=== PATIENT | male | born 1940 | race Caucasian/White ===

== ENCOUNTER 2017-09-13 13:30 | Outpatient (RCR) | payer MEDICARE, OTHER, SELFPAY ==
--- NOTE | 2017-07-10 14:42 | HP.PTEVAL_ITS ---
Patient's Visit Information AZRA OBRIEN is a 77 year old M referred to Physical Therapy by Emma Mcqueen with a diagnosis of L1-2 Laminectomy. Date of Evaluation: 07/10/17 Physical Therapist: Braydon Kendall PT, - Visit Plan Frequency: 2-3x /Week Duration: 4-6 Weeks Plan: Core stability, LE stretching, bike, and HEP - Subjective Subjective: DOS: 05/25/17. Pt had a laminectomy performed at L1-2. Pt reports he had severe LBP for greater than 7 years. Pt reports he is feeling much better now. Pt he is now able to walk much further and stand much easier since DOS. L LE is much stronger at this time. Pt reports no T or N at this time. Pt reports he had radiculopathy prior to the surgery. Pt denies sleep diff secondary to pain. Pt is currently 0/10 at all times. Able to negotiate stairs with no difficulty - Pain LBP Pain Intensity (Out of 10): 0 - Objective Neuro: B LE sensation is WNL to light touch. B pat reflex= 1/3. MMT: B LE's 5/ 5 throughout. Gait: Pt is able to ambulate 340' untill needing to sit down to rest - Goals Goal 1:: Increase core stability x 1 grade to aid with increasing ozzy for ambulation Goal Time Frame: 4-6 Weeks Goal 2:: Pt will be able to ambulate greater than 680 to aid with community ambulation Goal Time Frame: 4-6 Weeks Goal 3:: I with HEP Goal Time Frame: 4-6 Weeks - Rehabilitation Potential Physical Therapy Diagnosis: Pt has LBP and core weakness secondary to L1-2 laminectomy Rehabilitation Potential: Good - Anticipated Interventions Patient/Client Instruction: Educate patient on: Condition, Plan of Care For the Purpose of:: To improve self management Therapeutic Exercise to Include: Strength training, Endurance training, Body mechanics, Postural training, Flexibilty training, Dynamic Lumbar Stabilization For the Purpose of:: To decrease pain, To increase ROM, To improve muscle performance and motor function Cryotherapy (ice pack, ice massage): Yes For the Purpose of:: To decrease pain Thank you for the opportunity to evaluate your patient. For Medicare and Medicare HMO plans, please review the plan of care and approve it. It will need to be FAXED BACK to us at [phone] for Medicare purposes. Please let me know if there are questions or concerns regarding this plan of care. Physician Signature: Date:
--- NOTE | 2017-08-07 14:06 | HP.PTREVAL_ITS ---
Emma Mcqueen, It has been my pleasure to treat AZRA OBRIEN over the last 9 visits for L1-2 Laminectomy. Please see the progress note below for an update on the physical therapy plan of care! Subjective: Pt reports that he is feeling good. Pt is now able to lift his L leg higher Objective/Function: Pt has 0/10 LBP. Gait ozzy has improved to 510'. Pt is progressing with HEP Plan Plan: Continue: Core stability, LE stretching, bike, and HEP Goals Goal 1:: Increase core stability x 1 grade to aid with increasing ozzy for ambulation Goal Time Frame: 4-6 Weeks Goal Progress: Progressing Goal 2:: Pt will be able to ambulate greater than 680 to aid with community ambulation Goal Time Frame: 4-6 Weeks Goal Progress: Progressing Goal 3:: I with HEP Goal Time Frame: 4-6 Weeks Goal Progress: Progressing Anticipated Interventions Patient/Client Instruction: Educate patient on: Condition, Plan of Care For the Purpose of:: To improve self management Therapeutic Exercise to Include: Strength training, Endurance training, Body mechanics, Postural training, Flexibilty training, Dynamic Lumbar Stabilization For the Purpose of:: To decrease pain, To increase ROM, To improve muscle performance and motor function Cryotherapy (ice pack, ice massage): Yes For the Purpose of:: To decrease pain Please do not hesitate to contact me at [phone] by phone or Fax: if you have questions or concerns regarding this new plan of care! Sincerely, Braydon Kendall, PT,
--- NOTE | 2017-09-13 14:02 | HP.PTDCSUM_ITS ---
HP - PT D/C Summary It has been my pleasure to treat AZRA OBRIEN under orders from Emma Mcqueen, for the diagnosis of L1-2 Laminectomy for a total of 16 visit(s). Discharge Date: Please see the following information for a summary of their discharge status. - Subjective Subjective: No pain this date. Able to get in/out of car I now - Pain LBP Pain Intensity (Out of 10): 0 Left Hip Pain Intensity (Out of 10): 0 - Overall Improvement % Improvement: 65 - Objective Objective/Function: Pt is still very limited with ambulation as he can walk 340 ' I until fatigued. Pt is I with HEP. Core and LE strength improving as well as he is I with car transfers at this time. Pt is progressing well and will cont with HEP - Goals Goal 1:: Increase core stability x 1 grade to aid with increasing ozzy for ambulation Goal Progress: Progressing Goal 2:: Pt will be able to ambulate greater than 680 to aid with community ambulation Goal Progress: Progressing Goal 3:: I with HEP Goal Progress: Goal Met - Plan Plan: Discontinue - D/C Information If there are questions or concerns regarding this patient's physical therapy, please feel free to call me at [phone]. Thank you for the referral of this patient. Sincerely, Braydon Kendall, PT,
== END 2017-09-13 19:00 | disposition home or self-care (01) ==
LOC: PT 13:30
PROVIDERS: Family Provider Family Medicine; PCP Family Medicine; Visit Provider Orthopaedic Surgery
DX: Z98.890 Other specified postprocedural states (principal)
CPT/HCPCS: 97110; 97161; 97530; G8981; G8982; G8983

== ENCOUNTER → 2017-09-27 15:46 | Outpatient (CLI) | payer MEDICARE, OTHER, SELFPAY ==
[2017-08-01 14:40] VITALS: BP 142/74
[2017-09-27 17:43] LABS: Albumin, Serum 3.6 g/dL (3.2-5.0); BUN 38 mg/dL (7-18); BUN/Creat Ratio 13.5 RATIO (10-20); Calcium,Total 8.3 mg/dL (8.5-10.1); Chloride 104 mmol/L (98-107); Creatinine, Serum 2.81 mg/dL (0.70-1.30); EST Glomerular Filtration Rate 23 mL/min (>60); Est Glom Filt Rate - Afr Amer 28 mL/min (>60); Glucose 124 mg/dL (74-106); Phosphorus 3.2 mg/dL (2.5-4.9); Sodium Level 142 mmol/L (136-145)
== END ==
PROVIDERS: Family Provider Family Medicine; PCP Family Medicine; Visit Provider Internal Medicine Nephrology
DX: N18.4 Chronic kidney disease, stage 4 (severe) (principal)
CPT/HCPCS: 36415; 80069

== ENCOUNTER → 2017-12-17 08:03 | Outpatient (CLI) | payer MEDICARE, OTHER, SELFPAY ==
[2017-12-17 10:02] LABS: Absolute Lymphocyte Count 2.85 X10^3/ul (0.83-4.51); Absolute Neutrophil Count 6.6 X10^3/uL (2.0-7.7); Basophil# 0.07 X10^3/uL; Basophil% 0.6 % (0-1); Eosinophil# 0.56 X10^3/uL; Eosinophils% 4.9 % (0-5); Hematocrit 36.5 % (40-54); Hemoglobin 11.9 g/dl (13.0-16.5); Lymphocyte # 2.85 X10^3/ul (4.0); Lymphocyte % 25.2 % (19-41); Mean Corp Hgb Conc 32.6 g/gl (32-36); Mean Corpuscular Hgb 32.8 pg (27.0-32.0); Mean Corpuscular Volume 100.6 fL (80-94); Mean Platelet Vol. 10.9 fl (6.2-12.0); Monocyte# 1.27 X10^3/uL; Monocyte% 11.2 % (0-10); Neutrophil # 6.55 X10^3/uL (2.7-7.7); Neutrophil % 57.8 % (47-70); Platelet Count 275 K/mm3 (150-450); RBC Distribution Width CV 12.3 % (11.6-14.6); RBC Distribution Width SD 43.8 fl (35.1-43.9); Red Blood Count 3.63 M/mm3 (4.6-6.2); White Blood Count 11.3 K/mm3 (4.4-11.0)
[2017-12-17 10:03] LABS: POSITIVE COUNT NO; POSITIVE DIFFERENTIAL NO; POSITIVE MORPHOLOGY NO
[2017-12-17 10:15] LABS: ALB/GLOB Ratio 0.9 RATIO (0.9-2.4); AST(SGOT) 15 U/L (15-37); Alanine Aminotransfer ALT/SGPT 19 U/L (16-61); Albumin, Serum 3.2 g/dL (3.2-5.0); Alkaline Phosphatase 94 U/L (45-117); Anion Gap 6 (5-15); BUN 42 mg/dL (7-18); BUN/Creat Ratio 14.9 RATIO (10-20); Calcium,Total 8.4 mg/dL (8.5-10.1); Chloride 108 mmol/L (98-107); Cholesterol 126 mg/dL (200); Creatinine, Serum 2.82 mg/dL (0.70-1.30); EST Glomerular Filtration Rate 23 mL/min (>60); Est Glom Filt Rate - Afr Amer 28 mL/min (>60); Globulin 3.5 g/dL (2.2-4.2); Glucose 131 mg/dL (74-106); High Density Lipoprotein 36 mg/dL; Potassium 4.3 mmol/L (3.5-5.1); Protein, Total 6.7 g/dL (6.4-8.2); Sodium Level 142 mmol/L (136-145); Triglycerides 142 mg/dL; Very Low Density Lipoprotein 28 mg/dL (5-40)
== END ==
PROVIDERS: Family Provider Family Medicine; PCP Family Medicine; Visit Provider Family Medicine
DX: E78.00 Pure hypercholesterolemia, unspecified (principal); E55.9 Vitamin D deficiency, unspecified
CPT/HCPCS: 36415; 80053; 80061; 82306; 85025

== ENCOUNTER → 2018-01-03 07:59 | Outpatient (CLI) | payer MEDICARE, OTHER, SELFPAY | PROVIDERS: Family Provider Family Medicine; PCP Family Medicine; Visit Provider Internal Medicine Nephrology | DX: E11.22 Type 2 diabetes mellitus with diabetic chronic kidney disease (principal); N18.4 Chronic kidney disease, stage 4 (severe) ==

== ENCOUNTER → 2018-01-29 14:49 | Outpatient (CLI) | payer MEDICARE, OTHER, SELFPAY ==
[2018-01-29 17:23] LABS: Albumin, Serum 3.1 g/dL (3.2-5.0); BUN 39 mg/dL (7-18); BUN/Creat Ratio 14.3 RATIO (10-20); Calcium,Total 8.6 mg/dL (8.5-10.1); Chloride 107 mmol/L (98-107); Creatinine, Serum 2.72 mg/dL (0.70-1.30); EST Glomerular Filtration Rate 24 mL/min (>60); Est Glom Filt Rate - Afr Amer 29 mL/min (>60); Glucose 146 mg/dL (74-106); Phosphorus 3.4 mg/dL (2.5-4.9); Potassium 4.1 mmol/L (3.5-5.1); Sodium Level 141 mmol/L (136-145)
[2018-01-29 17:29] LABS: Protein, Urine (Random) 52.6 mg/dL (<11.9); Protein:Creat Ratio 931 mg/g CRE (0-200)
[2018-01-30 08:36] LABS: PTHIN 128.8 pg/mL (18.4-80.1)
== END ==
PROVIDERS: Family Provider Family Medicine; PCP Family Medicine; Visit Provider Internal Medicine Nephrology
DX: E11.22 Type 2 diabetes mellitus with diabetic chronic kidney disease (principal); N18.4 Chronic kidney disease, stage 4 (severe)
CPT/HCPCS: 36415; 80069; 82570; 83970; 84156

== ENCOUNTER → 2018-04-09 14:09 | Outpatient (CLI) | payer MEDICARE, OTHER, SELFPAY | PROVIDERS: Family Provider Family Medicine; PCP Family Medicine; Visit Provider Internal Medicine Pulmonary Disease | DX: I27.20 Pulmonary hypertension, unspecified (principal) | CPT/HCPCS: 71250 ==

== ENCOUNTER → 2018-04-18 13:01 | Outpatient (CLI) | payer MEDICARE, OTHER, SELFPAY ==
[2018-04-18 14:04] LABS: Anion Gap 10 (5-15); Chloride 103 mmol/L (98-107); Potassium 4.5 mmol/L (3.5-5.1); Sodium Level 140 mmol/L (136-145)
[2018-04-18 17:15] LABS: Creatinine, Serum 2.92 mg/dL (0.70-1.30); EST Glomerular Filtration Rate 22 mL/min (>60); Est Glom Filt Rate - Afr Amer 27 mL/min (>60)
== END ==
PROVIDERS: Family Provider Family Medicine; PCP Family Medicine; Visit Provider Internal Medicine Pulmonary Disease
DX: I27.20 Pulmonary hypertension, unspecified (principal); Z79.899 Other long term (current) drug therapy
CPT/HCPCS: 36415; 80051; 82565

== ENCOUNTER → 2018-04-30 08:31 | Outpatient (CLI) | payer MEDICARE, OTHER, SELFPAY ==
[2018-04-30 10:38] LABS: Absolute Neutrophil Count 6.5 X10^3/uL (2.0-7.7); Basophil# 0.05 X10^3/uL; Basophil% 0.5 % (0-1); Eosinophil# 0.64 X10^3/uL; Eosinophils% 6.4 % (0-5); Hematocrit 35.6 % (40-54); Hemoglobin 11.6 g/dl (13.0-16.5); Lymphocyte % 18.9 % (19-41); Mean Corp Hgb Conc 32.6 g/gl (32-36); Mean Corpuscular Hgb 32.4 pg (27.0-32.0); Mean Corpuscular Volume 99.4 fL (80-94); Mean Platelet Vol. 10.7 fl (6.2-12.0); Neutrophil # 6.45 X10^3/uL (2.7-7.7); Neutrophil % 64.1 % (47-70); Platelet Count 269 K/mm3 (150-450); RBC Distribution Width CV 12.6 % (11.6-14.6); RBC Distribution Width SD 45.6 fl (35.1-43.9); Red Blood Count 3.58 M/mm3 (4.6-6.2); White Blood Count 10.1 K/mm3 (4.4-11.0)
[2018-04-30 10:41] LABS: POSITIVE COUNT NO; POSITIVE DIFFERENTIAL NO; POSITIVE MORPHOLOGY NO
[2018-04-30 11:10] LABS: Protein, Urine (Random) 34.5 mg/dL (<11.9); Protein:Creat Ratio 925 mg/g CRE (0-200)
[2018-04-30 11:15] LABS: ALB/GLOB Ratio 0.8 RATIO (0.9-2.4); AST(SGOT) 15 U/L (15-37); Alanine Aminotransfer ALT/SGPT 18 U/L (16-61); Alkaline Phosphatase 89 U/L (45-117); Anion Gap 10 (5-15); BUN 37 mg/dL (7-18); BUN/Creat Ratio 14.2 RATIO (10-20); Calcium,Total 8.4 mg/dL (8.5-10.1); Chloride 107 mmol/L (98-107); EST Glomerular Filtration Rate 25 mL/min (>60); Est Glom Filt Rate - Afr Amer 31 mL/min (>60); Globulin 3.6 g/dL (2.2-4.2); Glucose 123 mg/dL (74-106); Phosphorus 3.8 mg/dL (2.5-4.9); Potassium 4.6 mmol/L (3.5-5.1); Protein, Total 6.6 g/dL (6.4-8.2); Sodium Level 142 mmol/L (136-145)
[2018-04-30 11:18] LABS: AST(SGOT) 15 U/L (15-37); Alanine Aminotransfer ALT/SGPT 18 U/L (16-61); Alkaline Phosphatase 85 U/L (45-117); Bilirubin, Direct 0.15 mg/dL (0.00-0.30); Cholesterol 119 mg/dL (200); Globulin 3.6 g/dL (2.2-4.2); High Density Lipoprotein 31 mg/dL; Protein, Total 6.6 g/dL (6.4-8.2); Triglycerides 146 mg/dL; Very Low Density Lipoprotein 29 mg/dL (5-40)
[2018-04-30 11:26] LABS: Hemoglobin A1c 7.4 % (4.2-6.3)
[2018-04-30 11:30] LABS: BNP,B-Type NATRIURETIC PEPTIDE 70.7 pg/mL (0-100)
[2018-04-30 13:48] LABS: PTHIN 186.1 pg/mL (18.4-80.1)
[2018-05-01 12:13] LABS: Vitamin D,25 Hydroxy 45.7 ng/mL (29.95-100.01)
== END ==
PROVIDERS: Physician Assistant Medical; Family Provider Family Medicine; PCP Family Medicine; Visit Provider Family Medicine
DX: E11.22 Type 2 diabetes mellitus with diabetic chronic kidney disease (principal); N18.9 Chronic kidney disease, unspecified; E11.69 Type 2 diabetes mellitus with other specified complication; R06.09 Other forms of dyspnea; E78.00 Pure hypercholesterolemia, unspecified; E55.9 Vitamin D deficiency, unspecified
CPT/HCPCS: 36415; 80053; 80061; 80076; 82306; 82570; 83036; 83880; 83970; 84100; 84156; 85025

== ENCOUNTER → 2018-06-04 09:02 | Outpatient (CLI) | payer MEDICARE, OTHER, SELFPAY ==
--- NOTE | 2018-06-04 09:07 | RAD_ITS ---
STUDY: X-RAY - PARANASAL SINUSES REASON FOR EXAM: Male, 78 years old. Pain over left maxillary sinus. Nasal congestion. TECHNIQUE: 3 view(s) of the paranasal sinuses were obtained. COMPARISON: None. FINDINGS: There is mild mucosal thickening of the ethmoid and probably the maxillary sinuses. Frontal and sphenoid sinuses are well aerated. No air-fluid levels. Normal visualized facial bones. The soft tissue structures are unremarkable. RAD/Sinuses min 3 Views IMPRESSION: Mild ethmoid and maxillary sinus mucosal thickening. Electronically Signed: Wil West MD at 2:13 EDT , Service support ,
== END ==
PROVIDERS: Family Provider Family Medicine; PCP Family Medicine; Referring Provider Family Medicine; Visit Provider Family Medicine
DX: G50.1 Atypical facial pain (principal)
CPT/HCPCS: 70220

== ENCOUNTER 2018-06-18 06:00 | Outpatient (RCR) | payer SELFPAY | END 2018-06-19 23:59 | LOC: PR 06:00 | PROVIDERS: Family Provider Family Medicine; PCP Family Medicine; Visit Provider Family Medicine | DX: Z00.00 Encounter for general adult medical examination without abnormal findings (principal) ==

== ENCOUNTER 2018-07-18 06:00 | Outpatient (RCR) | payer SELFPAY | END 2018-07-19 23:59 | LOC: PR 06:00 | PROVIDERS: Family Provider Family Medicine; PCP Family Medicine; Visit Provider Family Medicine | DX: Z00.00 Encounter for general adult medical examination without abnormal findings (principal) ==

== ENCOUNTER → 2018-07-30 09:00 | Outpatient (CLI) | payer MEDICARE, OTHER, SELFPAY ==
[2018-05-08 14:40] VITALS: BMI 44.6
[2018-07-30 14:17] LABS: Albumin, Serum 3.4 g/dL (3.2-5.0); BUN 43 mg/dL (7-18); BUN/Creat Ratio 14.3 RATIO (10-20); Calcium,Total 8.6 mg/dL (8.5-10.1); Chloride 103 mmol/L (98-107); EST Glomerular Filtration Rate 22 mL/min (>60); Est Glom Filt Rate - Afr Amer 26 mL/min (>60); Glucose 181 mg/dL (74-106); Phosphorus 3.8 mg/dL (2.5-4.9); Potassium 4.4 mmol/L (3.5-5.1); Sodium Level 142 mmol/L (136-145)
[2018-07-30 14:43] LABS: PTHIN 251.4 pg/mL (18.4-80.1)
--- OUTSIDE RECORDS SUMMARY | 2018-11-09 06:52 | XMS RPT_ITS ---
:1940 Author Organization OHIP Support Name Relationship Address Phone PATRICIA, ISAEL Unavailable [facility] + [place] [address] R Unavailable Unavailable Unavailable ROMICK, TAWNY Unavailable [address] + [place] [address] PATRICIA, ISAEL Unavailable [facility] + [place] [address] R Unavailable Unavailable Unavailable ROMICK, TAWNY Unavailable [address] + [place] [address] PATRICIA, ISAEL Unavailable [facility] + [place] [address] R Unavailable Unavailable Unavailable ROMICK, TAWNY Unavailable [address] + [place] [address] PATRICIA, ISAEL Unavailable [facility] + [place] [address] R Unavailable Unavailable Unavailable ROMICK, TAWNY Unavailable [address] + [place] [address] PATRICIA, ISAEL Unavailable [facility] + [place] [address] R Unavailable Unavailable Unavailable ROMICK, TAWNY Unavailable [address] + [place] [address] PATRICIA, ISAEL Unavailable Unavailable + [place] [address] R Unavailable Unavailable Unavailable ROMICK, TAWNY Unavailable [address] + [place] [address] PATRICIA, ISAEL Unavailable [facility] + [place] [address] R Unavailable Unavailable Unavailable ROMICK, TAWNY Unavailable [address] + [place] [address] PATRICIA, ISAEL Unavailable [facility] + [place] [address] R Unavailable Unavailable Unavailable ROMICK, TAWNY Unavailable [address] + [place] [address] PATRICIA, ISAEL Unavailable Unavailable + [place] [address] R Unavailable Unavailable Unavailable ROMICK, TANWY Unavailable [address] + [place] [address] PATRICIA, ISAEL Unavailable . + [place] [address] R Unavailable Unavailable Unavailable ROMICK, TAWNY Unavailable [address] + [place] [address] PATRICIA, ISAEL Unavailable . + [place] [address] R Unavailable Unavailable Unavailable ROMICK, TAWNY Unavailable [address] + [place] [address] PATRICIA, ISAEL Unavailable Unavailable + [place] [address] R Unavailable Unavailable Unavailable ROMICK, TAWNY Unavailable [address] + [place] [address] PATRICIA, ISAEL Unavailable 1 + [place] [address] R Unavailable Unavailable Unavailable ROMICK, TAWNY Unavailable [address] + [place] [address] PATRICIA, ISAEL Unavailable 1 + [place] [address] R Unavailable Unavailable Unavailable ROMICK, TAWNY Unavailable [address] + [place] [address] PATRICIA, ISAEL Unavailable Unavailable + [place] [address] R Unavailable Unavailable Unavailable ROMICK, TAWNY Unavailable [address] + [place] [address] PATRICIA, ISAEL Unavailable Unavailable + [place] [address] R Unavailable Unavailable Unavailable ROMICK, TAWNY Unavailable [address] + [place] [address] PATRICIA, ISAEL Unavailable Unavailable + [place] [address] R Unavailable Unavailable Unavailable ROMICK, TAWNY Unavailable [address] + [place] [address] PATRICIA, ISAEL Unavailable Unavailable + [place] [address] R Unavailable Unavailable Unavailable ROMICK, TAWNY Unavailable [address] + [place] [address] PATRICIA, ISAEL Unavailable NA + [place], [place] R Unavailable Unavailable Unavailable ROMICK, TAWNY Unavailable [address] + [place] [address] PATRICIA, ISAEL Unavailable NA + [place], [place] R Unavailable Unavailable Unavailable ROMICK, TAWNY Unavailable [address] + [place] [address] PATRICIA, ISAEL Unavailable NA + [place], [place] R Unavailable Unavailable Unavailable ROMICK, TAWNY Unavailable [address] + [place] [address] PATRICIA, ISAEL Unavailable NA + [place], [place] R Unavailable Unavailable Unavailable ROMICK, TAWNY Unavailable [address] + [place] [address] PATRICIA, ISEAL Unavailable NA + [place], [place] R Unavailable Unavailable Unavailable ROMICK, TAWNY Unavailable [phone] [place] [address] Care Team Providers Name Role Phone Elizabeth Rios Attending Unavailable Dc, Dangelo Primary Care Unavailable Tamar Isael Benito Attending Unavailable Tamar Isael M Referring Unavailable Dc, Dangelo Primary Care Unavailable Yanique Sloan Attending Unavailable Dao, Dangelo Referring Unavailable Yanique Sloan Attending Unavailable Yanique Sloan Referring Unavailable Dc, Dangelo Primary Care Unavailable Dc, Dangelo Attending Unavailable Dc, Dangelo Referring Unavailable Dc, Dangelo Primary Care Unavailable Elier Dcic Attending Unavailable Dc, Dangelo Referring Unavailable Dc, Dangelo Primary Care Unavailable Elizabeth Rios Attending Unavailable Dc, Dangelo Primary Care Unavailable Elizabeth Rios Referring Unavailable Elizabeth Rios Attending Unavailable Dc, Dangelo Primary Care Unavailable GabrielElizabeth Referring Unavailable Dc, Dangelo Attending Unavailable Dc, Dangelo Primary Care Unavailable Emma Mcqueen Attending Unavailable Dc, Dangelo Referring Unavailable Dc, Dangelo Primary Care Unavailable Elizabeth Rios Attending Unavailable Dc, Dangelo Primary Care Unavailable Sibilia, Chema Attending Unavailable Sibilia, Chema Referring Unavailable Dc, Dangelo Primary Care Unavailable Sibilia, Chema Attending Unavailable Sibilia, Chema Referring Unavailable Dc, Dangelo Primary Care Unavailable Elizabeth Rios Attending Unavailable Dc, Dangelo Primary Care Unavailable Dc, Dangelo Attending Unavailable Dc, Dangelo Primary Care Unavailable Sofiya Aldana Attending Unavailable Jj De León Attending Unavailable Dc, Dangelo Referring Unavailable Dc, Dangelo Primary Care Unavailable Elizabeth Rios Attending Unavailable Dc, Dangelo Primary Care Unavailable Dc, Dangelo Attending Unavailable Dc, Dangelo Primary Care Unavailable Dc, Dangelo Attending Unavailable Dc, Dangelo Referring Unavailable Dc, Dangelo Primary Care Unavailable Emma Mcqueen Attending Unavailable Dc, Dangelo Referring Unavailable Dc, Dangelo Attending Unavailable Dc, Dangelo Primary Care Unavailable Dc, Dangelo Attending Unavailable Dc, Dangelo Primary Care Unavailable Dc, Dangelo Referring Unavailable PROBLEMS PROBLEMS DATE TYPE CONDITION / CODE ATTENDING STATUS SOURCE Unknown M25.561 - Pain in right [facility], Active [place] knee / M25.561(ICD-10) [facility] Repository Unknown 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[facility], Active [place] 8 primary osteoarthritis, [facility] right knee / Hospital M17.11(ICD-10) Repository Unknown I25.10 - Atherosclerotic [facility], Active [place] 8 heart disease of [place] [facility] coronary artery without Hospital angina pectoris / Repository I25.10(ICD-10) Unknown C61 - Malignant neoplasm [facility], Active [place] 8 of prostate / Isael M [facility] C61(ICD-10) Hospital Repository Unknown Z00.00 - Encounter for Dangelo Dc Active [place] 9 general adult medical Community examination without Hospital abnormal findings / Repository Z00.00(ICD-10) Unknown N18.4 - Chronic kidney Elier Dcic Active [place] 9 disease, stage 4 Community (severe) / N18.4(ICD-10) Hospital Repository Unknown 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, 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 / Hospital N25.81(ICD-10) Repository Unknown G50.1 - Atypical facial Dangelo Dc Active [place] 8 pain / G50.1(ICD-10) [facility] Hospital Repository Unknown I27.20 - Pulmonary [facility], Active [place] 8 hypertension, Jj Community unspecified / Hospital I27.20(ICD-10) Repository Unknown 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 [place] [place] Status: Signed Intake Intake Visit Reasons: RIGHT [...] Sinus bradycardia (Acute) Atherosclerotic heart disease of [place] coronary artery without angina pectoris (Chronic) Renal [...] Route Admin Location Lot Number Expiration Date[employer] 80 mg Intra-Articularright knee [id number] 10/19/19 6724-2102-97 [employer]Site Vision Assessment AND Plan 1. 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, [address] CRYSTALS, BODY FLUID Collected: 08/06/2018 Status: C Source: [place] 6:27 PM [facility] REPOSITORY TYPE CODE TESTS RESULT OUT OF [...] follow Performed By: #### L200.0400, L200.4175 #### [facility] [address] [place], [place], [address] Observed: 08/06/2018 Status: F Source: [place] CULTURE, BODY FLUID 6:27 PM [facility] REPOSITORY List Antibiotics Last 48 Hours? UNK List Antibiotics to be Started? UNK Gram Stain Centrifuged Specimen? Culture performed on centrifuged specimen Gram Stain 1+ Red Blood Cells No White Blood Cells No organisms seen Body Fluid Cult No growth in 5 days. Cult, Anaerobic No growth in 5 days. Performed By: #### M100.1300 #### [facility] [address] [place], [place], [address] GLUCOSE, SYNOVIAL Collected: 08/06/2018 Status: F Source: [place] FLUID 6:27 PM [facility] REPOSITORY Order Comment: Specimen Source: SYNOVIAL TYPE [...] OR MORE Observed: 08/06/2018 Status: F Source: [facility] 3:41 PM [facility] REPOSITORY [facility] Imaging Services [address] [place] [address] Knee 4 or More Views MR#: [id number] Acct: [id number] Name: AZRA OBRIEN Rep #: [id number] : 1940 M 78 From: Rose Grey MD PCP: Dangelo Dc MD Status: REG CLI Study: Knee 4 or More Views Date of Exam: 08/06/18 Exam# [id number] Ordering Dr: Yanique Sloan DO STUDY: X-RAY [...] CC: Yanique Sloan DO; Dangelo Dc MD House Nurse: Signed PSA,TOTAL- DIAGNOSTIC Collected: 08/05/2018 Status: F Source: [place] 11:27 AM [facility] REPOSITORY TYPE CODE TESTS RESULT OUT OF RANGE REFERENCE UNITS LAB L501.9940 0.0-4.0 ng/mL PSA, Normal DIAGNOSTIC 0.22 Result Comment: This test was performed using the TPSA assay method for the [employer] chemistry system. Values obtained with different assay methods cannot be used interchangably. When changing PSA assays in the course of monitoring a patient, additional sequential testing should be carried out to confirm baseline values. Performed By: #### L501.9940 #### [facility] [address] [place], [place], [address] RENAL PROFILE Collected: 07/30/2018 Status: F Source: [place] 1:31 PM [facility] REPOSITORY TYPE CODE TESTS RESULT OUT OF [...] CO2 28.0 Performed By: #### L500.3600 #### [facility] [address] [place], [address] PTHIN Collected: 07/30/2018 Status: F Source: [place] 1:31 PM [facility] REPOSITORY TYPE CODE TESTS RESULT OUT OF RANGE REFERENCE UNITS LAB L509.1000 18.4-80.1 pg/mL High PTHIN 251.4 Performed By: #### L509.1000 #### [facility] [address] [place], [address] RENAL PROFILE Collected: 07/30/2018 Status: F Source: [place] 1:31 PM [facility] REPOSITORY TYPE CODE TESTS RESULT OUT OF [...] CO2 28.0 Performed By: #### L500.3600 #### [facility] [address] [place], [address] PTHIN Collected: 07/30/2018 Status: F Source: [place] 1:31 PM [facility] REPOSITORY TYPE CODE TESTS RESULT OUT OF RANGE REFERENCE UNITS LAB L509.1000 18.4-80.1 pg/mL High PTHIN 251.4 Performed By: #### L509.1000 #### [facility] [address] [place], [place], [address] ORTHOPEDIC VISIT Observed: 06/11/2018 Status: F Source: [place] REPORT 11:45 AM [facility] REPOSITORY [facility] Orthopa[facility]ics AND Sports Medicine [address] [place] [address] OFFICE VISIT Date of Service: 06/11/18 MR#: [id number] Acct: [id number] Name: AZRA OBRIEN Ekta Rep #: [id number] : 1940 Provider: Emma Mcqueen MD Age/Sex: 78/M Location: [facility] [place] Status: Signed Intake [...] mg PO DAILY 05/08/18 [History Confirmed 05/08/18] [facility] Medical History Sinus bradycardia (Acute) Atherosclerotic heart disease of [place] coronary artery without angina pectoris (Chronic) Renal [...] MD Cosigner Signature: Date (if applicable) CC: SINUSES MIN 3 VIEWS Observed: 06/04/2018 Status: F Source: [place] 9:08 AM [facility] REPOSITORY [facility] Imaging Services [address] [place] [address] Sinuses min 3 Views MR#: [id number] Acct: [id number] Name: AZRA OBRIEN Rep #: [id number] : 1940 M 78 From: Wli [place] PCP: Dangelo Dc MD Status: REG CLI Study: Sinuses min 3 Views Date of Exam: 06/04/18 Exam# [id number] Ordering Dr: Dangelo Dc MD STUDY: X-RAY [...] Service support , CC: Dangelo Dc MD House Nurse: Signed CARDIOLOGY VISIT Observed: 05/08/2018 Status: F Source: [place] REPORT 3:28 PM [facility] REPOSITORY [facility] [address] [place] [address] OFFICE VISIT Date of Service: 05/08/18 MR#: [id number] Acct: [id number] Name: AZRA OBRIEN Rep #: [id number] : 1940 Provider: Jj De León MD Age/Sex: 78/M [place] [facility] [place]: Signed HPI HPI Details: AZRA OBRIEN, [...] mg PO DAILY 05/08/18 [History Confirmed 05/08/18] [facility] Medical History Sinus bradycardia (Acute) Atherosclerotic heart disease of [place] coronary artery without angina pectoris (Chronic) Renal [...] had a transthoracic echocardiogram on 03/02/2016 at [facility] Interpretation Summary The study was technically difficult. [...] an exercise tolerance test at 03/02/2016 at [facility] EXERCISE TOLERANCE TEST: The patient underwent pharmacologic [...] a diagnostic cardiac catheterization on 08/15/2016 at [facility] Final impression: 1. Elevated left ventricular end-diastolic [...] artery duplex study performed on 01/27/2011 at [facility] Right internal carotid artery stenosis less than 50%, which is not hemodynamically significant. Left internal carotid artery stenosis less than 50%, which is not hemodynamically significant. Patent and antegrade vertebrals bilaterally. Plaque formation is similar to the 2009 study with more acoustic shadowing on left, No obvious progression noted. Assessment AND Plan 1. Atherosclerosis of [place] coronary artery of [place] heart without angina pectoris I25.10 Plan At [...] Code Off vis,est,level 4 Diagnoses Atherosclerosis of [place] coronary artery of [place] heart without angina pectoris I25.10 [place] vs. transplanted heart: [place] heart Pulmonary hypertension I27.20 Pure hypercholesterolemia E78.00 Hyperlipidemia type: pure hypercholesterolemia HTN (hypertension), benign I10 Renal insufficiency N28.9 Coding Level of Care Code Off vis,est,level 4 Diagnoses Atherosclerosis of [place] coronary artery of [place] heart without angina pectoris I25.10 [place] vs. transplanted heart: [place] heart Pulmonary hypertension I27.20 Pure hypercholesterolemia E78.00 Hyperlipidemia type: pure hypercholesterolemia HTN (hypertension), benign I10 Renal insufficiency N28.9 05/08/18 1528 <Electronically signed by Jj De León MD> Date Jj De León MD Cosigner Signature: Date (if applicable) CC: Elizabeth Rios DO; Dangelo Dc MD; Chema Syed MD PTHIN Collected: 04/30/2018 Status: F Source: [place] 8:48 AM [facility] REPOSITORY TYPE CODE TESTS RESULT OUT OF RANGE REFERENCE UNITS LAB L509.1000 18.4-80.1 pg/mL High PTHIN 186.1 Performed By: #### L509.1000 #### [facility] [address] [place], [place], [address] LIVER PROFILE Collected: 04/30/2018 Status: F Source: [place] 8:40 AM [facility] REPOSITORY TYPE CODE TESTS RESULT OUT OF [...] 0.15 Performed By: #### L500.3400, L500.4100 #### [facility] [address], [place], [address] LIPID PROFILE Collected: 04/30/2018 Status: F Source: [place] 8:40 AM [facility] REPOSITORY TYPE CODE TESTS RESULT OUT OF [...] 29 Performed By: #### L500.3400, L500.4100 #### [facility] [address] [place], [place], [address] CBC W/DIFF, AUTOMATED Collected: 04/30/2018 Status: F Source: [place] 8:35 AM [facility] REPOSITORY Order Comment: Order Date: 04/24/18 Order Info: 0184-1 - CBCD Comments: cc copy to Kunal Smith [facility] TYPE CODE TESTS RESULT OUT OF RANGE [...] Performed By: #### L100.0100, L500.4050, L501.9985 #### [facility] [address] [place], [address] COMPREHENSIVE METABOLIC Collected: 04/30/2018 Status: F Source: [facility] 8:35 AM [facility] REPOSITORY Order Comment: Order Date: 04/24/18 Order Info: 0786-1 - [facility] SEND RESULTS TO , , AND Comments: [...] Performed By: #### L100.0100, L500.4050, L501.9985 #### [facility] [address] [place], [address] HEMOGLOBIN A1C Collected: 04/30/2018 Status: F Source: [place] 8:35 AM [facility] REPOSITORY Order Comment: Order Date: 04/24/18 Order Info: 4548-4 - A1C Comments: cc copy to Kunal Smith, Genetcc copy to Kunal Smith [facility] TYPE CODE TESTS RESULT OUT OF RANGE REFERENCE UNITS LAB L501.9985 4.2-6.3 % High HGB A1C 7.4 Performed By: #### L100.0100, L500.4050, L501.9985 #### [facility] [address] [place], [address] PROTEIN+CREATININE Collected: Status: F Source: [place] RATIO,URINE 04/30/2018 8:35 AM [facility] REPOSITORY Order Comment: SEND RESULTS TO TYPE CODE TESTS RESULT OUT OF RANGE REFERENCE UNITS LAB L501.1200 NO RANGE EST. mg/dL Normal UR CREAT 37.30 LAB L501.1930 <11.9 mg/dL High 34.5 PROTEIN,UR.R AN. LAB L501.1940 0-200 mg/g CRE High PROT:CRE 925 RATIO Performed By: #### L501.0900 #### [facility] [address] [place], [address] PHOSPHORUS Collected: 04/30/2018 Status: F Source: [place] 8:35 AM [facility] REPOSITORY Order Comment: Order Date: 04/24/18 Order Info: 0786-1 - CMP SEND RESULTS TO , , AND Comments: cc copy to Kunal Smith [facility] TYPE CODE TESTS RESULT OUT OF RANGE REFERENCE UNITS LAB L501.2300 2.5-4.9 mg/dL Normal PHOS 3.8 Performed By: #### L501.2300 #### [facility] [address] [place], [address] BNP,B-TYPE NATRIURETIC Collected: 04/30/2018 Status: F Source: [place] 8:35 AM [facility] REPOSITORY Order Comment: SEND RESULTS TO , , AND TYPE CODE TESTS RESULT OUT OF RANGE REFERENCE UNITS LAB L503.6620 0-100 pg/mL Normal B-TYPE 70.7 [facility] PEP Performed By: #### L503.6620 #### [facility] [address] [place], [place], [address] VITAMIN D,25 HYDROXY Collected: 04/30/2018 Status: F Source: [place] 8:35 AM [facility] REPOSITORY Order Comment: SEND RESULTS TO , [...] (>250 nmol/L) Performed By: #### L506.1000 #### [facility] [address] [place], [place], [address] ELECTROLYTE PANEL Collected: 04/18/2018 Status: F Source: [place] 1:08 PM [facility] REPOSITORY TYPE CODE TESTS RESULT OUT OF RANGE REFERENCE UNITS LAB L501.5300 136-145 mmol/L Normal NA 140 LAB L501.5600 3.5-5.1 mmol/L Normal K 4.5 LAB L501.5900 98-107 mmol/L Normal CL 103 LAB L501.6100 21.0-32.0 mmol/L Normal CO2 27.0 LAB L501.6200 5-15 Normal GAP 10 Performed By: #### L501.5294, L501.1105 #### [facility] [address] [place], [address] SERUM CREATININE AND Collected: 04/18/2018 Status: F Source: [place] GFR 1:08 PM [facility] REPOSITORY TYPE CODE TESTS RESULT OUT OF [...] Calc Performed By: #### L501.5294, L501.1105 #### [facility] [address] [place], [address] CHEST WITHOUT Observed: 04/09/2018 Status: F Source: [place] CONTRAST 2:10 PM [facility] REPOSITORY [facility] Imaging Services [address] [place] [address] Chest without Contrast MR#: [id number] Acct: [id number] Name: AZRA OBRIEN Rep #: [id number] : 1940 M 77 From: Mart Lawson MD PCP: Dangelo Dc MD Status: REG CLI Study: Chest without Contrast Date of Exam: 04/09/18 Exam# [id number] Ordering Dr: Chema Syed MD STUDY: CT [...] CC: Dangelo Dc MD; Chema Syed MD House Nurse: Signed RENAL PROFILE Collected: 01/29/2018 Status: F Source: [place] 2:51 PM [facility] REPOSITORY TYPE CODE TESTS RESULT OUT OF [...] CO2 27.0 Performed By: #### L500.3600 #### [facility] [address] [place], [address] PROTEIN+CREATININE Collected: Status: F Source: [place] RATIO,URINE 01/29/2018 2:51 PM [facility] REPOSITORY TYPE CODE TESTS RESULT OUT OF RANGE REFERENCE UNITS LAB L501.1200 NO RANGE EST. mg/dL Normal UR CREAT 56.50 LAB L501.1930 <11.9 mg/dL High 52.6 PROTEIN,UR.R AN. LAB L501.1940 0-200 mg/g CRE High PROT:CRE 931 RATIO Performed By: #### L501.0900 #### [facility] [address], [place], [address] PTHIN Collected: 01/29/2018 Status: F Source: [place] 2:51 PM [facility] REPOSITORY TYPE CODE TESTS RESULT OUT OF RANGE REFERENCE UNITS LAB L509.1000 18.4-80.1 pg/mL High PTHIN 128.8 Performed By: #### L509.1000 #### [facility] [address] [place], [address] ORTHOPEDIC VISIT Observed: 01/08/2018 Status: F Source: [place] REPORT 3:45 PM [facility] REPOSITORY [facility] [address] [place] [address] OFFICE VISIT Date of Service: 01/08/18 MR#: [id number] Acct: [id number] Name: AZRA OBRIEN Rep #: [id number] : 1940 Provider: Emma Mcqueen MD Age/Sex: 77/M Location: [facility] [place] Status: Signed Intake [...] up for s/p L1- L2 laminectomy at [facility] dos 05/25/17. Patient states that his back is doing fantastic and he denies any pain. Patient feels like his surgery was helpful. He has difficult time ambulating long distances due to knee pain and shortness of breath. 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 He denies any back pain with ambulating. [...] MD Cosigner Signature: Date (if applicable) CC: CBC W/DIFF, AUTOMATED Collected: 12/17/2017 Status: F Source: [place] 8:05 AM [facility] REPOSITORY Order Comment: Order Date: 10/22/17 Order Info: [id number] - CBCD TYPE CODE TESTS RESULT OUT OF RANGE [...] By: #### L100.0100, L500.4050, L500.4100, L506.1000 #### [facility] [address] [place], [address] COMPREHENSIVE METABOLIC Collected: 12/17/2017 Status: F [facility] REPOSITORY Order Comment: Order Date: 10/22/17 Order Info: [id number] - CMP Order Info: [id number] - LIPID TYPE CODE TESTS RESULT OUT [...] By: #### L100.0100, L500.4050, L500.4100, L506.1000 #### [facility] [address] [place], [place], [address] LIPID PROFILE Collected: 12/17/2017 Status: F Source: [place] 8:05 AM [facility] REPOSITORY Order Comment: Order Date: 10/22/17 Order Info: [id number] - CMP Order Info: [id number] - LIPID TYPE CODE TESTS RESULT OUT [...] By: #### L100.0100, L500.4050, L500.4100, L506.1000 #### [facility] [address] [place], [place], [address] VITAMIN D,25 HYDROXY Collected: 12/17/2017 Status: F Source: [place] 8:05 AM [facility] REPOSITORY Order Comment: Order Date: 10/22/17 Order Info: [id number] - VITD25 TYPE CODE TESTS RESULT OUT OF RANGE REFERENCE UNITS LAB L506.1000 29.95-100.01 ng/mL Normal Vitamin D 45.0 25-OH Result Comment: Vitamin D 25(OH) Status Range Deficiency <20 ng/mL (50nmol/L) Insuffciency 20 - 30 ng/mL (50 - 75 nmol/L) Sufficiency 30 - 100 ng/mL (75 - 250 nmol/L) Toxicity >100 ng/mL (>250 nmol/L) Performed By: #### L100.0100, L500.4050, L500.4100, L506.1000 #### [facility] [address] [place], [place], [address] RENAL PROFILE Collected: 09/27/2017 Status: F Source: [place] 3:48 PM [facility] REPOSITORY TYPE CODE TESTS RESULT OUT OF [...] CO2 28.0 Performed By: #### L500.3600 #### [facility] [address] [place], [place], [address] ALLERGIES ALLERGIES DATE TYPE / CODE NAME / CODE REACTION SEVERITY SOURCE 08/06/2018 Drug tiotropium IRRITATION TO Unknown [place] Allergy/416 bromide/[id number] TEETHE [place] 706632[facility] Rep[facility] 08/06/2018 Drug hydrochlorothiazi Rash Unknown [place] Allergy/416 de/[id number](RXN [facility] 675474([facility] ED CT) Repository 08/06/2018 Drug gabapentin/T57495 dizziness Unknown [place] Allergy/416 4415(RXNORM) [place] [id number]([facility] ED CT) Repository 08/06/2018 Drug clonidine/K682181 Rash Unknown [place] Allergy/416 495(RXNORM) [place] [id number]([facility] ED CT) Repository ENCOUNTERS ENCOUNTERS ADMIT/DISCHARGE ACCOUNT ADMITTING ENCOUNTER LOCATION SOURCE NUMBER CLASS 08/30/2018 [id number] [address] [facility] Rep[facility] 08/26/2018 [id number] [facility] [place] [facility] ing:LAB.FUTUR Repository E 08/22/2018 [id number] Ambulatory [place] [facility] ing:OR Repository 08/06/2018 [id number] Ambulatory [place] [facility] ing:HPRAD Repository 08/06/2018/ [id number] Ambulatory BMSBuilding:B [place] 8 2 [facility] Repository 08/05/2018 [id number] Ambulatory [place] 4 [facility] ing:LAB Repository 08/01/2018/ [id number] Ambulatory [place] 8 5 [facility] ing:OR Repository 07/30/2018 [id number] Ambulatory [place] 7 [facility] ing:LAB.FUTUR Repository E 07/18/2018/ [id number] Ambulatory [place] 8 3 [facility] ing:OR Repository 06/18/2018/ [id number] Ambulatory [place] 8 0 [facility] ing:OR Repository 06/11/2018/ [id number] Ambulatory BMSBuilding:B [place] 8 3 [facility] Hospital Repository 06/04/2018 [id number] Ambulatory [place] 1 [facility] ing:MTRAD Repository 05/13/2018 [id number] Ambulatory [place] 7 [facility] ing:LAB.FUTUR Repository E 05/08/2018/ [id number] Ambulatory BMSBuilding:B [place] 8 6 [facility] Hospital Repository 05/02/2018 [id number] Ambulatory BMSBuilding:B [place] 3 [facility] Hospital Repository 04/30/2018 [id number] Ambulatory [place] 9 [facility] ing:MFPLAB Repository 04/18/2018 [id number] Ambulatory [place] 8 [facility] ing:MTLAB Repository 04/09/2018 [id number] Ambulatory [place] [address] [facility] ing:CT Repository 01/29/2018 [id number] Ambulatory [place] [address] [facility] ing:POLAB3 Repository 01/08/2018/ [id number] Ambulatory BMSBuilding:B [place] 8 0 [facility] Repository 01/03/2018 [id number] Ambulatory [place] [address] [facility] ing:LAB.FUTUR Repository E 12/17/2017 [id number] Ambulatory [place] [address] [facility] ing:MFPLAB Repository 09/27/2017 [id number] Ambulatory [place] [address] [facility] ing:LAB.FUTUR Repository E PAYERS PAYERS ENCOUNTER GUARANTOR PAYER SUBSCRIBER SOURCE 08/30/2018 MERLE W Primary MERLE W [place] [id number] Insurance:MEDICARE ROMICKDOB: [facility] PART A BPolicy Number: [id number] [id number] Repository 75752Ycu: (330) Date:2018-05-090799 () 08/30/2018 Secondary MERLE W [place] Insurance:HUMANA ROMICKDOB: [facility] [id number] Hospital Number: Repository [id number] Date:9837-69[place] [address]WP: 08/30/2018 Tertiary NOT GIVENUNK [place] Insurance:SELF PAY [facility] Number: Effective Repository Date:2018-08-20 08/26/2018 MERLE W Primary MERLE W [place] [id number] Insurance:MEDICARE ROMICKDOB: [facility] PART BPolicy Number: [id number], [place] [id number] Repository 63927Hyk: (330) Date:2018-08-26 [phone] () 08/26/2018 Secondary MERLE W [place] Insurance:HUMANA ROMICKDOB: [facility] [id number] Hospital Number: Repository [id number] Date:0847-56-71J[address] [address]VC: 08/26/2018 Tertiary NOT GIVENUNK [place] Insurance:SELF PAY [facility] Number: Effective Repository Date:2018-08-26 08/22/2018 MERLE W Primary MERLE W [place] [id number] Insurance:MEDICARE ROMICKDOB: Community MARY PART A BPolicy Number: [id number], [place] [id number] Repository [address]16[address]Cig: (600) Date:2018-07-31 [phone] () 08/22/2018 Secondary MERLE W [place] Insurance:HUMANA ROMICKDOB: [facility] [id number] Hospital Number: Repository [id number] Date:4023-10-29Pd [address] [address]HP: 08/22/2018 Tertiary NOT GIVENUNK [place] Insurance:SELF PAY [facility] Hospital Number: Effective Repository Date:2018-07-31 08/06/2018 MERLE W Primary MERLE W [place] [id number] Insurance:MEDICARE ROMICKDOB: [facility] MARY PART A BPolicy Number: [id number], [place] [id number] Repository 26672Hzm: (816) Date:2018-08-06 [phone] () 08/06/2018 Secondary MERLE W [place] Insurance:HUMANA ROMICKDOB: [facility] [id number] Hospital Number: Repository [id number] Date:6563-07-20Zw [address] [address]US: 08/06/2018 Tertiary NOT GIVENUNK [place] Insurance:SELF PAY [facility] Hospital Number: Effective Repository Date:2018-08-06 08/06/2018 MERLE W Primary MERLE W [place] [id number] Insurance:MEDICARE ROMICKDOB: Community MARY PART A BPolicy Number: [id number], [place] [id number] Repository 56678Ebm: (336) Date:2018-08-02 [phone] () 08/06/2018 Secondary MERLE W [place] Insurance:HUMANA ROMICKDOB: [facility] [id number] Hospital Number: Repository [id number] Date:7643-78-35Qk [address] [place] [address]ZG: 08/06/2018 Tertiary NOT GIVENUNK [place] Insurance:SELF PAY [facility] Number: Effective Repository Date:2018-08-05 08/05/2018 MERLE W Primary MERLE W [place] [id number] Insurance:MEDICARE ROMICKDOB: [facility] PART A BPolicy Number: [id number], [place] [id number] Repository 39[address]Mll: (680) Date:2018-08-050284 () 08/05/2018 Secondary MERLE W [place] Insurance:HUMANA ROMICKDOB: [facility] [id number] Hospital Number: Repository [id number] Date:8884-22-33Ja [address] [place] [address]KW: 08/05/2018 Tertiary NOT GIVENUNK [place] Insurance:SELF PAY [facility] Hospital Number: Effective Repository Date:2018-08-05 08/01/2018 MERLE W Primary MERLE W [place] [id number] Insurance:MEDICARE ROMICKDOB: [facility] PART A BPolicy Number: [id number], [place] [id number] Repository 01589Wja: (047) Date:2018-05-09 [phone] () 08/01/2018 Secondary MERLE W [place] Insurance:HUMANA ROMICKDOB: [facility] 1779-29-66AMA Hospital Number: Repository [id number] Date:5901-74-46Ri [address] [place] [address]ZK: 08/01/2018 Tertiary NOT GIVENUNK [place] Insurance:SELF PAY [facility] Hospital Number: Effective Repository Date:2018-07-20 07/30/2018 MERLE W Primary MERLE W [place] [id number] Insurance:MEDICARE ROMICKDOB: [facility] PART A BPolicy Number: [id number], [place] [id number] Repository [address]Ajz: 330) Date:2018-07-30 [phone] () 07/30/2018 Secondary MERLE W [place] Insurance:HUMANA ROMICKDOB: [facility] [id number] Hospital Number: Repository [id number] Date:1930-52-35Oj [address] [place] [address]HY: 07/30/2018 Tertiary NOT GIVENUNK [place] Insurance:SELF PAY [facility] Number: Effective Repository Date:2018-07-30 07/18/2018 MERLE W Primary Insurance:SELF NOT GIVENUNK [place] [id number] [facility]: [place] Date:2018-06-20 Repository 64907Uzw: () 06/18/2018 MERLE W Primary Insurance:SELF NOT GIVENUNK [place] [id number] [facility] Number: Effective [place] Date:2018-05-09 Repository 48487Dbc: () 06/11/2018 MERLE W Primary MERLE W [place] [id number] Insurance:MEDICARE ROMICKDOB: [facility] PART A BPolicy Number: [id number], [place] [id number] Repository [address]84Pmm: 330) Date:2018-01-08 [phone] () 06/11/2018 Secondary MERLE W [place] Insurance:HUMANA ROMICKDOB: [facility] 1523-34-13CWT Hospital Number: Repository [id number] Date:7321-53-74Qd [address] [place] [address]ZC: 06/11/2018 Tertiary NOT GIVENUNK [place] Insurance:SELF PAY [facility] Number: Effective Repository Date:2018-06-11 06/04/2018 MERLE W Primary MERLE W [place] [id number] Insurance:MEDICARE ROMICKDOB: [facility] PART A olicy Number: [id number], [place] [id number] Repository 805[address]Jvq: (330) Date:2018-06-043502 () 06/04/2018 Secondary MERLE W [place] Insurance:HUMANA ROMICKDOB: [facility] [id number] Hospital Number: Repository [id number] Date:3870-06-56Wg [address] [place] [address]TS: 06/04/2018 Tertiary NOT GIVENUNK [place] Insurance:SELF PAY [facility] Hospital Number: Effective Repository Date:2018-06-04 05/13/2018 MERLE W Primary MERLE W [place] [id number] Insurance:MEDICARE ROMICKDOB: [facility]: [id number], [place] [id number] Repository 35158Jba: (158) Date:2018-05-13 [phone] () 05/13/2018 Secondary MERLE W [place] Insurance:HUMANA ROMICKDOB: [facility] [id number] Hospital Number: Repository [id number] Date:1108-85-78Mf [address] [address]TO: 05/13/2018 Tertiary NOT GIVENUNK [place] Insurance:SELF PAY [facility] Number: Effective Repository Date:2018-05-13 05/08/2018 MERLE W Primary MERLE W [place] [id number] Insurance:MEDICARE ROMICKDOB: [facility] PART A olic Number: [id number], [place] [id number] Repository 534[address]Jsa: (124) Date:2017-08-011727 () 05/08/2018 Secondary MERLE W [place] Insurance:HUMANA ROMICKDOB: [facility] [id number] Hospital Number: Repository [id number] Date:6096-34-96Wa [address] [place] [address]SD: 05/08/2018 Tertiary NOT GIVENUNK [place] Insurance:SELF PAY [facility] Number: Effective Repository Date:2018-05-08 05/02/2018 MERLE W Primary MERLE W [place] [id number] Insurance:MEDICARE ROMICKDOB: [facility] MARY PART A BPolicy Number: [id number], [place] [id number] Repository 47604Esn: (742) Date:2018-05-02 [phone] () 05/02/2018 Secondary MERLE W [place] Insurance:HUMANA ROMICKDOB: [facility] [id number] Hospital Number: Repository [id number] Date:7346-95-29Yn [address] [place] [address]EY: 05/02/2018 Tertiary NOT GIVENUNK [place] Insurance:SELF PAY [facility] Number: Effective Repository Date:2018-05-02 04/30/2018 MERLE W Primary MERLE W [place] [id number] Insurance:MEDICARE ROMICKDOB: [facility] MARY PART A BPolicy Number: [id number], [place] [id number] Repository 86536Ori: (716) Date:2018-04-30 [phone] () 04/30/2018 Secondary MERLE W [place] Insurance:HUMANA ROMICKDOB: [facility] [id number] Hospital Number: Repository [id number] Date:9322-38-31Qp [address] [place] [address]YI: 04/30/2018 Tertiary NOT GIVENUNK [place] Insurance:SELF PAY [facility] Hospital Number: Effective Repository Date:2018-04-30 04/18/2018 MERLE W Primary MERLE W [place] [id number] Insurance:MEDICARE ROMICKDOB: [facility] MARY PART A BPolicy Number: [id number], [place] [id number] Repository 32971Spg: 330) Date:2018-04-18 [phone] () 04/18/2018 Secondary MERLE W [place] Insurance:HUMANA ROMICKDOB: [facility] [id number] Hospital Number: Repository [id number] Date:6893-44-67Ej [address] [place] [address]US: 04/18/2018 Tertiary NOT GIVENUNK [place] Insurance:SELF PAY [facility] Number: Effective Repository Date:2018-04-18 04/09/2018 MERLE W Primary MERLE W [place] [id number] Insurance:MEDICARE ROMICKDOB: [facility] PART A BPolicy Number: [id number], [place] [id number] Repository 88937Vda: 330) Date:2018-04-010744 () 04/09/2018 Secondary MERLE W [place] Insurance:HUMANA ROMICKDOB: [facility] [id number] Hospital Number: Repository [id number] Date:0188-40-73Iy [address] [place] [address]IN: 04/09/2018 Tertiary NOT GIVENUNK [place] Insurance:SELF PAY [facility] Number: Effective Repository Date:2018-04-01 01/29/2018 MERLE W Primary MERLE W [place] [id number] Insurance:MEDICARE ROMICKDOB: [facility] PART A BPolicy Number: [id number], [place] [id number] Repository 98[address]Vrx: 330) Date:2018-01-28 [phone] () 01/29/2018 Secondary MERLE W [place] Insurance:HUMANA ROMICKDOB: [facility] [id number] Hospital Number: Repository [id number] Date:4869-01-67Lp [address] [place] [address]GY: 01/29/2018 Tertiary NOT GIVENUNK [place] Insurance:SELF PAY [facility] Number: Effective Repository Date:2018-01-28 01/08/2018 MERLE W Primary MERLE W [place] [id number] Insurance:MEDICARE ROMICKDOB: Community MARY PART A BPolicy Number: [id number], [place] [id number] Repository 03059Xri: (330) Date:2017-08-2807 () 01/08/2018 Secondary MERLE W [place] Insurance:HUMANA ROMICKDOB: [facility] [id number] Hospital Number: Repository [id number] Date:3692-60-05[address] [address]AZ: 01/08/2018 Tertiary NOT GIVENUNK [place] Insurance:SELF PAY [facility] Number: Effective Repository Date:2018-01-08 01/03/2018 MERLE W Primary MERLE W [place] [id number] Insurance:MEDICARE ROMICKDOB: [facility] MARY PART A BPolicy Number: [id number], [place] [id number] Repository 37996Lkn: (330) Date:2003-04-2007 () 01/03/2018 Secondary MERLE W [place] Insurance:HUMANA ROMICKDOB: [facility] [id number] Hospital Number: Repository [id number] Date:7684-10-30Xa[address] [address]FF: 01/03/2018 Tertiary NOT GIVENUNK [place] Insurance:SELF PAY [facility] Hospital Number: Effective Repository Date:2017-06-12 12/17/2017 MERLE W Primary MERLE W [place] [id number] Insurance:MEDICARE ROMICKDOB: Community MARY PART A BPolicy Number: [id number], [place] [id number] Repository 59775Why: (330) Date:2017-12-1707 () 12/17/2017 Secondary MERLE W [place] Insurance:HUMANA ROMICKDOB: Community COMMERCIALPolicy [id number] Hospital Number: Repository [id number] Date:5157-92-42Oo [address] [place] [address]LH: 12/17/2017 Tertiary NOT GIVENUNK [place] Insurance:SELF PAY [facility] Hospital Number: Effective Repository Date:2017-12-17 09/27/2017 MERLE W Primary MERLE W [place] [id number] Insurance:MEDICARE ROMICKDOB: [facility] MARY PART A BPolicy Number: [id number], [place] [id number] Repository 388[address]Vkw: 330) Date:2017-09-25 [phone] () 09/27/2017 Secondary MERLE W [place] Insurance:HUMANA ROMICKDOB: [facility] [id number] Hospital Number: Repository [id number] Date:3103-20-85Aq[address] [address]DQ: 09/27/2017 Tertiary NOT GIVENUNK [place] Insurance:SELF PAY [facility] Hospital Number: Effective Repository Date:2017-09-25
== END ==
PROVIDERS: Family Provider Family Medicine; PCP Family Medicine; Visit Provider Internal Medicine Nephrology
DX: N18.4 Chronic kidney disease, stage 4 (severe) (principal); N25.81 Secondary hyperparathyroidism of renal origin
CPT/HCPCS: 36415; 80069; 83970

== ENCOUNTER 2018-08-01 06:00 | Outpatient (RCR) | payer MEDICARE, OTHER, SELFPAY ==
[2018-05-08 14:40] VITALS: BMI 44.6
== END 2018-08-19 23:59 ==
LOC: PR 06:00
PROVIDERS: Family Provider Family Medicine; PCP Family Medicine; Referring Provider Family Medicine; Visit Provider Family Medicine
DX: Z00.00 Encounter for general adult medical examination without abnormal findings (principal); N18.4 Chronic kidney disease, stage 4 (severe); N25.81 Secondary hyperparathyroidism of renal origin
CPT/HCPCS: 36415; 80069; 83970

== ENCOUNTER → 2018-08-05 11:16 | Outpatient (CLI) | payer MEDICARE, OTHER, SELFPAY ==
[2018-08-05 12:11] LABS: PSA,Total- Diagnostic 0.22 ng/mL (0.0-4.0)
--- OUTSIDE RECORDS SUMMARY | 2018-11-07 00:57 | XMS RPT_ITS ---
:1940 Author Organization OHIP Support Name Relationship Address Phone PATRICIA, ISAEL Unavailable [facility] + [place] [address] R Unavailable Unavailable Unavailable ROMICK, TAWNY Unavailable [address] + [place] [address] PATRICIA, ISAEL Unavailable [facility] + [place] [address] R Unavailable Unavailable Unavailable ROMICK, TAWNY Unavailable [address] + [place] [address] PATRICIA, ISAEL Unavailable [facility] + [place] [address] R Unavailable Unavailable Unavailable ROMICK, TAWNY Unavailable [address] + [place] [address] PATRICIA, ISAEL Unavailable [facility] + [place] [address] R Unavailable Unavailable Unavailable ROMICK, TAWNY Unavailable [address] + [place] [address] APTRICIA, ISAEL Unavailable [facility] + [place] [address] R Unavailable Unavailable Unavailable ROMICK, TAWNY Unavailable [address] + [place] [address] PATRICIA, ISAEL Unavailable Unavailable + [place] [address] R Unavailable Unavailable Unavailable ROMICK, TAWNY Unavailable [address] + [place] [address] PATRICIA, ISAEL Unavailable [facility] + [place] [address] R Unavailable Unavailable Unavailable ROMICK, TAWNY Unavailable [address] + [place] [address] PATRICIA, ISAEL Unavailable [facility] + [place] [address] R Unavailable Unavailable Unavailable ROMICK, TAWNY Unavailable [address] + [place] [address] PATRICIA, ISAEL Unavailable Unavailable + [place] [address] R Unavailable Unavailable Unavailable ROMICK, TAWNY Unavailable [address] + [place] [address] PATRICIA, ISAEL Unavailable . + [place] [address] R Unavailable Unavailable Unavailable ROMICK, TAWNY Unavailable [address] + [place] [address] PATRICIA, ISAEL Unavailable . + [place] [address] R Unavailable Unavailable Unavailable ROMICK, TAWNY Unavailable [address] + [place] [address] PATRICIA, ISAEL Unavailable Unavailable + [place] [address] R Unavailable Unavailable Unavailable ROMICK, TAWNY Unavailable [address] + [place] [address] PATRICIA, ISAEL Unavailable 1 + [place] [address] R Unavailable Unavailable Unavailable ROMICK, TAWNY Unavailable [address] + [place] [address] PATRICIA, ISAEL Unavailable 1 + [place] [address] R Unavailable Unavailable Unavailable ROMICK, TAWNY Unavailable [address] + [place] [address] PATRICIA, ISAEL Unavailable Unavailable + [place] [address] R Unavailable Unavailable Unavailable ROMICK, TAWNY Unavailable [address] + [place] [address] PATRICIA, ISAEL Unavailable Unavailable + [place] [address] R Unavailable Unavailable Unavailable ROMICK, TAWNY Unavailable [address] + [place] [address] PATRICIA, ISAEL Unavailable Unavailable + [place] [address] R Unavailable Unavailable Unavailable ROMICK, TAWNY Unavailable [address] + [place] [address] PATRICIA, ISAEL Unavailable Unavailable + [place] [address] R Unavailable Unavailable Unavailable ROMICK, TAWNY Unavailable [address] + [place] [address] PATRICIA, ISAEL Unavailable NA + [place], [place] R Unavailable Unavailable Unavailable ROMICK, TAWNY Unavailable [address] + [place] [address] PATRICIA, ISAEL Unavailable NA + [place], [place] R Unavailable Unavailable Unavailable ROMICK, TAWNY Unavailable [address] + [place] [address] PATRICIA, ISAEL Unavailable NA + [place], [place] R Unavailable Unavailable Unavailable ROMICK, TAWNY Unavailable [address] + [place] [address] PATRICIA, ISAEL Unavailable NA + [place], [place] R Unavailable Unavailable Unavailable ROMICK, TAWNY Unavailable [address] + [place] [address] PATRICIA, ISAEL Unavailable NA + [place], [place] R Unavailable Unavailable Unavailable ROMICK, TAWYN Unavailable [phone] [place] [address] PATRICIA, ISAEL Unavailable NA + [place], [place] R Unavailable Unavailable Unavailable ROMICK, TAWNY Unavailable [address] + [place] [address] Care Team Providers Name Role Phone Elizabeth Rios Attending Unavailable Dc, Dangelo Primary Care Unavailable Isael Boyle Attending Unavailable Iasel Boyle Referring Unavailable Dc, Dangelo Primary Care Unavailable Yanique Sloan Attending Unavailable Dao Dangelo Referring Unavailable Yanique Sloan Attending Unavailable Yanique Sloan Referring Unavailable Dc, Dangelo Primary Care Unavailable Dc, Dangelo Attending Unavailable Dc, Dangelo Referring Unavailable Dc, Dangelo Primary Care Unavailable Dc, Dangelo Attending Unavailable Dc, Dangelo Referring Unavailable Dc, Dangelo Primary Care Unavailable Gabriel, Elizabeth Attending Unavailable Dc, Dangelo Primary Care Unavailable Gabriel, Elizabeth Referring Unavailable McqueenEmma Attending Unavailable Dc, Dangelo Primary Care Unavailable Gabriel, Elizabeth Attending Unavailable Dc, Dangelo Primary Care Unavailable Gabriel, Elizabeth Referring Unavailable Dc, Dangelo Attending Unavailable Dc, Dangelo Primary Care Unavailable Mcqueen, Emma Attending Unavailable Dc, Dangelo Referring Unavailable Dc, Dangelo Primary Care Unavailable Gabriel, Elizabeth Attending Unavailable Dc, Dangelo Primary Care Unavailable Sibilia, Chema Attending Unavailable Sibilia, Chema Referring Unavailable Dc, Dangelo Primary Care Unavailable Gabriel, Elizabeth Attending Unavailable Dc, Dangelo Primary Care Unavailable Sibilia, Chema Attending Unavailable Sibilia, Chema Referring Unavailable Dc, Dangelo Primary Care Unavailable Dc, Dangelo Attending Unavailable Dc, Dangelo Primary Care Unavailable Sofiya Aldana Attending Unavailable Jj De León Attending Unavailable Dc, Dangelo Referring Unavailable Dc, Dangelo Primary Care Unavailable GabrielElizabeth Attending Unavailable Dc, Dangelo Primary Care Unavailable Dc, Dangelo Attending Unavailable Dc, Dangelo Primary Care Unavailable Dc, Dangelo Attending Unavailable Dc, Dangelo Referring Unavailable Dc, Dangelo Primary Care Unavailable Mcqueen, Emma Attending Unavailable Dc, Dangelo Referring Unavailable Dc, Dangelo Attending Unavailable Dc, Dangelo Primary Care Unavailable Dc, Dangelo Attending Unavailable Dc, Dangelo Primary Care Unavailable Dc, Dangelo Referring Unavailable PROBLEMS PROBLEMS DATE TYPE CONDITION / CODE ATTENDING STATUS SOURCE Unknown M25.561 - Pain in right [facility], Active [place] 8 knee / M25.561(ICD-10) [facility] Hospital Repository Unknown 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[facility], Active [place] 8 primary osteoarthritis, [facility] right knee / Hospital M17.11(ICD-10) Repository Unknown I25.10 - Atherosclerotic [facility], Active [place] 8 heart disease of kaibab [facility] coronary artery without Hospital angina pectoris / Repository I25.10(ICD-10) Unknown C61 - Malignant neoplasm [facility], Active [place] 8 of prostate / [facility] C61(ICD-10) Hospital Repository Unknown Z00.00 - Encounter for Dangelo Dc Active [place] 9 general adult medical Community examination without Hospital abnormal findings / Repository Z00.00(ICD-10) Unknown N18.4 - Chronic kidney Dangelo Dc Active [place] 9 disease, stage 4 Community (severe) / N18.4(ICD-10) Hospital Repository Unknown 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 / Hospital N25.81(ICD-10) Repository Unknown G50.1 - Atypical facial Dangelo Dc Active [place] 8 pain / G50.1(ICD-10) [facility] Repository Unknown I27.20 - Pulmonary [place], Active [place] 8 hypertension, Jj [facility] unspecified / Hospital I27.20(ICD-10) Repository Unknown E11.22 - Type 2 diabetes Elizabeth Rios Active [place] 8 mellitus with diabetic Community chronic kidney disease / Hospital E11.22(ICD-10) Repository Unknown Z98.890 - Other Emma Mcqueen Active [place] 8 specified postprocedural [facility] states / Z98.890(ICD-10) Hospital Repository PROCEDURES PROCEDURES No Procedure Records FoundRESULTS RESULTS ORTHOPEDIC VISIT Observed: 08/15/2018 Status: F Source: [place] REPORT 12:55 PM [facility] REPOSITORY [facility] [address] [place], [place] [id number] OFFICE VISIT Date of Service: 08/06/18 MR#: [id number] Acct: [id number] Name: AZRA OBRIEN Ekta Rep #: [id number] : 1940 Provider: Yanique Sloan DO Age/Sex: 78/M [place] [facility] [place]: S[place] Intake Intake Visit Reasons: RIGHT KNEE Is patient in pain?: Yes Allergies clonidine Allergy (Verified 08/06/18 15:31) Rash hydrochlorothiazide Allergy (Verified 08/06/18 15:31) Rash gabapentin Adverse Reaction (Verified 08/06/18 15:31) DIZZINESS tiotropium bromide [From Spiriva with HandiHaler] Adverse Reaction (Verified 08/06/18 15:31) IRRITATION TO TEETHE Medications Aspirin E.C. [Ecotrin] 81 mg PO QHS 01/13/15 [History Confirmed 05/08/18] Atenolol [Tenormin (beta autumn)] 25 mg PO BID 01/13/15 [History Confirmed 05/08/18] Insulin Glargine [Lantus SoloStar Pen] 10 units SC QHS 01/13/15 [History Confirmed 05/08/18] Magnesium Oxide [Mag-Ox 400] 400 mg PO DAILY 01/13/15 [History Confirmed 05/08/18] Multivitamins,Therapeutic [Multivitamin] 1 tab PO QHS 01/13/15 [History Confirmed 05/08/18] Albuterol IH (ProAir) [Proair Hfa (SP)Vent Pts] 1 - 2 puff INHALATION Q4H PRN PRN 08/11/16 [History Confirmed 05/08/18] Baicalin/Catechin [Limbrel 500 mg Capsule] 500 mg PO PRN PRN 03/28/17 [History Confirmed 05/08/18] Dutasteride [Avodart] 0.5 mg PO DAILY 03/28/17 [History Confirmed 05/08/18] Liraglutide [Victoza] 0.6 mg SQ DAILY 03/28/17 [History Confirmed 05/08/18] Vit A/Vit C/Vit E/Zinc/Copper [Preservision Areds Softgel] 1 ea PO DAILY 03/28/17 [History Confirmed 05/08/18] atorvastatin 80 mg tablet 80 mg PO DAILY #90 tab 03/27/18 [Rx Confirmed 05/08/18] amlodipine 5 mg tablet 5 mg PO DAILY #30 tab 05/08/18 [Rx Confirmed 05/08/18] cholecalciferol (vitamin D3) 1,000 unit tablet 2,000 unit PO DAILY tab 05/08/18 [History Confirmed 05/08/18] fluticasone 200 mcg-vilanterol 25 mcg/dose powder for inhalation 1 inh INHALATION DAILY 05/08/18 [History Confirmed 05/08/18] fluticasone 50 mcg/actuation nasal spray,suspension 2 spray INTRANASAL DAILY 05/08/18 [History Confirmed 05/08/18] furosemide 40 mg tablet 40 mg PO DAILY tab 05/08/18 [History Confirmed 05/08/18] glipizide ER 5 mg tablet, extended release 24 hr 5 mg PO DAILY tab 05/08/18 [History Confirmed 05/08/18] loratadine 10 mg tablet 10 mg PO DAILY 05/08/18 [History Confirmed 05/08/18] turmeric root extract 500 mg capsule 500 mg PO DAILY 05/08/18 [History Confirmed 05/08/18] [facility] Medical History Sinus bradycardia (Acute) 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) Renal insufficiency (Chronic) Hyperlipidemia (Chronic) HTN (hypertension), benign (Chronic) Diverticulitis (Acute) GERD (gastroesophageal reflux disease) (Acute) Arthritis (Chronic) Asthma (Chronic) BPH (benign prostatic hyperplasia) (Chronic) Diabetes mellitus, insulin dependent (IDDM), controlled (Chronic) Surgical History S/P left knee arthroscopy (Chronic) History of cholecystectomy (Resolved) History of left hip replacement (Resolved) History of lumbar laminectomy (Resolved) Hx of appendectomy (Resolved) H/O bilateral cataract extraction (Inactive) History of carpal tunnel release (Inactive) History of left hip replacement (Inactive) History of lumbar laminectomy (Inactive) S/P appendectomy (Inactive) S/P carpal tunnel release (Inactive) S/P cholecystectomy (Inactive) S/P left knee arthroscopy (Inactive) S/P lumbar laminectomy (Inactive) s/p melanoma (Inactive) Family History Brother Diabetes Sister CAD (coronary artery disease) CVA (cerebral vascular accident) CHF (congestive heart failure) Son Hypertension Social History Smoking Status: Former smoker how long ago did patient quit smokin alcohol intake: current alcohol intake frequency: holidays/special occasions only Alcohol type: beer substance use type: does not use caffeine: Yes Type: coffee what type of physical activity do you participate in: other details: physical therapy frequency: 1-2 times per week duration: 15-30 minutes/day seatbelt use: always do you feel safe at home: Yes HPI RIGHT KNEE: Details: AZRA OBRIEN is a 78 year old M here today for right knee pain. Patient states that he had right knee pain for a few months. He has pain over his medial knee. Patient complains of a sharp pain at times. He notes that he has palpable soreness over his medial knee. N otrauma to knee/leg. He has increased pain with ambulating stairs and has popping and clicking. He denies any knee swelling. Patient notes that ice,heat and ibuprofen which is not helpful. He denies any xrays or injections recently. Denies numbness, tingling or other associated symptoms. Patient has had a knee scope many years ago. ROS Const Reports system reviewed and no additional complaints, except as docu Eyes Reports system reviewed and no additional complaints, except as docu ENT Reports system reviewed and no additional complaints, except as docu Card Reports system reviewed and no additional complaints, except as docu Resp Reports system reviewed and no additional complaints, except as docu GI Reports system reviewed and no additional complaints, except as docu Reports system reviewed and no additional complaints, except as docu Musc Reports joint pain Skin/Breast Reports system reviewed and no additional complaints, except as docu Neuro Yes system reviewed and no additional complaints, except as docu Psych Reports system reviewed and no additional complaints, except as docu Endo Reports system reviewed and no additional complaints, except as docu Ortho Exam Right Knee Skin/Wound: Yes CDI Contralateral Normal: Yes Swelling: No Homans Sign: No Knee ROM: Yes ROM-Extension -20 to 0, Yes ROM-Flexion 0-140 Examination: Yes Pain with flexion, Yes Med jt line tenderness, Yes Crepitus KNEE: Upon examination of right knee, patient has mild laxity and slight joint space opening medial with valgus stress from decreased joint space Office Procedures Kenalog 40 mg/mL suspension for injection (triamcinolone acetonide) 80 mg Intra-Articular ONCE Injections Yes Knee Right Office Meds Kenalog Performing Provider: Yanique Sloan DO Administered by: Yanique Sloan DO on 08/06/18 16:02 Dose Route Admin Location Lot Number Expiration DateNDC Manufacturing Engineer 80 mg Intra-Articularright knee [id number] 10/19/19 6724-2578-17 PEPperPRINT Assessment AND Plan 1. Osteoarthritis of right knee, unspecified osteoarthritis type M17.11 Plan X-rays were reviewed. There is no obvious fracture, dislocation, or lucency noted but he has OA noted. Educated on the anatomy of the knee and explained that his treatment options for his bone on bone OA he can wear a brace, injection, PT with HEP and be active. Gave PT script for aquatic therapy. Follow up as needed or sooner if pain, swelling, numbness or associated symptoms, or concerns develop. All questions answered. Patient in agreement of plan. 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 LAB L200.5100 0 10 6/uL High SYNOVIAL RBC 0.028 LAB L200.5200 0.000-0 10 3uL High .002 SYNOVIAL WBC 0.3660 LAB L200.5260 % SYBF PMN Normal WBC% 48.6 LAB L200.5270 10 3/ul SYBF PMN Normal WBC# 0.178 LAB L200.5280 % SYBF MN Normal WBC% 51.4 LAB L200.5800 PATH Normal COM/SYFL May follow LAB L200.5300 0-25 % High NEUTROPHIL 37 LAB L200.5400 % LYMPH Normal 20 LAB L200.5500 % MONO Normal 23 LAB L200.5600 % PLASMA CELL Normal /SY 2 LAB L200.5700 % OTHER CELL Normal /SYN 18 Result Comment: 16 MACROPHAGES 2 LINING CELLS LAB L200.4600 Normal SYNOVIAL RIGHT KNEE SOURCE LAB L200.4700 0.1-3.5 ml High SYNOVIAL TV 15.0 LAB L200.4800 HIGH Normal VISCOSITY/SYFL Sl. Viscous LAB L200.4900 Pale Yellow Normal SYNOVIAL COLOR Red LAB L200.5000 CLEAR Normal SYNOVIAL ODALIS. Hazy Performed By: #### L200.0400, L200.4175 #### [facility] [address] [place], [address] CRYSTALS, BODY FLUID Collected: 08/06/2018 Status: C Source: [place] 6:27 PM [facility] REPOSITORY TYPE CODE TESTS RESULT OUT OF RANGE REFERENCE UNITS LAB L200.4200 Normal Other, see CRYSTALS/BF comment Result Comment: NONE SEEN LAB L200.4225 Normal SOURCE/BF SYNOVIAL LAB L200.6020 Normal PATH REV Reviewed Result Comment: Negative for malignant cells. Bloody specimen. Numerous nondescript crystals are noted. Sandip Obregon M.D. 08/07/18 AMENDED REPORT 08/07/18 1216 PATH REV previously reported as: Will follow Performed By: #### L200.0400, L200.4175 #### [facility] [address] [place], [place], [address] Observed: 08/06/2018 Status: F Source: [place] CULTURE, BODY FLUID 6:27 PM [facility] REPOSITORY List Antibiotics Last 48 Hours? UNK List Antibiotics to be Started? UNK Gram Stain Centrifuged Specimen? Culture performed on centrifuged specimen Gram Stain 1+ Red Blood Cells No White Blood Cells No organisms seen Body Fluid Cult No growth in 5 days. Cult, Anaerobic No growth in 5 days. Performed By: #### M100.1300 #### [facility] [address] [place], [address] GLUCOSE, SYNOVIAL Collected: 08/06/2018 Status: F Source: [place] FLUID 6:27 PM [facility] REPOSITORY Order Comment: Specimen Source: SYNOVIAL TYPE CODE TESTS RESULT OUT OF RANGE REFERENCE UNITS LAB L3800.0101 . mg/dL Normal GLU, SYN 136 FLD Result Comment: : Peritoneal : Pleural : Synovial : : : : : : : Transudate : Exudate : : : : : : : : Not Estab. : Equal to simultaneously drawn plasma : : : : The method performance specifications have not been established for this test in body fluid. The test result should be integrated into clinical context for interpretation. The reference intervals and other method performance specifications have not been established for this test. The test result should be integrated into the clinical context for interpretation. Performed By: #### L3800.0101 #### [facility] (refer to report for specific site) refer to report for address and phone number KNEE 4 OR MORE Observed: 08/06/2018 Status: F Source: [facility] 3:41 PM [facility] REPOSITORY [facility] Imaging Services [address] [place] [address] Knee 4 or More Views MR#: [id number] Acct: [id number] Name: AZRA OBRIEN Rep #: [id number] : 1940 M 78 From: Rose Grey MD PCP: Dangelo Dc MD Status: REG CLI Study: Knee 4 or More Views Date of Exam: 08/06/18 Exam# [id number] Ordering Dr: Yanique Sloan DO STUDY: X-RAY - RIGHT KNEE REASON FOR EXAM: Male, 78 years old. Pain. TECHNIQUE: 4 view(s) of the knee. COMPARISON: None. FINDINGS: There is no fracture or dislocation. There is a small joint effusion. There is severe osteoarthrosis of the medial compartment with joint space narrowing and sclerosis. Mild degenerative changes of the lateral compartment are noted with mild spurring. There are moderate degenerative changes of the patellofemoral compartment, with prominent spurring. There is mild anterior soft tissue swelling. RAD/Knee 4 or More Views IMPRESSION: 1. No fracture or dislocation. 2. Small joint effusion. 3. Moderate osteoarthrosis of the knee. Electronically Signed: Rose Grey MD at 23:27 EST Tel , Service support , CC: Yanique Sloan DO; Dangelo Dc MD Finance Broker: Signed PSA,TOTAL- DIAGNOSTIC Collected: 08/05/2018 Status: F Source: [place] 11:27 AM [facility] REPOSITORY TYPE CODE TESTS RESULT OUT OF RANGE REFERENCE UNITS LAB L501.9940 0.0-4.0 ng/mL PSA, Normal DIAGNOSTIC 0.22 Result Comment: This test was performed using the TPSA assay method for the [employer] chemistry system. Values obtained with different assay methods cannot be used interchangably. When changing PSA assays in the course of monitoring a patient, additional sequential testing should be carried out to confirm baseline values. Performed By: #### L501.9940 #### [facility] [address] [place], [address] RENAL PROFILE Collected: 07/30/2018 Status: F Source: [place] 1:31 PM [facility] REPOSITORY TYPE CODE TESTS RESULT OUT OF RANGE REFERENCE UNITS LAB L501.0100 74-106 mg/dL High GLU 181 Result Comment: Fasting Glucose result greater than or equal to 126 mg/dL suggests DIABETES MELLITUS per A.D.A. criteria. Please note revised GLUCOSE reference range effective 2017. LAB L501.1000 7-18 mg/dL High BUN 43 LAB L501.1100 0.70-1.30 mg/dL High CREAT,SERUM 3.00 Result Comment: The validity of the calculated GFR AND GFRAA in patients over 70 years has not been determined. Clinical correlation is essential. LAB L501.1110 >60 mL/min Low EST GFR 22 Result Comment: Non- GFR Calc LAB L501.1115 >60 mL/min Low EST GFR - AA 26 Result Comment: GFR Calc LAB L501.1300 10-20 RATIO Normal BUN/CRE 14.3 LAB L501.1800 3.2-5.0 g/dL Normal ALB 3.4 LAB L501.2200 8.5-10.1 mg/dL CA Normal 8.6 LAB L501.2300 2.5-4.9 mg/dL Normal PHOS 3.8 LAB L501.5300 136-145 mmol/L NA Normal 142 LAB L501.5600 3.5-5.1 mmol/L K Normal 4.4 LAB L501.5900 98-107 mmol/L CL Normal 103 LAB L501.6100 21.0-32.0 mmol/L Normal CO2 28.0 Performed By: #### L500.3600 #### [facility] [address] [facility] [place], [place], [address] PTHIN Collected: 07/30/2018 Status: F Source: [place] 1:31 PM [facility] REPOSITORY TYPE CODE TESTS RESULT OUT OF RANGE REFERENCE UNITS LAB L509.1000 18.4-80.1 pg/mL High PTHIN 251.4 Performed By: #### L509.1000 #### [facility] [address] [place], [address] RENAL PROFILE Collected: 07/30/2018 Status: F Source: [place] 1:31 PM [facility] REPOSITORY TYPE CODE TESTS RESULT OUT OF RANGE REFERENCE UNITS LAB L501.0100 74-106 mg/dL High GLU 181 Result Comment: Fasting Glucose result greater than or equal to 126 mg/dL suggests DIABETES MELLITUS per A.D.A. criteria. Please note revised GLUCOSE reference range effective 2017. LAB L501.1000 7-18 mg/dL High BUN 43 LAB L501.1100 0.70-1.30 mg/dL High CREAT,SERUM 3.00 Result Comment: The validity of the calculated GFR AND GFRAA in patients over 70 years has not been determined. Clinical correlation is essential. LAB L501.1110 >60 mL/min Low EST GFR 22 Result Comment: Non- GFR Calc LAB L501.1115 >60 mL/min Low EST GFR - AA 26 Result Comment: GFR Calc LAB L501.1300 10-20 RATIO Normal BUN/CRE 14.3 LAB L501.1800 3.2-5.0 g/dL Normal ALB 3.4 LAB L501.2200 8.5-10.1 mg/dL CA Normal 8.6 LAB L501.2300 2.5-4.9 mg/dL Normal PHOS 3.8 LAB L501.5300 136-145 mmol/L NA Normal 142 LAB L501.5600 3.5-5.1 mmol/L K Normal 4.4 LAB L501.5900 98-107 mmol/L CL Normal 103 LAB L501.6100 21.0-32.0 mmol/L Normal CO2 28.0 Performed By: #### L500.3600 #### [facility] [address] [facility] [place], [address] PTHIN Collected: 07/30/2018 Status: F Source: [place] 1:31 PM [facility] REPOSITORY TYPE CODE TESTS RESULT OUT OF RANGE REFERENCE UNITS LAB L509.1000 18.4-80.1 pg/mL High PTHIN 251.4 Performed By: #### L509.1000 #### [facility] [address] [facility] [place], [address] ORTHOPEDIC VISIT Observed: 06/11/2018 Status: F Source: [place] REPORT 11:45 AM [facility] REPOSITORY [facility] Orthopaedics AND Sports Medicine [address] [place] [address] [address] [place] [address] OFFICE VISIT Date of Service: 06/11/18 MR#: [id number] Acct: [id number] Name: AZRA OBRIEN Rep #: [id number] : 1940 Provider: Emma Mcqueen MD Age/Sex: 78/M Location: [facility] Status: Signed Intake Intake Visit Reasons: LOW BACK Allergies clonidine Allergy (Verified 05/08/18 14:40) Rash hydrochlorothiazide Allergy (Verified 05/08/18 14:40) Rash gabapentin Adverse Reaction (Verified 05/08/18 14:40) DIZZINESS tiotropium bromide [From Spiriva with HandiHaler] Adverse Reaction (Verified 05/08/18 14:40) IRRITATION TO TEETHE Medications Aspirin E.C. [Ecotrin] 81 mg PO QHS 01/13/15 [History Confirmed 05/08/18] Atenolol [Tenormin (beta autumn)] 25 mg PO BID 01/13/15 [History Confirmed 05/08/18] Insulin Glargine [Lantus SoloStar Pen] 10 units SC QHS 01/13/15 [History Confirmed 05/08/18] Magnesium Oxide [Mag-Ox 400] 400 mg PO DAILY 01/13/15 [History Confirmed 05/08/18] Multivitamins,Therapeutic [Multivitamin] 1 tab PO QHS 01/13/15 [History Confirmed 05/08/18] Albuterol IH (ProAir) [Proair Hfa (SP)Vent Pts] 1 - 2 puff INHALATION Q4H PRN PRN 08/11/16 [History Confirmed 05/08/18] Baicalin/Catechin [Limbrel 500 mg Capsule] 500 mg PO PRN PRN 03/28/17 [History Confirmed 05/08/18] Dutasteride [Avodart] 0.5 mg PO DAILY 03/28/17 [History Confirmed 05/08/18] Liraglutide [Victoza] 0.6 mg SQ DAILY 03/28/17 [History Confirmed 05/08/18] Vit A/Vit C/Vit E/Zinc/Copper [Preservision Areds Softgel] 1 ea PO DAILY 03/28/17 [History Confirmed 05/08/18] atorvastatin 80 mg tablet 80 mg PO DAILY #90 tab 03/27/18 [Rx Confirmed 05/08/18] amlodipine 5 mg tablet 5 mg PO DAILY #30 tab 05/08/18 [Rx Confirmed 05/08/18] cholecalciferol (vitamin D3) 1,000 unit tablet 2,000 unit PO DAILY tab 05/08/18 [History Confirmed 05/08/18] fluticasone 200 mcg-vilanterol 25 mcg/dose powder for inhalation 1 inh INHALATION DAILY 05/08/18 [History Confirmed 05/08/18] fluticasone 50 mcg/actuation nasal spray,suspension 2 spray INTRANASAL DAILY 05/08/18 [History Confirmed 05/08/18] furosemide 40 mg tablet 40 mg PO DAILY tab 05/08/18 [History Confirmed 05/08/18] glipizide ER 5 mg tablet, extended release 24 hr 5 mg PO DAILY tab 05/08/18 [History Confirmed 05/08/18] loratadine 10 mg tablet 10 mg PO DAILY 05/08/18 [History Confirmed 05/08/18] turmeric root extract 500 mg capsule 500 mg PO DAILY 05/08/18 [History Confirmed 05/08/18] PFSH Medical History Sinus bradycardia (Acute) 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) Renal insufficiency (Chronic) Hyperlipidemia (Chronic) HTN (hypertension), benign (Chronic) Diverticulitis (Acute) GERD (gastroesophageal reflux disease) (Acute) Arthritis (Chronic) Asthma (Chronic) BPH (benign prostatic hyperplasia) (Chronic) Diabetes mellitus, insulin dependent (IDDM), controlled (Chronic) Surgical History S/P left knee arthroscopy (Chronic) History of cholecystectomy (Resolved) History of left hip replacement (Resolved) History of lumbar laminectomy (Resolved) Hx of appendectomy (Resolved) H/O bilateral cataract extraction (Inactive) History of carpal tunnel release (Inactive) History of left hip replacement (Inactive) History of lumbar laminectomy (Inactive) S/P appendectomy (Inactive) S/P carpal tunnel release (Inactive) S/P cholecystectomy (Inactive) S/P left knee arthroscopy (Inactive) S/P lumbar laminectomy (Inactive) s/p melanoma (Inactive) Family History Brother Diabetes Sister CAD (coronary artery disease) CVA (cerebral vascular accident) CHF (congestive heart failure) Son Hypertension Social History Smoking Status: Former smoker how long ago did patient quit smokin alcohol intake: current alcohol intake frequency: holidays/special occasions only Alcohol type: beer substance use type: does not use caffeine: Yes Type: coffee what type of physical activity do you participate in: other details: physical therapy frequency: 1-2 times per week duration: 15-30 minutes/day seatbelt use: always do you feel safe at home: Yes HPI LOW BACK: Details: AZRA OBRIEN returns today for f/u status post L1- 2 laminectomy on 05/25/17. He has no complaints of back pain, just general aching in his joints. He is able to complete all ADLs without any problem, he does use assistive devices like shoehorns. He does not use any gait aids. he takes no pain medications. Denies numbness, tingling or other associated symptoms. He is overall pleased. He notes he can stand up straight. Ortho Exam Spine Neuro: Yes Bliss's (negative bilaterally), Straight Leg Raise (negative bilaterally) and Light Touch Sensation (intact throughout today) General: alert, oriented x3 Skin: Yes healed Capillary Refill <2sec: Yes Gait: normal gait, other (able to heel and toe walk) Motor: strength 5/5 throughout Sensory Exam: no sensory deficits noted DTR's: Rt Patellar: 2+, Lt Patellar: 2+, Rt Ankle: 2+, Lt Ankle: 2+ Coordination: Romberg test normal SPINE TESTING CERVICAL THORACIC LUMBAR SLR: Negative Musculoskeletal General: Yes normal gait and normal posture Thoracic/Lumbar Spine: surgical scar(s) present, thoraco-lumbar ROM normal, other (no significant tenderness throughout) Strength 0=absent - 5=normal R Hip Flexor (L1-3): 5, L Hip Flexor (L1-3): 5, R Quadriceps (L2-4): 5, L Quadriceps (L2-4): 5, R Anterior Tibialis (L4-5): 5, L Anterior Tibialis (L4-5): 5, R Hamstrings (L5-S1): 5, L Hamstrings (L5-S1): 5, GS (S1): 5, L GS (S1): 5, R Peroneals (S1): 5, L Peroneals (S1): 5 Assessment AND Plan Problems 1. S/P laminectomy Z98.890 Plan 1. status post L1-2 laminectomy 05/25/2017 Mr. Obrien is doing very well. He will continue his activities as tolerated. Follow up as needed. Plan of care discussed. All questions answered. He and his are in understanding. Coding Level of Care Code Off vis,est,level 4 Diagnoses S/P laminectomy Z98.890 06/11/18 1145 <Electronically signed by Emma Mcqueen MD> Date [facility]queen [facility] Signature: Date (if applicable) CC: SINUSES MIN 3 VIEWS Observed: 06/04/2018 Status: F Source: [place] 9:08 AM [facility] REPOSITORY [facility] Imaging Services [address] [place] [address] Sinuses min 3 Views MR#: [id number] Acct: [id number] Name: AZRA OBRIEN Rep #: [id number] : 1940 M 78 From: Wil West PCP: Dangelo Dc MD Status: REG CLI Study: Sinuses min 3 Views Date of Exam: 06/04/18 Exam# [id number] Ordering Dr: Dangelo Dc MD STUDY: X-RAY - PARANASAL SINUSES REASON FOR EXAM: Male, 78 years old. Pain over left maxillary sinus. Nasal congestion. TECHNIQUE: 3 view(s) of the paranasal sinuses were obtained. COMPARISON: None. FINDINGS: There is mild mucosal thickening of the ethmoid and probably the maxillary sinuses. Frontal and sphenoid sinuses are well aerated. No air-fluid levels. Normal visualized facial bones. The soft tissue structures are unremarkable. RAD/Sinuses min 3 Views IMPRESSION: Mild ethmoid and maxillary sinus mucosal thickening. Electronically Signed: Wil West MD at 2:13 EDT , Service support , CC: Dangelo Dc MD Finance Broker: Signed CARDIOLOGY VISIT Observed: 05/08/2018 Status: F Source: [place] REPORT 3:28 PM [facility] REPOSITORY [facility] [address] [place] [address] OFFICE VISIT Date of Service: 05/08/18 MR#: [id number] Acct: [id number] Name: AZRA OBRIEN Rep #: [id number] : 1940 Provider: Jj De León MD Age/Sex: 78/M [place] [facility] [place]: Signed HPI HPI Details: AZRA OBRIEN, is a 78 M who presents to the office today for outpatient cardiovascular follow-up. He states overall his main concern is his shortness of breath and dyspnea especially with exertional activity. He has undergone evaluation recently with a chest CT scan documenting his underlying COPD. There is also concern based on his chest CT scan of elevated pulmonary pressures. He has denied any chest discomfort. He continues with an element of lower extremity peripheral pitting edema. There has been no near syncope or syncope. As you know he has undergone in the past extensive noninvasive and invasive cardiovascular evaluation. He has had elevation of his intrapulmonary/right heart pressures. His overall LV systolic function has remained preserved. He had no angiographically significant appearing CAD. He has had no hemodynamically significant valvular heart disease. Thus there is concern that his underlying shortness of breath and dyspnea is related to his underlying COPD process superimposed upon his obesity. Intake Vital Signs05/08/18 Height 5 ft 11 in 05/08/18 Weight: 320 lb 05/08/18 Body Mass Index (BMI) 44.6 05/08/18 Blood Pressure 138/68 Intake Visit Reasons: 6 M FU Allergies clonidine Allergy (Verified 05/08/18 14:40) Rash hydrochlorothiazide Allergy (Verified 05/08/18 14:40) Rash gabapentin Adverse Reaction (Verified 05/08/18 14:40) DIZZINESS tiotropium bromide [From Spiriva with HandiHaler] Adverse Reaction (Verified 05/08/18 14:40) IRRITATION TO TEETHE Medications Aspirin E.C. [Ecotrin] 81 mg PO QHS 01/13/15 [History Confirmed 05/08/18] Atenolol [Tenormin (beta autumn)] 25 mg PO BID 01/13/15 [History Confirmed 05/08/18] Insulin Glargine [Lantus SoloStar Pen] 10 units SC QHS 01/13/15 [History Confirmed 05/08/18] Magnesium Oxide [Mag-Ox 400] 400 mg PO DAILY 01/13/15 [History Confirmed 05/08/18] Multivitamins,Therapeutic [Multivitamin] 1 tab PO QHS 01/13/15 [History Confirmed 05/08/18] Albuterol IH (ProAir) [Proair Hfa (SP)Vent Pts] 1 - 2 puff INHALATION Q4H PRN PRN 08/11/16 [History Confirmed 05/08/18] Baicalin/Catechin [Limbrel 500 mg Capsule] 500 mg PO PRN PRN 03/28/17 [History Confirmed 05/08/18] Dutasteride [Avodart] 0.5 mg PO DAILY 03/28/17 [History Confirmed 05/08/18] Liraglutide [Victoza] 0.6 mg SQ DAILY 03/28/17 [History Confirmed 05/08/18] Vit A/Vit C/Vit E/Zinc/Copper [Preservision Areds Softgel] 1 ea PO DAILY 03/28/17 [History Confirmed 05/08/18] atorvastatin 80 mg tablet 80 mg PO DAILY #90 tab 03/27/18 [Rx Confirmed 05/08/18] amlodipine 5 mg tablet 5 mg PO DAILY #30 tab 05/08/18 [Rx Confirmed 05/08/18] cholecalciferol (vitamin D3) 1,000 unit tablet 2,000 unit PO DAILY tab 05/08/18 [History Confirmed 05/08/18] fluticasone 200 mcg-vilanterol 25 mcg/dose powder for inhalation 1 inh INHALATION DAILY 05/08/18 [History Confirmed 05/08/18] fluticasone 50 mcg/actuation nasal spray,suspension 2 spray INTRANASAL DAILY 05/08/18 [History Confirmed 05/08/18] furosemide 40 mg tablet 40 mg PO DAILY tab 05/08/18 [History Confirmed 05/08/18] glipizide ER 5 mg tablet, extended release 24 hr 5 mg PO DAILY tab 05/08/18 [History Confirmed 05/08/18] loratadine 10 mg tablet 10 mg PO DAILY 05/08/18 [History Confirmed 05/08/18] turmeric root extract 500 mg capsule 500 mg PO DAILY 05/08/18 [History Confirmed 05/08/18] [facility] Medical History Sinus bradycardia (Acute) 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) Renal insufficiency (Chronic) Hyperlipidemia (Chronic) HTN (hypertension), benign (Chronic) Diverticulitis (Acute) GERD (gastroesophageal reflux disease) (Acute) Arthritis (Chronic) Asthma (Chronic) BPH (benign prostatic hyperplasia) (Chronic) Diabetes mellitus, insulin dependent (IDDM), controlled (Chronic) Surgical History S/P left knee arthroscopy (Chronic) History of cholecystectomy (Resolved) History of left hip replacement (Resolved) History of lumbar laminectomy (Resolved) Hx of appendectomy (Resolved) H/O bilateral cataract extraction (Inactive) History of carpal tunnel release (Inactive) History of left hip replacement (Inactive) History of lumbar laminectomy (Inactive) S/P appendectomy (Inactive) S/P carpal tunnel release (Inactive) S/P cholecystectomy (Inactive) S/P left knee arthroscopy (Inactive) S/P lumbar laminectomy (Inactive) s/p melanoma (Inactive) Family History Brother Diabetes Sister CAD (coronary artery disease) CVA (cerebral vascular accident) CHF (congestive heart failure) Son Hypertension Social History Smoking Status: Former smoker how long ago did patient quit smokin alcohol intake: current alcohol intake frequency: holidays/special occasions only Alcohol type: beer substance use type: does not use caffeine: Yes Type: coffee what type of physical activity do you participate in: other details: physical therapy frequency: 1-2 times per week duration: 15-30 minutes/day seatbelt use: always do you feel safe at home: Yes ROS Const Const: Negative for fatigue, weakness, weight gain, weight loss, frequent falls or excessive sweating Eyes Eyes: Negative for change in vision, blurry vision or transient loss of vision ENT ENT: Negative for dizziness or balance problems Cardio Chest Pain: No Palpitations: Yes (occasional @ night) feels like its: skipping Edema: Bilateral (continues) Muscle aches with walking: None Resp Respiratory: Positive for SOB with activity (slightly increased); negative for SOB at rest GI GI: Negative vomiting or vomiting blood/hematemesis : Negative for hematuria Musc Musc: Negative for balance problems, muscle aches/ myalgia, muscle weakness or joint pain Skin Skin: Negative non-healing lesions or rash Neuro Neuro: Negative for weakness, blurry vision, dizziness, lightheadedness, frequent falls or orthostatic symptoms Jaron Hematologic/Lymphatic: Negative for easy bleeding Endo Endo: Negative for fatigue or excessive sweating Psych Psych: Negative for anxiety or depression Allergy Allergy/Immunology: Negative for hives, Negative for rash Cardiology Exam Const Appearance: cooperative, no acute distress, well developed, comfortable and well groomed Nutritional Appearance: obese Orientation: alert, awake and oriented x3 Head Head: normocephalic and normal to inspection Ears: hearing grossly normal bilaterally Nose: external nose normal Face and Sinus: face symmetric Mouth: oral mucosae normal Teeth and gingiva: fair dentition Eyes General: appearance normal, both eyes and all related structures Eyelids: eyelids normal Conjunctivae: conjunctivae normal Pupils: PERRL Neck Neck: normal visual inspection, no JVD and full ROM Carotids: normal carotid upstroke; negative bruit Chest Chest inspection: normal inspection of the chest and symmetric chest movement Auscultation: Bilateral: Clear to Auscultation Cardio Palpation: normal PMI Rate: regular rate Rhythm: regular rhythm Heart sounds: S1 normal and S2 normal; negative rub, gallop or murmur GI GI: normal to inspection, soft, bowel sounds present and obese; negative tender Neuro General: alert, awake, oriented x3 and moves all extremities Skin Skin: no rashes or lesions noted Extremities Pulses: Normal: Right Posterior Tibial Pulse, Left Posterior Tibial Pulse, Right Radial Pulse, Left Radial Pulse Lower Extremity Edema: +1: Bilateral (compression stockings) Psych Psychological: normal affect Supplemental Info He had a transthoracic echocardiogram on 03/02/2016 at [facility] Interpretation Summary The study was technically difficult. Contrast injection was performed. Left ventricular systolic function is normal. The estimated ejection fraction is 65 %. The left atrium is moderately enlarged. There is mild mitral annular calcification. Extension of the mitral annular calcification onto the posterior mitral valve leaflet. Trivial mitral valve insufficiency. Trivial tricuspid valve insufficiency. Mild focal aortic valve calcification. Right ventricular systolic pressure estimated to be 24 mmHg. Transmitral diastolic flow velocities suggest diastolic dysfunction (pseudonormal pattern). He had an exercise tolerance test at 03/02/2016 at [facility] EXERCISE TOLERANCE TEST: The patient underwent pharmacologic (regadenoson) evaluation with a peak heart rate of 90 beats per minute (62% predicted maximum heart rate) and a peak blood pressure of 162/70 mmHg. The baseline ECG demonstrated sinus bradycardia. The peak pharmacologic ECG demonstrated no obvious ECG changes. There were no cardiac dysrhythmias pretest, during pharmacologic infusion, or recovery. There was no report of chest discomfort during pharmacologic infusion or recovery. The examination was discontinued secondary to completion of protocol. IMPRESSION: 1. Pharmacologic (regadenoson) evaluation. 2. Peak pharmacologic ECG with no obvious ECG changes. 3. Nuclear images pending. MYOCARDIAL PERFUSION IMAGING STUDY: TECHNIQUE: The patient was injected with 15.0 mCi of Tc99m Cardiolite and subsequently rest SPECT Cardiolite nuclear imaging was obtained in the horizontal long, vertical long and short axes views. The patient underwent pharmacologic (regadenoson) evaluation with a peak heart rate of 90 beats per minute (62% predicted maximum heart rate) and a peak blood pressure of 162/70 mmHg. The patient was injected with 44.7 mCi of Tc99m Cardiolite and subsequently stress SPECT Cardiolite nuclear imaging was obtained in the horizontal long, vertical long and short axes views. A gated Cardiolite study at peak stress was obtained. INTERPRETATION: Rest and stress SPECT Cardiolite nuclear imaging, status post realignment and normalization, both demonstrate areas of significant extracardiac/hepatic and gastrointestinal tracer uptake near the inferior segments. Both demonstrate subtle decreased tracer uptake in the basal inferior segments without significant change. Otherwise, there appears to be relative uniform tracer uptake and myocardial perfusion appearing within normal limits. There was end systolic thickening and brightening. The gated Cardiolite study demonstrates myocardial thickening and inward wall motion. The reported LVEF is 75%. The aforementioned changes appear compatible with the effects of soft tissue attenuation/artifact with no myocardial perfusion changes considered diagnostic for associated stress-induced myocardial ischemia or previous myocardial injury/infarction. IMPRESSION: 1. Rest and stress SPECT Cardiolite nuclear imaging demonstrate myocardial perfusion changes appearing compatible with the effects of soft tissue attenuation/artifact with no myocardial perfusion changes considered diagnostic for associated stress-induced myocardial ischemia or previous myocardial injury/infarction. 2. The gated Cardiolite study reports an LVEF of 75%. He had a diagnostic cardiac catheterization on 08/15/2016 at [facility] Final impression: 1. Elevated left ventricular end-diastolic pressure compatible with decreased diastolic compliance 2. Elevated intrapulmonary right heart pressures compatible with mild pulmonary hypertension 3. Oxygen saturations: No obvious evidence of intracardiac shunting phenomena 4. Left ventricle: A. Not performed secondary to chronic renal insufficiency 5. Left main coronary artery: A. Proximal 10-25% smooth eccentric appearing stenosis followed by distal mild to moderate eccentric appearing calcification and 25% smooth eccentric appearing stenosis 6. Left anterior descending coronary artery: A. Proximal mild eccentric calcification and minimal luminal irregularities 7. Left circumflex coronary artery: A. LCx and first OM system demonstrating minimal luminal irregularities 8. Right coronary artery: A. Moderate to large dominant vessel B. Proximal minimal luminal irregularities He had a carotid artery duplex study performed on 01/27/2011 at [facility] Right internal carotid artery stenosis less than 50%, which is not hemodynamically significant. Left internal carotid artery stenosis less than 50%, which is not hemodynamically significant. Patent and antegrade vertebrals bilaterally. Plaque formation is similar to the 2009 study with more acoustic shadowing on left, No obvious progression noted. Assessment AND Plan 1. Atherosclerosis of kaibab coronary artery of kaibab heart without angina pectoris I25.10 Plan At the present time he appears to be without acute symptoms. He will need to continue risk factor modification and medical management Orders Orders: 2. Pulmonary hypertension I27.20 Plan He does have a history of elevated pulmonary pressures. It may not be unreasonable to attempt additional medical therapy. He states he was attempted on Cialis therapy by Dr. Syed. He states he did not tolerate this well. He does not recall ever being on medical management with a calcium channel antagonist such as amlodipine/Norvasc. Thus he will be started on 5 mg per day. Over time he can have a follow-up echocardiogram to reassess his estimated RV systolic pressure. In the interim he will need to monitor for any obvious improvement and/or adverse effects of his calcium channel antagonist therapy Orders Orders: 3. Pure hypercholesterolemia E78.00 Plan His lipid labs were recently reviewed. His total cholesterol and LDL cholesterol appear to be under good control. His HDL cholesterol remains somewhat low He will continue lipid-lowering therapy and follow-up as deemed appropriate. 4. HTN (hypertension), benign I10 Plan His blood pressure appears to be reasonably well-controlled. He will continue medical management and follow-up. 5. Renal insufficiency N28.9 Plan His creatinine level remains elevated. He is following with Dr. Rios of nephrology for this Plan Detail Other Medications New: Additional Comments Thank you for allowing me to participate in the care of your patient. Please don't hesitate to call if any issues arise. This note was generated using a voice recognition system and there may be incorrect words, spelling or punctuation that were not noted when reviewing the office note prior to saving. Follow Up 6 Months Coding Level of Care Code Off vis,est,level 4 Diagnoses Atherosclerosis of kaibab coronary artery of kaibab heart without angina pectoris I25.10 [place] vs. transplanted heart: kaibab heart Pulmonary hypertension I27.20 Pure hypercholesterolemia E78.00 Hyperlipidemia type: pure hypercholesterolemia HTN (hypertension), benign I10 Renal insufficiency N28.9 Coding Level of Care Code Off vis,est,level 4 Diagnoses Atherosclerosis of kaibab coronary artery of kaibab heart without angina pectoris I25.10 [place] vs. transplanted heart: kaibab heart Pulmonary hypertension I27.20 Pure hypercholesterolemia E78.00 Hyperlipidemia type: pure hypercholesterolemia HTN (hypertension), benign I10 Renal insufficiency N28.9 05/08/18 1528 <Electronically signed by Jj De León MD> Date Jj De León MD Cosigner Signature: Date (if applicable) CC: Elizabeth Rios DO; Dangelo Dc MD; Chema Syed MD PTHIN Collected: 04/30/2018 Status: F Source: [place] 8:48 AM [facility] REPOSITORY TYPE CODE TESTS RESULT OUT OF RANGE REFERENCE UNITS LAB L509.1000 18.4-80.1 pg/mL High PTHIN 186.1 Performed By: #### L509.1000 #### [facility] [address] [place], [place], [id number] LIVER PROFILE Collected: 04/30/2018 Status: F Source: [place] 8:40 AM [facility] REPOSITORY TYPE CODE TESTS RESULT OUT OF RANGE REFERENCE UNITS LAB L501.1500 6.4-8.2 g/dL Normal T PROT 6.6 LAB L501.1800 3.2-5.0 g/dL Low ALB 3.0 LAB L501.1950 2.2-4.2 g/dL Normal GLOB 3.6 LAB L501.4100 15-37 U/L Normal AST 15 LAB L501.4305 45-117 U/L Normal ALK P 85 LAB L501.4405 16-61 U/L Normal ALT 18 LAB L501.4600 0.20-1.00 mg/dL Normal T BILI 0.50 LAB L501.4700 0.00-0.30 mg/dL Normal D BILI 0.15 Performed By: #### L500.3400, L500.4100 #### [facility] [address] [place], [place], [id number] LIPID PROFILE Collected: 04/30/2018 Status: F Source: [place] 8:40 AM [facility] REPOSITORY TYPE CODE TESTS RESULT OUT OF RANGE REFERENCE UNITS LAB L501.4900 200 mg/dL Normal CHOL 119 Result Comment: <200 mg/dL Desirable 200-240 mg/dL Borderline >240 mg/dL High Risk LAB L501.5000 mg/dL Normal TRIG 146 Result Comment: The drugs N-Acetylcysteine and Metamizole may falsely depress this assay. Serum Triglycerides Reference Interval Normal <150 mg/dL Borderline high 150 - 199 mg/dL High 200 - 499 mg/dL Very High > or = 500 mg/dL LAB L501.6400 mg/dL Low HDL 31 Result Comment: The drugs N-Acetylcysteine and Metamizole may falsely depress this assay. Reference Range HDL <40 mg/dL Low HDL Cholesterol HDL >or= 60 mg/dL High HDL Cholesterol LAB L501.6500 0-130 mg/dL Normal LDL 59 LAB L501.6600 5-40 mg/dL Normal VLDL 29 Performed By: #### L500.3400, L500.4100 #### [facility] [address] [place], [place], [id number] CBC W/DIFF, AUTOMATED Collected: 04/30/2018 Status: F Source: [place] 8:35 AM [facility] REPOSITORY Order Comment: Order Date: 04/24/18 Order Info: [id number] - CBCD Comments: cc copy to Kunal Smith, Genet TYPE CODE TESTS RESULT OUT OF RANGE REFERENCE UNITS LAB L100.1000 4.4-11.0 K/mm3 Normal WBC 10.1 LAB L100.1200 4.6-6.2 M/mm3 Low RBC 3.58 LAB L100.1300 13.0-16.5 g/dl Low HGB 11.6 LAB L100.1400 40-54 % Low HCT 35.6 LAB L100.1500 80-94 fL High MCV 99.4 LAB L100.1600 27.0-32.0 pg High MCH 32.4 LAB L100.1700 32-36 g/gl Normal MCHC 32.6 LAB L100.1810 11.6-14.6 % Normal RDW CV 12.6 LAB L100.1820 35.1-43.9 fl High RDW SD 45.6 LAB L100.1900 150-450 K/mm3 Normal PLT 269 LAB L100.2000 6.2-12.0 fl Normal MPV 10.7 LAB L100.2100 47-70 % Normal NEUT% 64.1 LAB L100.2200 19-41 % Low LY% 18.9 LAB L100.2300 0-10 % Normal MONO% 10.0 LAB L100.2400 0-5 % High EO% 6.4 LAB L100.2500 0-1 % Normal BASO% 0.5 LAB L100.2550 0.0-0.9 % Normal IM GRAN % 0.100 Result Comment: IG% - Immature Granulocytes (promyelocytes, myelocytes and metamyelocytes) > 1% indicates that a LEFT SHIFT is Present. LAB L100.2620 2.0-7.7 X10 3/uL Normal Absolute Neut 6.5 LAB L100.2720 0.83-4.51 X10 3/ul Normal Absolute Lymph 1.90 Performed By: #### L100.0100, L500.4050, L501.9985 #### [facility] [address] [place], [address] COMPREHENSIVE METABOLIC Collected: 04/30/2018 Status: F Source: [place] 8:35 AM [facility] REPOSITORY Order Comment: Order Date: 04/24/18 Order Info: [id number] - CMP SEND RESULTS TO , , AND Comments: cc copy to Kunal Smith, Genet TYPE CODE TESTS RESULT OUT OF RANGE REFERENCE UNITS LAB L501.0100 74-106 mg/dL High GLU 123 Result Comment: Fasting Glucose result from 100 to 125 mg/dL suggests IMPAIRED HOMEOSTASIS per A.D.A. criteria. Please note revised GLUCOSE reference range effective 2017. LAB L501.1000 7-18 mg/dL High BUN 37 LAB L501.1100 0.70-1.30 mg/dL High CREAT,SERUM 2.60 Result Comment: The validity of the calculated GFR AND GFRAA in patients over 70 years has not been determined. Clinical correlation is essential. LAB L501.1110 >60 mL/min Low EST GFR 25 Result Comment: Non- GFR Calc LAB L501.1115 >60 mL/min Low EST GFR - AA 31 Result Comment: GFR Calc LAB L501.1300 10-20 RATIO Normal BUN/CRE 14.2 LAB L501.1500 6.4-8.2 g/dL T Normal PROT 6.6 LAB L501.1800 3.2-5.0 g/dL Low ALB 3.0 LAB L501.1950 2.2-4.2 g/dL Normal GLOB 3.6 LAB L501.2000 0.9-2.4 RATIO Low A/G 0.8 LAB L501.2200 8.5-10.1 mg/dL Low CA 8.4 LAB L501.4100 15-37 U/L Normal AST 15 LAB L501.4305 45-117 U/L Normal ALK P 89 LAB L501.4405 16-61 U/L Normal ALT 18 LAB L501.4600 0.20-1.00 mg/dL T Normal BILI 0.40 LAB L501.5300 136-145 mmol/L NA Normal 142 LAB L501.5600 3.5-5.1 mmol/L K Normal 4.6 LAB L501.5900 98-107 mmol/L CL Normal 107 LAB L501.6100 21.0-32.0 mmol/L Normal CO2 25.0 LAB L501.6200 5-15 Normal GAP 10 Performed By: #### L100.0100, L500.4050, L501.9985 #### [facility] [address] [place], [address] HEMOGLOBIN A1C Collected: 04/30/2018 Status: F Source: [place] 8:35 AM [facility] REPOSITORY Order Comment: Order Date: 04/24/18 Order Info: [id number] - A1C Comments: cc copy to Kunal Smith, Genetcc copy to Kunal Smith, Genet TYPE CODE TESTS RESULT OUT OF RANGE REFERENCE UNITS LAB L501.9985 4.2-6.3 % High HGB A1C 7.4 Performed By: #### L100.0100, L500.4050, L501.9985 #### [facility] [address] [place], [address] PROTEIN+CREATININE Collected: Status: F Source: [place] DUNN,URINE 04/30/2018 8:35 AM [facility] REPOSITORY Order Comment: SEND RESULTS TO TYPE CODE TESTS RESULT OUT OF RANGE REFERENCE UNITS LAB L501.1200 NO RANGE EST. mg/dL Normal UR CREAT 37.30 LAB L501.1930 <11.9 mg/dL High 34.5 PROTEIN,UR.R AN. LAB L501.1940 0-200 mg/g CRE High PROT:CRE 925 RATIO Performed By: #### L501.0900 #### [facility] [address] [place], [address] PHOSPHORUS Collected: 04/30/2018 Status: F Source: [place] 8:35 AM [facility] REPOSITORY Order Comment: Order Date: 04/24/18 Order Info: [id number] - CMP SEND RESULTS TO , , AND Comments: cc copy to Kunal Smith, Genet TYPE CODE TESTS RESULT OUT OF RANGE REFERENCE UNITS LAB L501.2300 2.5-4.9 mg/dL Normal PHOS 3.8 Performed By: #### L501.2300 #### [facility] [address] [place], [address] BNP,B-TYPE NATRIURETIC Collected: 04/30/2018 Status: F Source: [place] 8:35 AM [facility] REPOSITORY Order Comment: SEND RESULTS TO , , AND TYPE CODE TESTS RESULT OUT OF RANGE REFERENCE UNITS LAB L503.6620 0-100 pg/mL Normal B-TYPE 70.7 HERNANDEZ PEP Performed By: #### L503.6620 #### [facility] [address] [place], [address] VITAMIN D,25 HYDROXY Collected: 04/30/2018 Status: F Source: [place] 8:35 AM [facility] REPOSITORY Order Comment: SEND RESULTS TO , , AND TYPE CODE TESTS RESULT OUT OF RANGE REFERENCE UNITS LAB L506.1000 29.95-100.01 ng/mL Normal Vitamin D 45.7 25-OH Result Comment: Vitamin D 25(OH) Status Range Deficiency <20 ng/mL (50nmol/L) Insuffciency 20 - 30 ng/mL (50 - 75 nmol/L) Sufficiency 30 - 100 ng/mL (75 - 250 nmol/L) Toxicity >100 ng/mL (>250 nmol/L) Performed By: #### L506.1000 #### [facility] [address] [place], [address] ELECTROLYTE PANEL Collected: 04/18/2018 Status: F Source: [place] 1:08 PM [facility] REPOSITORY TYPE CODE TESTS RESULT OUT OF RANGE REFERENCE UNITS LAB L501.5300 136-145 mmol/L Normal NA 140 LAB L501.5600 3.5-5.1 mmol/L Normal K 4.5 LAB L501.5900 98-107 mmol/L Normal CL 103 LAB L501.6100 21.0-32.0 mmol/L Normal CO2 27.0 LAB L501.6200 5-15 Normal GAP 10 Performed By: #### L501.5294, L501.1105 #### [facility] [address] [place], [address] SERUM CREATININE AND Collected: 04/18/2018 Status: F Source: [place] GFR 1:08 PM [facility] REPOSITORY TYPE CODE TESTS RESULT OUT OF RANGE REFERENCE UNITS LAB L501.1100 0.70-1.30 mg/dL High 2.92 CREAT,SERUM Result Comment: The validity of the calculated GFR AND GFRAA in patients over 70 years has not been determined. Clinical correlation is essential. LAB L501.1110 >60 mL/min Low EST GFR 22 Result Comment: Non- GFR Calc LAB L501.1115 >60 mL/min Low EST GFR - AA 27 Result Comment: GFR Calc Performed By: #### L501.5294, L501.1105 #### [facility] [address] [place], [address] CHEST WITHOUT Observed: 04/09/2018 Status: F Source: [place] CONTRAST 2:10 PM [facility] REPOSITORY [facility] Services [address] [place] [address] Chest without Contrast MR#: [id number] Acct: [id number] Name: AZRA OBRIEN Rep #: [id number] : 1940 M 77 From: Mart Lawson MD PCP: Dangelo Dc MD Status: REG CLI Study: Chest without Contrast Date of Exam: 04/09/18 Exam# [id number] Ordering Dr: Chema Syed MD STUDY: CT CHEST WITHOUT CONTRAST REASON FOR EXAM: Male, 77 years old. Pulmonary hypertension. RADIATION DOSAGE (If Supplied By Facility): CTDIvol = ( 17.58 ) mGy, DLP = ( 584.09 ) mGycm TECHNIQUE: Transaxial imaging was performed without the administration of intravenous contrast material. Coronal and sagittal 2-D MPR Individualized dose optimization techniques were used for this CT. COMPARISON: X-ray chest 08/07/2016 and 07/25/2013. FINDINGS: Supraclavicular: Normal thyroid. No mass or lymphadenopathy. Thoracic body wall soft tissues: No acute process. Upper abdomen: Limited evaluation, no acute process. Osseous structures: Osteopenia with mild kyphoscoliosis and multilevel thoracic degenerative disc disease with partially bridging anterior osteophytes at multiple levels, fusion across multilevel disc intervals between T7 and T12, with more prominent disc degeneration at the levels immediately above and below the column of fusion T6-T7, T12- L1 were disc degeneration and facet hypertrophy contributing to foraminal stenosis at T6-T7. Mediastinum: Normal esophagus. There are several mediastinal and hilar calcified lymph nodes consistent with old granulomatous disease without acute lymphadenopathy. Heart: Normal heart size without effusion. Coronary calcifications are present in the proximal LAD, proximal circumflex, proximal RCA. There are moderately dense calcifications of the mitral valve annulus. There are mild calcifications of the aortic valve leaflets. Aorta: Nondilated, mild arch atherosclerosis. Pulmonary arteries: Ectatic central pulmonary arteries with the main pulmonary artery measuring up to 3.3 cm which may be a reflection of pulmonary arterial hypertension. Lungs: Prominent elevation of the left hemidiaphragm is associated with mild left lung base atelectasis. There is a mildly heterogeneous lucent attenuation pattern in the lungs suggesting very mild air trapping and underlying COPD. Correlate any smoking history. There are no farhat features of centrilobular or paraseptal emphysema. There is mild bronchial wall thickening in the lower lobes bilaterally, suggesting mild chronic bronchiolitis. There is no acute infiltrate, effusion or pneumothorax. There are no suspicious pulmonary nodules. A few tiny scattered pulmonary nodules are present some of calcified most consistent with old granulomatous disease, the largest measuring less than [address]/Chest without Contrast IMPRESSION: 1. Small pulmonary nodules some of which are calcified, consistent with old granulomatous disease. No specific follow-up is recommended. 2. Prominent features suggest underlying mild COPD. Smoking history? If there is a smoking history consider follow-up annual low dose CT screening for lung cancer. 3. There is ectasia of the central pulmonary arteries suggesting the presence of pulmonary hypertension. 4. Cardiac disease as described above including three-vessel coronary atherosclerosis, mitral annulus and aortic valve calcifications. Electronically Signed: Mart Lawson, at 17:58 EDT Tel , Service support , CC: Dangelo Dc MD; Chema Syed MD Finance Broker: Signed RENAL PROFILE Collected: 01/29/2018 Status: F Source: [place] 2:51 PM [facility] REPOSITORY TYPE CODE TESTS RESULT OUT OF RANGE REFERENCE UNITS LAB L501.0100 74-106 mg/dL High GLU 146 Result Comment: Fasting Glucose result greater than or equal to 126 mg/dL suggests DIABETES MELLITUS per A.D.A. criteria. Please note revised GLUCOSE reference range effective 2017. LAB L501.1000 7-18 mg/dL High BUN 39 LAB L501.1100 0.70-1.30 mg/dL High CREAT,SERUM 2.72 Result Comment: The validity of the calculated GFR AND GFRAA in patients over 70 years has not been determined. Clinical correlation is essential. LAB L501.1110 >60 mL/min Low EST GFR 24 Result Comment: Non- GFR Calc LAB L501.1115 >60 mL/min Low EST GFR - AA 29 Result Comment: GFR Calc LAB L501.1300 10-20 RATIO Normal BUN/CRE 14.3 LAB L501.1800 3.2-5.0 g/dL Low ALB 3.1 LAB L501.2200 8.5-10.1 mg/dL CA Normal 8.6 LAB L501.2300 2.5-4.9 mg/dL Normal PHOS 3.4 LAB L501.5300 136-145 mmol/L NA Normal 141 LAB L501.5600 3.5-5.1 mmol/L K Normal 4.1 LAB L501.5900 98-107 mmol/L CL Normal 107 LAB L501.6100 21.0-32.0 mmol/L Normal CO2 27.0 Performed By: #### L500.3600 #### [facility] [address] [place], [place], [address] PROTEIN+CREATININE Collected: Status: F Source: [place] RATIO,URINE 01/29/2018 2:51 PM [facility] REPOSITORY TYPE CODE TESTS RESULT OUT OF RANGE REFERENCE UNITS LAB L501.1200 NO RANGE EST. mg/dL Normal UR CREAT 56.50 LAB L501.1930 <11.9 mg/dL High 52.6 PROTEIN,UR.R AN. LAB L501.1940 0-200 mg/g CRE High PROT:CRE 931 RATIO Performed By: #### L501.0900 #### [facility] [address] [place], [address] PTHIN Collected: 01/29/2018 Status: F Source: [place] 2:51 PM [facility] REPOSITORY TYPE CODE TESTS RESULT OUT OF RANGE REFERENCE UNITS LAB L509.1000 18.4-80.1 pg/mL High PTHIN 128.8 Performed By: #### L509.1000 #### [facility] [address] [place], [address] ORTHOPEDIC VISIT Observed: 01/08/2018 Status: F Source: [place] REPORT 3:45 PM [facility] REPOSITORY [facility] [facility] [address] [place] [address] OFFICE VISIT Date of Service: 01/08/18 MR#: [id number] Acct: [id number] Name: AZRA OBRIEN Rep #: [id number] : 1940 Provider: Emma Mcqueen MD Age/Sex: 77/M [place] [facility] [place] Signed Intake Intake Visit Reasons: LOW BACK Is patient in pain?: No Allergies clonidine Allergy (Verified 01/08/18 08:59) Rash hydrochlorothiazide Allergy (Verified 01/08/18 08:59) Rash gabapentin Adverse Reaction (Verified 01/08/18 08:59) DIZZINESS tiotropium bromide [From Spiriva with HandiHaler] Adverse Reaction (Verified 01/08/18 08:59) IRRITATION TO TEETHE Medications Aspirin E.C. [Ecotrin] 81 mg PO QHS 01/13/15 [History Confirmed 08/28/17] Atenolol [Tenormin (beta autumn)] 25 mg PO BID 01/13/15 [History Confirmed 08/28/17] Atorvastatin Calcium [Lipitor] 80 mg PO DAILY 01/13/15 [History Confirmed 08/28/17] Cholecalciferol (VIT D3) [Vitamin D3] 5,000 unit PO DAILY 01/13/15 [History Confirmed 08/28/17] Febuxostat [Uloric] 40 mg PO DAILY 01/13/15 [History Confirmed 08/28/17] Insulin Glargine [Lantus SoloStar Pen] 10 units SC QHS 01/13/15 [History Confirmed 08/28/17] Magnesium Oxide [Mag-Ox 400] 400 mg PO DAILY 01/13/15 [History Confirmed 08/28/17] Multivitamins,Therapeutic [Multivitamin] 1 tab PO QHS 01/13/15 [History Confirmed 08/28/17] Albuterol IH (ProAir) [Proair Hfa (SP)Vent Pts] 1 - 2 puff INHALATION Q4H PRN PRN 08/11/16 [History Confirmed 08/28/17] Baicalin/Catechin [Limbrel 500 mg Capsule] 500 mg PO PRN PRN 03/28/17 [History Confirmed 08/28/17] Dutasteride [Avodart] 0.5 mg PO DAILY 03/28/17 [History Confirmed 08/28/17] Liraglutide [Victoza] 0.6 mg SQ DAILY 03/28/17 [History Confirmed 08/28/17] Vit A/Vit C/Vit E/Zinc/Copper [Preservision Areds Softgel] 1 ea PO DAILY 03/28/17 [History Confirmed 08/28/17] baicalin-catechin 500 mg capsule 500 mg PO QDAY cap 07/27/17 [History Confirmed 08/28/17] glipizide ER 5 mg tablet, extended release 24 hr 5 mg PO BID tab 07/27/17 [History Confirmed 08/28/17] baicalin-catechin 250 mg capsule 250 mg PO Q12H 08/01/17 [History Confirmed 08/28/17] furosemide 40 mg tablet 40 mg PO ONCE 08/01/17 [History Confirmed 08/28/17] PFSH Medical History Renal insufficiency (Chronic) Hyperlipidemia (Chronic) HTN (hypertension), benign (Chronic) CAD (coronary artery disease) (Chronic) Diverticulitis (Acute) GERD (gastroesophageal reflux disease) (Acute) Arthritis (Chronic) Asthma (Chronic) BPH (benign prostatic hyperplasia) (Chronic) Diabetes mellitus, insulin dependent (IDDM), controlled (Chronic) Surgical History H/O bilateral cataract extraction (Inactive) History of carpal tunnel release (Inactive) History of left hip replacement (Inactive) History of lumbar laminectomy (Inactive) S/P appendectomy (Inactive) S/P carpal tunnel release (Inactive) S/P cholecystectomy (Inactive) S/P left knee arthroscopy (Inactive) S/P lumbar laminectomy (Inactive) s/p melanoma (Inactive) Family History Brother Diabetes Sister CAD (coronary artery disease) CVA (cerebral vascular accident) CHF (congestive heart failure) Son Hypertension Social History Smoking Status: Former smoker how long ago did patient quit smokin alcohol intake: current alcohol intake frequency: holidays/special occasions only Alcohol type: beer substance use type: does not use caffeine: Yes Type: coffee what type of physical activity do you participate in: other details: physical therapy frequency: 1-2 times per week duration: 15-30 minutes/day seatbelt use: always do you feel safe at home: Yes HPI LOW BACK: Details: AZRA OBRIEN returns today in follow up for s/p L1- L2 laminectomy at [facility] dos 05/25/17. Patient states that his back is doing fantastic and he denies any pain. Patient feels like his surgery was helpful. He has difficult time ambulating long distances due to knee pain and shortness of breath. 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 He denies any back pain with ambulating. He notes that he is able to shave in the morning without leaning. Patient completed physical therapy which was helpful. ROS Const Reports system reviewed and no additional complaints, except as docu Eyes Reports system reviewed and no additional complaints, except as docu ENT Reports system reviewed and no additional complaints, except as docu Card Reports system reviewed and no additional complaints, except as docu Resp Reports system reviewed and no additional complaints, except as docu GI Reports system reviewed and no additional complaints, except as docu Reports system reviewed and no additional complaints, except as docu Skin/Breast Reports system reviewed and no additional complaints, except as docu Neuro Yes system reviewed and no additional complaints, except as docu Psych Reports system reviewed and no additional complaints, except as docu Endo Reports system reviewed and no additional complaints, except as docu Ortho Exam Spine Neuro: Yes Straight Leg Raise (negative bilaterally) General: alert, oriented x3 Skin: Yes healed Capillary Refill <2sec: Yes Gait: normal gait, other (heel and toe intact) Motor: strength 5/5 throughout Sensory Exam: no sensory deficits noted DTR's: Rt Patellar: 2+, Lt Patellar: 2+, Rt Ankle: 2+, Lt Ankle: 2+ Coordination: Romberg test normal SPINE TESTING CERVICAL THORACIC LUMBAR SLR: Negative Musculoskeletal General: Yes normal gait Thoracic/Lumbar Spine: thoraco-lumbar ROM normal, straight leg raise negative bilaterally, surgical scar(s) present Strength 0=absent - 5=normal R Hip Flexor (L1-3): 5, L Hip Flexor (L1-3): 5, R Quadriceps (L2-4): 5, L Quadriceps (L2-4): 5, R Anterior Tibialis (L4-5): 5, L Anterior Tibialis (L4-5): 5, R Hamstrings (L5-S1): 5, L Hamstrings (L5-S1): 5, GS (S1): 5, L GS (S1): 5, R Peroneals (S1): 5, L Peroneals (S1): 5 Assessment AND Plan Problems 1. S/P laminectomy Z98.890 Plan I/R/P: 1. status post L1-2 laminectomy 05/25/2017 Mr. Obrien is doing well postoperatively. He will continue to increase his activities as tolerated. Follow up in 05/2018 or sooner if issues arise. Plan of care discussed. All questions answered. He is in understanding. Coding Level of Care Code Off vis,est,level 4 Diagnoses S/P laminectomy Z98.890 01/08/18 1545 <Electronically signed by Emma Mcqueen MD> Date Emma Mcqueen MD Cosigner Signature: Date (if applicable) CC: LIVIA W/DIFF, AUTOMATED Collected: 12/17/2017 Status: F Source: [place] 8:05 AM [facility] REPOSITORY Order Comment: Order Date: 10/22/17 Order Info: [id number] - LIVIAD TYPE CODE TESTS RESULT OUT OF RANGE REFERENCE UNITS LAB L100.1000 4.4-11.0 K/mm3 High WBC 11.3 LAB L100.1200 4.6-6.2 M/mm3 Low RBC 3.63 LAB L100.1300 13.0-16.5 g/dl Low HGB 11.9 LAB L100.1400 40-54 % Low HCT 36.5 LAB L100.1500 80-94 fL High MCV 100.6 LAB L100.1600 27.0-32.0 pg High MCH 32.8 LAB L100.1700 32-36 g/gl Normal MCHC 32.6 LAB L100.1810 11.6-14.6 % Normal RDW CV 12.3 LAB L100.1820 35.1-43.9 fl Normal RDW SD 43.8 LAB L100.1900 150-450 K/mm3 Normal PLT 275 LAB L100.2000 6.2-12.0 fl Normal MPV 10.9 LAB L100.2100 47-70 % Normal NEUT% 57.8 LAB L100.2200 19-41 % Normal LY% 25.2 LAB L100.2300 0-10 % High MONO% 11.2 LAB L100.2400 0-5 % Normal EO% 4.9 LAB L100.2500 0-1 % Normal BASO% 0.6 LAB L100.2550 0.0-0.9 % Normal IM GRAN % 0.300 Result Comment: IG% - Immature Granulocytes (promyelocytes, myelocytes and metamyelocytes) > 1% indicates that a LEFT SHIFT is Present. LAB L100.2620 2.0-7.7 X10 3/uL Normal Absolute Neut 6.6 LAB L100.2720 0.83-4.51 X10 3/ul Normal Absolute Lymph 2.85 Performed By: #### L100.0100, L500.4050, L500.4100, L506.1000 #### [facility] [address] [place], [place], [address] COMPREHENSIVE METABOLIC Collected: 12/17/2017 Status: F Source: [place] MENG 8:05 AM [facility] REPOSITORY Order Comment: Order Date: 10/22/17 Order Info: [id number] - CMP Order Info: [id number] - LIPID TYPE CODE TESTS RESULT OUT OF RANGE REFERENCE UNITS LAB L501.0100 74-106 mg/dL High GLU 131 Result Comment: Fasting Glucose result greater than or equal to 126 mg/dL suggests DIABETES MELLITUS per A.D.A. criteria. Please note revised GLUCOSE reference range effective 2017. LAB L501.1000 7-18 mg/dL High BUN 42 LAB L501.1100 0.70-1.30 mg/dL High CREAT,SERUM 2.82 Result Comment: The validity of the calculated GFR AND GFRAA in patients over 70 years has not been determined. Clinical correlation is essential. LAB L501.1110 >60 mL/min Low EST GFR 23 Result Comment: Non- GFR Calc LAB L501.1115 >60 mL/min Low EST GFR - AA 28 Result Comment: GFR Calc LAB L501.1300 10-20 RATIO Normal BUN/CRE 14.9 LAB L501.1500 6.4-8.2 g/dL T Normal PROT 6.7 LAB L501.1800 3.2-5.0 g/dL Normal ALB 3.2 LAB L501.1950 2.2-4.2 g/dL Normal GLOB 3.5 LAB L501.2000 0.9-2.4 RATIO Normal A/G 0.9 LAB L501.2200 8.5-10.1 mg/dL Low CA 8.4 LAB L501.4100 15-37 U/L Normal AST 15 LAB L501.4305 45-117 U/L Normal ALK P 94 LAB L501.4405 16-61 U/L Normal ALT 19 LAB L501.4600 0.20-1.00 mg/dL T Normal BILI 0.40 LAB L501.5300 136-145 mmol/L NA Normal 142 LAB L501.5600 3.5-5.1 mmol/L K Normal 4.3 LAB L501.5900 98-107 mmol/L High CL 108 LAB L501.6100 21.0-32.0 mmol/L Normal CO2 28.0 LAB L501.6200 5-15 Normal GAP 6 Performed By: #### L100.0100, L500.4050, L500.4100, L506.1000 #### [facility] [place], [address] LIPID PROFILE Collected: 12/17/2017 Status: F Source: [place] 8:05 AM [facility] REPOSITORY Order Comment: Order Date: 10/22/17 Order Info: [id number] - CMP Order Info: [id number] - LIPID TYPE CODE TESTS RESULT OUT OF RANGE REFERENCE UNITS LAB L501.4900 200 mg/dL Normal CHOL 126 Result Comment: <200 mg/dL Desirable 200-240 mg/dL Borderline >240 mg/dL High Risk LAB L501.5000 mg/dL Normal TRIG 142 Result Comment: The drugs N-Acetylcysteine and Metamizole may falsely depress this assay. Serum Triglycerides Reference Interval Normal <150 mg/dL Borderline high 150 - 199 mg/dL High 200 - 499 mg/dL Very High > or = 500 mg/dL LAB L501.6400 mg/dL Low HDL 36 Result Comment: The drugs N-Acetylcysteine and Metamizole may falsely depress this assay. Reference Range HDL <40 mg/dL Low HDL Cholesterol HDL >or= 60 mg/dL High HDL Cholesterol LAB L501.6500 0-130 mg/dL Normal LDL 62 LAB L501.6600 5-40 mg/dL Normal VLDL 28 Performed By: #### L100.0100, L500.4050, L500.4100, L506.1000 #### [facility] [address] [place], [address] VITAMIN D,25 HYDROXY Collected: 12/17/2017 Status: F Source: [place] 8:05 [facility] REPOSITORY Order Comment: Order Date: 10/22/17 Order Info: [id number] - VITD25 TYPE CODE TESTS RESULT OUT OF RANGE REFERENCE UNITS LAB L506.1000 29.95-100.01 ng/mL Normal Vitamin D 45.0 25-OH Result Comment: Vitamin D 25(OH) Status Range Deficiency <20 ng/mL (50nmol/L) Insuffciency 20 - 30 ng/mL (50 - 75 nmol/L) Sufficiency 30 - 100 ng/mL (75 - 250 nmol/L) Toxicity >100 ng/mL (>250 nmol/L) Performed By: #### L100.0100, L500.4050, L500.4100, L506.1000 #### [facility] [address] [place], [address] RENAL PROFILE Collected: 09/27/2017 Status: F Source: [place] 3:48 PM [facility] REPOSITORY TYPE CODE TESTS RESULT OUT OF RANGE REFERENCE UNITS LAB L501.0100 74-106 mg/dL High GLU 124 Result Comment: Fasting Glucose result from 100 to 125 mg/dL suggests IMPAIRED HOMEOSTASIS per A.D.A. criteria. Please note revised GLUCOSE reference range effective 2017. LAB L501.1000 7-18 mg/dL High BUN 38 LAB L501.1100 0.70-1.30 mg/dL High CREAT,SERUM 2.81 Result Comment: The validity of the calculated GFR AND GFRAA in patients over 70 years has not been determined. Clinical correlation is essential. LAB L501.1110 >60 mL/min Low EST GFR 23 Result Comment: Non- GFR Calc LAB L501.1115 >60 mL/min Low EST GFR - AA 28 Result Comment: GFR Calc LAB L501.1300 10-20 RATIO Normal BUN/CRE 13.5 LAB L501.1800 3.2-5.0 g/dL Normal ALB 3.6 LAB L501.2200 8.5-10.1 mg/dL Low CA 8.3 LAB L501.2300 2.5-4.9 mg/dL Normal PHOS 3.2 LAB L501.5300 136-145 mmol/L NA Normal 142 LAB L501.5600 3.5-5.1 mmol/L K Normal 4.0 LAB L501.5900 98-107 mmol/L CL Normal 104 LAB L501.6100 21.0-32.0 mmol/L Normal CO2 28.0 Performed By: #### L500.3600 #### [facility] [address] [place], [address] PT D/C SUMMARY (1) Observed: 09/13/2017 Status: F Source: [place] 2:02 PM [facility] REPOSITORY [facility] [address] [place] [address]. [address] [place] [address] Fax REHABILITATION SERVICES DISCHARGE SUMMARY MR#: [id number] Acct: [id number] Name: AZRA OBRIEN Rep #: [id number] : 1940 77 From: Braydon Kendall PT, ATC Referring Dr.: Emma Mcqueen MD Status: REG RCR Insurance: MEDICARE PART A B [employer] COMM[employer]CIAL HP - PT D/C Summary It has been my pleasure to treat AZRA OBRIEN under orders from Emma Mcqueen, for the diagnosis of L1-2 Laminectomy for a total of 16 visit(s). Discharge Date: Please see the following information for a summary of their discharge status. - Subjective Subjective: No pain this date. Able to get in/out of car I now - Pain LBP Pain Intensity (Out of 10): 0 Left Hip Pain Intensity (Out of 10): 0 - Overall Improvement % Improvement: 65 - Objective Objective/Function: Pt is still very limited with ambulation as he can walk 340' I until fatigued. Pt is I with HEP. Core and LE strength improving as well as he is I with car transfers at this time. Pt is progressing well and will cont with HEP - Goals Goal 1:: Increase core stability x 1 grade to aid with increasing ozzy for ambulation Goal Progress: Progressing Goal 2:: Pt will be able to ambulate greater than 680 to aid with community ambulation Goal Progress: Progressing Goal 3:: I with HEP Goal Progress: Goal Met - Plan Plan: Discontinue - D/C Information If there are questions or concerns regarding this patient's physical therapy, please feel free to call me at [phone]. Thank you for the referral of this patient. Sincerely, Braydon Kendall PT, <Electronically signed by Braydon Kendall PT, ATC> 09/13/17 1402 CC: Emma Mcqueen MD; Dangelo Dc MD [facility] Signed ALLERGIES ALLERGIES DATE TYPE / CODE NAME / CODE REACTION SEVERITY SOURCE 08/06/2018 Drug tiotropium IRRITATION TO Unknown [place] Allergy/416 bromide/[id number] TEETHE Community 240474([facility] 3(RXNORM) [facility] ED CT) Repository 08/06/2018 Drug hydrochlorothiazi Rash Unknown [place] Allergy/416 de/[id number](RXN Community 439165([facility] ED CT) Repository 08/06/2018 Drug gabapentin/R37767 dizziness Unknown [place] Allergy/416 4415(RXNORM) [facility] 150636([facility] ED CT) Repository 08/06/2018 Drug clonidine/Z735180 Rash Unknown [place] Allergy/416 495(RXNORM) [facility] 103237([facility] CT) Repository ENCOUNTERS ENCOUNTERS ADMIT/DISCHARGE ACCOUNT ADMITTING ENCOUNTER LOCATION SOURCE NUMBER CLASS 08/30/2018 [id number] Ambulatory [place] 3 [facility] ing:ID Repository 08/26/2018 [id number] Ambulatory [place] 3 [facility] ing:LAB.FUTUR Repository E 08/22/2018 [id number] Ambulatory [place] 4 [facility] ing:ID Repository 08/06/2018 [id number] Ambulatory [place] 9 [facility] ing:HPRAD Repository 08/06/2018/ [id number] Ambulatory [facility] [place] [facility] 2 [facility] Repository 08/05/2018 [id number] Ambulatory [place] 4 [facility] ing:LAB Repository 08/01/2018/ [id number] Ambulatory [place] 8 5 [facility] ing:ID Repository 07/30/2018 [id number] Ambulatory [place] 7 [facility] ing:LAB.FUTUR Repository E 07/18/2018/ [id number] Ambulatory [place] 8 3 [facility] ing:ID Repository 06/18/2018/ [id number] Ambulatory [place] 8 0 [facility] ing:ID Repository 06/11/2018/ [id number] Ambulatory BMSBuilding:B [place] 8 3 [facility] Repository 06/04/2018 [id number] Ambulatory [place] 1 [facility] ing:MTRAD Repository 05/13/2018 [id number] Ambulatory [place] 7 [facility] ing:LAB.FUTUR Repository E 05/08/2018/ [id number] Ambulatory BMSBuilding:B [place] 8 6 [facility] Repository 05/02/2018 [id number] Ambulatory BMSBuilding:B [place] 3 [facility] Repository 04/30/2018 [id number] Ambulatory [place] 9 [facility] ing:MFPLAB Repository 04/18/2018 [id number] Ambulatory [place] 8 [facility] ing:MTLAB Repository 04/09/2018 [id number] Ambulatory [place] 8 [facility] ing:CT Repository 01/29/2018 [id number] Ambulatory [place] 5 [facility] ing:POLAB3 Repository 01/08/2018/ [id number] Ambulatory BMSBuilding:B [place] 8 0 [facility] Repository 01/03/2018 [id number] Ambulatory [place] 5 [facility] ing:LAB.FUTUR Repository E 12/17/2017 [id number] Ambulatory [place] 2 [facility] ing:MFPLAB Repository 09/27/2017 [id number] Ambulatory [place] 5 [facility] ing:LAB.FUTUR Repository E 09/13/2017/ [id number] Ambulatory [place] 8 7 [facility] ing:PT Repository PAYERS PAYERS ENCOUNTER GUARANTOR PAYER SUBSCRIBER SOURCE 08/30/2018 AZRA Dash Primary MERLE W [place] [id number] Insurance:MEDICARE ROMICKDOB: [facility] PART A BPolicy Number: [id number] [place], [place] [id number] Repository 88352Fsm: (330) Date:2018-05-09 [phone] (HP) 08/30/2018 Secondary MERLE W [place] Insurance:HUMANA ROMICKDOB: [facility] [id number] Hospital Number: Repository [id number] Date:7367-84-36Xl[address] [address]AD: 08/30/2018 Tertiary NOT GIVENUNK [place] Insurance:SELF PAY [facility] Hospital Number: Effective Repository Date:2018-08-20 08/26/2018 MERLE W Primary MERLE W [place] [id number] Insurance:MEDICARE ROMICKDOB: [facility] PART A BPolicy Number: [id number], [place] [id number] Repository 26588Ctk: 330) Date:2018-08-26 [phone] () 08/26/2018 Secondary MERLE W [place] Insurance:HUMANA ROMICKDOB: [facility] [id number] Hospital Number: Repository [id number] Date:9532-62-58Hu [address] [address]XR: 08/26/2018 Tertiary NOT GIVENUNK [place] Insurance:SELF PAY [facility] Number: Effective Repository Date:2018-08-26 08/22/2018 MERLE W Primary MERLE W [place] [id number] Insurance:MEDICARE ROMICKDOB: [facility] PART A BPolicy Number: [id number], [place] [id number] Repository 40[address]Mnj: 330) Date:2018-07-31 [phone] () 08/22/2018 Secondary MERLE W [place] Insurance:HUMANA ROMICKDOB: [facility] [id number] Hospital Number: Repository [id number] Date:4637-58-16Sl [address] [address]FK: 08/22/2018 Tertiary NOT GIVENUNK [place] Insurance:SELF PAY [facility] Hospital Number: Effective Repository Date:2018-07-31 08/06/2018 MERLE W Primary MERLE W [place] [id number] Insurance:MEDICARE ROMICKDOB: [facility] PART A BPolicy Number: [id number], [place] [id number] Repository 47384Zbr: 330) Date:2018-08-06 [phone] () 08/06/2018 Secondary MERLE W [place] Insurance:HUMANA ROMICKDOB: [facility] [id number] Hospital Number: Repository [id number] Date:7586-29-22Hv [address] [place] [address]YC: 08/06/2018 Tertiary NOT GIVENUNK [place] Insurance:SELF PAY [facility] Number: Effective Repository Date:2018-08-06 08/06/2018 MERLE W Primary MERLE W [place] [id number] Insurance:MEDICARE [facility]Policy Number: [id number], [place] [id number] Repository 88892Ejw: (538) Date:2018-08-02 [phone] () 08/06/2018 Secondary MERLE W [place] Insurance:HUMANA ROMICKDOB: [facility] [id number] Hospital Number: Repository [id number] Date:0025-82-41Jv [address] [address]XH: 08/06/2018 Tertiary NOT GIVENUNK [place] Insurance:SELF PAY [facility] Number: Effective Repository Date:2018-08-05 08/05/2018 MERLE W Primary MERLE W [place] [id number] Insurance:MEDICARE ROMICKDOB: [facility] MARY PART A BPolicy Number: [id number], [place] [id number] Repository [address]Nqk: (580) Date:2018-08-05 [phone] () 08/05/2018 Secondary MERLE W [place] Insurance:HUMANA ROMICKDOB: [facility] [id number] Hospital Number: Repository [id number] Date:0788-55-61Ed [address] [place] [address]EU: 08/05/2018 Tertiary NOT GIVENUNK [place] Insurance:SELF PAY [facility] Hospital Number: Effective Repository Date:2018-08-05 08/01/2018 MERLE W Primary MERLE W [place] [id number] Insurance:MEDICARE ROMICKDOB: [facility] PART A BPolicy Number: [id number], [place] [id number] Repository 394[address]Oop: (330) Date:2018-05-09 [phone] () 08/01/2018 Secondary MERLE W [place] Insurance:HUMANA ROMICKDOB: [facility] [id number] Hospital Number: Repository [id number] Date:1504-12-18Vt [address] [place] [address]AM: 08/01/2018 Tertiary NOT GIVENUNK [place] Insurance:SELF PAY [facility] Number: Effective Repository Date:2018-07-20 07/30/2018 MERLE W Primary MERLE W [place] [id number] Insurance:MEDICARE ROMICKDOB: [facility] MARY PART A BPolicy Number: [id number], [place] [id number] Repository 87431Xsj: 330) Date:2018-07-308686 () 07/30/2018 Secondary MERLE W [place] Insurance:HUMANA ROMICKDOB: [facility] [id number] Hospital Number: Repository [id number] Date:8397-00-69Sd[address] [address]XG: 07/30/2018 Tertiary NOT GIVENUNK [place] Insurance:SELF PAY [facility] Hospital Number: Effective Repository Date:2018-07-30 07/18/2018 MERLE W Primary Insurance:SELF NOT GIVENUNK [place] [id number] PAY [facility] Number: Effective [place] Date:2018-06-20 Repository 92186Dsf: () 06/18/2018 MERLE W Primary Insurance:SELF NOT GIVENUNK [place] [id number] PAY [facility] Number: Effective [place] Date:2018-05-09 Repository 19347Lus: () 06/11/2018 MERLE W Primary MERLE W [place] [id number] Insurance:MEDICARE ROMICKDOB: [facility] PART A BPolicy Number: [id number], [place] [id number] Repository 56821Byo: 330) Date:2018-01-08 [phone] () 06/11/2018 Secondary MERLE W [place] Insurance:HUMANA ROMICKDOB: [facility] [id number] Hospital Number: Repository [id number] Date:2062-12-67Ti [address] [place] [address]NE: 06/11/2018 Tertiary NOT GIVENUNK [place] Insurance:SELF PAY [facility] Hospital Number: Effective Repository Date:2018-06-11 06/04/2018 MERLE W Primary MERLE W [place] [id number] Insurance:MEDICARE ROMICKDOB: [facility] MARY PART A BPolicy Number: [id number], [place] [id number] Repository 22956Gus: 330) Date:2018-06-040772 () 06/04/2018 Secondary MERLE W [place] Insurance:HUMANA ROMICKDOB: [facility] [id number] Hospital Number: Repository [id number] Date:4438-81-53Bp [address] [place] [address]GL: 06/04/2018 Tertiary NOT GIVENUNK [place] Insurance:SELF PAY [facility] Number: Effective Repository Date:2018-06-04 05/13/2018 MERLE W Primary MERLE W [place] [id number] Insurance:MEDICARE ROMICKDOB: [facility] MARY PART A BPolicy Number: [id number], [place] [id number] Repository 715[address]Azj: (495) Date:2018-05-13 [phone] () 05/13/2018 Secondary MERLE W [place] Insurance:HUMANA ROMICKDOB: [facility] [id number] Hospital Number: Repository [id number] Date:5413-44-94Ay [address] [place] [address]FI: 05/13/2018 Tertiary NOT GIVENUNK [place] Insurance:SELF PAY [facility] Number: Effective Repository Date:2018-05-13 05/08/2018 MERLE W Primary MERLE W [place] [id number] Insurance:MEDICARE ROMICKDOB: [facility] MARY PART A BPolicy Number: [id number], [place] [id number] Repository 07993Ldl: (330) Date:2017-08-0107 () 05/08/2018 Secondary MERLE W [place] Insurance:HUMANA ROMICKDOB: [facility] [id number] Hospital Number: Repository [id number] Date:2508-13-40Qy [address] [place] [address]HO: 05/08/2018 Tertiary NOT GIVENUNK [place] Insurance:SELF PAY [facility] Hospital Number: Effective Repository Date:2018-05-08 05/02/2018 MERLE W Primary MERLE W [place] [id number] Insurance:MEDICARE ROMICKDOB: [facility] MARY PART A BPolicy Number: [id number], [place] [id number] Repository 84027Gll: (330) Date:2018-05-020799 () 05/02/2018 Secondary MERLE W [place] Insurance:HUMANA ROMICKDOB: [facility] [id number] Hospital Number: Repository [id number] Date:8478-08-44Dq [address] [address]QN: 05/02/2018 Tertiary NOT GIVENUNK [place] Insurance:SELF PAY [facility] Hospital Number: Effective Repository Date:2018-05-02 04/30/2018 MERLE W Primary MERLE W [place] [id number] Insurance:MEDICARE ROMICKDOB: [facility] MARY PART A BPolicy Number: [id number], [place] [id number] Repository 479[address]Rpy: (330) Date:2018-04-3007 () 04/30/2018 Secondary MERLE W [place] Insurance:HUMANA ROMICKDOB: [facility] COMMERCIALPolicy [id number] Hospital Number: Repository [id number] Date:9200-60-17Xd[address] [address]QF: 04/30/2018 Tertiary NOT GIVENUNK [place] Insurance:SELF PAY [facility] Number: Effective Repository Date:2018-04-30 04/18/2018 MERLE W Primary MERLE W [place] [id number] Insurance:MEDICARE ROMICKDOB: [facility] PART A BPolicy Number: [id number], [place] [id number] Repository 798[address]Vsb: 330) Date:2018-04-18 [phone] () 04/18/2018 Secondary MERLE W [place] Insurance:HUMANA ROMICKDOB: [facility] [id number] Hospital Number: Repository [id number] Date:9833-04-17Fq[address] [address]OC: 04/18/2018 Tertiary NOT GIVENUNK [place] Insurance:SELF PAY [facility] Hospital Number: Effective Repository Date:2018-04-18 04/09/2018 MERLE W Primary MERLE W [place] [id number] Insurance:MEDICARE ROMICKDOB: [facility] PART A BPolicy Number: [id number], [place] [id number] Repository 368[address]Sfe: 330) Date:2018-04-01 [phone] () 04/09/2018 Secondary MERLE W [place] Insurance:HUMANA ROMICKDOB: [facility] [id number] Hospital Number: Repository [id number] Date:7963-95-08Fr[address] [address]VV: 04/09/2018 Tertiary NOT GIVENUNK [place] Insurance:SELF PAY [facility] Hospital Number: Effective Repository Date:2018-04-01 01/29/2018 MERLE W Primary MERLE W [place] [id number] Insurance:MEDICARE ROMICKDOB: [facility]ARY PART A BPolicy Number: [id number], [place] [id number] Repository 80388Bmm: 330) Date:2018-01-280799 () 01/29/2018 Secondary MERLE W [place] Insurance:HUMANA ROMICKDOB: [facility] COMMERCIALPolicy [id number] Hospital Number: Repository [id number] Date:6481-57-40Jt[address] [address]CO: 01/29/2018 Tertiary NOT GIVENUNK [place] Insurance:SELF PAY [facility] Hospital Number: Effective Repository Date:2018-01-28 01/08/2018 MERLE W Primary MERLE W [place] [id number] Insurance:MEDICARE ROMICKDOB: [facility] MARY PART A BPolicy Number: [id number], [place] [id number] Repository 05[address]Bri: 330) Date:2017-08-2807 () 01/08/2018 Secondary MERLE W [place] Insurance:HUMANA ROMICKDOB: [facility] [id number] Hospital Number: Repository [id number] Date:8235-19-18Wc[address] [address]SU: 01/08/2018 Tertiary NOT GIVENUNK [place] Insurance:SELF PAY [facility] Hospital Number: Effective Repository Date:2018-01-08 01/03/2018 MERLE W Primary MERLE W [place] [id number] Insurance:MEDICARE ROMICKDOB: [facility] MARY PART A BPolicy Number: [id number], [place] [id number] Repository 03384Ypt: 330) Date:2003-04-200720 () 01/03/2018 Secondary MERLE W [place] Insurance:HUMANA ROMICKDOB: [facility] [id number] Hospital Number: Repository [id number] Date:1836-20-31Dm[address] [address]XU: 01/03/2018 Tertiary NOT GIVENUNK [place] Insurance:SELF PAY [facility] Hospital Number: Effective Repository Date:2017-06-12 12/17/2017 MERLE W Primary MERLE W [place] [id number] Insurance:MEDICARE ROMICKDOB: [facility]ARY PART A BPolicy Number: [id number], [place] [id number] Repository 03722Kfj: 330) Date:2017-12-173317 () 12/17/2017 Secondary MERLE W [place] Insurance:HUMANA ROMICKDOB: [facility] [id number] Hospital Number: Repository [id number] Date:1694-68-55Gu[address] [address]EB: 12/17/2017 Tertiary NOT GIVENUNK [place] Insurance:SELF PAY [facility] Hospital Number: Effective Repository Date:2017-12-17 09/27/2017 MERLE W Primary MERLE W [place] [id number] Insurance:MEDICARE ROMICKDOB: [facility] PART A BPolicy Number: [id number], [place] [id number] Repository 63532Wos: (726) Date:2017-09-25 [phone] () 09/27/2017 Secondary MERLE W [place] Insurance:HUMANA ROMICKDOB: [facility] [id number] Hospital Number: Repository [id number] Date:5188-75-76Oe[address] [address]EP: 09/27/2017 Tertiary NOT GIVENUNK [place] Insurance:SELF PAY [facility] Hospital Number: Effective Repository Date:2017-09-25 09/13/2017 MERLE W Primary MERLE W [place] [id number] Insurance:MEDICARE ROMICKDOB: [facility] PART A BPolicy Number: [id number], [place] [id number] Repository 37342Jjx: (087) Date:2003-04-20 (HP) 09/13/2017 Secondary MERLE W [place] Insurance:HUMANA ROMICKDOB: [facility] COMMERCIALPolicy [id number] Hospital Number: Repository [id number] Date:2683-19-64[address]Rrdxrohdb, [place] [address]GB: 09/13/2017 Tertiary NOT GIVENUNK [place] Insurance:SELF PAY [facility]: Effective Repository Date:2017-07-04
== END ==
PROVIDERS: Family Provider Family Medicine; PCP Family Medicine; Referring Provider Nurse Practitioner Adult Health; Visit Provider Nurse Practitioner Adult Health
DX: C61 Malignant neoplasm of prostate (principal)
CPT/HCPCS: 36415; 84153

== ENCOUNTER → 2018-08-06 15:38 | Outpatient (CLI) | payer MEDICARE, OTHER, SELFPAY ==
[2018-05-08 14:40] VITALS: BMI 44.6
--- NOTE | 2018-08-06 15:41 | RAD_ITS ---
STUDY: X-RAY - RIGHT KNEE REASON FOR EXAM: Male, 78 years old. Pain. TECHNIQUE: 4 view(s) of the knee. COMPARISON: None. FINDINGS: There is no fracture or dislocation. There is a small joint effusion. There is severe osteoarthrosis of the medial compartment with joint space narrowing and sclerosis. Mild degenerative changes of the lateral compartment are noted with mild spurring. There are moderate degenerative changes of the patellofemoral compartment, with prominent spurring. There is mild anterior soft tissue swelling. RAD/Knee 4 or More Views IMPRESSION: 1. No fracture or dislocation. 2. Small joint effusion. 3. Moderate osteoarthrosis of the knee. Electronically Signed: Rose Grey MD at 23:27 EST Tel , Service support ,
[2018-08-06 18:28] LABS: Pathologist Comment May follow
[2018-08-06 20:13] LABS: RBC /Synovial Fluid 0.028 10^6/uL (0); Synovial Fld Mononuclear WBC % 51.4 %; Synovial Fld Polynuclear WBC # 0.178 10^3/ul; Synovial Fld Polynuclear WBC % 48.6 %
[2018-08-06 21:16] LABS: AUTO B FLUID DILUENT BKGD CT WBC <0.1 RBC <0.01 (W<.1,R<.01); CRYSTALS, BODY FLUID Other, see comment; Lymph 20 %; Monocyte /Synovial Fluid 23 %; Neutrophil 37 % (0-25); Plasma Cell /Synovial Fluid 2 %
[2018-08-06 21:17] LABS: Appearance /Synovial Fluid Hazy (CLEAR); Color / Synovial Fluid Red (Pale Yellow); Source / Synovial Fluid RIGHT KNEE; Source- Body Fluid SYNOVIAL; Viscosity / Synovial Fluid Sl. Viscous (HIGH)
[2018-08-06 21:18] LABS: Body Fluid QC Type(s) BF3Q,BF4Q; Other Cell /Synovial Fluid 18 %
[2018-08-07 12:17] LABS: Pathologist Review Reviewed
[2018-08-08 15:18] LABS: GLUCOSE, SYNOVIAL FLUID 136 mg/dL (.)
--- OUTSIDE RECORDS SUMMARY | 2018-11-08 04:40 | XMS RPT_ITS ---
:1940 Author Organization OHIP Support Name Relationship Address Phone PATRICIA, ISAEL Unavailable [facility] + [place] [address] R Unavailable Unavailable Unavailable ROMICK, TAWNY Unavailable [address] + [place] [address] PATRICIA, ISAEL Unavailable [facility] + [place] [address] R Unavailable Unavailable Unavailable ROMICK, TAWNY Unavailable [address] + [place] [address] PATRICIA, ISAEL Unavailable [facility] + [place] [address] R Unavailable Unavailable Unavailable ROMICK, TAWNY Unavailable [address] + [place] [address] PATRICIA, ISAEL Unavailable [facility] + [place] [address] R Unavailable Unavailable Unavailable ROMICK, TAWNY Unavailable [address] + [place] [address] PATRICIA, ISAEL Unavailable [facility] + [place] [address] R Unavailable Unavailable Unavailable ROMICK, TAWNY Unavailable [address] + [place] [address] PATRICIA, ISAEL Unavailable Unavailable + [place] [address] R Unavailable Unavailable Unavailable ROMICK, TAWNY Unavailable [address] + [place] [address] PATRICIA, ISAEL Unavailable [facility] + [place] [address] R Unavailable Unavailable Unavailable ROMICK, TAWNY Unavailable [address] + [place] [address] PATRICIA, ISAEL Unavailable [facility] + [place] [address] R Unavailable Unavailable Unavailable ROMICK, TAWNY Unavailable [address] + [place] [address] PATRICIA, ISAEL Unavailable Unavailable + [place] [address] R Unavailable Unavailable Unavailable ROMICK, TAWNY Unavailable [address] + [place] [address] PATRICIA, ISAEL Unavailable . + [place] [address] R Unavailable Unavailable Unavailable ROMICK, TAWNY Unavailable [address] + [place] [address] PATRICIA, ISAEL Unavailable . + [place] [address] R Unavailable Unavailable Unavailable ROMICK, TAWNY Unavailable [address] + [place] [address] PATRICIA, ISAEL Unavailable Unavailable + [place] [address] R Unavailable Unavailable Unavailable ROMICK, TAWNY Unavailable [address] + [place] [address] PATRICIA, ISAEL Unavailable 1 + [place] [address] R Unavailable Unavailable Unavailable ROMICK, TAWNY Unavailable [address] + [place] [address] PATRICIA, ISAEL Unavailable 1 + [place] [address] R Unavailable Unavailable Unavailable ROMICK, TAWNY Unavailable [address] + [place] [address] PATRICIA, ISAEL Unavailable Unavailable + [place] [address] R Unavailable Unavailable Unavailable ROMICK, TAWNY Unavailable [address] + [place] [address] PATRICIA, ISAEL Unavailable Unavailable + [place] [address] R Unavailable Unavailable Unavailable ROMICK, TAWNY Unavailable [address] + [place] [address] PATRICIA, ISAEL Unavailable Unavailable + [place] [address] R Unavailable Unavailable Unavailable ROMICK, TAWNY Unavailable [address] + [place] [address] PATRICIA, ISAEL Unavailable Unavailable + [place] [address] R Unavailable Unavailable Unavailable ROMICK, TAWNY Unavailable [address] + [place] [address] PATRICIA, ISAEL Unavailable NA + [place], [place] R Unavailable Unavailable Unavailable ROMICK, TAWNY Unavailable [address] + [place] [address] PATRICIA, ISAEL Unavailable NA + [place], [place] R Unavailable Unavailable Unavailable ROMICK, TAWNY Unavailable [address] + [place] [address] PATRICIA, ISAEL Unavailable NA + [place] R Unavailable Unavailable Unavailable ROMICK, TAWNY Unavailable [address] + [place] [address] PATRICIA, ISAEL Unavailable NA + [place] R Unavailable Unavailable Unavailable ROMICK, TAWNY Unavailable [address] + [place] [address] PATRICIA, ISAEL Unavailable NA + [place] R Unavailable Unavailable Unavailable ROMICK, TAWNY Unavailable [phone] [place] [address] PATRICIA, ISAEL Unavailable NA + [place] R Unavailable Unavailable Unavailable ROMICK, TAWNY Unavailable [address] + [place] [address] Care Team Providers Name Role Phone Elizabeth Rios Attending Unavailable Dc, Dangelo Primary Care Unavailable Isael Boyle Attending Unavailable Isael Boyle Referring Unavailable Dc, Dangelo Primary Care [...] SOURCE Unknown M25.561 - Pain in right [facility], Active [place] 8 knee / M25.561(ICD-10) [facility] Repository Unknown 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[facility], Active [place] 8 primary osteoarthritis, [facility]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 / Hospital M17.11(ICD-10) Repository Unknown I25.10 - Atherosclerotic [facility], Active [place] 8 heart disease of [place] [facility] coronary artery without Hospital angina pectoris / Repository I25.10(ICD-10) Unknown C61 - Malignant neoplasm [facility], Active [place] 8 of prostate / [facility] C61(ICD-10) Hospital Repository Unknown Z00.00 - Encounter [...] G50.1 - Atypical facial Dangelo Dc Active [place] 8 pain / G50.1(ICD-10) [facility] Hospital Repository Unknown I27.20 - Pulmonary [place], Active [place] 8 hypertension, [facility] unspecified / Hospital I27.20(ICD-10) Repository Unknown E11.22 - Type 2 diabetes Elizabeth Rios Active [place] 8 mellitus with diabetic Community chronic kidney disease / Hospital E11.22(ICD-10) Repository Unknown Z98.890 - Other Emma Mcqueen Active [place] 8 specified postprocedural [facility] states / Z98.890(ICD-10) Hospital Repository PROCEDURES PROCEDURES No Procedure Records FoundRESULTS RESULTS ORTHOPEDIC VISIT Observed: 08/15/2018 Status: F Source: [place] RE[place] 12:[address] [facility] REPOSITORY [facility] Medicine [address] [place], [place] [id number] OFFICE VISIT Date of Service: 08/06/18 MR#: [id number] Acct: [id number] Name: AZRA OBRIEN Ekta Rep #: [id number] : 1940 Provider: Yanique Sloan DO Age/Sex: 78/M Location: [facility] [place] Status: Signed Intake Intake Visit Reasons: RIGHT [...] mg PO DAILY 05/08/18 [History Confirmed 05/08/18] [facility] Medical History Sinus bradycardia (Acute) Atherosclerotic heart disease of [place] coronary artery without angina pectoris (Chronic) Renal [...] Route Admin Location Lot Number Expiration 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 Osteoarthritis of right [...] Orders Orders: Medications Discontinued: Kenalog (triamcinolone acetonide) [id number] mg (2 mL) Intra-Articular ONCE 2 mL 0RF NS nued Reason: Office Medication has been Docu mented as given Plan Detail Other Orders Orders: Coding Level of Care Code Off vis,est,level 4 Diagnoses Osteoarthritis of right knee, unspecified osteoarthritis type M17.11 Osteoarthritis type: unspecified Additional Codes heat treater.knee (72558) 08/15/18 1255 <Electronically signed by Yanique Sloan DO> Date Yanique Sloan DO Cosigner Signature: Date (if applicable) CC: SYNOVIAL FLUID RBC, Collected: 08/06/2018 Status: F Source: [place] WBC AND DIFF 6:[address] [facility] REPOSITORY TYPE CODE TESTS RESULT OUT OF [...] Hazy Performed By: #### L200.0400, L200.4175 #### [facility] [address] [place], [address] CRYSTALS, BODY FLUID Collected: 08/06/2018 Status: C Source: [place] 6:[address] [facility] REPOSITORY TYPE CODE TESTS RESULT OUT OF [...] follow Performed By: #### L200.0400, L200.4175 #### [facility] [address] [place], [place], [address] Observed: 08/06/2018 Status: F Source: [place] CULTURE, BODY FLUID 6:[address] [facility] REPOSITORY List Antibiotics Last 48 Hours? UNK List Antibiotics to be Started? UNK Gram Stain Centrifuged Specimen? Culture performed on centrifuged specimen Gram Stain 1+ Red Blood Cells No White Blood Cells No organisms seen Body Fluid Cult No growth in 5 days. Cult, Anaerobic No growth in 5 days. Performed By: #### M100.1300 #### [facility] [address] [place], [address] GLUCOSE, SYNOVIAL Collected: 08/06/2018 Status: F Source: [place] FLUID 6:[address] [facility] REPOSITORY Order Comment: Specimen Source: SYNOVIAL TYPE [...] Observed: 08/06/2018 Status: F Source: [facility] 3:[address] [facility] REPOSITORY [facility] Imaging Services [address] [place] [address] Knee 4 or More Views MR#: [id number] Acct: [id number] Name: AZRA OBRIEN Rep #: [id number] : 1940 M 78 From: Rose Grey MD PCP: Dangelo Dc MD Status: REG CLI Study: Knee 4 or More Views Date of Exam: 08/06/18 Exam# [id number] Ordering Dr: Yanique Sloan DO STUDY: X-RAY [...] CC: Yanique Sloan DO; Dangelo Dc MD Elementary Assistant Principal: Signed PSA,TOTAL- DIAGNOSTIC Collected: 08/05/2018 Status: F Source: [place] 11:[address] [facility] REPOSITORY TYPE CODE TESTS RESULT OUT OF RANGE REFERENCE UNITS LAB L501.9940 0.0-4.0 ng/mL PSA, Normal DIAGNOSTIC 0.22 Result Comment: This test was performed using the TPSA assay method for the [employer] chemistry system. Values obtained with different assay methods cannot be used interchangably. When changing PSA assays in the course of monitoring a patient, additional sequential testing should be carried out to confirm baseline values. Performed By: #### L501.9940 #### [facility] [address] [place], [address] RENAL PROFILE Collected: 07/30/2018 Status: F Source: [place] 1:[address] [facility] REPOSITORY TYPE CODE TESTS RESULT OUT OF [...] CO2 28.0 Performed By: #### L500.3600 #### [facility] [address] [facility]. [place], [place], [address] PTHIN Collected: 07/30/2018 Status: F Source: [place] 1:[address] [facility] REPOSITORY TYPE CODE TESTS RESULT OUT OF RANGE REFERENCE UNITS LAB L509.1000 18.4-80.1 pg/mL High PTHIN 251.4 Performed By: #### L509.1000 #### [facility] [address] [place], [address] RENAL PROFILE Collected: 07/30/2018 Status: F Source: [place] 1:[address] [facility] REPOSITORY TYPE CODE TESTS RESULT OUT OF [...] CO2 28.0 Performed By: #### L500.3600 #### [facility] [address] [place], [address] PTHIN Collected: 07/30/2018 Status: F Source: [place] 1:[address] [facility] REPOSITORY TYPE CODE TESTS RESULT OUT OF RANGE REFERENCE UNITS LAB L509.1000 18.4-80.1 pg/mL High PTHIN 251.4 Performed By: #### L509.1000 #### [facility] [address] [facility] [place], [address] ORTHOPEDIC VISIT Observed: 06/11/2018 Status: F Source: [place] REPORT 11:[address] [facility] REPOSITORY [facility] Orthopaedics AND Sports Medicine [address] [place] [address] [address] [place] [address] OFFICE VISIT Date of Service: 06/11/18 MR#: [id number] Acct: [id number] Name: AZRA OBRIEN Rep #: [id number] : 1940 Provider: Emma Mcqueen MD Age/Sex: [...] Sinus bradycardia (Acute) Atherosclerotic heart disease of [place] coronary artery without angina pectoris (Chronic) Renal [...] Emma Mcqueen MD> Date [facility] Signature: Date (if applicable) CC: SINUSES MIN 3 VIEWS Observed: 06/04/2018 Status: F Source: [place] 9:[address] [facility] REPOSITORY [facility] Imaging Services [address] [place] [address] Sinuses min 3 Views MR#: [id number] Acct: [id number] Name: AZRA OBRIEN Rep #: [id number] : 1940 M 78 From: Wil West PCP: Dangelo Dc MD Status: REG CLI Study: Sinuses min 3 Views Date of Exam: 06/04/18 Exam# [id number] Ordering Dr: Dangelo Dc MD STUDY: X-RAY [...] Service support , CC: Dangelo Dc MD Elementary Assistant Principal: Signed CARDIOLOGY VISIT Observed: 05/08/2018 Status: F Source: [place] RE[place] 3:[address] [facility] REPOSITORY [facility] [address] [place] [address] OFFICE VISIT Date of Service: 05/08/18 MR#: [id number] Acct: [id number] Name: AZRA OBRIEN Rep #: [id number] : 1940 Provider: Jj De León MD Age/Sex: 78/M Location[place] [facility] Status: Signed HPI HPI Details: AZRA OBRIEN, [...] mg PO DAILY 05/08/18 [History Confirmed 05/08/18] [facility] Medical History Sinus bradycardia (Acute) Atherosclerotic heart disease of [place] coronary artery without angina pectoris (Chronic) Renal [...] had a transthoracic echocardiogram on 03/02/2016 at [facility] Interpretation Summary The study was technically difficult. [...] an exercise tolerance test at 03/02/2016 at [facility] EXERCISE TOLERANCE TEST: The patient underwent pharmacologic [...] a diagnostic cardiac catheterization on 08/15/2016 at [facility] Final impression: 1. Elevated left ventricular end-diastolic [...] artery duplex study performed on 01/27/2011 at [facility] Right internal carotid artery stenosis less than 50%, which is not hemodynamically significant. Left internal carotid artery stenosis less than 50%, which is not hemodynamically significant. Patent and antegrade vertebrals bilaterally. Plaque formation is similar to the 2009 study with more acoustic shadowing on left, No obvious progression noted. Assessment AND Plan 1. Atherosclerosis of [place] coronary artery of [place] heart without angina pectoris I25.10 Plan At [...] Code Off vis,est,level 4 Diagnoses Atherosclerosis of [place] coronary artery of [place] heart without angina pectoris I25.10 [place] vs. transplanted heart: [place] heart Pulmonary hypertension I27.20 Pure hypercholesterolemia E78.00 Hyperlipidemia type: pure hypercholesterolemia HTN (hypertension), benign I10 Renal insufficiency N28.9 Coding Level of Care Code Off vis,est,level 4 Diagnoses Atherosclerosis of [place] coronary artery of [place] heart without angina pectoris I25.10 [place] vs. transplanted heart: [place] heart Pulmonary hypertension I27.20 Pure hypercholesterolemia E78.00 Hyperlipidemia type: pure hypercholesterolemia HTN (hypertension), benign I10 Renal insufficiency N28.9 05/08/18 1528 <Electronically signed by Jj De León MD> Date Jj De León MD Cosigner Signature: Date (if applicable) CC: Elizabeth Rios DO; Dangelo Dc MD; Chema Syed MD PTHIN Collected: 04/30/2018 Status: F Source: [place] 8:[address] [facility] REPOSITORY TYPE CODE TESTS RESULT OUT OF RANGE REFERENCE UNITS LAB L509.1000 18.4-80.1 pg/mL High PTHIN 186.1 Performed By: #### L509.1000 #### [facility] [address] [place], [place], [address] LIVER PROFILE Collected: 04/30/2018 Status: F Source: [place] 8:[address] [facility] REPOSITORY TYPE CODE TESTS RESULT OUT OF [...] 0.15 Performed By: #### L500.3400, L500.4100 #### [facility] [address] [place], [place], [address] LIPID PROFILE Collected: 04/30/2018 Status: F Source: [place] 8:[address] [facility] REPOSITORY TYPE CODE TESTS RESULT OUT OF [...] 29 Performed By: #### L500.3400, L500.4100 #### [facility] [address] [place], [place], [address] CBC W/DIFF, AUTOMATED Collected: 04/30/2018 Status: F Source: [place] 8:[address] [facility] REPOSITORY Order Comment: Order Date: 04/24/18 Order [...] By: #### L100.0100, L500.4050, L501.9985 #### [place] [facility] [address] [place], [address] COMPREHENSIVE METABOLIC Collected: 04/30/2018 Status: F Source: [place] MENG 8:[address] [facility] REPOSITORY Order Comment: Order Date: 04/24/18 Order [...] Performed By: #### L100.0100, L500.4050, L501.9985 #### [facility] [address] [place], [address] HEMOGLOBIN A1C Collected: 04/30/2018 Status: F Source: [place] 8:[address] [facility] REPOSITORY Order Comment: Order Date: 04/24/18 Order Info: 4548-4 - A1C Comments: cc copy to Kunal Smith, Genetcc copy to Kunal Smith, Genet TYPE CODE TESTS RESULT OUT OF RANGE REFERENCE UNITS LAB L501.9985 4.2-6.3 % High HGB A1C 7.4 Performed By: #### L100.0100, L500.4050, L501.9985 #### [facility] [address] [place], [address] PROTEIN+CREATININE Collected: Status: F Source: [place] DUNN,URINE 04/30/2018 8:[address] [facility] REPOSITORY Order Comment: SEND RESULTS TO TYPE CODE TESTS RESULT OUT OF RANGE REFERENCE UNITS LAB L501.1200 NO RANGE EST. mg/dL Normal UR CREAT 37.30 LAB L501.1930 <11.9 mg/dL High 34.5 PROTEIN,UR.R AN. LAB L501.1940 0-200 mg/g CRE High PROT:CRE 925 RATIO Performed By: #### L501.0900 #### [facility] [address] [place], [address] PHOSPHORUS Collected: 04/30/2018 Status: F Source: [place] 8:[address] [facility] REPOSITORY Order Comment: Order Date: 04/24/18 Order Info: 0786-1 - CMP SEND RESULTS TO , , AND Comments: cc copy to Kunal Smith, Genet TYPE CODE TESTS RESULT OUT OF RANGE REFERENCE UNITS LAB L501.2300 2.5-4.9 mg/dL Normal PHOS 3.8 Performed By: #### L501.2300 #### [facility] [address] [place], [address] BNP,B-TYPE NATRIURETIC Collected: 04/30/2018 Status: F Source: [place] PEPTIDE 8:[address] [facility] REPOSITORY Order Comment: SEND RESULTS TO , , AND TYPE CODE TESTS RESULT OUT OF RANGE REFERENCE UNITS LAB L503.6620 0-100 pg/mL Normal B-TYPE 70.7 HERNA[address] PEP Performed By: #### L503.6620 #### [facility] [address] [place], [address] VITAMIN D,25 HYDROXY Collected: 04/30/2018 Status: F Source: [place] 8:[address] [facility] REPOSITORY Order Comment: SEND RESULTS TO , [...] (>250 nmol/L) Performed By: #### L506.1000 #### [facility] [address] [place], [address] ELECTROLYTE PANEL Collected: 04/18/2018 Status: F Source: [place] 1:[address] [facility] REPOSITORY TYPE CODE TESTS RESULT OUT OF RANGE REFERENCE UNITS LAB L501.5300 136-145 mmol/L Normal NA 140 LAB L501.5600 3.5-5.1 mmol/L Normal K 4.5 LAB L501.5900 98-107 mmol/L Normal CL 103 LAB L501.6100 21.0-32.0 mmol/L Normal CO2 27.0 LAB L501.6200 5-15 Normal GAP 10 Performed By: #### L501.5294, L501.1105 #### [facility] [address] [place], [address] SERUM CREATININE AND Collected: 04/18/2018 Status: F Source: [place] GFR 1:[address] [facility] REPOSITORY TYPE CODE TESTS RESULT OUT OF [...] Calc Performed By: #### L501.5294, L501.1105 #### [facility] [address] [place], [address] CHEST WITHOUT Observed: 04/09/2018 Status: F Source: [place] CONTRAST 2:[address] [facility] REPOSITORY [facility] Imaging Services [address] [facility] [place] [address] Chest without Contrast MR#: [id number] Acct: [id number] Name: AZRA OBRIEN Rep #: [id number] : 1940 M 77 From: Mart Lawson MD PCP: Dangelo Dc MD Status: REG CLI Study: Chest without Contrast Date of Exam: 04/09/18 Exam# [id number] Ordering Dr: Chema Syed MD STUDY: CT [...] CC: Dangelo Dc MD; Chema Syed MD Elementary Assistant Principal: Signed RENAL PROFILE Collected: 01/29/2018 Status: F Source: [place] 2:[address] [facility] REPOSITORY TYPE CODE TESTS RESULT OUT OF [...] CO2 27.0 Performed By: #### L500.3600 #### [facility] [address] [place], [place], [address] PROTEIN+CREATININE Collected: Status: F Source: [place] RATIO,URINE 01/29/2018 2:[address] [facility] REPOSITORY TYPE CODE TESTS RESULT OUT OF RANGE REFERENCE UNITS LAB L501.1200 NO RANGE EST. mg/dL Normal UR CREAT 56.50 LAB L501.1930 <11.9 mg/dL High 52.6 PROTEIN,UR.R AN. LAB L501.1940 0-200 mg/g CRE High PROT:CRE 931 RATIO Performed By: #### L501.0900 #### [facility] [address] [place], [address] PTHIN Collected: 01/29/2018 Status: F Source: [place] 2:[address] [facility] REPOSITORY TYPE CODE TESTS RESULT OUT OF RANGE REFERENCE UNITS LAB L509.1000 18.4-80.1 pg/mL High PTHIN 128.8 Performed By: #### L509.1000 #### [facility] [address] [place], [address] ORTHOPEDIC VISIT Observed: 01/08/2018 Status: F Source: [place] REPORT 3:[address] [facility] REPOSITORY [facility] Orthopaedics AND Sports Medicine [facility] [address] [place] [address] OFFICE VISIT Date of Service: 01/08/18 MR#: [id number] Acct: [id number] Name: AZRA OBRIEN Rep #: [id number] : 1940 Provider: Emma Mcqueen MD Age/Sex: 77/M Location: [facility] [place] Status: Signed Intake Intake Visit Reasons: LOW [...] up for s/p L1- L2 laminectomy at [facility] dos 05/25/17. Patient states that his back is doing fantastic and he denies any pain. Patient feels like his surgery was helpful. He has difficult time ambulating long distances due to knee pain and shortness of breath. 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 He denies any back pain with ambulating. [...] 12/17/2017 Status: F Source: [place] 8:[address] [facility] REPOSITORY Order Comment: Order Date: 10/22/17 Order [...] By: #### L100.0100, L500.4050, L500.4100, L506.1000 #### [facility] [address] [place], [place], [address] COMPREHENSIVE METABOLIC Collected: 12/17/2017 Status: F Source: [place] MENG 8:[address] [facility] REPOSITORY Order Comment: Order Date: 10/22/17 Order Info: 0786-1 - CMP Order Info: [id number] - LIPID TYPE CODE TESTS RESULT OUT [...] By: #### L100.0100, L500.4050, L500.4100, L506.1000 #### [facility] [place], [address] LIPID PROFILE Collected: 12/17/2017 Status: F Source: [place] 8:[address] [facility] REPOSITORY Order Comment: Order Date: 10/22/17 Order Info: 0786-1 - CMP Order Info: [id number] - LIPID TYPE CODE TESTS RESULT OUT [...] By: #### L100.0100, L500.4050, L500.4100, L506.1000 #### [facility] [address] [place], [address] VITAMIN D,25 HYDROXY Collected: 12/17/2017 Status: F Source: [place] 8:05 [facility] REPOSITORY Order Comment: Order Date: 10/22/17 Order Info: 87566-7 - VITD25 TYPE CODE TESTS RESULT OUT OF RANGE REFERENCE UNITS LAB L506.1000 29.95-100.01 ng/mL Normal Vitamin D 45.0 25-OH Result Comment: Vitamin D 25(OH) Status Range Deficiency <20 ng/mL (50nmol/L) Insuffciency 20 - 30 ng/mL (50 - 75 nmol/L) Sufficiency 30 - 100 ng/mL (75 - 250 nmol/L) Toxicity >100 ng/mL (>250 nmol/L) Performed By: #### L100.0100, L500.4050, L500.4100, L506.1000 #### [facility] [address] [place], [address] RENAL PROFILE Collected: 09/27/2017 Status: F Source: [place] 3:[address] [facility] REPOSITORY TYPE CODE TESTS RESULT OUT OF [...] CO2 28.0 Performed By: #### L500.3600 #### [facility] [address] [place], [address] PT D/C SUMMARY (1) Observed: 09/13/2017 Status: F Source: [place] 2:[address] [facility] REPOSITORY [facility] Physical [facility] [address] [place] [address]. [address] [place] [address] Fax REHABILITATION SERVICES DISCHARGE SUMMARY MR#: [id number] Acct: [id number] Name: AZRA OBRIEN Rep #: [id number] : 1940 77 From: Braydon Kendall PT, [...] please feel free to call me at [phone]. Thank you for the referral of this patient. Sincerely, Braydon Kendall PT, <Electronically signed by Braydon Kendall PT, ATC> 09/13/17 1402 CC: Emma Mcqueen MD; Dangelo Dc MD [facility] Signed ALLERGIES ALLERGIES DATE TYPE / CODE NAME / CODE REACTION SEVERITY SOURCE 08/06/2018 Drug tiotropium IRRITATION TO Unknown Adrian Allergy/416 bromide/[id number] TEETHE Community 247618([facility] 3(RXNORM) [facility] ED CT) Repository 08/06/2018 Drug hydrochlorothiazi Rash Unknown Adrian Allergy/416 de/[id number](RXN Community 553823([facility] ED CT) Repository 08/06/2018 Drug gabapentin/[id number] dizziness Unknown Adrian Allergy/416 4415(RXNORM) [facility] 005142([facility] ED CT) Repository 08/06/2018 Drug clonidine/[id number] Rash Unknown Devon Allergy/416 495(RXNORM) [facility] 225235([facility] CT) Repository ENCOUNTERS ENCOUNTERS ADMIT/DISCHARGE ACCOUNT ADMITTING ENCOUNTER LOCATION SOURCE NUMBER CLASS 08/30/2018 [id number] Ambulatory Adrian Adrian 3 [facility] ing:NE Repository 08/26/2018 [id number] Ambulatory Devon Devon 3 [facility] ing:LAB.FUTUR Repository E 08/22/2018 [id number] Ambulatory Adrian Adrian 4 [facility] ing:NE Repository 08/06/2018 [id number] Ambulatory Devon Devon 9 [facility] ing:HPRAD Repository 08/06/2018/ [id number] Ambulatory BMSBuilding:B Adrian 8 2 [facility] Repository 08/05/2018 [id number] Ambulatory Adrian Devon 4 [facility] ing:LAB Repository 08/01/2018/ [id number] Ambulatory Adrian Devon 8 5 [facility] ing:NE Repository 07/30/2018 [id number] Ambulatory Adrian Adrian 7 [facility] ing:LAB.FUTUR Repository E 07/18/2018/ [id number] Ambulatory Adrian Devon 8 3 [facility] ing:NE Repository 06/18/2018/ [id number] Ambulatory Devon Adrian 8 0 [facility] Hospital ing:NE Repository 06/11/2018/ [id number] Ambulatory BMSBuilding:B Adrian 8 3 [facility] Repository 06/04/2018 [id number] Ambulatory Adrian Adrian 1 [facility] Hospital ing:MTRAD Repository 05/13/2018 [id number] Ambulatory Adrian Adrian 7 [facility] Hospital ing:LAB.FUTUR Repository E 05/08/2018/ [id number] Ambulatory BMSBuilding:B Adrian 8 6 [facility] Repository 05/02/2018 [id number] Ambulatory BMSBuilding:B Adrian 3 [facility] Repository 04/30/2018 [id number] Ambulatory Adrian Adrian 9 [facility] ing:MFPLAB Repository 04/18/2018 [id number] Ambulatory Devon Adrian 8 [facility] ing:MTLAB Repository 04/09/2018 [id number] Ambulatory Adrian Devon 8 [facility] ing:CT Repository 01/29/2018 [id number] Ambulatory Devon Adrian 5 [facility] ing:POLAB3 Repository 01/08/2018/ [id number] Ambulatory BMSBuilding:B Adrian 8 0 [facility] Repository 01/03/2018 [id number] Ambulatory Devon Devon 5 [facility] ing:LAB.FUTUR Repository E 12/17/2017 [id number] Ambulatory Devon Devon 2 [facility] ing:MFPLAB Repository 09/27/2017 [id number] Ambulatory Devon Devon 5 [facility] ing:LAB.FUTUR Repository E 09/13/2017/ [id number] Ambulatory Devon Adrian 8 7 [facility] ing:PT Repository PAYERS PAYERS ENCOUNTER GUARANTOR PAYER SUBSCRIBER SOURCE 08/30/2018 AZRA Dash Primary MERLE W Adrian [id number] Insurance:MEDICARE ROMICKDOB: [facility] PART A BPolicy Number: [id number] [place] [id number] Repository 87323Yls: (330) Date:2018-05-09 [phone] (HP) 08/30/2018 Secondary MERLE W Devon Insurance:HUMANA ROMICKDOB: [facility] [id number] Hospital Number: Repository [id number] Date:9693-79-27Ig[address] [address]BP: 08/30/2018 Tertiary NOT GIVENUNK [place] Insurance:SELF PAY [facility] Number: Effective Repository Date:2018-08-20 08/26/2018 MERLE W Primary MERLE W [place] [id number] Insurance:MEDICARE ROMICKDOB: [facility] PART A BPolicy Number: [id number] [id number] Repository 89636Tkz: 330) Date:2018-08-26 [phone] () 08/26/2018 Secondary MERLE W Adrian Insurance:HUMANA ROMICKDOB: [facility] [id number] Hospital Number: Repository [id number] Date:6498-28-54Ep [address] [address]QU: 08/26/2018 Tertiary NOT GIVENUNK Adrian Insurance:SELF PAY [facility] Number: Effective Repository Date:2018-08-26 08/22/2018 MERLE W Primary MERLE W [place] [id number] Insurance:MEDICARE ROMICKDOB: [facility] PART A BPolicy Number: [id number] [id number] Repository 06847Vyy: 330) Date:2018-07-31 [phone] () 08/22/2018 Secondary MERLE W [place] Insurance:HUMANA ROMICKDOB: [facility] [id number] Hospital Number: Repository [id number] Date:3451-82-67Cg [address] [address]GN: 08/22/2018 Tertiary NOT GIVENUNK [place] Insurance:SELF PAY [facility] Number: Effective Repository Date:2018-07-31 08/06/2018 MERLE W Primary MERLE W Adrian [id number] Insurance:MEDICARE ROMICKDOB: [facility] PART A BPolicy Number: [id number] [id number] Repository [address]Eam: 330) Date:2018-08-06 [phone] () 08/06/2018 Secondary MERLE W Devon Insurance:HUMANA ROMICKDOB: [facility] [id number] Hospital Number: Repository [id number] Date:5346-87-23Ua [address] [place] [address]ZN: 08/06/2018 Tertiary NOT GIVENUNK [place] Insurance:SELF PAY [facility] Number: Effective Repository Date:2018-08-06 08/06/2018 MERLE W Primary MERLE W Adrian [id number] Insurance:MEDICARE [facility] BPolicy Number: [id number] [id number] Repository 8[address]Ebq: (840) Date:2018-08-02 [phone] () 08/06/2018 Secondary MERLE W Devon Insurance:HUMANA ROMICKDOB: [facility] [id number] Hospital Number: Repository [id number] Date:0822-45-52Om [address] [address]MF: 08/06/2018 Tertiary NOT GIVENUNK [place] Insurance:SELF PAY [facility] Number: Effective Repository Date:2018-08-05 08/05/2018 MERLE W Primary MERLE W Adrian [id number] Insurance:MEDICARE ROMICKDOB: [facility] MARY PART A BPolicy Number: [id number], [place] [id number] Repository [address]Imt: (714) Date:2018-08-05 [phone] () 08/05/2018 Secondary MERLE W Adrian Insurance:HUMANA ROMICKDOB: [facility] [id number] Hospital Number: Repository [id number] Date:0709-20-39Mb [address] [place] [address]UC: 08/05/2018 Tertiary NOT GIVENUNK Devon Insurance:SELF PAY [facility] Number: Effective Repository Date:2018-08-05 08/01/2018 MERLE W Primary MERLE W Adrian [id number] Insurance:MEDICARE [facility]ICKDOB[facility] PART A BPolicy Number: [id number][place] [id number] Repository 97[address]Nis: (330) Date:2018-05-09 [phone] () 08/01/2018 Secondary MERLE W Adrian Insurance:HUMANA ROMICKDOB: [facility] [id number] Hospital Number: Repository [id number] Date:4288-21-43Wz [address] [place] [address]ZQ: 08/01/2018 Tertiary NOT GIVENUNK Adrian Insurance:SELF PAY [facility] Number: Effective Repository Date:2018-07-20 07/30/2018 MERLE W Primary MERLE W Adrian [id number] Insurance:MEDICARE ROMICKDOB: [facility] MARY PART A BPolicy Number: [id number], [place] [id number] Repository [address]23[address]Ufi: 330) Date:2018-07-306735 () 07/30/2018 Secondary MERLE W Adrian Insurance:HUMANA ROMICKDOB: [facility] [id number] Hospital Number: Repository [id number] Date:5500-83-92Fm[address] [address]AA: 07/30/2018 Tertiary NOT GIVENUNK [place] Insurance:SELF PAY [facility] Number: Effective Repository Date:2018-07-30 07/18/2018 MERLE W Primary Insurance:SELF NOT GIVENUNK [place] [id number] [facility]: [place] Date:2018-06-20 Repository 734[address]Wrc: () 06/18/2018 MERLE W Primary Insurance:SELF NOT GIVENUNK Adrian [id number] [facility]Y [facility] Number: Effective [place] Date:2018-05-09 Repository 50534Eoq: () 06/11/2018 MERLE W Primary MERLE W Devon [id number] Insurance:MEDICARE ROMICKDOB: [facility] MARY PART A BPolicy Number: [id number], [place] [id number] Repository [address]Ayr: 330) Date:2018-01-08 [phone] () 06/11/2018 Secondary MERLE W Adrian Insurance:HUMANA ROMICKDOB: [facility] [id number] Hospital Number: Repository [id number] Date:4718-09-18Qw [address] [place] [address]ZL: 06/11/2018 Tertiary NOT GIVENUNK Adrian Insurance:SELF PAY [facility] Number: Effective Repository Date:2018-06-11 06/04/2018 MERLE W Primary MERLE W Adrian [id number] Insurance:MEDICARE ROMICKDOB: [facility] MARY PART A BPolicy Number: [id number], [place] [id number] Repository 432[address]Qnd: 330) Date:2018-06-040710 () 06/04/2018 Secondary MERLE W Adrian Insurance:HUMANA ROMICKDOB: [facility] [id number] Hospital Number: Repository [id number] Date:8262-18-73Xa [address] [place] [address]QZ: 06/04/2018 Tertiary NOT GIVENUNK Adrian Insurance:SELF PAY [facility] Number: Effective Repository Date:2018-06-04 05/13/2018 MERLE W Primary MERLE W Devon [id number] Insurance:MEDICARE ROMICKDOB: [facility] MARY PART A BPolicy Number: [id number], [place] [id number] Repository 06947Epg: (913) Date:2018-05-13 [phone] () 05/13/2018 Secondary MERLE W Adrian Insurance:HUMANA ROMICKDOB: [facility] [id number] Hospital Number: Repository [id number] Date:5786-61-70Dk [address] [place] [address]BR: 05/13/2018 Tertiary NOT GIVENUNK Devon Insurance:SELF PAY [facility] Number: Effective Repository Date:2018-05-13 05/08/2018 MERLE W Primary MERLE W Adrian [id number] Insurance:MEDICARE ROMICKDOB: Community MARY PART A BPolicy Number: [id number], [place] [id number] Repository [address]Wef: (330) Date:2017-08-0107 () 05/08/2018 Secondary MERLE W Adrian Insurance:HUMANA ROMICKDOB: [facility] [id number] Hospital Number: Repository [id number] Date:6195-48-79Ya [address] [place] [address]IF: 05/08/2018 Tertiary NOT GIVENUNK Devon Insurance:SELF PAY [facility] Number: Effective Repository Date:2018-05-08 05/02/2018 MERLE W Primary MERLE W Adrian [id number] Insurance:MEDICARE ROMICKDOB: [facility] MARY PART A BPolicy Number: [id number], [place] [id number] Repository 687[address]Mrd: (330) Date:2018-05-020799 () 05/02/2018 Secondary MERLE W Adrian Insurance:HUMANA ROMICKDOB: [facility] [id number] Hospital Number: Repository [id number] Date:8527-68-85Ci [address] [address]RP: 05/02/2018 Tertiary NOT GIVENUNK Adrian Insurance:SELF PAY [facility] Number: Effective Repository Date:2018-05-02 04/30/2018 MERLE W Primary MERLE W Adrian [id number] Insurance:MEDICARE ROMICKDOB: [facility] MARY PART A BPolicy Number: [id number], [place] [id number] Repository 84[address]Gyt: (330) Date:2018-04-3007 () 04/30/2018 Secondary MERLE W Devon Insurance:HUMANA ROMICKDOB: [facility] COMMERCIALPolicy [id number] Hospital Number: Repository [id number] Date:4413-75-13Su[address] [address]KI: 04/30/2018 Tertiary NOT GIVENUNK Adrian Insurance:SELF PAY [facility] Number: Effective Repository Date:2018-04-30 04/18/2018 MERLE W Primary MERLE W Devon [id number] Insurance:MEDICARE ROMICKDOB: [facility] MARY PART A BPolicy Number: [id number], [place] [id number] Repository [address]Xjf: 330) Date:2018-04-18 [phone] () 04/18/2018 Secondary MERLE W Adrian Insurance:HUMANA ROMICKDOB: [facility] [id number] Hospital Number: Repository [id number] Date:5273-94-09Nm[address] [address]LU: 04/18/2018 Tertiary NOT GIVENUNK Adrian Insurance:SELF PAY [facility] Number: Effective Repository Date:2018-04-18 04/09/2018 MERLE W Primary MERLE W Devon [id number] Insurance:MEDICARE ROMICKDOB: [facility] MARY PART A BPolicy Number: [id number], [place] [id number] Repository 44[address]Axp: 330) Date:2018-04-01 [phone] () 04/09/2018 Secondary MERLE W Adrian Insurance:HUMANA ROMICKDOB: [facility] [id number] Hospital Number: Repository [id number] Date:5953-71-34Sw[address] [address]FD: 04/09/2018 Tertiary NOT GIVENUNK Adrian Insurance:SELF PAY [facility] Number: Effective Repository Date:2018-04-01 01/29/2018 MERLE W Primary MERLE W Devon [id number] Insurance:MEDICARE ROMICKDOB: Community MARY PART A BPolicy Number: [id number], [place] [id number] Repository 997[address]Bux: 330) Date:2018-01-280799 () 01/29/2018 Secondary MERLE W Devon Insurance:HUMANA ROMICKDOB: [facility] COMMERCIALPolicy [id number] Hospital Number: Repository [id number] Date:4127-86-45Tq[address] [address]UU: 01/29/2018 Tertiary NOT GIVENUNK Devon Insurance:SELF PAY [facility] Number: Effective Repository Date:2018-01-28 01/08/2018 MERLE W Primary MERLE W Devon [id number] Insurance:MEDICARE ROMICKDOB: [facility] MARY PART A BPolicy Number: [id number], [place] [id number] Repository 24[address]Etb: 330) Date:2017-08-2807 () 01/08/2018 Secondary MERLE W Adrian Insurance:HUMANA ROMICKDOB: [facility] [id number] Hospital Number: Repository [id number] Date:8016-97-29Mb[address] [address]ML: 01/08/2018 Tertiary NOT GIVENUNK Deovn Insurance:SELF PAY [facility] Number: Effective Repository Date:2018-01-08 01/03/2018 MERLE W Primary MERLE W Adrian [id number] Insurance:MEDICARE ROMICKDOB: [facility] MARY PART A BPolicy Number: [id number], [place] [id number] Repository [address]Msm: 330) Date:2003-04-200726 () 01/03/2018 Secondary MERLE W Adrian Insurance:HUMANA ROMICKDOB: [facility] [id number] Hospital Number: Repository [id number] Date:7178-70-91Gs[address] [address]ST: 01/03/2018 Tertiary NOT GIVENUNK [place] Insurance:SELF PAY [facility] Number: Effective Repository Date:2017-06-12 12/17/2017 MERLE W Primary MERLE W Devon [id number] Insurance:MEDICARE ROMICKDOB: Community MARY PART A BPolicy Number: [id number], [place] [id number] Repository 67[address]Zvz: 330) Date:2017-12-170778 () 12/17/2017 Secondary MERLE W Adrian Insurance:HUMANA ROMICKDOB: [facility] [id number] Hospital Number: Repository [id number] Date:1968-68-44Hk[address] [address]RZ: 12/17/2017 Tertiary NOT GIVENUNK [place] Insurance:SELF PAY [facility] Number: Effective Repository Date:2017-12-17 09/27/2017 MERLE W Primary MERLE W Adrian [id number] Insurance:MEDICARE ROMICKDOB: Community MARY PART A BPolicy Number: [id number], [place] [id number] Repository 73453Ukt: (606) Date:2017-09-25 [phone] () 09/27/2017 Secondary MERLE W Adrian Insurance:HUMANA ROMICKDOB: [facility] [id number] Hospital Number: Repository [id number] Date:5560-89-29Tl[address] [address]ZU: 09/27/2017 Tertiary NOT GIVENUNK Adrian Insurance:SELF PAY [facility] Number: Effective Repository Date:2017-09-25 09/13/2017 MERLE W Primary MERLE W Adrian [id number] Insurance:MEDICARE ROMICKDOB: Community MARY PART A BPolicy Number: [id number], [place] [id number] Repository 038[address]Ohd: (705) Date:2003-04-20 (HP) 09/13/2017 Secondary MERLE W Devon Insurance:HUMANA ROMICKDOB: Community COMMERCIALPolicy [id number] Hospital Number: Repository [id number] Date:7044-86-93[address]Brvjcfxsd, [place] [address]DP: 09/13/2017 Tertiary NOT GIVENUNK [place] Insurance:SELF PAY [facility]: Effective Repository Date:2017-07-04
== END ==
PROVIDERS: Family Provider Family Medicine; PCP Family Medicine; Referring Provider Orthopaedic Surgery; Visit Provider Orthopaedic Surgery
DX: M17.11 Unilateral primary osteoarthritis, right knee (principal); M25.561 Pain in right knee
CPT/HCPCS: 73564; 82945; 84157; 87070; 87075; 87205; 89050; 89051; 89060

== ENCOUNTER 2018-08-22 07:14 | Outpatient (RCR) | payer MEDICARE, OTHER, SELFPAY ==
[2018-05-08 14:40] VITALS: BMI 44.6
== END 2018-09-19 23:59 ==
LOC: PR 07:14
PROVIDERS: Family Provider Family Medicine; PCP Family Medicine; Referring Provider Family Medicine; Visit Provider Family Medicine
DX: Z00.00 Encounter for general adult medical examination without abnormal findings (principal)

== ENCOUNTER → 2018-09-17 10:14 | Outpatient (CLI) | payer MEDICARE, OTHER, SELFPAY ==
[2018-05-08 14:40] VITALS: BMI 44.6
--- NOTE | 2018-09-17 10:21 | RAD_ITS ---
STUDY: X-RAY CHEST REASON FOR EXAM: Male, 78 years old. Bilateral Rales. TECHNIQUE: PA and lateral views of the chest. COMPARISON: Comparison is made with prior examination dated August 07, 2016. FINDINGS: Stable mild increased markings at the left lung base suggestive of scarring. There is no demonstrated pleural abnormality. Normal size heart. Normal mediastinum and king. Normal visualized pulmonary arteries. There is atherosclerotic tortuosity of the aortic arch and descending thoracic aorta. There are diffuse degenerative changes of the visualized thoracic spine. Normal visualized ribs, clavicles, and shoulders. There is no demonstrated abnormality of the visualized soft tissue structures of the upper abdomen. RAD/Chest PA and Lateral IMPRESSION: Stable mild increased markings at the left lung base suggestive of scarring. Electronically Signed: Saad Dsouza MD at 10:57 EST , Service support ,
[2018-09-17 11:59] LABS: Absolute Neutrophil Count 4.4 X10^3/uL (2.0-7.7); Basophil# 0.01 X10^3/uL; Basophil% 0.1 % (0-1); Eosinophil# 0.19 X10^3/uL; Eosinophils% 2.5 % (0-5); Hematocrit 37.4 % (40-54); Hemoglobin 12.4 g/dl (13.0-16.5); Lymphocyte % 27.8 % (19-41); Mean Corp Hgb Conc 33.2 g/gl (32-36); Mean Corpuscular Hgb 32.3 pg (27.0-32.0); Mean Corpuscular Volume 97.4 fL (80-94); Mean Platelet Vol. 10.8 fl (6.2-12.0); Monocyte# 0.85 X10^3/uL; Monocyte% 11.2 % (0-10); Neutrophil # 4.39 X10^3/uL (2.7-7.7); Neutrophil % 58.1 % (47-70); Platelet Count 259 K/mm3 (150-450); RBC Distribution Width CV 12.8 % (11.6-14.6); RBC Distribution Width SD 45.3 fl (35.1-43.9); Red Blood Count 3.84 M/mm3 (4.6-6.2); White Blood Count 7.6 K/mm3 (4.4-11.0)
[2018-09-17 12:02] LABS: POSITIVE COUNT NO; POSITIVE DIFFERENTIAL NO; POSITIVE MORPHOLOGY NO
[2018-09-17 12:07] LABS: Anion Gap 11 (5-15); BUN 33 mg/dL (7-18); BUN/Creat Ratio 11.4 RATIO (10-20); Calcium,Total 8.6 mg/dL (8.5-10.1); Chloride 104 mmol/L (98-107); Creatinine, Serum 2.89 mg/dL (0.70-1.30); EST Glomerular Filtration Rate 22 mL/min (>60); Est Glom Filt Rate - Afr Amer 27 mL/min (>60); Glucose 258 mg/dL (74-106); Potassium 3.6 mmol/L (3.5-5.1); Sodium Level 140 mmol/L (136-145)
== END ==
PROVIDERS: Family Provider Family Medicine; PCP Family Medicine; Referring Provider Nurse Practitioner Adult Health; Visit Provider Nurse Practitioner Adult Health
DX: R05 Cough (principal); R09.89 Other specified symptoms and signs involving the circulatory and respiratory systems
CPT/HCPCS: 36415; 71046; 80048; 85025

== ENCOUNTER → 2018-10-29 12:44 | Outpatient (CLI) | payer MEDICARE, OTHER, SELFPAY ==
[2018-05-08 14:40] VITALS: BMI 44.6
--- NOTE | 2018-10-29 12:46 | ECHOCS_ITS ---
Reason For Study: CAD/ASHD Procedure This was a 2D Doppler, Color Flow transthoracic echocardiogram. The study was technically difficult. Contrast injection was performed. Exam performed in department. Left Ventricle Normal LV size. Left ventricular systolic function is normal. The estimated ejection fraction is 65 %. Diastolic function is indeterminate. No regional wall motion abnormalities noted. Right Ventricle Normal RV size. Normal systolic function. Atria The left atrium is moderately enlarged. The right atrium is mildly enlarged. No doppler evidence for ASD. Mitral Valve There is moderate mitral annular calcification. Extension of the mitral annular calcification onto the posterior mitral valve leaflet. Trivial mitral valve insufficiency. Tricuspid Valve Normal tricuspid valve. Trivial tricuspid valve insufficiency. Right ventricular systolic pressure estimated to be 33 mmHg. Aortic Valve The aortic valve is not well visualized. Pulmonic Valve The pulmonic valve is not well visualized. Great Vessels The aortic root is not well visualized. Pericardium/Pleural No pericardial effusion. Medication 22 gauge I.V. with prn adaptor inserted into right arm. Diluted definity 3ml given slow IV push to enhance endocardial definition. MMode/2D Measurements & Calculations LVIDd: 4.0 cm IVSd: 0.74 cm LAV(MOD-bp): 83.1 ml LVIDs: 2.2 cm LVPWd: 1.3 cm FS: 46.3 % LAV(MOD-bp) Indexed: 32.1 ml/m2 LAV(MOD-sp2): 73.0 ml LAV(MOD-sp4): 85.7 ml LA A4 area: 27.7 cm2 RA A4 area: 21.1 cm2 Time Measurements MV dec time: 0.27 sec Doppler Measurements & Calculations MV E max jesu: 124.1 cm/sec Lat Peak E' Jesu: 5.8 cm/sec MV V2 max: 161.8 cm/sec MV A max jesu: 141.5 cm/sec E/E' lat: 21.4 MV max P.5 mmHg MV E/A: 0.88 MV V2 mean: 88.1 cm/sec MV mean P.7 mmHg MV V2 VTI: 51.7 cm MV P1/2t max jesu: 141.6 cm/sec Ao V2 max: 160.8 cm/sec LV V1 max: 110.8 cm/sec MV P1/2t: 88.1 msec Ao max P.3 mmHg LV V1 max P.9 mmHg MV dec slope: 470.9 cm/sec2 MVA(P1/2t): 2.5 cm2 PA V2 max: 109.8 cm/sec TR max jesu: 273.0 cm/sec TR max P.8 mmHg Interpretation Summary The study was technically difficult. Contrast injection was performed. Left ventricular systolic function is normal. The estimated ejection fraction is 65 %. The left atrium is moderately enlarged. The right atrium is mildly enlarged. There is moderate mitral annular calcification. Extension of the mitral annular calcification onto the posterior mitral valve leaflet. Trivial mitral valve insufficiency. Trivial tricuspid valve insufficiency. Right ventricular systolic pressure estimated to be 33 mmHg. Diastolic function is indeterminate. Ordering Physician: Jj De León Referring Physician: Jj De León Performed By: David Gresham, [facility]
== END ==
PROVIDERS: Family Provider Family Medicine; PCP Family Medicine; Referring Provider Internal Medicine Cardiovascular Disease; Visit Provider Internal Medicine Cardiovascular Disease
DX: I25.10 Atherosclerotic heart disease of native coronary artery without angina pectoris (principal); I27.20 Pulmonary hypertension, unspecified
CPT/HCPCS: 93306; Q9957; A4216; C8929

== ENCOUNTER → 2018-11-12 11:48 | Outpatient (CLI) | payer MEDICARE, OTHER, SELFPAY ==
[2018-05-08 14:40] VITALS: BMI 44.6
[2018-11-12 12:50] LABS: Albumin, Serum 3.3 g/dL (3.2-5.0); BUN 29 mg/dL (7-18); BUN/Creat Ratio 10.1 RATIO (10-20); Calcium,Total 8.8 mg/dL (8.5-10.1); Chloride 104 mmol/L (98-107); Creatinine, Serum 2.86 mg/dL (0.70-1.30); EST Glomerular Filtration Rate 23 mL/min (>60); Est Glom Filt Rate - Afr Amer 28 mL/min (>60); Glucose 189 mg/dL (74-106); Phosphorus 3.6 mg/dL (2.5-4.9); Potassium 4.3 mmol/L (3.5-5.1); Sodium Level 140 mmol/L (136-145)
[2018-11-12 12:51] LABS: Protein, Urine (Random) 33.7 mg/dL (<11.9); Protein:Creat Ratio 1146 mg/g CRE (0-200)
[2018-11-12 13:25] LABS: PTHIN 165.8 pg/mL (18.4-80.1)
== END ==
PROVIDERS: Family Provider Family Medicine; PCP Family Medicine; Visit Provider Internal Medicine Nephrology
DX: E11.22 Type 2 diabetes mellitus with diabetic chronic kidney disease (principal); N18.4 Chronic kidney disease, stage 4 (severe); N25.81 Secondary hyperparathyroidism of renal origin
CPT/HCPCS: 36415; 80069; 82570; 83970; 84156

== ENCOUNTER → 2018-11-27 08:04 | Outpatient (CLI) | payer MEDICARE, OTHER, SELFPAY ==
[2018-11-25 13:20] VITALS: BMI 44.6
[2018-11-27 10:50] LABS: Hemoglobin A1c 7.9 % (4.2-6.3)
[2018-11-27 11:36] LABS: AST(SGOT) 22 U/L (15-37); Alanine Aminotransfer ALT/SGPT 19 U/L (16-61); Albumin, Serum 3.4 g/dL (3.2-5.0); Alkaline Phosphatase 110 U/L (45-117); Bilirubin, Direct 0.16 mg/dL (0.00-0.30); Cholesterol 129 mg/dL (200); Globulin 2.9 g/dL (2.2-4.2); High Density Lipoprotein 36 mg/dL; Protein, Total 6.3 g/dL (6.4-8.2); Triglycerides 140 mg/dL; Very Low Density Lipoprotein 28 mg/dL (5-40)
== END ==
PROVIDERS: Family Provider Family Medicine; PCP Family Medicine; Referring Provider Family Medicine; Visit Provider Family Medicine
DX: I25.10 Atherosclerotic heart disease of native coronary artery without angina pectoris (principal); E78.00 Pure hypercholesterolemia, unspecified
CPT/HCPCS: 36415; 80061; 80076; 83036

== ENCOUNTER → 2019-03-13 10:26 | Outpatient (CLI) | payer MEDICARE, OTHER, SELFPAY ==
[2019-01-02 15:27] VITALS: BMI 44.6
[2019-03-13 12:41] LABS: Hemoglobin A1c 7.6 % (4.2-6.3)
[2019-03-13 12:44] LABS: ALB/GLOB Ratio 1.1 RATIO (0.9-2.4); AST(SGOT) 19 U/L (15-37); Alanine Aminotransfer ALT/SGPT 21 U/L (16-61); Albumin, Serum 3.3 g/dL (3.2-5.0); Alkaline Phosphatase 115 U/L (45-117); Anion Gap 10 (5-15); BUN 41 mg/dL (7-18); BUN/Creat Ratio 14.2 RATIO (10-20); Calcium,Total 8.5 mg/dL (8.5-10.1); Chloride 105 mmol/L (98-107); Creatinine, Serum 2.88 mg/dL (0.70-1.30); EST Glomerular Filtration Rate 23 mL/min (>60); Est Glom Filt Rate - Afr Amer 27 mL/min (>60); Globulin 3.1 g/dL (2.2-4.2); Glucose 167 mg/dL (74-106); Potassium 4.5 mmol/L (3.5-5.1); Protein, Total 6.4 g/dL (6.4-8.2); Sodium Level 142 mmol/L (136-145)
== END ==
PROVIDERS: Family Provider Family Medicine; PCP Family Medicine; Referring Provider Family Medicine; Visit Provider Family Medicine
DX: E11.69 Type 2 diabetes mellitus with other specified complication (principal); R80.9 Proteinuria, unspecified
CPT/HCPCS: 36415; 80053; 83036

== ENCOUNTER → 2019-03-19 10:27 | Outpatient (CLI) | payer MEDICARE, OTHER, SELFPAY ==
[2019-01-02 15:27] VITALS: BMI 44.6
[2019-03-19 11:58] LABS: Mean Corp Hgb Conc 33.3 g/dL (32-36); Mean Corpuscular Hgb 33.1 pg (27.0-32.0); Mean Corpuscular Volume 99.2 fL (80-94); Mean Platelet Vol. 11.2 fl (6.2-12.0); Platelet Count 252 K/mm3 (150-450); RBC Distribution Width CV 12.3 % (11.6-14.6); RBC Distribution Width SD 44.6 fl (35.1-43.9); Red Blood Count 3.63 M/mm3 (4.6-6.2); White Blood Count 11.9 K/mm3 (4.4-11.0)
[2019-03-19 15:11] LABS: PTHIN 171.1 pg/mL (18.4-80.1)
== END ==
PROVIDERS: Family Provider Family Medicine; PCP Family Medicine; Visit Provider Internal Medicine Nephrology
DX: D64.9 Anemia, unspecified (principal); N25.81 Secondary hyperparathyroidism of renal origin
CPT/HCPCS: 36415; 83970; 85027

== ENCOUNTER 2019-04-29 06:28 | Outpatient (RCR) | payer SELFPAY ==
[2018-05-08 14:40] VITALS: BMI 44.6
[2019-01-02 15:27] VITALS: BMI 44.6
== END 2019-05-19 23:59 ==
LOC: PR 06:28
PROVIDERS: Family Provider Family Medicine; PCP Family Medicine; Referring Provider Family Medicine; Visit Provider Family Medicine
DX: Z00.00 Encounter for general adult medical examination without abnormal findings (principal)

== ENCOUNTER → 2019-05-19 10:06 | Outpatient (CLI) | payer MEDICARE, OTHER, SELFPAY ==
[2019-01-02 15:27] VITALS: BMI 44.6
--- NOTE | 2019-05-19 10:10 | RAD_ITS ---
STUDY: X-RAY CHEST REASON FOR EXAM: Male, 79 years old. Bronchitis TECHNIQUE: Frontal and lateral views of the chest COMPARISON: 03/17/2019 FINDINGS: The lungs are clear. There are no pleural effusions. There is no pneumothorax. The heart is normal in size. The visualized osseous structures are within normal limits. RAD/Chest PA and Lateral IMPRESSION: No acute thoracic pathology. Electronically Signed: Rafal Duong, at 17:10 EDT Tel , Service support ,
== END ==
PROVIDERS: Family Provider Family Medicine; PCP Family Medicine; Referring Provider Family Medicine; Visit Provider Family Medicine
DX: J20.9 Acute bronchitis, unspecified (principal)
CPT/HCPCS: 71046

== ENCOUNTER → 2019-06-16 09:42 | Outpatient (CLI) | payer MEDICARE, OTHER, SELFPAY ==
[2019-01-02 15:27] VITALS: BMI 44.6
[2019-05-26 13:01] VITALS: BMI 43.7
[2019-06-16 12:22] LABS: Hematocrit 36.5 % (40-54); Mean Corp Hgb Conc 32.9 g/dL (32-36); Mean Corpuscular Hgb 32.3 pg (27.0-32.0); Mean Corpuscular Volume 98.4 fL (80-94); Mean Platelet Vol. 11.5 fl (6.2-12.0); Platelet Count 294 K/mm3 (150-450); RBC Distribution Width CV 12.3 % (11.6-14.6); RBC Distribution Width SD 44.4 fl (35.1-43.9); Red Blood Count 3.71 M/mm3 (4.6-6.2); White Blood Count 15.7 K/mm3 (4.4-11.0)
[2019-06-16 12:44] LABS: BUN 52 mg/dL (7-18); Creatinine, Serum 2.99 mg/dL (0.70-1.30); Glucose 126 mg/dL (74-106); Vitamin D,25 Hydroxy 53.4 ng/mL (29.95-100.01)
[2019-06-16 12:45] LABS: AST(SGOT) 20 U/L (15-37); Alanine Aminotransfer ALT/SGPT 22 U/L (16-61); Albumin, Serum 3.3 g/dL (3.2-5.0); Alkaline Phosphatase 87 U/L (45-117); Anion Gap 7 (5-15); BUN/Creat Ratio 17.4 RATIO (10-20); Bilirubin, Direct 0.15 mg/dL (0.00-0.30); Calcium,Total 8.8 mg/dL (8.5-10.1); Chloride 105 mmol/L (98-107); Cholesterol 115 mg/dL (200); EST Glomerular Filtration Rate 22 mL/min (>60); Est Glom Filt Rate - Afr Amer 26 mL/min (>60); Globulin 3.4 g/dL (2.2-4.2); High Density Lipoprotein 35 mg/dL; PTHIN 167.8 pg/mL (18.4-80.1); Phosphorus 4.1 mg/dL (2.5-4.9); Potassium 4.2 mmol/L (3.5-5.1); Protein, Total 6.7 g/dL (6.4-8.2); Sodium Level 139 mmol/L (136-145); Triglycerides 100 mg/dL; Very Low Density Lipoprotein 20 mg/dL (5-40)
[2019-06-17 14:48] LABS: Hemoglobin A1c 6.9 % (4.2-6.3)
== END ==
PROVIDERS: Internal Medicine Cardiovascular Disease; Family Provider Family Medicine; PCP Family Medicine; Referring Provider Internal Medicine Nephrology; Visit Provider Internal Medicine Nephrology
DX: N18.4 Chronic kidney disease, stage 4 (severe) (principal); N25.81 Secondary hyperparathyroidism of renal origin; D63.1 Anemia in chronic kidney disease; E55.9 Vitamin D deficiency, unspecified; E11.22 Type 2 diabetes mellitus with diabetic chronic kidney disease; R80.9 Proteinuria, unspecified
CPT/HCPCS: 36415; 80048; 80061; 80076; 82306; 83036; 83970; 84100; 85027

== ENCOUNTER → 2019-08-07 13:57 | Outpatient (CLI) | payer MEDICARE, OTHER, SELFPAY ==
[2019-05-26 13:01] VITALS: BMI 43.7
[2019-08-07 16:31] LABS: PSA,Total- Diagnostic 0.24 ng/mL (0.0-4.0)
== END ==
PROVIDERS: Family Provider Family Medicine; PCP Family Medicine; Referring Provider Nurse Practitioner Adult Health; Visit Provider Nurse Practitioner Adult Health
DX: C61 Malignant neoplasm of prostate (principal)
CPT/HCPCS: 36415; 84153

== ENCOUNTER → 2019-09-11 09:24 | Outpatient (CLI) | payer MEDICARE, OTHER, SELFPAY ==
[2019-05-26 13:01] VITALS: BMI 43.7
[2019-09-11 09:48] LABS: Hematocrit 34.2 % (40-54); Hemoglobin 11.4 g/dL (13.0-16.5); Mean Corp Hgb Conc 33.3 g/dL (32-36); Mean Corpuscular Hgb 32.3 pg (27.0-32.0); Mean Corpuscular Volume 96.9 fL (80-94); Mean Platelet Vol. 10.4 fl (6.2-12.0); Platelet Count 283 K/mm3 (150-450); RBC Distribution Width CV 12.4 % (11.6-14.6); RBC Distribution Width SD 44.2 fl (35.1-43.9); Red Blood Count 3.53 M/mm3 (4.6-6.2); White Blood Count 14.3 K/mm3 (4.4-11.0)
[2019-09-11 10:10] LABS: 24 Hour Urine Protein 820.8 mg/24HR (<150 MG/24HR); 24HR. UA Prot. Total Volume 2450 mL; Urine Protein (24 Hour) 33.5 mg/dL (<11.9)
[2019-09-11 10:28] LABS: Albumin, Serum 3.2 g/dL (3.2-5.0); BUN 34 mg/dL (7-18); BUN/Creat Ratio 11.1 RATIO (10-20); Calcium,Total 8.9 mg/dL (8.5-10.1); Chloride 106 mmol/L (98-107); Creatinine, Serum 3.06 mg/dL (0.70-1.30); EST Glomerular Filtration Rate 21 mL/min (>60); Est Glom Filt Rate - Afr Amer 25 mL/min (>60); Glucose 119 mg/dL (74-106); Phosphorus 3.7 mg/dL (2.5-4.9); Potassium 3.9 mmol/L (3.5-5.1); Sodium Level 138 mmol/L (136-145)
[2019-09-11 10:30] LABS: Creat.Clear Total Volume 2450 mL; Creatinine Clearance 31 ml/min (100-200); Creatinine Serum Creat 3.1 mg/dL (0.8-1.3); Creatinine Urine 54.9 mg/dL (NO RANGE EST.); EST Glomerular Filtration Rate 21 mL/min (>60); Est Glom Filt Rate - Afr Amer 25 mL/min (>60)
[2019-09-11 10:31] LABS: PTHIN 198.3 pg/mL (18.4-80.1)
[2019-09-11 10:34] LABS: Vitamin D,25 Hydroxy 49.8 ng/mL (29.95-100.01)
== END ==
PROVIDERS: Family Provider Family Medicine; PCP Family Medicine; Visit Provider Internal Medicine Nephrology
DX: N18.4 Chronic kidney disease, stage 4 (severe) (principal); N25.81 Secondary hyperparathyroidism of renal origin; D64.9 Anemia, unspecified; E55.9 Vitamin D deficiency, unspecified
CPT/HCPCS: 36415; 80069; 81050; 82306; 82575; 83970; 84156; 85027

== ENCOUNTER → 2019-12-29 07:50 | Outpatient (CLI) | payer MEDICARE, OTHER, SELFPAY ==
[2019-05-26 13:01] VITALS: BMI 43.7
[2019-12-29 08:15] LABS: Hematocrit 35.1 % (40-54); Hemoglobin 11.5 g/dL (13.0-16.5); Mean Corp Hgb Conc 32.8 g/dL (32-36); Mean Corpuscular Hgb 32.3 pg (27.0-32.0); Mean Corpuscular Volume 98.6 fL (80-94); Mean Platelet Vol. 10.2 fl (6.2-12.0); Platelet Count 253 K/mm3 (150-450); RBC Distribution Width CV 12.3 % (11.6-14.6); RBC Distribution Width SD 44.5 fl (35.1-43.9); Red Blood Count 3.56 M/mm3 (4.6-6.2); White Blood Count 12.9 K/mm3 (4.4-11.0)
[2019-12-29 08:49] LABS: AST(SGOT) 20 U/L (15-37); Alanine Aminotransfer ALT/SGPT 23 U/L (16-61); Albumin, Serum 3.3 g/dL (3.2-5.0); Alkaline Phosphatase 89 U/L (45-117); Anion Gap 6 (5-15); BUN 41 mg/dL (7-18); BUN/Creat Ratio 13.3 RATIO (10-20); Bilirubin, Direct 0.18 mg/dL (0.00-0.30); Calcium,Total 8.5 mg/dL (8.5-10.1); Chloride 106 mmol/L (98-107); Cholesterol 115 mg/dL (200); Creatinine, Serum 3.08 mg/dL (0.70-1.30); EST Glomerular Filtration Rate 21 mL/min (>60); Est Glom Filt Rate - Afr Amer 25 mL/min (>60); Globulin 3.5 g/dL (2.2-4.2); Glucose 111 mg/dL (74-106); High Density Lipoprotein 39 mg/dL; Phosphorus 4.3 mg/dL (2.5-4.9); Potassium 4.2 mmol/L (3.5-5.1); Protein, Total 6.8 g/dL (6.4-8.2); Sodium Level 140 mmol/L (136-145); Triglycerides 109 mg/dL; Very Low Density Lipoprotein 22 mg/dL (5-40)
[2019-12-29 08:51] LABS: PTHIN 190.4 pg/mL (18.4-80.1)
== END ==
PROVIDERS: Internal Medicine Cardiovascular Disease; PCP Family Medicine; Referring Provider Internal Medicine Nephrology; Visit Provider Internal Medicine Nephrology
DX: N18.4 Chronic kidney disease, stage 4 (severe) (principal); N25.81 Secondary hyperparathyroidism of renal origin; D64.9 Anemia, unspecified; E78.00 Pure hypercholesterolemia, unspecified
CPT/HCPCS: 36415; 80048; 80061; 80076; 83970; 84100; 85027

== ENCOUNTER → 2020-05-05 07:04 | Outpatient (CLI) | payer MEDICARE, OTHER, SELFPAY ==
[2020-02-11 15:12] VITALS: BMI 43.7
[2020-05-05 07:44] LABS: Hematocrit 34.9 % (40-54); Hemoglobin 11.5 g/dL (13.0-16.5); Mean Corpuscular Hgb 32.9 pg (27.0-32.0); Mean Corpuscular Volume 99.7 fL (80-94); Mean Platelet Vol. 10.8 fl (6.2-12.0); Platelet Count 276 K/mm3 (150-450); RBC Distribution Width CV 12.1 % (11.6-14.6); RBC Distribution Width SD 44.1 fl (35.1-43.9); White Blood Count 13.5 K/mm3 (4.4-11.0)
[2020-05-05 08:07] LABS: Albumin, Serum 3.2 g/dL (3.2-5.0); BUN 49 mg/dL (7-18); BUN/Creat Ratio 14.1 RATIO (10-20); Chloride 106 mmol/L (98-107); Creatinine, Serum 3.47 mg/dL (0.70-1.30); EST Glomerular Filtration Rate 18 mL/min (>60); Est Glom Filt Rate - Afr Amer 22 mL/min (>60); Glucose 119 mg/dL (74-106); Phosphorus 4.7 mg/dL (2.5-4.9); Potassium 4.4 mmol/L (3.5-5.1); Sodium Level 140 mmol/L (136-145)
[2020-05-05 08:40] LABS: PTHIN 148.4 pg/mL (18.4-80.1)
== END ==
PROVIDERS: PCP Family Medicine; Referring Provider Internal Medicine Nephrology; Visit Provider Internal Medicine Nephrology
DX: N18.4 Chronic kidney disease, stage 4 (severe) (principal); N25.81 Secondary hyperparathyroidism of renal origin; D64.9 Anemia, unspecified
CPT/HCPCS: 36415; 80069; 83970; 85027

== ENCOUNTER → 2020-05-21 11:13 | Outpatient (CLI) | payer MEDICARE, OTHER, SELFPAY ==
[2020-02-11 15:12] VITALS: BMI 43.7
--- NOTE | 2020-05-21 11:19 | VDUE_ITS ---
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 0.22 x 0.23 cm. Branch, Right wrist, 0.18 x 0.18 cm. Left Cephalic Vein in the forearm measures Right Cephalic Vein in the forearm measures 0.25 x 0.23 cm. 0.30 x 0.32 cm. Left Cephalic Vein below antecub measures Right Cephalic Vein below antecub measures 0.27 x 0.27 cm. 0.26 x 0.27 cm. Left Cephalic Vein above antecub measures Right Cephalic Vein above antecub measures 0.47 x 0.48 cm. 0.51 x 0.52 cm. Left Cephalic Vein at mid bicep measures Right Cephalic Vein mid bicep measures 0.50 0.48 x 0.48 cm. x 0.50 cm. Left Cephalic Vein at the shoulder measures Right Cephalic Vein at the shoulder measures 0.46 x 0.45 cm. 0.49 x 0.51 cm. Basilic vein at origin measures 0.50 x 0.47 Right Basilic Vein at the origin measures cm. 0.48 x 0.48 cm. Basilic vein at bicep measures 0.47 x 0.44 Right Basilic Vein mid bicep measures 0.44 x cm. 0.43 cm. Basilic vein above antecub measures 0.37 x Right Basilic Vein above antecub measures 0.39 cm. 0.44 x 0.42 cm. Left Brachial artery measures 0.47 x 0.45 cm Right Brachial artery measures 0.53 x 0.53 with a velocity of 97.3 cm/sec. cm with a velocity of 103.4 cm/sec. Left Radial artery measures 0.32 x 0.34 cm Right Radial artery measures 0.31 x 0.33 cm with a velocity of 85.6 cm/sec. with a velocity of 99.6 cm/sec. Interpretation Summary Patent and compressible bilateral upper extremity cephalic and basilic veins with dimensions as noted Normal diameter and flow bilateral radial and brachial arteries Ordering Physician: Elizabeth Rios Referring Physician: Dangelo Dc MD Performed By: Yanet Kemp RVT ?
== END ==
PROVIDERS: PCP Family Medicine; Referring Provider Internal Medicine Nephrology; Visit Provider Internal Medicine Nephrology
DX: Z01.818 Encounter for other preprocedural examination (principal); N18.4 Chronic kidney disease, stage 4 (severe)
CPT/HCPCS: 93970; 93985

== ENCOUNTER → 2020-06-03 13:53 | Outpatient (CLI) | payer MEDICARE, OTHER, SELFPAY ==
[2020-05-27 07:13] VITALS: BMI 44.5
[2020-06-03 14:53] LABS: Absolute Lymphocyte Count 2.51 X10^3/uL (0.83-4.51); Absolute Neutrophil Count 8.4 X10^3/uL (2.0-7.7); Basophil# 0.08 X10^3/uL; Basophil% 0.6 % (0-1); Eosinophils% 5.4 % (0-5); Hematocrit 34.5 % (40-54); Hemoglobin 11.3 g/dL (13.0-16.5); Lymphocyte # 2.51 X10^3/ul (4.0); Lymphocyte % 19.4 % (19-41); Mean Corp Hgb Conc 32.8 g/dL (32-36); Mean Corpuscular Hgb 32.2 pg (27.0-32.0); Mean Corpuscular Volume 98.3 fL (80-94); Mean Platelet Vol. 11.2 fl (6.2-12.0); Monocyte# 1.23 X10^3/uL; Monocyte% 9.5 % (0-10); NRBC Flagged by Analyzer 0 % (0-5); Neutrophil # 8.36 X10^3/uL (2.7-7.7); Neutrophil % 64.7 % (47-70); Platelet Count 295 K/mm3 (150-450); RBC Distribution Width CV 12.2 % (11.6-14.6); RBC Distribution Width SD 43.6 fl (35.1-43.9); Red Blood Count 3.51 M/mm3 (4.6-6.2); White Blood Count 12.9 K/mm3 (4.4-11.0)
[2020-06-03 15:18] LABS: Anion Gap 6 (5-15); BUN 57 mg/dL (7-18); BUN/Creat Ratio 15.8 RATIO (10-20); Chloride 105 mmol/L (98-107); Creatinine, Serum 3.61 mg/dL (0.70-1.30); EST Glomerular Filtration Rate 17 mL/min (>60); Est Glom Filt Rate - Afr Amer 21 mL/min (>60); Glucose 95 mg/dL (74-106); Potassium 4.1 mmol/L (3.5-5.1); Sodium Level 139 mmol/L (136-145)
[2020-06-03 15:22] LABS: BNP,B-Type NATRIURETIC PEPTIDE 80.7 pg/mL (0-100)
== END ==
PROVIDERS: Anesthesiology; PCP Family Medicine; Referring Provider Internal Medicine Pulmonary Disease; Visit Provider Internal Medicine Pulmonary Disease
DX: I27.20 Pulmonary hypertension, unspecified (principal); J45.909 Unspecified asthma, uncomplicated; G47.33 Obstructive sleep apnea (adult) (pediatric)
CPT/HCPCS: 36415; 80048; 83880; 85025

== ENCOUNTER → 2020-06-04 12:46 | Outpatient (CLI) | payer MEDICARE, OTHER, SELFPAY ==
[2020-05-27 07:13] VITALS: BMI 44.5
--- NOTE | 2020-06-04 12:47 | CDU_ITS ---
Reason For Study: BRUIT Rt. Velocities/BP Lt. Velocities/BP Prox CCA 109/20 cm/sec. Prox CCA 158/28 cm/sec. Mid CCA 86/15 cm/sec. Mid CCA 114/20 cm/sec. Dist CCA 95/18 cm/sec. Dist CCA 101/22 cm/sec. Prox ICA 124/23 cm/sec. Prox ICA 194/64 cm/sec. Mid ICA 122/33 cm/sec. Mid ICA 223/55 cm/sec. Dist ICA 109/31 cm/sec. Dist ICA 116/26 cm/sec. Rt. ICA/CCA = 1.3. Lt. ICA/CCA = 2.0. Prox ECA 255/15 cm/sec. Prox ECA 204/13 cm/sec. Rt. Vert. 51/11 cm/sec. Lt. Vert. 93/16 cm/sec. Right Extracranial There is heterogeneous, irregular atherosclerotic plaque noted in the right common carotid artery. There is heterogeneous, irregular atherosclerotic plaque noted in the right internal carotid artery. There is heterogeneous, irregular atherosclerotic plaque noted in the right external carotid artery. Antegrade flow is noted in the right vertebral artery. There is heterogeneous, irregular atherosclerotic plaque noted in the right bulb. Left Extracranial There is heterogeneous, irregular atherosclerotic plaque noted in the left common carotid artery. There is heterogeneous, irregular atherosclerotic plaque noted in the left internal carotid artery. There is heterogeneous, irregular atherosclerotic plaque noted in the left external carotid artery. Antegrade flow is noted in the left vertebral artery. There is heterogeneous, irregular atherosclerotic plaque noted in the left bulb. Procedure Carotid Duplex 37869. Exam performed in department. Interpretation Summary Irregular calcific plaque with shadowing at the proximal right internal carotid with <50% stenosis but close to this range >50% stenosis right external carotid Irregular calcific plaque with shadowing at the proximal left internal carotid with 50-69% stenosis >50% stenosis left external carotid Patent and antegrade vertebrals bilaterally Findings suggest progression of disease bilaterally from the previous examination of January 27, 2011 Ordering Physician: Chema Segundo Referring Physician: MT FLORENCE Performed By: Ligia Madrid, PARI, RVT
== END ==
PROVIDERS: PCP Family Medicine; Referring Provider Surgery; Visit Provider Surgery
DX: R09.89 Other specified symptoms and signs involving the circulatory and respiratory systems (principal)
CPT/HCPCS: 93880

== ENCOUNTER 2020-06-10 09:10 | Day surgery (SDC) | payer MEDICARE, OTHER, SELFPAY ==
[2020-05-27 07:13] VITALS: BMI 44.5
--- NOTE | 2020-06-03 13:33 | EKG12_ITS ---
Test Reason : PRE OP Blood Pressure : / mmHG Vent. Rate : 046 BPM Atrial Rate : 046 BPM P-R Int : 204 ms QRS Dur : 086 ms QT Int : 448 ms P-R-T Axes : 078 -28 009 degrees QTc Int : 392 ms Sinus bradycardia with frequent Premature ventricular complexes in a pattern of bigeminy Leftward axis Poor R wave progression l Confirmed by SUKI LIVE, RACHEL ([id number]), science editor SANDY QUIROZ ([id number]) on 06/07/2020 8:03:15 AM Referred By: Chema Segundo Confirmed By:RACHEL COHN MD
[2020-06-10] VITALS (7 sets, daily range): BP systolic 119–149; BP diastolic 58–70; PULSE 57–76; RESP 16–18; TEMP 36.1–36.6; O2SAT 93–98; BMI 44.3
[2020-06-10 10:11] LABS: Bedside Glucose 117 mg/dL (70-110)
[2020-06-10] MEDS: 0.9% Normal Saline 1,000 ML 15 ML IV (10:29)
--- NOTE | 2020-06-10 10:45 | HP.PCM_ITS ---
Problem List (1) CKD (chronic kidney disease) stage 4, GFR 15-29 ml/min Status: Chronic History and Physical Date of Admission: 06/10/20 Intake Visit Reasons: fistula placement/ 05/21 VM Chief Complaint: rash Allergies celecoxib [From Celebrex] Allergy (Mild, Verified 05/27/20 07:30) Bleeding clonidine Allergy (Verified 05/27/20 07:30) Rash hydrochlorothiazide Allergy (Verified 05/27/20 07:30) Rash gabapentin Adverse Reaction (Verified 05/27/20 07:30) DIZZINESS tiotropium bromide [From Spiriva with HandiHaler] Adverse Reaction (Verified 05/27/20 07:30) IRRITATION TO TEETHE Medications Aspirin E.C. [Ecotrin] 81 mg PO QHS 01/13/15 [History Confirmed 05/27/20] Atenolol [Tenormin (beta autumn)] 25 mg PO BID 01/13/15 [History Confirmed 05/27/20] Insulin Glargine [Lantus SoloStar Pen] 10 units SC QHS 01/13/15 [History Confirmed 05/27/20] Magnesium Oxide [Mag-Ox 400] 400 mg PO DAILY 01/13/15 [History Confirmed 05/27/20] Multivitamins,Therapeutic [Multivitamin] 1 tab PO QHS 01/13/15 [History Confi rmed 05/27/20] Albuterol IH (ProAir) [Proair Hfa (SP)Vent Pts] 1 - 2 puff INHALATION Q4H PRN PRN 08/11/16 [History Confirmed 05/27/20] Dutasteride [Avodart] 0.5 mg PO DAILY 03/28/17 [History Confirmed 05/27/20] Vit A/Vit C/Vit E/Zinc/Copper [Preservision Areds Softgel] 1 ea PO DAILY 03/28/17 [History Confirmed 05/27/20] turmeric root extract 500 mg capsule 500 mg PO DAILY 05/08/18 [History Confirmed 05/27/20] calcitriol 0.25 mcg capsule 0.25 mcg PO DAILY cap 11/13/18 [History Confirmed 05/27/20] cholecalciferol (vitamin D3) 25 mcg (1,000 unit) capsule 2,000 unit PO DAILY cap 11/25/18 [History Confirmed 05/27/20] furosemide 40 mg tablet 20 mg PO DAILY tab 03/19/19 [History Confirmed 05/27/20] atorvastatin 80 mg tablet 80 mg PO DAILY #90 tab 05/26/19 [Rx Confirmed 05/27/20] fluticasone propionate 50 mcg/actuation nasal spray,suspension 2 spray INTRANASAL DAILY PRN 02/11/20 [History Confirmed 05/27/20] liraglutide 0.6 mg/0.1 mL (18 mg/3 mL) subcutaneous pen injector 0.6 mg SC DAILY 02/11/20 [History Confirmed 05/27/20] loratadine 10 mg tablet 10 mg PO DAILY PRN 02/11/20 [History Confirmed 05/27/20] amlodipine 5 mg tablet 5 mg PO DAILY #90 tab 05/06/20 [Rx Confirmed 05/27/20] [id number] pepper 100 mg-200 unit-50 mg-800 mcg tablet tab PO 05/27/20 [History] PFSH Family History Brother Diabetes Sister CAD (coronary artery disease) CVA (cerebral vascular accident) CHF (congestive heart failure) Son Hypertension Social History (Updated 05/27/20 @ 07:[address] Chema Segundo MD) Smoking Status: Former smoker how long ago did patient quit smokin alcohol intake: current alcohol intake frequency: holidays/special occasions only Alcohol type: beer substance use type: does not use caffeine: Yes Type: coffee what type of physical activity do you participate in: other details: physical therapy frequency: 1-2 times per week duration: 15-30 minutes/day seatbelt use: always do you feel safe at home: Yes HPI HPI HPI: Azra Roe is a 80-year-old gentleman. Surgical consultation regarding arteriovenous hemodialysis fistula creation. The patient is referred by Dr. Elizabeth Rios and a written copy of my surgical consult recommendations will return to her. The patient has morbid obesity. Type 2 diabetes mellitus. He has progressive renal insufficiency currently stage IV. His recreational assistant is Dr. Jj De León. As of October 29, 2018 the patient had an echocardiogram. Ejection fraction 65%. Mildly enlarged right and left atria. Trivial mitral valve insufficiency. Trivial tricuspid valve insufficiency. The patient is right arm dominant. He denies history of myocardial infarction or CVA. Denies history of DVT. He has had progressive significant bilateral lower extremity swelling now for period of time. [facility] [address] [place] [address] Saphenous Vein Mapping, Bilat 05/21/20 1124 MR#: [id number] Name: AZRA ROE [facility] #:[id number] : 1940 80From: Chema Segundo MD Attending Dr: Dr. Elizabeth Rios, DOStatus: REG CLI Ordering Dr: Elizabeth Rios DODate: 05/21/20 Location:CVSSex: Admitted: 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 0.22 x 0.23 cm. Branch, Right wrist, 0.18 x 0.18 cm. Left Cephalic Vein in the forearm measures Right Cephalic Vein in the forearm measures 0.25 x 0.23 cm. 0.30 x 0.32 cm. Left Cephalic Vein below antecub measures Right Cephalic Vein below antecub measures 0.27 x 0.27 cm. 0.26 x 0.27 cm. Left Cephalic Vein above antecub measures Right Cephalic Vein above antecub measures 0.47 x 0.48 cm. 0.51 x 0.52 cm. Left Cephalic Vein at mid bicep measures Right Cephalic Vein mid bicep measures 0.50 0.48 x 0.48 cm. x 0.50 cm. Left Cephalic Vein at the shoulder measures Right Cephalic Vein at the shoulder measures 0.46 x 0.45 cm. 0.49 x 0.51 cm. Basilic vein at origin measures 0.50 x 0.47 Right Basilic Vein at the origin measures cm. 0.48 x 0.48 cm. Basilic vein at bicep measures 0.47 x 0.44 Right Basilic Vein mid bicep measures 0.44 x cm. 0.43 cm. Basilic vein above antecub measures 0.37 x Right Basilic Vein above antecub measures 0.39 cm. 0.44 x 0.42 cm. Left Brachial artery measures 0.47 x 0.45 cm Right Brachial artery measures 0.53 x 0.53 with a velocity of 97.3 cm/sec. cm with a velocity of 103.4 cm/sec. Left Radial artery measures 0.32 x 0.34 cm Right Radial artery measures 0.31 x 0.33 cm with a velocity of 85.6 cm/sec. with a velocity of 99.6 cm/sec. Interpretation Summary Patent and compressible bilateral upper extremity cephalic and basilic veins with dimensions as noted Normal diameter and flow bilateral radial and brachial arteries Ordering Physician: Elizabeth Rios Referring Physician: Dangelo Dc MD Performed By: Yanet Kemp RVT ? 05/21/20 1408 Date Chema Segundo MD HPI HPI HPI: AZRA ROE, is a 80 M who presents to the office today for Exam Const General: cooperative, comfortable, no acute distress Nutritional Appearance: obese morbidly obese Orientation: alert, awake [facility] Head: normal to inspection Eyes General: appearance normal, both eyes and all related structures Neck Carotids: normal carotid upstroke, bruit bilaterally Resp Effort & Inspection: normal respiratory effort Auscultation: clear to auscultation bilaterally Cardio Rate: regular rate Rhythm: regular rhythm Other: 2/6 systolic ejection murmur GI Other: Markedly overweight, cannot detect any internal organs Musc Cervical Spine: normal cervical lordosis Skin General: no rashes or lesions noted Neuro Cognition: normal cognition Extrem Other: Marked bilateral extremity swelling 4+, support hose in place Psych Affect: normal affect Assessment & Plan Problems 1. CKD (chronic kidney disease) stage 4, GFR 15-29 ml/min N18.4 Plan 80-year-old gentleman with stage IV chronic renal insufficiency. I recommend to him a left upper arm brachiocephalic arteriovenous hemodialysis fistula creation. I may need to do some mobilization of the more distal cephalic vein. I have described the technique, benefit, risk and alternatives. No guarantees of success have been offered. He will be maintained on his low-dose aspirin therapy. I detected cardiac and carotid bruits. I recommend carotid duplex imaging. Training Officer is Dr. Jj De León and we will notify him of intended operative procedure. The patient is accompanied by his . He has had an opportunity to ask and have questions answered. He is aware that the [facility] is currently reporting a low local incidence of Covid-19. Copy: Dr. Dangelo Dc and Dr. Elizabeth Rios and Dr. Jj Segundo M.D., F.A.C.S. Coding Level of Care Code 45101 Diagnoses CKD (chronic kidney disease) stage 4, GFR 15-29 ml/min N18.4 I have re-examined the patient. There are no clinical changes since date of exam. Chema Segundo M.D., F.A.C.S. Procedure Criteria Procedure Type: Elective COVID Risk Discussion: The surgeon/proceduralist and patient have discussed in detail the risk of exposure to and/or potential harm posed by the COVID-19 virus with having a surgery/procedure at this time versus the risk of delaying the surgery/procedure. It is not possible to know either the risk of delaying the surgery or procedure or chance of getting an infection with perfect accuracy, but a joint decision was made between the patient and the surgeon/proceduralist to proceed at this time with the scheduled surgery/procedure as indicated on the consent form.
[2020-06-10] MEDS: Heparin Injection (Vial) 5,000 UNIT/ML VIAL 5000 UNIT (11:11)
[2020-06-10] MEDS: Bupivacaine Mpf 0.5% 30 ML VIAL (11:11)
--- NOTE | 2020-06-10 12:42 | DCINST_ITS ---
Discharge Diet: Renal Diet Discharge Activity: May Not Drive - for 2-3 days or while taking narcotic pain medications., May Shower, May Take a Tub Bath - in 5 days. Lifting Restrictions: 5 pounds Keep extremity elevated above heart level: - - Keep arm elevated above the heart level for 3 days. Additional Activity Instructions:: Exercise hand vigorously with a stress ball. Call your doctor if your incision/area has: Continuous Slow Oozing, Sudden Increased Bleeding - apply pressure and call your doctor., Increased Pain/ Swelling, Increased Redness, Foul Smelling Discharge Call your doctor if you observe: Fever of 101 or Higher Suture Line Care: Avoid Pulling/Pushing, Avoid Pinching/Bending Cleanse incision/area with: Keep Dressing Clean & Dry Additional Dressing/Incision Instructions:: Change or remove dressing in one day. May protect with a gauze bandaid. Allergies/Adverse Reactions: Allergies celecoxib [From Celebrex] Allergy (Mild, Verified 06/02/20 14:00) Bleeding GI clonidine Allergy (Verified 06/02/20 14:00) Rash hydrochlorothiazide Allergy (Verified 06/02/20 14:00) Rash gabapentin Adverse Reaction (Verified 06/02/20 14:00) DIZZINESS tiotropium bromide [From Spiriva with HandiHaler] Adverse Reaction (Verified 06/02/20 14:00) IRRITATION TO TEETHE Medications to take at Discharge Aspirin E.C. [Ecotrin] 81 mg PO QHS 01/13/15 Atenolol [Tenormin (beta autumn)] 25 mg PO BID 01/13/15 Insulin Glargine [Lantus SoloStar Pen] 10 units SC QHS 01/13/15 Magnesium Oxide [Mag-Ox 400] 400 mg PO DAILY 01/13/15 Multivitamins,Therapeutic [Multivitamin] 1 tab PO QHS 01/13/15 Albuterol IH (ProAir) [Proair Hfa (SP)Vent Pts] 1 - 2 puff INHALATION Q4H PRN PRN 08/11/16 Dutasteride [Avodart] 0.5 mg PO DAILY 03/28/17 Vit A/Vit C/Vit E/Zinc/Copper [Preservision Areds Softgel] 2 ea PO DAILY 03/28/17 turmeric root extract 500 mg capsule 500 mg PO DAILY 09/19/18 calcitriol 0.25 mcg capsule 0.25 mcg PO DAILY cap 11/13/18 cholecalciferol (vitamin D3) 25 mcg (1,000 unit) capsule 2,000 unit PO DAILY cap 11/25/18 furosemide 40 mg tablet 20 mg PO DAILY tab 03/19/19 fluticasone propionate 50 mcg/actuation nasal spray,suspension 2 spray INTRANASAL DAILY PRN 02/11/20 liraglutide 0.6 mg/0.1 mL (18 mg/3 mL) subcutaneous pen injector 0.6 mg SC DAILY 02/11/20 loratadine 10 mg tablet 10 mg PO DAILY PRN 02/11/20 amlodipine 5 mg tablet 5 mg PO DAILY #90 tab 05/06/20 atorvastatin 80 mg tablet 80 mg PO DAILY #90 tab 06/07/20 Primary Care Physician: Dangelo Dc MD [Primary Care Provider] - Test Results: Test results from this visit will be discussed in further detail at your follow- up appointment, if applicable. Please Follow Up With: Chema Segundo MD - [phone] When: Call to make an appointment for suture removal and follow up in 10 days.
--- NOTE | 2020-06-10 12:44 | PCM.OPRPT ---
Problem List (1) CKD (chronic kidney disease) stage 4, GFR 15-29 ml/min Status: Chronic Report of Operation Date of Procedure: 06/10/20 Pre-Operative Diagnosis: Stage IV chronic renal insufficiency Post-Operative Diagnosis: Same Surgery/Procedure Performed:: Transposition left upper extremity cephalic vein to brachial artery arteriovenous hemodialysis fistula creation Description of Surgical Findings:: Timeout and informed consent was obtained. 80-year-old gentleman was taken to the operating placed on the table underwent monitored anesthesia care. Clean procedure. The left extremity was sterilely prepped and draped. 1% lidocaine mixed 50-50 with 0.5% Marcaine was used as local anesthetic. An additional 10 cc of 0.5% lidocaine was utilized as well. Ultrasound was used to map the course of the left upper arm cephalic vein. Local was instilled. A longitudinal incision was made over the vein and sharp and blunt dissection was used to dissect the vein free. Side branches were secured with 4-0 Vicryl ties and hemoclips. After an adequate length was dissected free then sharp and blunt dissection was used to create flaps and identify the brachial artery close to the antecubital space. Circumferential control was obtained. Then a straight 6 mm tunneler was used to tunnel medial to the harvest site up to the proximal upper arm. The vein was ligated distally with a 3-0 Vicryl ligature. The vein was then placed through the tunnel it had been marked to assure no twisting. It was irrigated. Then the patient received 12,000 units of heparin weight-based. Peripheral vascular clamps were placed on the brachial artery. A 11 blade was used to make a arteriotomy which was extended with Goodman scissors. A end-to-side venous to arterial anastomosis was created with running 7-0 Prolene. There is good apposition and good hemostasis. Clamps were removed there was a good pulse thrill and bruit. There was 2+ left radial pulse. The wound was closed with a deep layer of interrupted 3-0 Vicryl and then a running septic or 4-0 Monocryl. Steri-Strips Telfa tape soft roll Servando wrap applied. Sponge and instrument and needle counts were reported to the surgeon to be correct. Specimens none. Drains none. Blood loss minimal. The patient was taken to the recovery area in satisfactory edition without apparent complication Chema Segundo M.D., F.A.C.S. Type of Anesthesia:: Local MAC Anesthesiologist: Vikram Keen
== END 2020-06-10 14:35 | disposition home or self-care (01) ==
LOC: SDC 09:11 → AC 09:12
PROVIDERS: Anesthesiology; PCP Family Medicine; Referring Provider Surgery; Visit Provider Surgery
PROC: (CPT 36821; principal; 2020-06-10 10:45)
DX: E11.22 Type 2 diabetes mellitus with diabetic chronic kidney disease (principal); N18.4 Chronic kidney disease, stage 4 (severe); E66.01 Morbid (severe) obesity due to excess calories; Z79.82 Long term (current) use of aspirin; Z79.4 Long term (current) use of insulin; Z87.891 Personal history of nicotine dependence
CPT/HCPCS: 01844; 36821; 82962; 87635; 93005; C9803; J7030; J2405; U0003

== ENCOUNTER 2020-06-12 13:48 | Emergency (ER) | payer MEDICARE, OTHER, SELFPAY ==
[2020-06-10 09:52] VITALS: BMI 44.3
[2020-06-12 13:50] VITALS: BP 171/75; PULSE 57; RESP 16; TEMP 35.9; O2SAT 98; BMI 44.1
--- NOTE | 2020-06-12 14:10 | ED.VIS.GEN ---
History of Present Illness Informant: Patient, Significant Other Onset: Today Context: Sudden Onset Timing: Continuous Quality: swelling, bruising Location: left arm Current Severity: Mild Maximum Severity: Mild Worsened by: nothing Relieved by: nothing Associated Symptoms: denies Narrative: 80-year-old male presents for a check of his fistula. He had it placed [address] Segundo. Took the pressure dressing up this morning and he noticed a lot of bruising underneath his arm. He was complaining of a little bit of swelling and some tingling in his fourth and fifth fingers. He has not seen any bleeding. Denies any weakness or trauma. Otherwise he feels well. Prior similar symptoms: Yes Recent Illness/Hospitalization: Yes <Shemar Robledo - Last Filed: 06/12/20 14:48> <Daniel Seo - Last Filed: 06/12/20 15:11> Chief Complaint: Other, Pain/Inj Past Medical History Prior records reviewed: Yes Past Medical History: - - Pulmonary hypertension COPD chronic kidney disease Surgical History: appendectomy, arthscropcy, hip, cholecystectomy Lives: With Family Smoking Status: Former smoker Alcohol: None Drugs: None <Shemar Robledo - Last Filed: 06/12/20 14:48> <Daniel Seo - Last Filed: 06/12/20 15:11> - Allergies and Home Meds Allergies/Adverse Reactions: Allergies celecoxib [From Celebrex] Allergy (Mild, Verified 06/12/20 13:52) Bleeding GI clonidine Allergy (Verified 06/12/20 13:52) Rash hydrochlorothiazide Allergy (Verified 06/12/20 13:52) Rash gabapentin Adverse Reaction (Verified 06/12/20 13:52) DIZZINESS tiotropium bromide [From Spiriva with HandiHaler] Adverse Reaction (Verified 06/12/20 13:52) IRRITATION TO TEETHE Primary Care Physician: Dangelo Dc MD [Primary Care Provider] - Chema Segundo MD [STAFF PHYSICIAN] - Review of Systems All systems negative except as indicated General: Denies: Chills, Fever, Sweats Eyes: Denies: Visual changes - bilaterally, Diplopia ENT: Denies: Rhinorrhea, Sore throat Cardiovascular: Denies: Chest pain, Palpitations Respiratory: Denies: Dyspnea, Cough, Dyspnea on exertion Gastrointestinal: Denies: Abdominal pain, Nausea, Vomiting, Diarrhea, Melena, Hematochezia Genitourinary: Denies: Dysuria, Hematuria, Frequency Musculoskeletal: Reports: Swelling, Extremity Pain. Denies: Back pain Skin: Denies: Rash, Abscess, Abrasions, Wounds Neurological: Denies: Headache, Weakness, Numbness <Shemar Robledo - Last Filed: 06/12/20 14:48> Physical Exam Vital Signs/Narrative: Vital Signs Temp Pulse Resp BP Pulse Ox 06/12/20 13:50 96.7 F L 57 L 16 171/75 H 98 Inital Vital Signs reviewed: Yes General: Well nourished, Well developed, No Acute Distress Head: Normocephalic, Atraumatic Eyes: Perrl, EOMI ENT: Moist mucous membranes, No rhinorrhea Neck: Supple, Nontender Cardiovascular: Regular rate, Regular rhythm, No murmurs Respiratory: No distress, CTA bilaterally, Chest nontender Abdomen: Soft, Nontender, Nondistended, Normal bowel sounds Back: Nontender, Normal Inspection Extremities: - - Patient has a left arm AV fistula. There is some very mild surrounding bruising. No active bleeding. Palpable thrill. Neurovascular intact distally. Skin: Normal color, No rash Neurological: Alert, Oriented x3, Cranial nerves II-XII grossly intact, Normal Strength, Normal Sensation Psychological: Normal affect, Normal Mood <Shemar Robledo - Last Filed: 06/12/20 14:48> Vital Signs/Narrative: Vital Signs Temp Pulse Resp BP Pulse Ox 06/12/20 13:50 96.7 F L 57 L 16 171/75 H 98 <Daniel Seo - Last Filed: 06/12/20 15:11> Diagnostic/Tx/Re-eval - Medical Decision Making Patient's fistula is not actively bleeding. It has a palpable thrill. He has some bruising. No signs of compartment syndrome no signs of infection. Dr. Onofre was contacted. He came down to the ED to evaluate. He advised patient to rest ice and elevate. He did not asked the patient to replace the pressure dressing. He will follow-up next week as scheduled. Patient agreeable <Shemar Robledo - Last Filed: 06/12/20 14:48> - Medical Decision Making The patient was seen and evaluated by . He does agree with plan for outpatient follow-up. The patient will be discharged. <Daniel Seo - Last Filed: 06/12/20 15:11> ED Disposition <Shemar Robledo - Last Filed: 06/12/20 14:48> <Daniel Seo - Last Filed: 06/12/20 15:11> - Plan for ED Patient: Disposition: Home or Assisted Living Diagnosis: fistula check, CKD (chronic kidney disease) stage 4, GFR 15-29 ml/min Instructions: ED Hemodialysis Access Bleeding Referrals: Dangelo Dc MD [Primary Care Provider] - Chema Segundo MD [STAFF PHYSICIAN] -
== END 2020-06-12 15:04 | disposition home or self-care (01) ==
LOC: ED 14:49
PROVIDERS: Emergency Provider Physician Assistant Medical; PCP Family Medicine
DX: S40.022A Contusion of left upper arm, initial encounter (principal); X58.XXXA Exposure to other specified factors, initial encounter; Y93.9 Activity, unspecified; Y92.9 Unspecified place or not applicable; Y99.9 Unspecified external cause status; I12.9 Hypertensive chronic kidney disease with stage 1 through stage 4 chronic kidney disease, or unspecified chronic kidney disease; N18.4 Chronic kidney disease, stage 4 (severe); N18.9 Chronic kidney disease, unspecified; I27.20 Pulmonary hypertension, unspecified; J44.9 Chronic obstructive pulmonary disease, unspecified; Z79.82 Long term (current) use of aspirin; Z79.4 Long term (current) use of insulin; Z79.899 Other long term (current) drug therapy; Z87.891 Personal history of nicotine dependence
CPT/HCPCS: 99281

== ENCOUNTER → 2020-06-15 09:44 | Outpatient (CLI) | payer MEDICARE, OTHER, SELFPAY ==
[2020-06-12 13:50] VITALS: BMI 44.1
--- NOTE | 2020-06-15 09:48 | RAD_ITS ---
STUDY: X-RAY CHEST REASON FOR EXAM: Male, 80 years old. Cough. TECHNIQUE: Frontal and lateral views of the chest. COMPARISON: 05/19/2019 FINDINGS: Mild elevation of the left hemidiaphragm. No new infiltrate is seen. Minimal atelectasis or scarring in the right lung base. There is no demonstrated pleural abnormality. The cardiac silhouette is within normal limits. Normal mediastinum and king. Normal visualized pulmonary arteries. There is atherosclerotic calcification of the aortic arch. The osseous structures are unchanged. There is no demonstrated abnormality of the visualized soft tissue structures of the upper abdomen. RAD/Chest PA and Lateral IMPRESSION: No active pulmonary disease. Electronically Signed: Eze Barrera MD at 1:23 EDT Tel , Service support ,
[2020-06-15 12:24] LABS: Absolute Neutrophil Count 11.1 X10^3/uL (2.0-7.7); Basophil# 0.11 X10^3/uL; Basophil% 0.7 % (0-1); Eosinophil# 0.99 X10^3/uL; Eosinophils% 6.2 % (0-5); Hematocrit 34.5 % (40-54); Hemoglobin 11.2 g/dL (13.0-16.5); Lymphocyte % 16.2 % (19-41); Mean Corp Hgb Conc 32.5 g/dL (32-36); Mean Corpuscular Hgb 32.3 pg (27.0-32.0); Mean Corpuscular Volume 99.4 fL (80-94); Mean Platelet Vol. 11.3 fl (6.2-12.0); Monocyte# 1.27 X10^3/uL; Monocyte% 7.9 % (0-10); NRBC Flagged by Analyzer 0 % (0-5); Neutrophil # 11.05 X10^3/uL (2.7-7.7); Neutrophil % 68.6 % (47-70); Platelet Count 309 K/mm3 (150-450); RBC Distribution Width CV 12.5 % (11.6-14.6); RBC Distribution Width SD 45.8 fl (35.1-43.9); Red Blood Count 3.47 M/mm3 (4.6-6.2); White Blood Count 16.1 K/mm3 (4.4-11.0)
[2020-06-15 12:40] LABS: Hemoglobin A1c 6.5 % (3.8-5.6)
[2020-06-15 13:11] LABS: Procalcitonin < 0.04 ng/mL (0.00-0.09)
[2020-06-15 14:22] LABS: ALB/GLOB Ratio 0.8 RATIO (0.9-2.4); AST(SGOT) 16 U/L (15-37); Alanine Aminotransfer ALT/SGPT 19 U/L (16-61); Albumin, Serum 3.2 g/dL (3.2-5.0); Alkaline Phosphatase 91 U/L (45-117); Anion Gap 9 (5-15); BUN 50 mg/dL (7-18); BUN/Creat Ratio 13.6 RATIO (10-20); Calcium,Total 8.6 mg/dL (8.5-10.1); Chloride 106 mmol/L (98-107); Creatinine, Serum 3.68 mg/dL (0.70-1.30); EST Glomerular Filtration Rate 17 mL/min (>60); Est Glom Filt Rate - Afr Amer 20 mL/min (>60); Glucose 143 mg/dL (74-106); LDH 220 U/L (87-241); Potassium 3.9 mmol/L (3.5-5.1); Protein, Total 7.2 g/dL (6.4-8.2); Sodium Level 140 mmol/L (136-145)
== END ==
PROVIDERS: PCP Family Medicine; Referring Provider Family Medicine; Visit Provider Family Medicine
DX: R05 Cough (principal); E11.22 Type 2 diabetes mellitus with diabetic chronic kidney disease; I13.0 Hypertensive heart and chronic kidney disease with heart failure and stage 1 through stage 4 chronic kidney disease, or unspecified chronic kidney disease; N18.4 Chronic kidney disease, stage 4 (severe); I50.9 Heart failure, unspecified; I10 Essential (primary) hypertension
CPT/HCPCS: 36415; 71046; 80053; 83036; 83615; 83880; 84145; 85025; 86141

== ENCOUNTER → 2020-07-03 07:34 | Outpatient (CLI) | payer MEDICARE, OTHER, SELFPAY ==
[2020-02-11 15:12] VITALS: BMI 43.7
[2020-06-12 13:50] VITALS: BMI 44.1
[2020-07-03 08:25] LABS: Albumin, Serum 3.3 g/dL (3.2-5.0); BUN 56 mg/dL (7-18); BUN/Creat Ratio 14.8 RATIO (10-20); Calcium,Total 8.5 mg/dL (8.5-10.1); Chloride 104 mmol/L (98-107); Creatinine, Serum 3.79 mg/dL (0.70-1.30); EST Glomerular Filtration Rate 16 mL/min (>60); Est Glom Filt Rate - Afr Amer 20 mL/min (>60); Glucose 103 mg/dL (74-106); Phosphorus 3.9 mg/dL (2.5-4.9); Potassium 3.9 mmol/L (3.5-5.1); Sodium Level 140 mmol/L (136-145)
[2020-07-05 08:51] LABS: PTHIN 236.3 pg/mL (18.4-80.1)
== END ==
PROVIDERS: PCP Family Medicine; Referring Provider Internal Medicine Nephrology; Visit Provider Internal Medicine Nephrology
DX: N18.4 Chronic kidney disease, stage 4 (severe) (principal); N25.81 Secondary hyperparathyroidism of renal origin
CPT/HCPCS: 36415; 80069; 83970

== ENCOUNTER 2020-07-29 09:18 | Inpatient (IN) | payer MEDICARE, OTHER, SELFPAY ==
[2020-07-29] VITALS (15 sets, daily range): BP systolic 128–157; BP diastolic 56–80; PULSE 42–75; RESP 15–20; TEMP 36.2–36.6; O2SAT 93–98; BMI 41.0; BMI 40.7
--- NOTE | 2020-07-29 09:28 | EKG12_ITS ---
Test Reason : Blood Pressure : / mmHG Vent. Rate : 054 BPM Atrial Rate : 250 BPM P-R Int : 000 ms QRS Dur : 092 ms QT Int : 420 ms P-R-T Axes : 000 -29 -01 degrees QTc Int : 398 ms Atrial fibrillation with slow ventricular response Abnormal ECG Confirmed by SANTO LIVE, MARISA ([id number]), sound editor SANDY QUIRZO ([id number]) on 07/30/2020 2:09:49 PM Referred By: YOVANI Confirmed By:MARISA BLANCHARD MD
--- NOTE | 2020-07-29 09:32 | RAD_ITS ---
STUDY: X-RAY CHEST REASON FOR EXAM: Male, 80 years old. WEAKNESS AND NO APPETITE FOR A FEW DAYS, BODY ACHES TECHNIQUE: Single AP portable view of the chest. COMPARISON: Comparison is made with prior study dated 06/15/2020. FINDINGS: EKG electrodes are seen. Is evidence of infiltration in the left lower lobe with blunting of the left costo phrenic angle. Patchy infiltrate in the lateral aspect of the right lower lobe. Follow-up is recommended. Normal size heart. Normal mediastinum and king. Normal visualized pulmonary arteries. There is atherosclerotic calcification of the aortic arch with tortuosity. There are diffuse degenerative changes of the visualized thoracic spine. Normal visualized ribs, clavicles, and shoulders. There is no demonstrated abnormality of the visualized soft tissue structures of the upper abdomen. RAD/Chest 1 View (Portable) IMPRESSION: Pleural parenchymal changes at the left lung base with focal infiltrate in the right lower lobe. Follow-up is recommended. Electronically Signed: Saad Dsouza, at 9:58 EST , Service support ,
--- NOTE | 2020-07-29 09:33 | ED.VIS.GEN ---
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 Patient called the ambulance this morning after feeling short of breath with exertion for 1 week. He states that he has had a fistula placed in his left arm in preparation for future dialysis but is not currently needing dialysis. He denies any leg swelling. He still makes urine but cannot tell me how often. He denies any cough. He does note nasal congestion. No fevers or chills. He notes body aches. He has chronic diarrhea no change in that. No rashes. Denies any nausea or vomiting. He tells me that he has no appetite. He states that that is because everything he eats including water taste different. Patient is a poor historian who often does not finish his sentences and gives very vague answers to direct questions. This making it very difficult to elicit a clear history. He denies any chest pain with the shortness of breath with exertion. He states that he has probably had a stress test or heart cath in the past. 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 His son tells me that he has been staying with him at the house. He is watched him decline and he is no longer able to ambulate around the house without a walker and now with out assistance. He required several nurses to help steady him to get from the ambulance cot to the bed. His was put into inpatient hospice last week. - Past Medical History (1) Atherosclerotic heart disease of [place] coronary artery without angina pectoris Status: Chronic Comment: Mild (2) CKD (chronic kidney disease) stage 4, GFR 15-29 ml/min Status: Chronic (3) Essential hypertension Status: Chronic (4) Pulmonary hypertension Status: Chronic (5) Pure hypercholesterolemia Status: Chronic (6) Sinus bradycardia Status: Chronic (7) Type 2 diabetes mellitus Status: Chronic Past Medical History - Allergies and Home Meds Allergies/Adverse Reactions: Allergies celecoxib [From Celebrex] Allergy (Mild, Verified 07/12/20 13:01) Bleeding GI clonidine Allergy (Verified 07/12/20 13:01) Rash hydrochlorothiazide Allergy (Verified 07/12/20 13:01) Rash gabapentin Adverse Reaction (Verified 07/12/20 13:01) DIZZINESS tiotropium bromide [From Spiriva with HandiHaler] Adverse Reaction (Verified 07/12/20 13:01) IRRITATION TO TEETHE Prior records reviewed: Yes Surgical History: appendectomy, arthscropcy, hip, cholecystectomy - Family History Paternal Family History: Family History (Last Reviewed 07/29/20 @ 12:[address] Dangelo Bird DO) Brother Diabetes Sister CAD (coronary artery disease) CVA (cerebral vascular accident) CHF (congestive heart failure) Son Hypertension Review of Systems General: Reports: Malaise. Denies: Chills, Fever, Sweats Eyes: Denies: Visual changes - bilaterally, Diplopia ENT: Reports: Rhinorrhea. Denies: Sore throat Cardiovascular: Denies: Chest pain, Palpitations Respiratory: Reports: Dyspnea. Denies: Cough, Dyspnea on exertion Gastrointestinal: Denies: Abdominal pain, Nausea, Vomiting, Diarrhea, Melena, Hematochezia Genitourinary: Denies: Dysuria, Hematuria, Frequency Musculoskeletal: Reports: Myalgias. Denies: Back pain, Extremity Pain Skin: Denies: Rash, Wounds Neurological: Denies: Headache, Weakness, Numbness Physical Exam Vital Signs/Narrative: Vital Signs Temp Pulse Resp BP Pulse Ox 07/29/20 09:22 97.7 F L 68 20 H 157/60 H 95 07/29/20 09:19 97.7 F L 60 20 H 157/60 H 94 Inital Vital Signs reviewed: Yes General: Well nourished, Well developed, Obese, No Acute Distress Head: Normocephalic, Atraumatic Eyes: Perrl, EOMI ENT: Moist mucous membranes, No rhinorrhea Neck: Supple, Nontender Cardiovascular: Regular rate, No murmurs, Bradycardia Respiratory: No distress, CTA bilaterally, Chest nontender Abdomen: Soft, Nontender, Nondistended, Normal bowel sounds Back: Nontender, Normal Inspection Extremities: Nontender, No edema Skin: Normal color, No rash Neurological: Alert, Oriented x3, Cranial nerves II-XII grossly intact, Normal Strength, Normal Sensation Psychological: Normal affect, Normal Mood Diagnostic/Tx/Re-eval Clinical Impression(s) from Imaging Studies Chest X-Ray 07/29/20 09:32 IMPRESSION: Pleural parenchymal changes at the left lung base with focal infiltrate in the right lower lobe. Follow-up is recommended. Electronically Signed: Saad Dsouza, at 9:58 EST , Service support , Chest CT 07/29/20 10:16 IMPRESSION: Small bilateral pleural effusions with bibasilar infiltrates worse on the left side. Patchy peripheral based focal infiltrates in the upper lobes as well. Follow-up is recommended. Electronically Signed: Saad Dsouza, at 11:11 EST , Service support , Laboratory Last Values WBC 10.1 K/mm3 (4.4-11.0) 07/29/20 09:25 RBC 3.67 M/mm3 (4.6-6.2) L 07/29/20 09:25 Hgb 12.0 g/dL (13.0-16.5) L 07/29/20 09:25 Hct 35.7 % (40-54) L 07/29/20 09:25 MCV 97.3 fL (80-94) H 07/29/20 09:25 MCH 32.7 pg (27.0-32.0) H 07/29/20 09:25 MCHC 33.6 g/dL (32-36) 07/29/20 09:25 RDW Std Deviation 46.4 fl (35.1-43.9) H 07/29/20 09:25 RDW Coeff of Jonny 13.1 % (11.6-14.6) 07/29/20 09:25 Plt Count 356 K/mm3 (150-450) 07/29/20 09:25 MPV 11.2 fl (6.2-12.0) 07/29/20 09:25 Immature Gran % (Auto) 0.500 % (0.0-0.9) 07/29/20 09:25 Neut % (Auto) 62.0 % (47-70) 07/29/20 09:25 Lymph % (Auto) 23.7 % (19-41) 07/29/20 09:25 [place] % (Auto) 11.9 % (0-10) H 07/29/20 09:25 Eos % (Auto) 1.6 % (0-5) 07/29/20 09:25 Baso % (Auto) 0.3 % (0-1) 07/29/20 09:25 Absolute Neuts (auto) 6.3 X10^3/uL (2.0-7.7) 07/29/20 09:25 Absolute Lymphs (auto) 2.39 X10^3/uL (0.83-4.51) 07/29/20 09:25 Nucleated RBC % 0 % (0-5) 07/29/20 09:25 Reactive Lymphocytes RARE 07/29/20 09:25 PT 13.9 SECONDS (11.7-14.9) 07/29/20 09:25 INR 1.1 07/29/20 09:25 APTT 32.3 Seconds (24.1-36.2) 07/29/20 09:25 Sodium 139 mmol/L (136-145) 07/29/20 09:25 Potassium 3.1 mmol/L (3.5-5.1) L 07/29/20 09:25 Chloride 102 mmol/L (98-107) 07/29/20 09:25 Carbon Dioxide 26.0 mmol/L (21.0-32.0) 07/29/20 09:25 Anion Gap 11 (5-15) 07/29/20 09:25 BUN 57 mg/dL (7-18) H 07/29/20 09:25 Creatinine 4.20 mg/dL (0.70-1.30) H 07/29/20 09:25 Estim Creat Clear Calc 14.44 ml/min 07/29/20 09:25 Est GFR (MDRD) Af Amer 18 mL/min (>60) L 07/29/20 09:25 Est GFR (MDRD) Non-Af 15 mL/min (>60) L 07/29/20 09:25 BUN/Creatinine Ratio 13.6 RATIO (-20) 07/29/20 09:25 Glucose 183 mg/dL (74-106) H 07/29/20 09:25 Lactic Acid 2.0 mmol/L (0.4-1.9) 07/29/20 09:25 Calcium 8.5 mg/dL (8.5-10.1) 07/29/20 09:25 Total Bilirubin 0.70 mg/dL (0.20-1.00) 07/29/20 09:25 AST 22 U/L (15-37) 07/29/20 09:25 ALT 19 U/L (16-61) 07/29/20 09:25 Alkaline Phosphatase 72 U/L (45-117) 07/29/20 09:25 Troponin I 0.038 ng/mL (<0.045) 07/29/20 09:25 Total Protein 6.9 g/dL (6.4-8.2) 07/29/20 09:25 Albumin 2.8 g/dL (3.2-5.0) L 07/29/20 09:25 Globulin 4.1 g/dL (2.2-4.2) 07/29/20 09:25 Albumin/Globulin Ratio 0.7 RATIO (0.9-2.4) L 07/29/20 09:25 Urine Color Yellow (Yellow) 07/29/20 09:45 Urine Clarity Sl. Cloudy (Clear) 07/29/20 09:45 Urine pH 5.0 (5.0 - 8.0) 07/29/20 09:45 Ur Specific [place] 1.015 (1.002-1.030) 07/29/20 09:45 Urine Protein 100 mg/dl (Negative) H 07/29/20 09:45 Urine Glucose (UA) Normal mg/dl (Normal) 07/29/20 09:45 Urine Ketones Negative mg/dl (Negative) 07/29/20 09:45 Urine Occult Blood 50 /ul (Negative) H 07/29/20 09:45 Urine Nitrite Negative (Negative) 07/29/20 09:45 Urine Bilirubin Negative mg/dL (Negative) 07/29/20 09:45 Urine Urobilinogen Normal mg/dl (Normal) 07/29/20 09:45 Ur Leukocyte Esterase Negative /ul (Negative) 07/29/20 09:45 Urine RBC 0-5 SEEN /hpf (0-5) 07/29/20 09:45 Urine WBC 0 SEEN /hpf (0-5) 07/29/20 09:45 Ur Squamous Epith Cells 0 SEEN /hpf (0-5) 07/29/20 09:45 Amorphous Sediment 2+ 07/29/20 09:45 Urine Bacteria 0 SEEN /hpf (None Seen) 07/29/20 09:45 Urine Mucus 0 SEEN /hpf (<or=2+) 07/29/20 09:45 - EKG Initial EKG Interpretation: Atrial Flutter - EKG demonstrates atrial flutter with a slow ventricular response at a rate of 54. - Medical Decision Making Patient's Covid antigen test was negative. Based on his taste symptoms and his dyspnea and his CT I ordered a Covid PCR which returned positive. My interpretation of his chest x-ray is right lower lobe infiltrate versus atelectasis and left pleural effusion. His white count is 10 with a slight elevation of monocytes. Creatinine is 4.2 up from 3.9. Slightly low on potassium at 3.1. CT of the chest demonstrates focal infiltrative changes in most of the lung manning and pleural effusions. Rocephin and azithromycin was given. His EKG shows new onset atrial flutter. This could certainly explain his weakness and dyspnea on exertion and new pleural effusions. Our plan is admission. ED Disposition - Plan for ED Patient: Disposition: Acute Care Hospital [facility] Diagnosis: Pneumonia, Weakness, Hypokalemia, Atrial flutter, COVID-19
[2020-07-29 09:50] LABS: Absolute Lymphocyte Count 2.39 X10^3/uL (0.83-4.51); Absolute Neutrophil Count 6.3 X10^3/uL (2.0-7.7); Basophil# 0.03 X10^3/uL; Basophil% 0.3 % (0-1); Eosinophil# 0.16 X10^3/uL; Eosinophils% 1.6 % (0-5); Hematocrit 35.7 % (40-54); Lymphocyte # 2.39 X10^3/ul (4.0); Lymphocyte % 23.7 % (19-41); Mean Corp Hgb Conc 33.6 g/dL (32-36); Mean Corpuscular Hgb 32.7 pg (27.0-32.0); Mean Corpuscular Volume 97.3 fL (80-94); Mean Platelet Vol. 11.2 fl (6.2-12.0); Monocyte% 11.9 % (0-10); NRBC Flagged by Analyzer 0 % (0-5); Neutrophil # 6.25 X10^3/uL (2.7-7.7); POSITIVE MORPHOLOGY YES; Platelet Count 356 K/mm3 (150-450); RBC Distribution Width CV 13.1 % (11.6-14.6); RBC Distribution Width SD 46.4 fl (35.1-43.9); Red Blood Count 3.67 M/mm3 (4.6-6.2); White Blood Count 10.1 K/mm3 (4.4-11.0)
[2020-07-29 09:56] LABS: Differential Indicated SCAN CRITERIA MET
[2020-07-29 09:57] LABS: International Normalized Ratio 1.1; Prothrombin Time (Protime)PT. 13.9 SECONDS (11.7-14.9)
[2020-07-29 09:58] LABS: Partial Thromboplast Time 32.3 Seconds (24.1-36.2)
[2020-07-29 10:06] LABS: Bacteria 0 SEEN /hpf (None Seen); Mucous, Urine 0 SEEN /hpf (<or=2+); Squamous Epithelial Cells - UA 0 SEEN /hpf (0-5); White Blood Cells 0 SEEN /hpf (0-5)
[2020-07-29 10:08] LABS: Color, Urine Yellow (Yellow); Glucose, Dipstick Normal (Normal); Ketone-Dipstick Negative (Negative); Leukocyte Esterase-Dipstick Negative /ul (Negative); Nitrite-Dipstick Negative (Negative); Occult Blood-Urine 50 /ul (Negative); Protein-Dipstick 100 mg/dl (Negative); Specific Gravity, Urine 1.015 (1.002-1.030); Urine Bilirubin Dipstick Negative (Negative); Urine Clarity Sl. Cloudy (Clear); Urine Urobilinogen Normal (Normal)
[2020-07-29 10:08] LABS: ALB/GLOB Ratio 0.7 RATIO (0.9-2.4); AST(SGOT) 22 U/L (15-37); Alanine Aminotransfer ALT/SGPT 19 U/L (16-61); Albumin, Serum 2.8 g/dL (3.2-5.0); Alkaline Phosphatase 72 U/L (45-117); Anion Gap 11 (5-15); BUN 57 mg/dL (7-18); BUN/Creat Ratio 13.6 RATIO (10-20); Calcium,Total 8.5 mg/dL (8.5-10.1); Chloride 102 mmol/L (98-107); EST Glomerular Filtration Rate 15 mL/min (>60); Est Glom Filt Rate - Afr Amer 18 mL/min (>60); Estimated Creatinine Clearance 14.44 ml/min; Globulin 4.1 g/dL (2.2-4.2); Glucose 183 mg/dL (74-106); Potassium 3.1 mmol/L (3.5-5.1); Protein, Total 6.9 g/dL (6.4-8.2); Sodium Level 139 mmol/L (136-145)
[2020-07-29 10:15] LABS: Amorphous Sediment 2+; Red Blood Cells-Urine 0-5 SEEN /hpf (0-5)
--- NOTE | 2020-07-29 10:16 | CT_ITS ---
STUDY: CT CHEST WITHOUT CONTRAST REASON FOR EXAM: Male, 80 years old. PNEUMONIA, DECREASED APPETITE, BODY ACHES, WEAKNESS RADIATION DOSAGE (If Supplied By Facility): CTDIvol = ( 20.15 ) mGy, DLP = ( 674.64 ) mGycm TECHNIQUE: Transaxial imaging was performed without the administration of intravenous contrast material. Multiplanar coronal and sagittal images were reformatted. Individualized dose optimization techniques were used for this CT. COMPARISON: Comparison is made with prior study dated 04/09/2018 and prior chest radiograph done earlier today.. FINDINGS: Small bilateral pleural effusions left greater than right with the basilar infiltrates worse at the left lung base. Patchy infiltrate in the lingular segment of the left upper lobe. Minimal increased markings in the peripheral aspect of the upper lobes as well. There is no demonstrated pleural abnormality. There are calcifications of the coronary arteries. There are multiple small lymph nodes within the mediastinum, which are normal in size and morphology most compatible with reactive lymph hyperplasia. Calcified azygos lymph node. Calcified bilateral hilar lymph nodes. Normal unenhanced pulmonary arteries. There is atherosclerotic calcification of the aortic arch with tortuosity and elongation of the aortic arch and descending thoracic aorta. There are multi-level degenerative changes of the thoracic spine. There is no demonstrated abnormality of the visualized upper abdomen. CT/Chest without Contrast IMPRESSION: Small bilateral pleural effusions with bibasilar infiltrates worse on the left side. Patchy peripheral based focal infiltrates in the upper lobes as well. Follow-up is recommended. Electronically Signed: Saad Dsouza, at 11:11 EST , Service support ,
[2020-07-29] MEDS: 0.9% Normal Saline 1,000 ML 250 ML IV ×2 (10:17→14:54)
[2020-07-29 10:18] LABS: Reactive Lymphocyte RARE
[2020-07-29] MEDS: Ceftriaxone 1 GM/50 ML BAG IV (11:57)
--- NOTE | 2020-07-29 12:31 | HP.PCM_ITS ---
Problem List (1) Afib Status: Acute Qualifiers: Atrial fibrillation type: persistent (not longstanding) Qualified Code(s): I48.19 - Other persistent atrial fibrillation (2) Pleural effusion Status: Acute (3) Weakness Status: Acute (4) Hypokalemia Status: Acute (5) Atrial flutter Status: Acute (6) Type 2 diabetes mellitus Status: Chronic (7) CKD (chronic kidney disease) stage 4, GFR 15-29 ml/min Status: Chronic (8) Atopic dermatitis Status: Chronic Qualifiers: Atopic dermatitis type: unspecified Qualified Code(s): L20.9 - Atopic dermatitis, unspecified (9) Pulmonary hypertension Status: Chronic (10) Pure hypercholesterolemia Status: Chronic (11) Essential hypertension Status: Chronic (12) Sinus bradycardia Status: Chronic (13) Atherosclerotic heart disease of [place] coronary artery without angina pectoris Status: Chronic Qualifiers: [place] vs. transplanted heart: [place] heart Qualified Code(s): I25.10 - Atherosclerotic heart disease of [place] coronary artery without angina pectoris Comment: Mild (14) Renal insufficiency Status: Chronic History of Present Illness Date of Admission: 07/29/20 Chief Complaint: malaise The patient is a 80 year old M who has been feeling weak. Developed metallic taste on Sunday. No appetite currently. He denies any contact with anyone with [employer]. He was noted to be in afib in ED. He denies any history of afib. Last week he placed his in hospice.[] Past Medical History Past Medical History (Chronic Problems): Chronic Problems (Last Reviewed 07/29/20 @ 12:[address] Dangelo Bird DO) Type 2 diabetes mellitus (Chronic) CKD (chronic kidney disease) stage 4, GFR 15-29 ml/min (Chronic) Atopic dermatitis (Chronic) Pulmonary hypertension (Chronic) Pure hypercholesterolemia (Chronic) Essential hypertension (Chronic) Sinus bradycardia (Chronic) Atherosclerotic heart disease of [place] coronary artery without angina pectoris (Chronic) Mild Renal insufficiency (Chronic) Medical History: Medical History (Last Reviewed 07/29/20 @ 12:[address] Dangelo Bird DO) Type 2 diabetes mellitus (Chronic) E11.9 CKD (chronic kidney disease) stage 4, GFR 15-29 ml/min (Chronic) N18.4 Pulmonary hypertension (Chronic) I27.20 Pure hypercholesterolemia (Chronic) E78.00 Essential hypertension (Chronic) I10 Sinus bradycardia (Chronic) R00.1 Atherosclerotic heart disease of [place] coronary artery without angina pectoris (Chronic) I25.10 Mild Renal insufficiency (Chronic) N28.9 Arthritis M19.90 Asthma J45.909 BPH (benign prostatic hyperplasia) N40.0 Diabetes mellitus, insulin dependent (IDDM), controlled E11.9, Z79.4 Diverticulitis K57.92 GERD (gastroesophageal reflux disease) K21.9 HTN (hypertension), benign (Inactive) I10 Hyperlipidemia (Inactive) E78.5 Allergies celecoxib [From Celebrex] Allergy (Mild, Verified 07/12/20 13:01) Bleeding GI clonidine Allergy (Verified 07/12/20 13:01) Rash hydrochlorothiazide Allergy (Verified 07/12/20 13:01) Rash gabapentin Adverse Reaction (Verified 07/12/20 13:01) DIZZINESS tiotropium bromide [From Spiriva with HandiHaler] Adverse Reaction (Verified 07/12/20 13:01) IRRITATION TO TEETHE Home Medications: Ambulatory Orders Medication Instructions Recorded Aspirin E.C. [Ecotrin] 81 mg PO QHS 01/13/15 Atenolol [Tenormin (beta autumn)] 25 mg PO BID 01/13/15 Insulin Glargine [Lantus SoloStar 10 units SC QHS 01/13/15 Pen] Multivitamins,Therapeutic 1 tab PO QHS 01/13/15 [Multivitamin] Albuterol IH (ProAir) [Proair Hfa 1 - 2 puff INHALATION Q4H PRN PRN 08/11/16 (SP)Vent Pts] Dutasteride [Avodart] 0.5 mg PO DAILY 03/28/17 Vit A/Vit C/Vit E/Zinc/Copper 2 ea PO DAILY 03/28/17 [Preservision Areds Softgel] turmeric root extract 500 mg 500 mg PO DAILY 05/08/18 capsule calcitriol 0.25 mcg capsule 0.25 mcg PO DAILY cap 11/13/18 furosemide 40 mg tablet 80 mg PO BID tab 03/19/19 liraglutide 0.6 mg/0.1 mL (18 mg/3 0.6 mg SC DAILY 02/11/20 mL) subcutaneous pen injector loratadine 10 mg tablet 10 mg PO DAILY PRN 02/11/20 amlodipine 5 mg tablet 5 mg PO DAILY #90 tab 05/06/20 atorvastatin 80 mg tablet 80 mg PO DAILY #90 tab 06/07/20 Budesonide/Formoterol 160/4.5 2 puff 07/29/20 [Symbicort 160/4.5 Mcg Inhaler (SP)] Surgical History: Surgical History (Last Reviewed 07/29/20 @ 12:[address] Dangelo Bird DO) History of cardiac catheterization Z98.890 S/P arteriovenous (AV) fistula creation Z98.890 left upper arm 06/08 S/P left knee arthroscopy Z98.890 History of cholecystectomy Z90.49 History of left hip replacement Z96.642 History of lumbar laminectomy Z98.890 Hx of appendectomy Z90.49 H/O bilateral cataract extraction Z98.41, Z98.42 2014 History of carpal tunnel release Z98.890 left cubital 09/03/15 History of left hip replacement Z96.642 History of lumbar laminectomy Z98.890 S/P appendectomy Z90.49 S/P carpal tunnel release Z98.890 right-08/31 S/P cholecystectomy Z90.49 S/P left knee arthroscopy Z98.890 S/P lumbar laminectomy Z98.890 L1, 2 05/2017 s/p melanoma completion excision 5 mm melanoma insitu, lentigo maligna type, nasal tip 03/08/11 wide excision 5 mm melanoma insitu, lentigo maligna type, nasal tip 03/27/11 reconstruction melanoma insitu wound lentigo maligna type nasal tip with bilobed transposition skin flap 04/07/11 completion 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 Dangelo Bird DO) Brother Diabetes Sister CAD (coronary artery disease) CVA (cerebral vascular accident) CHF (congestive heart failure) Son Hypertension Review of Systems Constitutional: Denies: Anorexia, Chills, Fever Eyes: Denies: Blurred vision, Double vision HEENT: Denies: Head Aches, Sinus Congestion, Sinus Drainage Cardiovascular: Denies: Chest Pain, Palpitations Respiratory: Denies: Cough, Shortness of breath at rest, Sputum production Gastrointestinal: Denies: Abdominal Pain, Nausea, Vomiting Genitourinary: Denies: Dysuria Musculoskeletal: Denies: Joint Pain, Joint Tenderness Skin: Denies: Rash, Wounds Neurological: Denies: Numbness, Tingling, Focal weakness Psychiatric: Denies: Anxiety, Depression Hematologic/ Lymphatic: Denies: Easy Bruising, Easy Bleeding Comment: All review of systems were negative except as mentioned above in the history of present illness and the other review of systems. VTE Information - Inpt Only VTE Present on Admission: No VTE Mechan Device Prophylaxis: None VTE Pharm Prophylaxis ordered?: Yes Patient Problems: Active and Suspected Problems (Last Reviewed 07/29/20 @ 12:[address] Dangelo Bird, DO) Pneumonia (Acute) Weakness (Acute) Hypokalemia (Acute) Atrial flutter (Acute) Afib (Acute) Pleural effusion (Acute) - Physical Exam Vitals/I&O's: Vital Signs Temp Pulse Resp BP Pulse Ox 36.6 C 62 15 150/79 H 98 07/29/20 12:03 07/29/20 12:03 07/29/20 12:03 07/29/20 12:03 07/29/20 12:03 Oxygen Delivery Method Room Air Weight: 133.4 kg Body Mass Index (BMI) 41.0 Finger Stick Blood Glucose 152 Intake and Output for Last 24 Hours 07/27/20 07/28/20 07/29/20 23:59 23:59 23:59 Intake Total 500 / 500 Balance 500 / 500 General: Alert, Cooperative, No apparent distress HEENT: Atraumatic, Normocephalic Oral: Moist Mucosa, No Gingival or Mucosal Lesions/ Ulcerations Neck: No Nodes, Thyroid Normal Size and Texture Lungs: Clear to auscultation, Normal air movement, No rhonchi, No wheeze Cardiovascular: Irregular Rate, - - II/ HSM at apex. Abdomen: Bowel Sounds Present, Soft, Non Tender, Non-Distended, No Hepato- splenomegaly Extremities: Edema - trace Skin: No rashes, No breakdown Musculoskeletal: No Tenderness to Palpation of Joints or Extremities, No Muscle Wasting Psych/Mental Status: Normal Affect, Appropriate Microbiology Past 72 Hours 07/29/20 09:30 Mucosa - Nose SARS-CoV-2 Antigen (Rapid) - Final Laboratory Results 07/29/20 09:25: WBC 10.1, RBC 3.67 L, Hgb 12.0 L, Hct 35.7 L, MCV 97.3 H, MCH 32.7 H, MCHC 33.6, RDW Std Deviation 46.4 H, RDW Coeff of Jonny 13.1, Plt Count 356, MPV 11.2, Immature Gran % (Auto) 0.500, Neut % (Auto) 62.0, Lymph % (Auto) 23.7, [place] % (Auto) 11.9 H, Eos % (Auto) 1.6, Baso % (Auto) 0.3, Absolute Neuts (auto) 6.3, Absolute Lymphs (auto) 2.39, Nucleated RBC % 0, Reactive Lymphocytes RARE 07/29/20 09:25: PT 13.9, INR 1.1, APTT 32.3 07/29/20 09:25: Sodium 139, Potassium 3.1 L, Chloride 102, Carbon Dioxide 26.0, Anion Gap 11, BUN 57 H, Creatinine 4.20 H, Estim Creat Clear Calc 14.44, Est GFR (MDRD) Af Amer 18 L, Est GFR (MDRD) Non-Af 15 L, BUN/Creatinine Ratio 13.6, Glucose 183 H, Calcium 8.5, Total Bilirubin 0.70, AST 22, ALT 19, Alkaline Phosphatase 72, Troponin I 0.038, Total Protein 6.9, Albumin 2.8 L, Globulin 4.1, Albumin/Globulin Ratio 0.7 L 07/29/20 09:25: Lactic Acid 2.0 07/29/20 09:45: Urine Color Yellow, Urine Clarity Sl. Cloudy, Urine pH 5.0, Ur Specific [place] 1.015, Urine Protein 100 H, Urine Glucose (UA) Normal, Urine Ketones Negative, Urine Occult Blood 50 H, Urine Nitrite Negative, Urine Bilirubin Negative, Urine Urobilinogen Normal, Ur Leukocyte Esterase Negative, Urine RBC 0-5 SEEN, Urine WBC 0 SEEN, Ur Squamous Epith Cells 0 SEEN, Amorphous Sediment 2+, Urine Bacteria 0 SEEN, Urine Mucus [address] of chest reviewed and showed left lower lobe infiltrate versus edema and small pleural effusion. Current Medications Sodium Chloride () 1,000 mls @ 250 mls/hr IV .Q4H NINO Last Admin: 07/29/20 10:17 Dose: 250 mls/hr Documented by: Azithromycin 500 mg/ Dextrose 255 mls @ 250 mls/hr IV X1 ONE Stop: 07/29/20 12:39 Assessment/Plan All Active Problems (Last Reviewed 07/29/20 @ 12:[address] Dangelo Bird, DO) Pneumonia (Acute) Weakness (Acute) Hypokalemia (Acute) Atrial flutter (Acute) Afib (Acute) Pleural effusion (Acute) 1. afib: * rate controlled * new diagnosis * check echo 2. HFrEF * EF 65% from 11/11/18 * continue furosemide * check echo 3. Failure to thrive * etiology: afib v depression v other * check TSH * given dysguseia, check COVID PCR 4. DM2: * continue glargine * SSI 5. CKD 4 * fistula in LUE * states that he would not HD if it came to that point. 6. VTE prophylaxis: LMWH 7. ACP: pt confirmed DNRCCA, no intubation DW patient's son at bedside. Inpatient E&M: 41839 Init Hosp L2
[2020-07-29 13:39] LABS: Probe Check PASS
[2020-07-29 13:58] LABS: Reflex Lactate? Y
--- NOTE | 2020-07-29 16:44 | ECHOL_ITS ---
Version 2 Reason For Study: CHF Procedure This was a limited 2D transthoracic echocardiogram. The study was technically difficult. The exam was abbreviated due to the COVID 19 protocol. Exam performed portable in patient room. Left Ventricle Normal LV size. Left ventricular systolic function is normal. The estimated ejection fraction is 55 %. No regional wall motion abnormalities noted. Right Ventricle Normal RV size. Normal systolic function. Tricuspid Valve Normal tricuspid valve. Mild to moderate (1-2+) tricuspid valve insufficiency. Pulmonary artery systolic pressure is 44 mmHg. Mild pulmonary hypertension. Pericardium/Pleural No pericardial effusion. MMode/2D Measurements & Calculations LVIDd: 4.1 cm IVSd: 0.82 cm LVIDs: 2.2 cm LVPWd: 1.0 cm FS: 47.1 % Doppler Measurements & Calculations TR max [place]: 316.5 cm/sec TR max P.1 mmHg Interpretation Summary Normal LV size. Left ventricular systolic function is normal. The estimated ejection fraction is 55 %. Pulmonary artery systolic pressure is 44 mmHg. Mild pulmonary hypertension. Compared to prior study, there is no significant change. Ordering Physician: Mt Bird Referring Physician: MT FLORENCE Performed By: Ligia Madrid, PARI, RVT
[2020-07-29 17:12] LABS: D-Dimer Quantitative (DVT/PE) 1.93 FEU/ug/m (0.27-0.49)
[2020-07-29 17:28] LABS: Thyroid Stim Hormone (TSH) 2.02 uIU/mL (0.358-3.74)
[2020-07-29] MEDS: dexAMETHasone 4 MG Tablet 6 MG PO (17:56)
[2020-07-29] MEDS: Insulin Lispro 100 UNIT/ML INSULN.PEN SC (17:56)
[2020-07-29 18:11] LABS: Bedside Glucose 165 mg/dL (70-110)
[2020-07-29] MEDS: APIXABAN 2.5 MG TABLET PO (21:37)
[2020-07-29] MEDS: Atenolol 25 MG Tablet PO (21:37)
[2020-07-29] MEDS: Aspirin E.C. 81 MG Tablet PO (21:37)
[2020-07-29] MEDS: Furosemide 40 MG Tablet 80 MG PO (21:37)
[2020-07-29] MEDS: 0.9% Saline Lock 10 ML Syringe IV (21:38)
[2020-07-29 21:51] LABS: Bedside Glucose 184 mg/dL (70-110)
[2020-07-29 22:59] LABS: Lactic Acid 1.5 mmol/L (0.4-1.9)
[2020-07-30] VITALS (9 sets, daily range): BP systolic 123–158; BP diastolic 60–72; PULSE 50–88; RESP 16–20; TEMP 36.1–36.6; O2SAT 95–97
[2020-07-30] MEDS: Insulin Lispro 100 UNIT/ML INSULN.PEN SC ×3 (06:36→17:13)
[2020-07-30 06:46] LABS: Bedside Glucose 191 mg/dL (70-110)
[2020-07-30 07:08] LABS: Anion Gap 10 (5-15); BUN 55 mg/dL (7-18); Calcium,Total 8.1 mg/dL (8.5-10.1); Chloride 108 mmol/L (98-107); Creatinine, Serum 3.67 mg/dL (0.70-1.30); EST Glomerular Filtration Rate 17 mL/min (>60); Est Glom Filt Rate - Afr Amer 21 mL/min (>60); Estimated Creatinine Clearance 16.53 ml/min; Glucose 208 mg/dL (74-106); Magnesium 1.9 mg/dL (1.6-2.6); Potassium 3.8 mmol/L (3.5-5.1); Sodium Level 140 mmol/L (136-145)
[2020-07-30] MEDS: Finasteride 5 MG Tablet PO (09:46)
[2020-07-30] MEDS: APIXABAN 2.5 MG TABLET PO ×2 (09:47→21:17)
[2020-07-30] MEDS: dexAMETHasone 4 MG Tablet 6 MG PO (09:47)
[2020-07-30] MEDS: Furosemide 40 MG Tablet 80 MG PO ×2 (09:47→21:17)
[2020-07-30] MEDS: Atenolol 25 MG Tablet PO ×2 (09:47→21:17)
[2020-07-30] MEDS: amLODIPine 5 MG Tablet PO (09:47)
[2020-07-30] MEDS: Calcitriol 0.25 MCG Capsule PO (09:47)
[2020-07-30 13:46] LABS: Bedside Glucose 223 mg/dL (70-110)
--- NOTE | 2020-07-30 13:48 | CASEMGMT ---
ELIEL FAJARDO assessment: Phone interview with patient for initial transition planning/care coordination assessment d/t COVID positive. ELIEL FAJARDO introduced self and role at [facility], pt voices understanding and consents to assessment at this time. Pt is A/Ox4 at this time and answers most questions appropriately at this time. Pt answers most questions appropriately at this time but is slow to answer and forgetful at times. Pt states has family that can assist with resources/supplies. Pt states can quarantine at home but has been weak and had some difficulty caring for self for the last week or so. Pt's is currently in [facility]. Pt is on room air at this time. Care providers, pharmacy, and demographics verified at this time. Presentation: Weakness and no appetite for a couple of days, body aches Admitting dx: A Flutter, weakness, COVID 19 PCP: Dangelo Dc Specialists: Genet, cardio; Gabriel nephro; Kunal pulivana Preferred Pharmacy: [facility] Insurance: [facility] A/B, [employer] Prescription Benefit: [employer] Living Will/HPOA: Pt has HPOA and is aware that it's on file at [facility] at this time. Pt's is listed as primary and then son/daughter. Pt unsure about LW at this time. LNOK: Viviana Roe, (currently in hospice [facility]); Tara Licea, daughter Living Arrangements: Pt states is currently living alone as is in hospice unit but states has been having difficulty at home for last week or so. Pt states daughter has helped some. Pt states has been having difficulty with ADL's. Transportation: Pt states drives self and states no transportation concerns at this time. DME/HHC: Pt states has a rollator and cpap thru [facility]. Pt states no need for any further DME at this time. Pt states no preference for DME if needed at discharge. Pt states has been to SNF in the past but can't remember name and states no hx of HHC. Pt states some concerns with going home at time of discharge. Pt is retired. Pt states does not smoke cigarettes but does drink ETOH occasionally. Pt states no further concerns/needs at this time. CM to follow for PT/OT evals and any further discharge planning/needs. Advised pt to ask for CM if any further questions/concerns/needs arise, voices understanding. Pt Goal: Home Plan: TBD, pending PT/OT evals. Zen JULIAN CM
--- NOTE | 2020-07-30 14:19 | PCM.PN.HOSP ---
Patient Problems: Active and Suspected Problems (Last Reviewed 07/29/20 @ 12:[address] Dangelo Bird, DO) Pneumonia (Acute) Weakness (Acute) Hypokalemia (Acute) Atrial flutter (Acute) Afib (Acute) Pleural effusion (Acute) COVID-19 (Acute) Reason for Visit: COVID 19 Subjective: Feels well. Vitals/I&O's: Vital Signs Temp Pulse Resp BP Pulse Ox 36.3 C L 63 18 143/69 H 95 07/30/20 12:44 07/30/20 12:44 07/30/20 12:44 07/30/20 12:44 07/30/20 12:44 Oxygen Delivery Method Room Air Weight: 132.4 kg Body Mass Index (BMI) 40.7 Finger Stick Blood Glucose 152 Intake and Output for Last 24 Hours 07/28/20 07/29/20 07/30/20 23:59 23:59 23:59 Intake Total 3005 / 3005 440 / 440 Output Total 1000 / 1000 1200 / 1200 Balance 2004 -760 / -760 General: Alert, No apparent distress HEENT: Atraumatic, Normocephalic Oral: Moist Mucosa, No Gingival or Mucosal Lesions/ Ulcerations Neck: No Nodes, Thyroid Normal Size and Texture Lungs: Clear to auscultation, Normal air movement, No rhonchi, No wheeze Cardiovascular: Regular rate, Regular Rhythm, Normal S1, Normal S2 Abdomen: Bowel Sounds Present, Soft, Non Tender, Non-Distended Extremities: No edema, No Calf Tenderness Psych/Mental Status: Normal Affect, Appropriate Microbiology Past 72 Hours 07/29/20 09:30 Mucosa - Nose SARS-CoV-2 Antigen (Rapid) - Final Laboratory Results 07/29/20 09:25: D-Dimer Quant (PE/DVT) 1.93 H* 07/29/20 09:25: TSH 2.02 07/29/20 09:25: B-Natriuretic Peptide 520.0 H 07/29/20 14:50: Lactic Acid 1.5 07/29/20 17:56: POC Glucose 165 H 07/29/20 18:48: Troponin I 0.031 07/29/20 21:23: POC Glucose 184 H 07/29/20 21:30: Troponin I 0.026 07/30/20 00:20: Troponin I 0.030 07/30/20 06:28: Sodium 140, Potassium 3.8, Chloride 108 H, Carbon Dioxide 22.0, Anion Gap 10, BUN 55 H, Creatinine 3.67 H, Estim Creat Clear Calc 16.53, Est GFR (MDRD) Af Amer 21 L, Est GFR (MDRD) Non-Af 17 L, BUN/Creatinine Ratio 15.0, Glucose 208 H, Calcium 8.1 L, Magnesium 1.9 07/30/20 06:34: POC Glucose 191 H 07/30/20 12:38: POC Glucose 223 H Current Medications Acetaminophen (Acetaminophen 325 Mg Tablet) 650 mg PO Q6H PRN PRN PRN Reason: Pain Score 1-10/Temp > 100.7 F Albuterol Sulfate (Albuterol Ih 8.5 Gm (Proair) Inhaler (200 Puffs)) 1 - 2 puff INHALATION Q4H PRN PRN PRN Reason: SOB &/OR WHEEZING Amlodipine Besylate (Amlodipine 5 Mg Tablet) 5 mg PO DAILY [facility] Last Admin: 07/30/20 09:47 Dose: 5 mg Documented by: Apixaban (Apixaban 2.5 Mg Tablet) 2.5 mg PO BID [facility] Last Admin: 07/30/20 09:47 Dose: 2.5 mg Documented by: Aspirin (Aspirin E.C. 81 Mg Tablet) 81 mg PO QHS [facility] Last Admin: 07/29/20 21:37 Dose: 81 mg Documented by: Atenolol (Atenolol 25 Mg Tablet) 25 mg PO BID [facility] Last Admin: 07/30/20 09:47 Dose: 25 mg Documented by: Atorvastatin Calcium (Atorvastatin Calcium 80 Mg Tablet) 80 mg PO QHS [facility] Calcitriol (Calcitriol 0.25 Mcg Capsule) 0.25 mcg PO DAILY [facility] Last Admin: 07/30/20 09:47 Dose: 0.25 mcg Documented by: Dexamethasone (Dexamethasone 4 Mg Tablet) 6 mg PO DAILY@0800 [facility] Stop: 08/08/20 16:45 Last Admin: 07/30/20 09:47 Dose: 6 mg Documented by: Finasteride (Finasteride 5 Mg Tablet) 5 mg PO DAILY [facility] Last Admin: 07/30/20 09:46 Dose: 5 mg Documented by: Furosemide (Furosemide 40 Mg Tablet) 80 mg PO BID [facility] Last Admin: 07/30/20 09:47 Dose: 80 mg Documented by: Insulin Glargine (Insulin Glargine 100 Units/Ml Pen) 10 units SC QHS [facility] Last Admin: 07/29/20 21:41 Dose: 10 u Documented by: Insulin Human Lispro (Insulin Lispro 100 Unit/Ml Insuln.Pen) 0 unit SC TIDAC [facility]; Protocol Last Admin: 07/30/20 12:41 Dose: 2 u Documented by: Loratadine (Loratadine 10 Mg Tablet) 10 mg PO DAILY PRN PRN Reason: ALLERGIES Nitroglycerin (Nitroglycerin (Inpatient Use) 0.4 Mg Tab.Subl) 0.4 mg SUBLINGUAL Q5M PRN PRN Reason: CARDIAC/CHEST PAIN Sodium Chloride (0.9% Saline Lock 10 Ml Syringe) 10 - 40 ml IV UD PRN PRN Reason: SALINE FLUSH Last Admin: 07/29/20 21:38 Dose: 10 ml Documented by: STROKE Vital Signs/Narrative: Vital Signs Temp Pulse Resp BP Pulse Ox 07/30/20 12:44 36.3 C L 63 18 143/69 H 95 Medical Necessity - Tobacco Use Smoking Status: Former smoker Tobacco Use: Cigarettes Assessment/Plan All Active Problems (Last Reviewed 07/29/20 @ 12:[address] Dangelo Bird, DO) Pneumonia (Acute) Weakness (Acute) Hypokalemia (Acute) Atrial flutter (Acute) Afib (Acute) Pleural effusion (Acute) COVID-19 (Acute) 1. COVID 19 on dexa stable 2. afib: rate controlled new diagnosis check echo 3. HFrEF EF 65% from 11/11/18 continue furosemide check echo 4. Failure to thrive etiology: afib v depression v other check TSH given dysguseia, check COVID PCR 5. DM2: continue glargine SSI 6. 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 7. VTE prophylaxis: LMWH 8. ACP: pt confirmed DNRCCA, no intubation Inpatient E&M: 42742 Subs Hosp L2
[2020-07-30 17:40] LABS: Bedside Glucose 235 mg/dL (70-110)
[2020-07-30] MEDS: Atorvastatin Calcium 80 MG Tablet PO (21:17)
[2020-07-30] MEDS: Aspirin E.C. 81 MG Tablet PO (21:17)
[2020-07-30 21:30] LABS: Bedside Glucose 262 mg/dL (70-110)
--- NOTE | 2020-07-30 22:36 | PCS.PANDOC ---
PANDEMIC DOCUMENTATION INITIATED: Date: 07/29/2020 Time: 918
[2020-07-31] VITALS (13 sets, daily range): BP systolic 111–177; BP diastolic 51–76; PULSE 33–68; RESP 16–18; TEMP 36.3–36.5; O2SAT 92–97
[2020-07-31] MEDS: hydrALAZINE 20 MG/ML Vial 5 MG IV (04:14)
[2020-07-31 08:06] LABS: Bedside Glucose 275 mg/dL (70-110)
[2020-07-31] MEDS: Insulin Lispro 100 UNIT/ML INSULN.PEN SC ×4 (08:25→22:20)
[2020-07-31] MEDS: Finasteride 5 MG Tablet PO (08:26)
[2020-07-31] MEDS: amLODIPine 5 MG Tablet PO (08:26)
[2020-07-31] MEDS: Furosemide 40 MG Tablet 80 MG PO ×2 (08:26→21:53)
[2020-07-31] MEDS: Calcitriol 0.25 MCG Capsule PO (08:26)
[2020-07-31] MEDS: APIXABAN 2.5 MG TABLET PO ×2 (08:26→21:53)
[2020-07-31] MEDS: dexAMETHasone 4 MG Tablet 6 MG PO (08:27)
[2020-07-31] MEDS: Atenolol 25 MG Tablet PO (08:27)
[2020-07-31 12:41] LABS: Bedside Glucose 255 mg/dL (70-110)
--- NOTE | 2020-07-31 13:56 | PCM.PN.HOSP ---
Patient Problems: Active and Suspected Problems (Last Reviewed 07/29/20 @ 12:[address] Dangelo Bird, DO) Pneumonia (Acute) Weakness (Acute) Hypokalemia (Acute) Atrial flutter (Acute) Afib (Acute) Pleural effusion (Acute) COVID-19 (Acute) Reason for Visit: COVID 19 Subjective: Feeling better overall. Vitals/I&O's: Vital Signs Temp Pulse Resp BP Pulse Ox 36.4 C L 44 L 18 111/51 L 96 07/31/20 08:23 07/31/20 10:59 07/31/20 08:23 07/31/20 08:23 07/31/20 08:30 Oxygen Delivery Method Room Air Weight: 132.4 kg Body Mass Index (BMI) 40.7 Finger Stick Blood Glucose 152 Intake and Output for Last 24 Hours 07/29/20 07/30/20 07/31/20 23:59 23:59 23:59 Intake Total 3005 / 3005 680 / 680 Output Total 1000 / 1000 1450 / 1450 500 / 500 Balance 2004 -770 / -770 -500 / -500 General: Alert, No apparent distress HEENT: Atraumatic, Normocephalic Neck: No Nodes, Thyroid Normal Size and Texture Lungs: Clear to auscultation, Normal air movement, No rhonchi, No wheeze Cardiovascular: Regular rate, Regular Rhythm, Normal S1, Normal S2, No murmurs Abdomen: Bowel Sounds Present, Soft, Non Tender, Non-Distended, No Hepato-splenomegaly Extremities: No edema, No Calf Tenderness Microbiology Past 72 Hours 07/29/20 09:30 Blood Culture (Wb) - Right Hand Blood Culture - Preliminary No growth in 48 hours. 07/29/20 09:25 Blood Culture (Wb) - Anticubital Right Blood Culture - Preliminary No growth in 48 hours. 07/29/20 09:30 Mucosa - Nose SARS-CoV-2 Antigen (Rapid) - Final Laboratory Results 07/30/20 17:08: POC Glucose 235 H 07/30/20 21:18: POC Glucose 262 H 07/31/20 07:59: POC Glucose 275 H 07/31/20 11:36: POC Glucose 255 H Current Medications Acetaminophen (Acetaminophen 325 Mg Tablet) 650 mg PO Q6H PRN PRN PRN Reason: Pain Score 1-10/Temp > 100.7 F Albuterol Sulfate (Albuterol Ih 8.5 Gm (Proair) Inhaler (200 Puffs)) 1 - 2 puff INHALATION Q4H PRN PRN PRN Reason: SOB &/OR WHEEZING Amlodipine Besylate (Amlodipine 5 Mg Tablet) 5 mg PO DAILY [facility] Last Admin: 07/31/20 08:26 Dose: 5 mg Documented by: Apixaban (Apixaban 2.5 Mg Tablet) 2.5 mg PO BID [facility] Last Admin: 07/31/20 08:26 Dose: 2.5 mg Documented by: Aspirin (Aspirin E.C. 81 Mg Tablet) 81 mg PO QHS [facility] Last Admin: 07/30/20 21:17 Dose: 81 mg Documented by: Atenolol (Atenolol 25 Mg Tablet) 25 mg PO BID [facility] Last Admin: 07/31/20 08:27 Dose: 25 mg Documented by: Atorvastatin Calcium (Atorvastatin Calcium 80 Mg Tablet) 80 mg PO QHS [facility] Last Admin: 07/30/20 21:17 Dose: 80 mg Documented by: Calcitriol (Calcitriol 0.25 Mcg Capsule) 0.25 mcg PO DAILY [facility] Last Admin: 07/31/20 08:26 Dose: 0.25 mcg Documented by: Dexamethasone (Dexamethasone 4 Mg Tablet) 6 mg PO DAILY@0800 [facility] Stop: 08/08/20 16:45 Last Admin: 07/31/20 08:27 Dose: 6 mg Documented by: Finasteride (Finasteride 5 Mg Tablet) 5 mg PO DAILY [facility] Last Admin: 07/31/20 08:26 Dose: 5 mg Documented by: Furosemide (Furosemide 40 Mg Tablet) 80 mg PO BID [facility] Last Admin: 07/31/20 08:26 Dose: 80 mg Documented by: Hydralazine HCl (Hydralazine 20 Mg/Ml Vial) 5 mg IV Q4H PRN PRN PRN Reason: SBP >160 or DBP >120. Last Admin: 07/31/20 04:14 Dose: 5 mg Documented by: Insulin Glargine (Insulin Glargine 100 Units/Ml Pen) 10 units SC QHS [facility] Last Admin: 07/30/20 21:18 Dose: 10 u Documented by: Insulin Human Lispro (Insulin Lispro 100 Unit/Ml Insuln.Pen) 0 unit SC TIDAC [facility]; Protocol Last Admin: 12/12/20 11:39 Dose: 3 u Documented by: Loratadine (Loratadine 10 Mg Tablet) 10 mg PO DAILY PRN PRN Reason: ALLERGIES Nitroglycerin (Nitroglycerin (Inpatient Use) 0.4 Mg Tab.Subl) 0.4 mg SUBLINGUAL Q5M PRN PRN Reason: CARDIAC/CHEST PAIN Sodium Chloride (0.9% Saline Lock 10 Ml Syringe) 10 - 40 ml IV UD PRN PRN Reason: SALINE FLUSH Last Admin: 07/29/20 21:38 Dose: 10 ml Documented by: STROKE Vital Signs/Narrative: Vital Signs Pulse 07/31/20 10:59 44 L Medical Necessity - Tobacco Use Smoking Status: Former smoker Tobacco Use: Cigarettes Assessment/Plan All Active Problems (Last Reviewed 07/29/20 @ 12:[address] Dangelo Bird, DO) Pneumonia (Acute) Weakness (Acute) Hypokalemia (Acute) Atrial flutter (Acute) Afib (Acute) Pleural effusion (Acute) COVID-19 (Acute) 1. COVID 19 on dexa stable no rem-d given CKD 2. afib: rate controlled new diagnosis, but patient thinks this was seen previously (I don't see any documentation of this) echo: shows EF of 55% with mild pulmonary HTN anticoagulated with apixaban 3. HFrEF EF 65% from 11/11/18 continue furosemide 4. Failure to thrive etiology likely more from COVID 19 SNF upon discharge 5. DM2: continue glargine SSI 6. 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 7. VTE prophylaxis: anticoagulated 8. ACP: pt confirmed DNRCCA, no intubation 9. Disposition: pending insurance authorization. Likely not until 08/02 or . Inpatient E&M: 15854 Subs Hosp L2
--- NOTE | 2020-07-31 15:45 | CASEMGMT ---
SW called pt, spoke w/pt regarding usp choices. Pt would like to stay as close as possible to home, would consider [facility], is not certain about a second choice. SW looked further into it, [facility] will not take patients until they are 10 days from their initial positive test, and this pt was positive on 07/29/20. SW attempted to call pt back, his line is busy. Pt's daughter Tara then called in, SW spoke w/her. SW explained spoke w/pt about going to a usp, we reviewed PT/OT, daughter in agreement with this. SW explained was looking at [facility] initially however they would not take pt as he is not far enough out from his positive COVID test. SW offered to email list to daughter, she is agreeable. SW asked her to review list and call CALVIN Alejo with two choices on Sunday. She is considering [facility] as a possibility, but will speak w/pt and pt's son. SW offered support to daughter, as she is also recovering from COVID, pt has Covid and pt's is in the inpt hospice unit. SW to follow up Sunday w/daughter and/or pt regarding usp choices and make referral. SHELBI Ward
[2020-07-31 17:10] LABS: Bedside Glucose 238 mg/dL (70-110)
[2020-07-31] MEDS: Aspirin E.C. 81 MG Tablet PO (21:53)
[2020-07-31] MEDS: Atorvastatin Calcium 80 MG Tablet PO (21:53)
[2020-07-31 22:30] LABS: Bedside Glucose 335 mg/dL (70-110)
[2020-08-01] VITALS (10 sets, daily range): BP systolic 112–136; BP diastolic 56–63; PULSE 42–65; RESP 16–18; TEMP 36.3–36.8; O2SAT 93–97
[2020-08-01] MEDS: Insulin Lispro 100 UNIT/ML INSULN.PEN SC ×4 (06:31→21:04)
[2020-08-01 06:41] LABS: Bedside Glucose 228 mg/dL (70-110)
[2020-08-01] MEDS: Furosemide 40 MG Tablet 80 MG PO ×2 (09:45→21:03)
[2020-08-01] MEDS: dexAMETHasone 4 MG Tablet 6 MG PO (09:45)
[2020-08-01] MEDS: APIXABAN 2.5 MG TABLET PO ×2 (09:45→21:03)
[2020-08-01] MEDS: amLODIPine 5 MG Tablet PO (09:46)
[2020-08-01] MEDS: Calcitriol 0.25 MCG Capsule PO (09:46)
[2020-08-01] MEDS: Finasteride 5 MG Tablet PO (09:46)
[2020-08-01 12:30] LABS: Bedside Glucose 271 mg/dL (70-110)
--- NOTE | 2020-08-01 13:48 | PN_ITS ---
Patient Problems: Active and Suspected Problems (Last Reviewed 07/29/20 @ 12:[address] Dangelo Bird, DO) Pneumonia (Acute) Weakness (Acute) Hypokalemia (Acute) Atrial flutter (Acute) Afib (Acute) Pleural effusion (Acute) COVID-19 (Acute) Reason for Visit: COVID 19 Subjective: CALHOUN while going to rest room. No other events. Vitals/I&O's: Vital Signs Temp Pulse Resp BP Pulse Ox 36.3 C L 63 17 121/59 H 97 08/01/20 09:34 08/01/20 11:40 08/01/20 09:34 08/01/20 09:34 08/01/20 09:34 Oxygen Delivery Method Room Air Weight: 132.4 kg Body Mass Index (BMI) 40.7 Finger Stick Blood Glucose 152 Intake and Output for Last 24 Hours 07/30/20 07/31/20 08/01/20 23:59 23:59 23:59 Intake Total 680 / 680 360 / 360 Output Total 1450 / 1450 500 / 1000 1250 / 1250 Balance -770 / -770 -500 / -1000 -890 / -890 General: Alert, No apparent distress HEENT: Atraumatic, Normocephalic Neck: No Nodes, Thyroid Normal Size and Texture Lungs: Clear to auscultation, Normal air movement, No rhonchi, No wheeze, No rales Cardiovascular: Regular rate, Regular Rhythm, Normal S1, Normal S2, No murmurs Abdomen: Bowel Sounds Present, Soft, Non Tender, Non-Distended, No Hepato- splenomegaly Extremities: No edema, No Calf Tenderness Psych/Mental Status: Normal Affect, Appropriate Microbiology Past 72 Hours 07/29/20 09:30 Blood Culture (Wb) - Right Hand Blood Culture - Preliminary No growth in 48 hours. 07/29/20 09:25 Blood Culture (Wb) - Anticubital Right Blood Culture - Preliminary No growth in 48 hours. 07/29/20 09:30 Mucosa - Nose SARS-CoV-2 Antigen (Rapid) - Final Laboratory Results 07/31/20 16:49: POC Glucose 238 H 07/31/20 21:44: POC Glucose 335 H 08/01/20 06:29: POC Glucose 228 H 08/01/20 12:16: POC Glucose 271 H Current Medications Acetaminophen (Acetaminophen 325 Mg Tablet) 650 mg PO Q6H PRN PRN PRN Reason: Pain Score 1-10/Temp > 100.7 F Albuterol Sulfate (Albuterol Ih 8.5 Gm (Proair) Inhaler (200 Puffs)) 1 - 2 puff INHALATION Q4H PRN PRN PRN Reason: SOB &/OR WHEEZING Amlodipine Besylate (Amlodipine 5 Mg Tablet) 5 mg PO DAILY [facility] Last Admin: 08/01/20 09:46 Dose: 5 mg Documented by: Apixaban (Apixaban 2.5 Mg Tablet) 2.5 mg PO BID [facility] Last Admin: 08/01/20 09:45 Dose: 2.5 mg Documented by: Aspirin (Aspirin E.C. 81 Mg Tablet) 81 mg PO QHS [facility] Last Admin: 07/31/20 21:53 Dose: 81 mg Documented by: Atorvastatin Calcium (Atorvastatin Calcium 80 Mg Tablet) 80 mg PO QHS [facility] Last Admin: 07/31/20 21:53 Dose: 80 mg Documented by: Calcitriol (Calcitriol 0.25 Mcg Capsule) 0.25 mcg PO DAILY [facility] Last Admin: 08/01/20 09:46 Dose: 0.25 mcg Documented by: Dexamethasone (Dexamethasone 4 Mg Tablet) 6 mg PO DAILY@0800 [facility] Stop: 08/08/20 16:45 Last Admin: 08/01/20 09:45 Dose: 6 mg Documented by: Dextrose (Dextrose 50%-Water 25 Gm/50 Ml Disp.Syrin) 0 gm IV X1 PRN; Protocol PRN Reason: Hypoglycemia Finasteride (Finasteride 5 Mg Tablet) 5 mg PO DAILY [facility] Last Admin: 08/01/20 09:46 Dose: 5 mg Documented by: Furosemide (Furosemide 40 Mg Tablet) 80 mg PO BID [facility] Last Admin: 08/01/20 09:45 Dose: 80 mg Documented by: Glucagon (Glucagon 1 Mg/Ml Syringe) 1 mg IM .X1 PRN PRN Reason: Hypoglycemia Hydralazine HCl (Hydralazine 20 Mg/Ml Vial) 5 mg IV Q4H PRN PRN PRN Reason: SBP >160 or DBP >120. Last Admin: 07/31/20 04:14 Dose: 5 mg Documented by: Insulin Glargine (Insulin Glargine 100 Units/Ml Pen) 10 units SC QHS [facility] Last Admin: 07/31/20 21:51 Dose: 10 u Documented by: Insulin Human Lispro (Insulin Lispro 100 Unit/Ml Insuln.Pen) 0 unit SC ACHS [facility]; Protocol Last Admin: 08/01/20 12:20 Dose: 6 units Documented by: Loratadine (Loratadine 10 Mg Tablet) 10 mg PO DAILY PRN PRN Reason: ALLERGIES Nitroglycerin (Nitroglycerin (Inpatient Use) 0.4 Mg Tab.Subl) 0.4 mg SUBLINGUAL Q5M PRN PRN Reason: CARDIAC/CHEST PAIN Sodium Chloride (0.9% Saline Lock 10 Ml Syringe) 10 - 40 ml IV UD PRN PRN Reason: SALINE FLUSH Last Admin: 07/29/20 21:38 Dose: 10 ml Documented by: STROKE Vital Signs/Narrative: Vital Signs Pulse 08/01/20 11:40 63 Medical Necessity - Tobacco Use Smoking Status: Former smoker Tobacco Use: Cigarettes Assessment/Plan All Active Problems (Last Reviewed 07/29/20 @ 12:[address] Dangelo Bird, DO) Pneumonia (Acute) Weakness (Acute) Hypokalemia (Acute) Atrial flutter (Acute) Afib (Acute) Pleural effusion (Acute) COVID-19 (Acute) 1. COVID 19 * on dexa through 08/08 * stable * no rem-d given CKD * His main symptom was malaise, but lost his taste on 07/24. So he will need to quarantine through 08/14. 2. afib: * rate controlled * new diagnosis, but patient thinks this was seen previously (I don't see any documentation of this) * echo: shows EF of 55% with mild pulmonary HTN * anticoagulated with apixaban 3. bradycardia * HR went to 30s. he was asymptomatic * atenolol stopped 07/31. Do not anticipate restarting. 4. HFrEF * EF 65% from 11/11/18 * continue furosemide 5. Failure to thrive * etiology likely more from COVID 19 * SNF upon discharge 6. DM2: * uncontrolled * increase glargine from to * SSI 7. CKD 4 * fistula in LUE * states that he would not HD if it came to that point. 8. VTE prophylaxis: anticoagulated 9. ACP: pt confirmed DNRCCA, no intubation 10. Disposition: pending insurance authorization. Likely not until 08/02 or . Inpatient E&M: [id number] Subs Hosp L2
[2020-08-01] MEDS: 0.9% Saline Lock 10 ML Syringe IV ×2 (18:15→21:07)
[2020-08-01 18:35] LABS: Bedside Glucose 237 mg/dL (70-110)
[2020-08-01] MEDS: Atorvastatin Calcium 80 MG Tablet PO (21:03)
[2020-08-01] MEDS: Aspirin E.C. 81 MG Tablet PO (21:03)
[2020-08-01 21:26] LABS: Bedside Glucose 271 mg/dL (70-110)
[2020-08-02] VITALS (9 sets, daily range): BP systolic 111–140; BP diastolic 53–63; PULSE 46–68; RESP 16–20; TEMP 36.3–36.8; O2SAT 92–97
[2020-08-02] MEDS: Insulin Lispro 100 UNIT/ML INSULN.PEN SC ×4 (05:31→21:53)
[2020-08-02 05:41] LABS: Bedside Glucose 205 mg/dL (70-110)
[2020-08-02 07:02] LABS: ALB/GLOB Ratio 0.9 RATIO (0.9-2.4); AST(SGOT) 20 U/L (15-37); Alanine Aminotransfer ALT/SGPT 22 U/L (16-61); Albumin, Serum 2.6 g/dL (3.2-5.0); Alkaline Phosphatase 59 U/L (45-117); Anion Gap 12 (5-15); BUN 82 mg/dL (7-18); BUN/Creat Ratio 17.7 RATIO (10-20); Calcium,Total 8.1 mg/dL (8.5-10.1); Chloride 102 mmol/L (98-107); Creatinine, Serum 4.63 mg/dL (0.70-1.30); EST Glomerular Filtration Rate 13 mL/min (>60); Est Glom Filt Rate - Afr Amer 16 mL/min (>60); Glucose 205 mg/dL (74-106); Potassium 3.9 mmol/L (3.5-5.1); Protein, Total 5.6 g/dL (6.4-8.2); Sodium Level 138 mmol/L (136-145)
[2020-08-02] MEDS: dexAMETHasone 4 MG Tablet 6 MG PO (08:23)
[2020-08-02] MEDS: Finasteride 5 MG Tablet PO (08:23)
[2020-08-02] MEDS: APIXABAN 2.5 MG TABLET PO ×2 (08:23→21:34)
[2020-08-02] MEDS: Furosemide 40 MG Tablet 80 MG PO (08:23)
[2020-08-02] MEDS: amLODIPine 5 MG Tablet PO (08:26)
[2020-08-02] MEDS: Calcitriol 0.25 MCG Capsule PO (08:31)
--- NOTE | 2020-08-02 09:31 | CASEMGMT ---
CALVIN received a call from patient's daughter, Tara. She asked when she and her brother could call CALVIN for a conference call. SW told her anytime. She is aware patient could be ready for discharge today vs tomorrow. Await return call from patient's family. Sapna RANDALL
--- NOTE | 2020-08-02 10:35 | PCM.PN.HOSP ---
<Nicolas Petty - Last Filed: 08/02/20 10:35> Patient Problems: Active and Suspected Problems (Last Reviewed 07/29/20 @ 12:[address] Dangelo Bird, DO) Pneumonia (Acute) Weakness (Acute) Hypokalemia (Acute) Atrial flutter (Acute) Afib (Acute) Pleural effusion (Acute) COVID-19 (Acute) Reason for Visit: SOB Subjective: Ongoing mild SOB at rest, significant SOB with exertion - walking across room to bathroom. No chest pain, pressure tightness. Some cough without sputum production. No fever/chills. Pt planning to go to SNF at [place], he is not sure where yet. Vitals/I&O's: Vital Signs Temp Pulse Resp BP Pulse Ox 97.6 F L 57 L 16 117/57 L 97 08/02/20 08:20 08/02/20 08:20 08/02/20 08:20 08/02/20 08:20 08/02/20 08:20 Oxygen Delivery Method Room Air Weight: 291 lb 14.272 oz Body Mass Index (BMI) 40.7 Finger Stick Blood Glucose 152 Intake and Output for Last 24 Hours 07/31/20 08/01/20 08/02/20 23:59 23:59 23:59 Intake Total 850 / 850 900 / 900 Output Total 500 / 1000 1250 / 1250 900 / 900 Balance -500 / -1000 -400 / -400 0 / 0 General: Alert, Oriented x3, Cooperative HEENT: Atraumatic, PERRLA, EOMI, Normocephalic Neck: Supple, No JVD, Negative Carotid Bruits Lungs: Clear to auscultation, Normal air movement Cardiovascular: No murmurs, Irregular Rate Abdomen: Bowel Sounds Present, Soft, Non Tender Extremities: No edema, Capillary Refill Less than 3 Seconds Skin: No rashes, No breakdown Musculoskeletal: No Tenderness to Palpation of Joints or Extremities Neurological: Cranial nerves II-XII grossly intact Psych/Mental Status: Normal Affect, Appropriate, Alert and oriented to time, place, person, mood and affect Microbiology Past 72 Hours 07/29/20 09:30 Blood Culture (Wb) - Right Hand Blood Culture - Preliminary No growth in 48 hours. 07/29/20 09:25 Blood Culture (Wb) - Anticubital Right Blood Culture - Preliminary No growth in 48 hours. Laboratory Results 08/01/20 12:16: POC Glucose 271 H 08/01/20 16:45: POC Glucose 237 H 08/01/20 21:02: POC Glucose 271 H 08/02/20 05:15: Sodium 138, Potassium 3.9, Chloride 102, Carbon Dioxide 24.0, Anion Gap 12, BUN 82 H, Creatinine 4.63 H, Estim Creat Clear Calc 13.10, Est GFR (MDRD) Af Amer 16 L, Est GFR (MDRD) Non-Af 13 L, BUN/Creatinine Ratio 17.7, Glucose 205 H, Calcium 8.1 L, Total Bilirubin 0.60, AST 20, ALT 22, Alkaline Phosphatase 59, Total Protein 5.6 L, Albumin 2.6 L, Globulin 3.0, Albumin/Globulin Ratio 0.9 08/02/20 05:29: POC Glucose 205 H Current Medications Acetaminophen (Acetaminophen 325 Mg Tablet) 650 mg PO Q6H PRN PRN PRN Reason: Pain Score 1-10/Temp > 100.7 F Albuterol Sulfate (Albuterol Ih 8.5 Gm (Proair) Inhaler (200 Puffs)) 1 - 2 puff INHALATION Q4H PRN PRN PRN Reason: SOB &/OR WHEEZING Amlodipine Besylate (Amlodipine 5 Mg Tablet) 5 mg PO DAILY [facility] Last Admin: 08/02/20 08:26 Dose: 5 mg Documented by: Apixaban (Apixaban 2.5 Mg Tablet) 2.5 mg PO BID [facility] Last Admin: 08/02/20 08:23 Dose: 2.5 mg Documented by: Aspirin (Aspirin E.C. 81 Mg Tablet) 81 mg PO QHS [facility] Last Admin: 08/01/20 21:03 Dose: 81 mg Documented by: Atorvastatin Calcium (Atorvastatin Calcium 80 Mg Tablet) 80 mg PO QHS [facility] Last Admin: 08/01/20 21:03 Dose: 80 mg Documented by: Calcitriol (Calcitriol 0.25 Mcg Capsule) 0.25 mcg PO DAILY [facility] Last Admin: 08/02/20 08:31 Dose: 0.25 mcg Documented by: Dexamethasone (Dexamethasone 4 Mg Tablet) 6 mg PO DAILY@0800 [facility] Stop: 08/08/20 16:45 Last Admin: 08/02/20 08:23 Dose: 6 mg Documented by: Dextrose (Dextrose 50%-Water 25 Gm/50 Ml Disp.Syrin) 0 gm IV X1 PRN; Protocol PRN Reason: Hypoglycemia Finasteride (Finasteride 5 Mg Tablet) 5 mg PO DAILY [facility] Last Admin: 08/02/20 08:23 Dose: 5 mg Documented by: Furosemide (Furosemide 40 Mg Tablet) 80 mg PO BID [facility] Last Admin: 08/02/20 08:23 Dose: 80 mg Documented by: Glucagon (Glucagon 1 Mg/Ml Syringe) 1 mg IM .X1 PRN PRN Reason: Hypoglycemia Hydralazine HCl (Hydralazine 20 Mg/Ml Vial) 5 mg IV Q4H PRN PRN PRN Reason: SBP >160 or DBP >120. Last Admin: 07/31/20 04:14 Dose: 5 mg Documented by: Insulin Glargine (Insulin Glargine 100 Units/Ml Pen) 20 units SC QHS [facility] Last Admin: 08/01/20 21:04 Dose: 20 u Documented by: Insulin Human Lispro (Insulin Lispro 100 Unit/Ml Insuln.Pen) 0 unit SC ACHS [facility]; Protocol Last Admin: 08/02/20 05:31 Dose: 4 units Documented by: Loratadine (Loratadine 10 Mg Tablet) 10 mg PO DAILY PRN PRN Reason: ALLERGIES Nitroglycerin (Nitroglycerin (Inpatient Use) 0.4 Mg Tab.Subl) 0.4 mg SUBLINGUAL Q5M PRN PRN Reason: CARDIAC/CHEST PAIN Sodium Chloride (0.9% Saline Lock 10 Ml Syringe) 10 - 40 ml IV UD PRN PRN Reason: SALINE FLUSH Last Admin: 08/01/20 21:07 Dose: 10 ml Documented by: STROKE Vital Signs/Narrative: Vital Signs Temp Pulse Resp BP Pulse Ox 08/02/20 08:20 97.6 F L 57 L 16 117/57 L 97 Medical Necessity - Tobacco Use Smoking Status: Former smoker Tobacco Use: Cigarettes Assessment/Plan All Active Problems (Last Reviewed 07/29/20 @ 12:[address] Dangelo Bird ) Pneumonia (Acute) Weakness (Acute) Hypokalemia (Acute) Atrial flutter (Acute) Afib (Acute) Pleural effusion (Acute) COVID-19 (Acute) 1. Covid 19 - no o2 requirement at this point and overall pt feels improved. Continue dexamethasone, incentive spirometer 2. A flutter - rate mild susan - off atenolol. continue eliquis. Echo shows preserved EF, no regional wall abnormalities, PASP 44 mmHg. Needs referral to cardiology as outpatient -follows Dr. De León 3. Acute diastolic CHF - acute phase appears to be resolved. Continue oral lasix but at reduced dose as per #4. 4. MARIANO on CKD IV - worsening kidney failure. will reduce lasix dose and recheck renal function in AM. He does have a LUE fistula. If worse tomorrow consult nephrology. 5. DMt2 - continue lantus, SSI. 6. Hx melanoma s/p excision - follows outpatient dermatology 7. Hx CAD - follows Dr. De León - continue aspirin, statin. Off atenolol due to bradycardia. not approriate for sherri inhibitor at this time due to renal dysfunction. DVT ppx: eliquis DC planning: SNF placement This patient was seen by Nicolas Petty PA-C under the supervision of Dr. Liao. <Kevin Liao - Last Filed: 08/02/20 14:18> Vitals/I&O's: Vital Signs Temp Pulse Resp BP Pulse Ox 97.6 F L 57 L 16 117/57 L 97 08/02/20 08:20 08/02/20 08:20 08/02/20 08:20 08/02/20 08:20 08/02/20 08:20 Oxygen Delivery Method Room Air Weight: 132.4 kg Body Mass Index (BMI) 40.7 Finger Stick Blood Glucose 152 Intake and Output for Last 24 Hours 07/31/20 08/01/20 08/02/20 23:59 23:59 23:59 Intake Total 850 / 850 1420 / 1420 Output Total 500 / 1000 1250 / 1250 900 / 900 Balance -500 / -1000 -400 / -400 520 / 520 Microbiology Past 72 Hours 07/29/20 09:30 Blood Culture (Wb) - Right Hand Blood Culture - Preliminary No growth in 48 hours. 07/29/20 09:25 Blood Culture (Wb) - Anticubital Right Blood Culture - Preliminary No growth in 48 hours. Laboratory Results 08/01/20 16:45: POC Glucose 237 H 08/01/20 21:02: POC Glucose 271 H 08/02/20 05:15: Sodium 138, Potassium 3.9, Chloride 102, Carbon Dioxide 24.0, Anion Gap 12, BUN 82 H, Creatinine 4.63 H, Estim Creat Clear Calc 13.10, Est GFR (MDRD) Af Amer 16 L, Est GFR (MDRD) Non-Af 13 L, BUN/Creatinine Ratio 17.7, Glucose 205 H, Calcium 8.1 L, Total Bilirubin 0.60, AST 20, ALT 22, Alkaline Phosphatase 59, Total Protein 5.6 L, Albumin 2.6 L, Globulin 3.0, Albumin/Globulin Ratio 0.9 08/02/20 05:29: POC Glucose 205 H 08/02/20 10:57: POC Glucose 295 H Current Medications Acetaminophen (Acetaminophen 325 Mg Tablet) 650 mg PO Q6H PRN PRN PRN Reason: Pain Score 1-10/Temp > 100.7 F Albuterol Sulfate (Albuterol Ih 8.5 Gm (Proair) Inhaler (200 Puffs)) 1 - 2 puff INHALATION Q4H PRN PRN PRN Reason: SOB &/OR WHEEZING Amlodipine Besylate (Amlodipine 5 Mg Tablet) 5 mg PO DAILY [facility] Last Admin: 08/02/20 08:26 Dose: 5 mg Documented by: Apixaban (Apixaban 2.5 Mg Tablet) 2.5 mg PO BID [facility] Last Admin: 08/02/20 08:23 Dose: 2.5 mg Documented by: Aspirin (Aspirin E.C. 81 Mg Tablet) 81 mg PO QHS [facility] Last Admin: 08/01/20 21:03 Dose: 81 mg Documented by: Atorvastatin Calcium (Atorvastatin Calcium 80 Mg Tablet) 80 mg PO QHS [facility] Last Admin: 08/01/20 21:03 Dose: 80 mg Documented by: Calcitriol (Calcitriol 0.25 Mcg Capsule) 0.25 mcg PO DAILY [facility] Last Admin: 08/02/20 08:31 Dose: 0.25 mcg Documented by: Dexamethasone (Dexamethasone 4 Mg Tablet) 6 mg PO DAILY@0800 [facility] Stop: 08/08/20 16:45 Last Admin: 08/02/20 08:23 Dose: 6 mg Documented by: Dextrose (Dextrose 50%-Water 25 Gm/50 Ml Disp.Syrin) 0 gm IV X1 PRN; Protocol PRN Reason: Hypoglycemia Finasteride (Finasteride 5 Mg Tablet) 5 mg PO DAILY [facility] Last Admin: 08/02/20 08:23 Dose: 5 mg Documented by: Glucagon (Glucagon 1 Mg/Ml Syringe) 1 mg IM .X1 PRN PRN Reason: Hypoglycemia Hydralazine HCl (Hydralazine 20 Mg/Ml Vial) 5 mg IV Q4H PRN PRN PRN Reason: SBP >160 or DBP >120. Last Admin: 07/31/20 04:14 Dose: 5 mg Documented by: Sodium Chloride () 1,000 mls @ 75 mls/hr IV .[id number] [facility] Insulin Glargine (Insulin Glargine 100 Units/Ml Pen) 20 units SC QHS [facility] Last Admin: 08/01/20 21:04 Dose: 20 u Documented by: Insulin Human Lispro (Insulin Lispro 100 Unit/Ml Insuln.Pen) 0 unit SC ACHS [facility]; Protocol Last Admin: 08/02/20 10:59 Dose: 6 units Documented by: Loratadine (Loratadine 10 Mg Tablet) 10 mg PO DAILY PRN PRN Reason: ALLERGIES Nitroglycerin (Nitroglycerin (Inpatient Use) 0.4 Mg Tab.Subl) 0.4 mg SUBLINGUAL Q5M PRN PRN Reason: CARDIAC/CHEST PAIN Sodium Chloride (0.9% Saline Lock 10 Ml Syringe) 10 - 40 ml IV UD PRN PRN Reason: SALINE FLUSH Last Admin: 08/01/20 21:07 Dose: 10 ml Documented by: Assessment/Plan This patient was seen in conjunction with Nicolas Petty PA-C . I have independently interviewed and examined the patient and reviewed pertinent historical, laboratory, and other data. Please refer to Nicolas Petty PA-C note for details of this patient's presentation, findings, and recommendations. I have reviewed Nicolas Petty PA-C note and concur with documented findings. In brief, patient is a 80-year-old gentleman with multiple comorbidities admitted with progressive shortness of breath and assessment of acute COVID-19 pneumonitis made admitted to monitored bed for further management. Physical Examination: GENERAL: cooperative HEENT: Atraumatic; EYES; Anicteric, Normal Conjunctiva NECK; supple, normal thyroid, RESPIRATORY: Diminished to auscultation CARDIOVASCULAR: Regular S1 S2, GI: soft, normoactive bowel sounds, : No Renal angle tenderness; EXTREMITIES: No edema, no clubbing, MUSCULOSKELETAL: no muscle waisting NEURO: Awake; no lateralizing signs. SKIN: No Rash PSYCH; Flat affect Assessment: 1. Acute COVID-19 infection 2. Paroxysmal A. fib/flutter with episodic slow ventricular response 3. Congestive heart failure with preserved ejection fraction of 55% 4. Chronic kidney disease stage IV with worsening kidney function 5. Obesity with BMI of 40.7 6. Diabetes mellitus type 2 7. Physical deconditioning 8. DVT prophylaxis Recommendations: 1. I have discussed the results of my overview and impressions with the patient 2. Options for management were reviewed Inpatient E&M: [id number] [facility] L3
[2020-08-02 12:06] LABS: Bedside Glucose 295 mg/dL (70-110)
--- NOTE | 2020-08-02 12:45 | CASEMGMT ---
CALVIN received a call from patient's daughter and son. Their first choice is [facility] and then [facility]. CALVIN called both facilities. [facility] is full and [facility] is not taking COVID positive patients unless they are 10 days out from positive test. Patient tested positive 12-10. CALVIN called patient's daughter and the next choice was [facility]. CALVIN called [facility] and they are full. CALVIN called Tara and let her know this and she said [facility]. CALVIN told her SW will get back with her when CALVIN knows something. CALVIN called [facility] and they have available beds. CALVIN faxed referral. Await response from [facility]. Sapna DARNELL CLEANING SPECIALIST
--- NOTE | 2020-08-02 13:45 | CASEMGMT ---
CALVIN received a call from Diana with [facility]. They can take patient. CALVIN spoke with BEVERLEY Valenzuela and he is keeping patient 1 more night. CALVIN notified Diana. CALVIN called patient's daughter Tara and let her know that [facility] take patient. CALVIN told her physician is going to keep him 1 more night. CALVIN also told her about the transportation cost. Patient is mobile so he will have to go by wheelchair van which is not covered by insurance. CALVIN told her approximate cost of $210-$240 per day. CALVIN called patient in his room and let him know that CALVIN had been talking with his daughter about facilities. CALVIN told him the first few choices are full. CALVIN told him [facility] in [place] [facility] take him. SW told him he will be staying 1 more night. He thanked CALVIN for the update. RN and elementary secretary notified. Plan: [facility] when medically ready. Sapna DARNELL MSW
[2020-08-02] MEDS: 0.9% Saline Lock 10 ML Syringe IV (14:31)
[2020-08-02] MEDS: 0.9% Normal Saline 1,000 ML 75 ML IV (14:31)
--- NOTE | 2020-08-02 16:05 | CHAPLAIN ---
Type of Pastoral Visit _x__ Initial Visit ___ Follow-up Visit ___ On-call Visit ___ General Patient Visit ___ Spiritual Assessment ___ Family Conference ___ Bereavement ___ Rapid Response ___ Code Blue _x__ Other (describe below) Pastoral Care Referral From _x__ Patient ___ Family _x__ Nurse ___ Physician ___ Knife Cutter ___ Continuous Improvement Director ___ Other (describe below) Sacrament/Intervention _x__ Active listening ___ Anointing ___ Protestant ___ Bereavement ___ Communion ___ Layne exploration ___ ___ Life review _x__ Prayer ___ Reconciliation ___ Sacrament of Sick _x__ Supportive presence ___ Wedding ___ Other (describe below) Pastoral Comments RN suggested call into patient who is in isolation; RN notified this scrap burner that patient's is in hospice unit and other family members have COVID; pt answers phone and welcomes call and support; pt speaks of his decision concerning dialysis due to fact his is dying; gave opportunity for pt to talk and be expressive; pt is tearful as he discusses his ; pt acknowledges the emotional difficulty of separation from each other in these critical hours; pt welcomes prayer support and expresses thankfulness for call and concerns for him
[2020-08-02 16:45] LABS: Bedside Glucose 283 mg/dL (70-110)
[2020-08-02] MEDS: Atorvastatin Calcium 80 MG Tablet PO (21:34)
[2020-08-02] MEDS: Aspirin E.C. 81 MG Tablet PO (21:34)
[2020-08-02 22:05] LABS: Bedside Glucose 237 mg/dL (70-110)
[2020-08-03] VITALS (10 sets, daily range): BP systolic 97–141; BP diastolic 58–65; PULSE 46–68; RESP 18–20; TEMP 36.4–36.6; O2SAT 95–98
[2020-08-03] MEDS: 0.9% Normal Saline 1,000 ML 75 ML IV ×2 (04:04→16:48)
[2020-08-03] MEDS: Insulin Lispro 100 UNIT/ML INSULN.PEN SC ×4 (07:16→20:38)
--- NOTE | 2020-08-03 07:31 | PCM.PN.HOSP ---
Patient Problems: Active and Suspected Problems (Last Reviewed 07/29/20 @ 12:[address] Dangelo Bird, DO) Pneumonia (Acute) Weakness (Acute) Hypokalemia (Acute) Atrial flutter (Acute) Afib (Acute) Pleural effusion (Acute) COVID-19 (Acute) Reason for Visit: COVID-19 Chronic kidney disease with worsening kidney function Subjective: In brief, patient is a 80-year-old gentleman with multiple comorbidities admitted with progressive shortness of breath and assessment of acute COVID-19 pneumonitis made admitted to monitored bed for further management. Objective: GENERAL: cooperative HEENT: Atraumatic; EYES; Anicteric, Normal Conjunctiva NECK; supple, normal thyroid, RESPIRATORY: Diminished to auscultation CARDIOVASCULAR: Regular S1 S2, GI: soft, normoactive bowel sounds, : No Renal angle tenderness; EXTREMITIES: No edema, no clubbing, MUSCULOSKELETAL: no muscle waisting NEURO: Awake; no lateralizing signs. SKIN: No Rash PSYCH; Flat affect Vitals/I&O's: Vital Signs Temp Pulse Resp BP Pulse Ox 97.9 F 58 L 20 H 97/58 L 95 08/03/20 04:08 08/03/20 04:08 08/03/20 04:08 08/03/20 04:08 08/03/20 02:20 Oxygen Delivery Method Room Air Weight: 132.3 kg Body Mass Index (BMI) 40.7 Finger Stick Blood Glucose 152 Intake and Output for Last 24 Hours 08/01/20 08/02/20 08/03/20 23:59 23:59 23:59 Intake Total 850 / 850 1919 1100 / 1100 Output Total 1250 / 1250 1000 / 1000 450 / 450 Balance -400 / -400 920 / 1020 650 / 650 Microbiology Past 72 Hours 07/29/20 09:30 Blood Culture (Wb) - Right Hand Blood Culture - Preliminary No growth in 48 hours. 07/29/20 09:25 Blood Culture (Wb) - Anticubital Right Blood Culture - Preliminary No growth in 48 hours. Laboratory Results 08/02/20 10:57: POC Glucose 295 H 08/02/20 16:38: POC Glucose 283 H 08/02/20 21:52: POC Glucose 237 H 08/03/20 06:35: Sodium Pending, Potassium Pending, Chloride Pending, Carbon Dioxide Pending, BUN Pending, Creatinine Pending, Est GFR (MDRD) Af Amer Pending, Est GFR (MDRD) Non-Af Pending, BUN/Creatinine Ratio Pending, Glucose Pending, Calcium Pending, Phosphorus Pending, Albumin Pending Current Medications Acetaminophen (Acetaminophen 325 Mg Tablet) 650 mg PO Q6H PRN PRN PRN Reason: Pain Score 1-10/Temp > 100.7 F Albuterol Sulfate (Albuterol Ih 8.5 Gm (Proair) Inhaler (200 Puffs)) 1 - 2 puff INHALATION Q4H PRN PRN PRN Reason: SOB &/OR WHEEZING Amlodipine Besylate (Amlodipine 5 Mg Tablet) 5 mg PO DAILY [facility] Last Admin: 08/02/20 08:26 Dose: 5 mg Documented by: Apixaban (Apixaban 2.5 Mg Tablet) 2.5 mg PO BID [facility] Last Admin: 08/02/20 21:34 Dose: 2.5 mg Documented by: Aspirin (Aspirin E.C. 81 Mg Tablet) 81 mg PO QHS [facility] Last Admin: 08/02/20 21:34 Dose: 81 mg Documented by: Atorvastatin Calcium (Atorvastatin Calcium 80 Mg Tablet) 80 mg PO QHS [facility] Last Admin: 08/02/20 21:34 Dose: 80 mg Documented by: Calcitriol (Calcitriol 0.25 Mcg Capsule) 0.25 mcg PO DAILY [facility] Last Admin: 08/02/20 08:31 Dose: 0.25 mcg Documented by: Dexamethasone (Dexamethasone 4 Mg Tablet) 6 mg PO DAILY@0800 [facility] Stop: 08/08/20 16:45 Last Admin: 08/02/20 08:23 Dose: 6 mg Documented by: Dextrose (Dextrose 50%-Water 25 Gm/50 Ml Disp.Syrin) 0 gm IV X1 PRN; Protocol PRN Reason: Hypoglycemia Finasteride (Finasteride 5 Mg Tablet) 5 mg PO DAILY [facility] Last Admin: 08/02/20 08:23 Dose: 5 mg Documented by: Glucagon (Glucagon 1 Mg/Ml Syringe) 1 mg IM .X1 PRN PRN Reason: Hypoglycemia Hydralazine HCl (Hydralazine 20 Mg/Ml Vial) 5 mg IV Q4H PRN PRN PRN Reason: SBP >160 or DBP >120. Last Admin: 12/12/20 04:14 Dose: 5 mg Documented by: Sodium Chloride () 1,000 mls @ 75 mls/hr IV .[id number] [facility] Last Admin: 08/03/20 04:04 Dose: 75 mls/hr Documented by: Insulin Glargine (Insulin Glargine 100 Units/Ml Pen) 20 units SC QHS [facility] Last Admin: 08/02/20 21:54 Dose: 20 u Documented by: Insulin Human Lispro (Insulin Lispro 100 Unit/Ml Insuln.Pen) 0 unit SC ACHS [facility]; Protocol Last Admin: 08/03/20 07:16 Dose: 4 units Documented by: Loratadine (Loratadine 10 Mg Tablet) 10 mg PO DAILY PRN PRN Reason: ALLERGIES Nitroglycerin (Nitroglycerin (Inpatient Use) 0.4 Mg Tab.Subl) 0.4 mg SUBLINGUAL Q5M PRN PRN Reason: CARDIAC/CHEST PAIN Sodium Chloride (0.9% Saline Lock 10 Ml Syringe) 10 - 40 ml IV UD PRN PRN Reason: SALINE FLUSH Last Admin: 08/02/20 14:31 Dose: 10 ml Documented by: STROKE Vital Signs/Narrative: Vital Signs Temp Pulse Resp BP 08/03/20 04:08 97.9 F 58 L 20 H 97/58 L Medical Necessity - Tobacco Use Smoking Status: Former smoker Tobacco Use: Cigarettes Assessment/Plan All Active Problems (Last Reviewed 07/29/20 @ 12:[address] Dangelo Bird, DO) Pneumonia (Acute) Weakness (Acute) Hypokalemia (Acute) Atrial flutter (Acute) Afib (Acute) Pleural effusion (Acute) COVID-19 (Acute) In brief, patient is a 80-year-old gentleman with multiple comorbidities admitted with progressive shortness of breath and assessment of acute COVID-19 pneumonitis made admitted to monitored bed for further management. Assessment: 1. Acute COVID-19 infection 2. Paroxysmal A. fib/flutter with episodic slow ventricular response 3. Congestive heart failure with preserved ejection fraction of 55% 4. Chronic kidney disease stage IV with worsening kidney function 5. Obesity with BMI of 40.7 6. Diabetes mellitus type 2 7. Physical deconditioning 8. DVT prophylaxis R
[2020-08-03 07:36] LABS: Bedside Glucose 209 mg/dL (70-110)
[2020-08-03 07:40] LABS: Albumin, Serum 2.6 g/dL (3.2-5.0); BUN 91 mg/dL (7-18); BUN/Creat Ratio 18.9 RATIO (10-20); Calcium,Total 7.6 mg/dL (8.5-10.1); Chloride 101 mmol/L (98-107); Creatinine, Serum 4.82 mg/dL (0.70-1.30); EST Glomerular Filtration Rate 12 mL/min (>60); Est Glom Filt Rate - Afr Amer 15 mL/min (>60); Estimated Creatinine Clearance 12.58 ml/min; Glucose 215 mg/dL (74-106); Phosphorus 5.3 mg/dL (2.5-4.9); Potassium 3.8 mmol/L (3.5-5.1); Sodium Level 136 mmol/L (136-145)
--- NOTE | 2020-08-03 08:43 | CASEMGMT ---
Addendum entered by Sapna Banks 08/03/20 10:00: SW received a call from Karl with Hospice. She said patient's son called them and said patient's PCP had told patient when his kidney function gets worse he should consider Hospice if he does not want dialysis. Patient does not want dialysis. CALVIN explained to her the conversation SW had with patient's daughter. SW told her SW will talk with patient and family and get back to her. SW called patient in his room and explained Hospice at home vs Hospice at a [facility] (private pay). He was overwhelmed and said he can't make this decision right now. He asked SW to call his son and daughter. SW called patient's daughter and let her know about the call from Hospice. She said she left it with her dad and brother that it would be better financially if patient went to the [facility] for rehab first. CALVIN asked for her brother's information so SW could call him. He is staying at patient's home. SW called patient's son, Maximo and let him know about Hospice options. He said he is still recovering from COVID so there is no way he could care for patient. He said he would like to see what Dr Rios's opinion is since patient does not want dialysis. He is not sure if patient will get stronger if his kidney function continues to decline. CALVIN told him CALVIN will talk with Dr Rios when she comes to see patient and see what her thoughts are on the matter. Sapna Banks [facility] Original Note: CALVIN received a call from patient's daughter Tara. She said she just spoke with her dad and he said the doctor told him his kidney function is worse. She asked if this changes the d/c plan. She said patient's PCP put in an order for Hospice for the future. She wondered if he should go Hospice. CALVIN told her if he would go Hospice now he would either have to go home or go to a [facility] private pay. CALVIN explained that insurance would pay for Hospice at the ch[facility], but not the room and board. CALVIN told him he would still have to go to a SNF that accepts COVID patients. CALVIN told her to maybe send patient to [facility] and let him get a little stronger. Then if they decide to go with Hospice he could maybe go home on Hospice. She agreed with this plan. CALVIN told her physician plans on sending patient today since he does not want dialysis. CALVIN told her SW can let her know when everything is arranged. She thanked CALVIN. Sapna RANDALL
[2020-08-03] MEDS: dexAMETHasone 4 MG Tablet 6 MG PO (08:49)
[2020-08-03] MEDS: Calcitriol 0.25 MCG Capsule PO (08:50)
[2020-08-03] MEDS: amLODIPine 5 MG Tablet PO (08:50)
[2020-08-03] MEDS: Finasteride 5 MG Tablet PO ×2 (08:50)
[2020-08-03] MEDS: APIXABAN 2.5 MG TABLET PO ×2 (08:52→20:27)
--- NOTE | 2020-08-03 10:08 | PCM.TXEXTCAR ---
- Diet 08/01/20 12:42 Diet: Carbohydrate Controlled Dietary Modifications:: No Added Salt Is pt able to select menu?: No Diet Comments: 120 ml glucerna shake TID w/ meals - Routine Orders/Code Status [facility] - Therapies Physical Therapy: Eval and Treat Occupational Therapy: Eval and Treat - Allergies/Procedures Done in Hospital Allergies/Adverse Reactions: Allergies celecoxib [From Celebrex] Allergy (Mild, Verified 07/12/20 13:01) Bleeding GI clonidine Allergy (Verified 07/12/20 13:01) Rash hydrochlorothiazide Allergy (Verified 07/12/20 13:01) Rash gabapentin Adverse Reaction (Verified 07/12/20 13:01) DIZZINESS tiotropium bromide [From Spiriva with HandiHaler] Adverse Reaction (Verified 07/12/20 13:01) IRRITATION TO TEETHE - Type of Care/Length of Stay Estimated LOS: Convalescent Care Less Than 30 days Type of Care Needed: Skilled Rehab Potential: Good Prognosis: Good - Additional Orders/Day of Discharge Day of Discharge: 08/03/20 - Dietary and Speech Recommendations Dietitian Recommendations/Changes: Continue Glucerna w/ meals. Will liberalize to CHO Controlled, no added salt given advanced age and risk for malnutrition. - Follow Up Care Primary Care Physician: Dangelo Dc MD [Primary Care Provider] - Please follow up with your Primary Care Physician in: 2 to 4 weeks
--- NOTE | 2020-08-03 10:17 | DS.PCM_ITS ---
Discharge Date and Diagnosis - Problem List Patient Problems: Active and Suspected Problems (Last Reviewed 07/29/20 @ 12:[address] Dangelo Bird DO) Pneumonia (Acute) Weakness (Acute) Hypokalemia (Acute) Atrial flutter (Acute) Afib (Acute) Pleural effusion (Acute) COVID-19 (Acute) Date of Admission: 07/29/20 Date of Discharge: 08/03/20 - Primary Discharge Diagnosis Acute Problems: Active Problems (Last Reviewed 07/29/20 @ 12:[address] Dangelo Bird DO) Pneumonia (Acute) Weakness (Acute) Hypokalemia (Acute) Atrial flutter (Acute) Afib (Acute) Pleural effusion (Acute) COVID-19 (Acute) - Secondary Discharge Diagnosis Chronic Problems: Chronic Problems (Last Reviewed 07/29/20 @ 12:[address] Dangelo Bidr DO) Type 2 diabetes mellitus (Chronic) CKD (chronic kidney disease) stage 4, GFR 15-29 ml/min (Chronic) Atopic dermatitis (Chronic) Pulmonary hypertension (Chronic) Pure hypercholesterolemia (Chronic) Essential hypertension (Chronic) Sinus bradycardia (Chronic) Atherosclerotic heart disease of [place] coronary artery without angina pectoris (Chronic) Mild Renal insufficiency (Chronic) Hospital Course and Treatment Imaging Results: Clinical Impression(s) from Imaging Studies Chest X-Ray 07/29/20 09:32 IMPRESSION: Pleural parenchymal changes at the left lung base with focal infiltrate in the right lower lobe. Follow-up is recommended. Electronically Signed: Saad Dsouza, at 9:58 EST , Service support , Chest CT 07/29/20 10:16 IMPRESSION: Small bilateral pleural effusions with bibasilar infiltrates worse on the left side. Patchy peripheral based focal infiltrates in the upper lobes as well. Follow-up is recommended. Electronically Signed: Saad Dsouza, at 11:11 EST , Service support , Summary of Care Provided: In brief, patient is a 80-year-old gentleman with multiple comorbidities admitted with progressive shortness of breath and assessment of acute COVID-19 pneumonitis made admitted to monitored bed for further management. 1. Acute COVID-19 infection -Patient was treated with Decadron which he did respond. Patient was not treated with remdesivir in view of kidney function. Was discharged home with 5 additional days of Decadron 2. Paroxysmal A. fib/flutter with episodic slow ventricular response Patient was treated with rate controlling agent as well as systemic anticoagulation with Eliquis 2.5 mg daily. Patient was on atenolol this was discontinued in view of bradycardia 3. Acute on chronic congestive heart failure with preserved ejection fraction of 55% -Patient was treated with Lasix which was discontinued due to worsening kidney function 4. Chronic kidney disease stage IV with worsening kidney function To have consulted nephrology patient however insisted he did not want any further treatment nor dialysis consult placed to nephrology was discontinued 5. Obesity with BMI of 40.7 6. Diabetes mellitus type 2 7. Physical deconditioning 8. DVT prophylaxis R Patient Problems: Active and Suspected Problems (Last Reviewed 07/29/20 @ 12:[address] Dangelo Bird, DO) Pneumonia (Acute) Weakness (Acute) Hypokalemia (Acute) Atrial flutter (Acute) Afib (Acute) Pleural effusion (Acute) COVID-19 (Acute) - Physical Exam Vitals/I&O's: Vital Signs Temp Pulse Resp BP Pulse Ox 97.8 F 68 20 H 138/65 H 96 08/03/20 08:20 08/03/20 08:54 08/03/20 08:54 08/03/20 08:20 08/03/20 08:20 Oxygen Delivery Method Room Air Weight: 132.3 kg Body Mass Index (BMI) 40.7 Finger Stick Blood Glucose 152 Intake and Output for Last 24 Hours 08/01/20 08/02/20 08/03/20 23:59 23:59 23:59 Intake Total 850 / 850 192 / 2020 1100 / 1100 Output Total 1250 / 1250 1000 / 1000 450 / 450 Balance -400 / -400 920 / 1020 650 / 650 General: Alert HEENT: Atraumatic Lungs: Diminished Microbiology Past 72 Hours 07/29/20 09:30 Blood Culture (Wb) - Right Hand Blood Culture - Preliminary No growth in 48 hours. 07/29/20 09:25 Blood Culture (Wb) - Anticubital Right Blood Culture - Preliminary No growth in 48 hours. Laboratory Results 08/02/20 10:57: POC Glucose 295 H 08/02/20 16:38: POC Glucose 283 H 08/02/20 21:52: POC Glucose 237 H 08/03/20 06:35: Sodium 136, Potassium 3.8, Chloride 101, Carbon Dioxide 22.0, BUN 91 H, Creatinine 4.82 H, Estim Creat Clear Calc 12.58, Est GFR (MDRD) Af Amer 15 L, Est GFR (MDRD) Non-Af 12 L, BUN/Creatinine Ratio 18.9, Glucose 215 H, Calcium 7.6 L, Phosphorus 5.3 H, Albumin 2.6 L 08/03/20 07:14: POC Glucose 209 H Current Medications Acetaminophen (Acetaminophen 325 Mg Tablet) 650 mg PO Q6H PRN PRN PRN Reason: Pain Score 1-10/Temp > 100.7 F Albuterol Sulfate (Albuterol Ih 8.5 Gm (Proair) Inhaler (200 Puffs)) 1 - 2 puff INHALATION Q4H PRN PRN PRN Reason: SOB &/OR WHEEZING Amlodipine Besylate (Amlodipine 5 Mg Tablet) 5 mg PO DAILY [facility] Last Admin: 08/03/20 08:50 Dose: 5 mg Documented by: Apixaban (Apixaban 2.5 Mg Tablet) 2.5 mg PO BID [facility] Last Admin: 08/03/20 08:52 Dose: 2.5 mg Documented by: Aspirin (Aspirin E.C. 81 Mg Tablet) 81 mg PO QHS [facility] Last Admin: 08/02/20 21:34 Dose: 81 mg Documented by: Atorvastatin Calcium (Atorvastatin Calcium 80 Mg Tablet) 80 mg PO QHS [facility] Last Admin: 08/02/20 21:34 Dose: 80 mg Documented by: Calcitriol (Calcitriol 0.25 Mcg Capsule) 0.25 mcg PO DAILY [facility] Last Admin: 08/03/20 08:50 Dose: 0.25 mcg Documented by: Dexamethasone (Dexamethasone 4 Mg Tablet) 6 mg PO DAILY@0800 [facility] Stop: 08/08/20 16:45 Last Admin: 08/03/20 08:49 Dose: 6 mg Documented by: Dextrose (Dextrose 50%-Water 25 Gm/50 Ml Disp.Syrin) 0 gm IV X1 PRN; Protocol PRN Reason: Hypoglycemia Finasteride (Finasteride 5 Mg Tablet) 5 mg PO DAILY [facility] Last Admin: 08/03/20 08:50 Dose: 5 mg Documented by: Glucagon (Glucagon 1 Mg/Ml Syringe) 1 mg IM .X1 PRN PRN Reason: Hypoglycemia Hydralazine HCl (Hydralazine 20 Mg/Ml Vial) 5 mg IV Q4H PRN PRN PRN Reason: SBP >160 or DBP >120. Last Admin: 07/31/20 04:14 Dose: 5 mg Documented by: Sodium Chloride () 1,000 mls @ 75 mls/hr IV .[id number] [facility] Last Admin: 08/03/20 04:04 Dose: 75 mls/hr Documented by: Insulin Glargine (Insulin Glargine 100 Units/Ml Pen) 20 units SC QHS [facility] Last Admin: 08/02/20 21:54 Dose: 20 u Documented by: Insulin Human Lispro (Insulin Lispro 100 Unit/Ml Insuln.Pen) 0 unit SC [facility]; Protocol Last Admin: 08/03/20 07:16 Dose: 4 units Documented by: Loratadine (Loratadine 10 Mg Tablet) 10 mg PO DAILY PRN PRN Reason: ALLERGIES Nitroglycerin (Nitroglycerin (Inpatient Use) 0.4 Mg Tab.Subl) 0.4 mg SUBLINGUAL Q5M PRN PRN Reason: CARDIAC/CHEST PAIN Sodium Chloride (0.9% Saline Lock 10 Ml Syringe) 10 - 40 ml IV UD PRN PRN Reason: SALINE FLUSH Last Admin: 08/02/20 14:31 Dose: 10 ml Documented by: Discharge Diet: Renal Diet Discharge Activity: Return to Normal Activity Home Medications: Medications to take at Discharge Aspirin E.C. [Ecotrin] 81 mg PO QHS 01/13/15 Insulin Glargine [Lantus SoloStar Pen] 10 units SC QHS 01/13/15 Albuterol IH (ProAir) [Proair Hfa] 1 - 2 puff INHALATION Q4H PRN PRN 08/11/16 Dutasteride [Avodart] 0.5 mg PO DAILY 03/28/17 Vit A/Vit C/Vit E/Zinc/Copper [Preservision Areds Softgel] 2 ea PO DAILY 03/28/17 calcitriol 0.25 mcg capsule 0.25 mcg PO DAILY cap 11/13/18 loratadine 10 mg tablet 10 mg PO DAILY PRN 02/11/20 atorvastatin 80 mg tablet 80 mg PO DAILY #90 tab 06/07/20 Amlodipine Besylate [Norvasc] 5 mg PO DAILY 07/29/20 Acetaminophen [Tylenol Tablet] 650 mg PO Q6H PRN PRN tab 08/03/20 Apixaban [Eliquis] 2.5 mg PO BID #60 tab 08/03/20 Dexamethasone [Decadron] 6 mg PO DAILY #5 tab 08/03/20 Insulin Lispro [Humalog KwikPen] See Protocol SC [facility] insuln.pen 08/03/20 Nitroglycerin (INPATIENT USE) [Nitrostat] 0.4 mg SUBLINGUAL Q5M PRN tab.subl 08/03/20 Following Prescriptions Were Given to Patient: Dexamethasone [Decadron] 6 mg PO DAILY #5 tab Transmission Status: Received by [facility] Apixaban [Eliquis] 2.5 mg PO BID #60 tab Transmission Status: Received by [facility] Primary Care Physician: Dangelo Dc MD [Primary Care Provider] - Please follow up with your Primary Care Physician in: 2 to 4 weeks Disposition: [facility] facility Minutes spent on discharge:: 45 Patient Condition:: Stable Medical Necessity - Tobacco Use Smoking Status: Former smoker Tobacco Use: Cigarettes Meaningful Use Info Meaningful Use Diagnoses (Choose all that apply): None applicable Inpatient E&M: 25395 Disch Hosp
--- NOTE | 2020-08-03 10:36 | PHA.DC.MR ---
Pharmacy Service has performed discharge medication reconciliation for this patient. The patient's discharge medication list was reviewed for discrepancies and discrepancies were resolved. Home Medications Aspirin E.C. [Ecotrin] 81 mg PO QHS 01/13/15 Insulin Glargine [Lantus SoloStar Pen] 10 units SC QHS 01/13/15 Albuterol IH (ProAir) [Proair Hfa] 1 - 2 puff INHALATION Q4H PRN PRN 08/11/16 Dutasteride [Avodart] 0.5 mg PO DAILY 03/28/17 Vit A/Vit C/Vit E/Zinc/Copper [Preservision Areds Softgel] 2 ea PO DAILY 03/28/17 calcitriol 0.25 mcg capsule 0.25 mcg PO DAILY cap 11/13/18 loratadine 10 mg tablet 10 mg PO DAILY PRN 02/11/20 atorvastatin 80 mg tablet 80 mg PO DAILY #90 tab 06/07/20 Amlodipine Besylate [Norvasc] 5 mg PO DAILY 07/29/20 Acetaminophen [Tylenol Tablet] 650 mg PO Q6H PRN PRN tab 08/03/20 Apixaban [Eliquis] 2.5 mg PO BID #60 tab 08/03/20 Dexamethasone [Decadron] 6 mg PO DAILY #5 tab 08/03/20 Insulin Lispro [Humalog KwikPen] See Protocol [facility] insuln.pen 08/03/20 Nitroglycerin (INPATIENT USE) [Nitrostat] 0.4 mg SUBLINGUAL Q5M PRN tab.subl 08/03/20
[2020-08-03 11:16] LABS: Bedside Glucose 226 mg/dL (70-110)
--- NOTE | 2020-08-03 13:41 | CASEMGMT ---
Addendum entered by Sapna Banks 08/03/20 13:51: CALVIN left a message for Diana with [facility]. Sapna RANDALL Original Note: CALVIN spoke with Dr Rios and she is recommending patient go Hospice. SW called patient's son and daughter and let them know this information. SW told them SW will make the referral to Hospice. SW will ask them to evaluate patient for the inpatient unit, but SW does not think he will qualify. SW told family they need to be thinking about what they will do if he cannot go to the Inpatient Hospice Unit. SW called Hospice and Johnathon was not available. SW left a message. SW faxed referral to Hospice. Sapna DARNELL MSW
--- NOTE | 2020-08-03 13:48 | PN_ITS ---
Patient Problems: Active and Suspected Problems (Last Reviewed 07/29/20 @ 12:[address] Dangelo Bird, DO) Pneumonia (Acute) Weakness (Acute) Hypokalemia (Acute) Atrial flutter (Acute) Afib (Acute) Pleural effusion (Acute) COVID-19 (Acute) Reason for Visit: Acute COVID-19 Worsening kidney function Subjective: Patient is a 80-year-old gentleman with multiple comorbidities admitted with progressive shortness of breath and assessment of acute COVID-19 pneumonitis made admitted to monitored bed for further management. Objective: GENERAL: cooperative HEENT: Atraumatic; EYES; Anicteric, Normal Conjunctiva NECK; supple, normal thyroid, RESPIRATORY: Diminished to auscultation CARDIOVASCULAR: Regular S1 S2, GI: soft, normoactive bowel sounds, : No Renal angle tenderness; EXTREMITIES: No edema, no clubbing, MUSCULOSKELETAL: no muscle waisting NEURO: Awake; no lateralizing signs. SKIN: No Rash PSYCH; Flat affect Vitals/I&O's: Vital Signs Temp Pulse Resp BP Pulse Ox 97.8 F 68 20 H 138/65 H 96 08/03/20 08:20 08/03/20 08:54 08/03/20 08:54 08/03/20 08:20 08/03/20 08:20 Oxygen Delivery Method Room Air Weight: 132.3 kg Body Mass Index (BMI) 40.7 Finger Stick Blood Glucose 152 Intake and Output for Last 24 Hours 08/01/20 08/02/20 08/03/20 23:59 23:59 23:59 Intake Total 850 / 850 1919 / 2019 1100 / 1100 Output Total 1250 / 1250 1000 / 1000 450 / 450 Balance -400 / -400 920 / 1020 650 / 650 Microbiology Past 72 Hours 07/29/20 09:30 Blood Culture (Wb) - Right Hand Blood Culture - Preliminary No growth in 48 hours. 07/29/20 09:25 Blood Culture (Wb) - Anticubital Right Blood Culture - Preliminary No growth in 48 hours. Laboratory Results 08/02/20 16:38: POC Glucose 283 H 08/02/20 21:52: POC Glucose 237 H 08/03/20 06:35: Sodium 136, Potassium 3.8, Chloride 101, Carbon Dioxide 22.0, BUN 91 H, Creatinine 4.82 H, Estim Creat Clear Calc 12.58, Est GFR (MDRD) Af Amer 15 L, Est GFR (MDRD) Non-Af 12 L, BUN/Creatinine Ratio 18.9, Glucose 215 H, Calcium 7.6 L, Phosphorus 5.3 H, Albumin 2.6 L 08/03/20 07:14: POC Glucose 209 H 08/03/20 11:11: POC Glucose 226 H Current Medications Acetaminophen (Acetaminophen 325 Mg Tablet) 650 mg PO Q6H PRN PRN PRN Reason: Pain Score 1-10/Temp > 100.7 F Albuterol Sulfate (Albuterol Ih 8.5 Gm (Proair) Inhaler (200 Puffs)) 1 - 2 puff INHALATION Q4H PRN PRN PRN Reason: SOB &/OR WHEEZING Amlodipine Besylate (Amlodipine 5 Mg Tablet) 5 mg PO DAILY [facility] Last Admin: 08/03/20 08:50 Dose: 5 mg Documented by: Apixaban (Apixaban 2.5 Mg Tablet) 2.5 mg PO BID [facility] Last Admin: 08/03/20 08:52 Dose: 2.5 mg Documented by: Aspirin (Aspirin E.C. 81 Mg Tablet) 81 mg PO QHS [facility] Last Admin: 08/02/20 21:34 Dose: 81 mg Documented by: Atorvastatin Calcium (Atorvastatin Calcium 80 Mg Tablet) 80 mg PO QHS [facility] Last Admin: 08/02/20 21:34 Dose: 80 mg Documented by: Calcitriol (Calcitriol 0.25 Mcg Capsule) 0.25 mcg PO DAILY [facility] Last Admin: 08/03/20 08:50 Dose: 0.25 mcg Documented by: Dexamethasone (Dexamethasone 4 Mg Tablet) 6 mg PO DAILY@0800 [facility] Stop: 08/08/20 16:45 Last Admin: 08/03/20 08:49 Dose: 6 mg Documented by: Dextrose (Dextrose 50%-Water 25 Gm/50 Ml Disp.Syrin) 0 gm IV X1 PRN; Protocol PRN Reason: Hypoglycemia Finasteride (Finasteride 5 Mg Tablet) 5 mg PO DAILY [facility] Last Admin: 08/03/20 08:50 Dose: 5 mg Documented by: Glucagon (Glucagon 1 Mg/Ml Syringe) 1 mg IM .X1 PRN PRN Reason: Hypoglycemia Hydralazine HCl (Hydralazine 20 Mg/Ml Vial) 5 mg IV Q4H PRN PRN PRN Reason: SBP >160 or DBP >120. Last Admin: 07/31/20 04:14 Dose: 5 mg Documented by: Sodium Chloride () 1,000 mls @ 75 mls/hr IV .[id number] [facility] Last Admin: 08/03/20 04:04 Dose: 75 mls/hr Documented by: Insulin Glargine (Insulin Glargine 100 Units/Ml Pen) 20 units SC QHS [facility] Last Admin: 08/02/20 21:54 Dose: 20 u Documented by: Insulin Human Lispro (Insulin Lispro 100 Unit/Ml Insuln.Pen) 0 unit SC ACHS [facility]; Protocol Last Admin: 08/03/20 11:15 Dose: 4 units Documented by: Loratadine (Loratadine 10 Mg Tablet) 10 mg PO DAILY PRN PRN Reason: ALLERGIES Nitroglycerin (Nitroglycerin (Inpatient Use) 0.4 Mg Tab.Subl) 0.4 mg SUBLINGUAL Q5M PRN PRN Reason: CARDIAC/CHEST PAIN Sodium Chloride (0.9% Saline Lock 10 Ml Syringe) 10 - 40 ml IV UD PRN PRN Reason: SALINE FLUSH Last Admin: 08/02/20 14:31 Dose: 10 ml Documented by: Medical Necessity - Tobacco Use Smoking Status: Former smoker Tobacco Use: Cigarettes Assessment/Plan All Active Problems (Last Reviewed 07/29/20 @ 12:[address] Dangelo Bird, DO) Pneumonia (Acute) Weakness (Acute) Hypokalemia (Acute) Atrial flutter (Acute) Afib (Acute) Pleural effusion (Acute) COVID-19 (Acute) Patient is a 80-year-old gentleman with multiple comorbidities admitted with progressive shortness of breath and assessment of acute COVID-19 pneumonitis made admitted to monitored bed for further management. 1. Acute COVID-19 infection -Patient was treated with Decadron which he did respond. Patient was not treated with remdesivir in view of kidney function. 2. Paroxysmal A. fib/flutter with episodic slow ventricular response Patient was treated with rate controlling agent as well as systemic anticoagulation with Eliquis 2.5 mg daily. Patient was on atenolol this was discontinued in view of bradycardia 3. Acute on chronic congestive heart failure with preserved ejection fraction o f 55% -Patient was treated with Lasix which was discontinued due to worsening kidney function 4. Chronic kidney disease stage IV with worsening kidney function To have consulted nephrology patient however insisted he did not want any further treatment nor dialysis consult placed to nephrology patient was seen by Dr. Elizabeth Rios who recommended for hospice consultation 5. Obesity with BMI of 40.7 6. Diabetes mellitus type 2 7. Physical deconditioning 8. DVT prophylaxis Inpatient E&M: 98442 Subs Hosp L2
--- NOTE | 2020-08-03 14:19 | CASEMGMT ---
CALVIN spoke with Elsa at Hospice. CALVIN explained situation. CALVIN asked if there was anyway patient could share a room with his . She said she did not think that is possible especially because he is COVID positive. She said she would check and get back to CALVIN. Elsa called SW back and said that Medicare would not allow them to share a room. She asked where he was with his COVID. CALVIN told her he tested positive on the . She asked if he had symptoms. CALVIN told her he is short of breath with exertion, but he is on room air. They can look at him for the inpatient unit, but it does not sound like he would qualify. She asked what the discharge plan would be if he does not qualify for the inpatient unit. CALVIN told her SW will have to call family and find out. SW will get back with her. CALVIN called patient's daughter, Tara and let her know above information. CALVIN told her SW needs to know their plan. She said she will talk with her brother and get back to . Sapna DARNELL MSW
--- NOTE | 2020-08-03 14:51 | CASEMGMT ---
CALVIN spoke with Diana from [facility]. She said she does not know the costs for [facility], but she will have Harper call SW back regarding this information. She also is not sure about which Hospice they use or if [facility] could go into their building. She will have Harper call SW back. CALVIN spoke with patient's daughter. She asked if SW knew the costs for [facility]. CALVIN told her SW is waiting on a call from [facility] regarding their rates and if our local Hospice can go to their facility. She said since her brother is recovering from COVID they do not feel they can provide the care that he needs. They think the best plan would to go to [facility] on Hospice and as soon as he is done with his quarantine could he go to a facility in [place]. CALVIN told her SW will have to find out more answers. It is likely a possibility, but he may have to switch Hospice agencies as well. SW told her SW will find out answers and get back to her. Awaiting call from [facility] regarding private pay costs. CALVIN will also call [facility] and check to see if this may be possible. Sapna DARNELL MSW
--- NOTE | 2020-08-03 15:32 | CON.PCM_ITS ---
Consultation - Renal 08/03/20 PCP/ Referring MD: Requesting physician: [] Primary care physician: Dr. Dangelo Dc MD Reason for Consultation:: acute on CKD Stage 4 - History of Present Illness History of Present Illness: The patient is a 80 year old M with CKD stage 4 due to diabetes, reluctantly had AVF placed left upper arm in prep for hemodialysis. Initially did not want to pursue dialysis then changed his decision and agreed to proceed with access placement. He was admitted on 07/29/20 for shortness of breath for one week, weakness and poor appetite. He was diagnosed with COVID. Edema has resolved with weight loss. He was placed on lasix 80mg twice a day and creatinine increased from mid 3's to 4.8 today. Patient with severe depression, tearful, no will to live. States had a long good life and is ready to . His recently diagnosed with brain cancer s/p seizures and was admitted to hospice facility recently. He states he wants to before her. He denies any cough. He does note nasal congestion. No fevers or chills. He notes body aches. Denies any nausea or vomiting. He tells me that he has no appetite. He has chronic back pain, limited ambulation. Complains of dyspnea with minimal exertion. - Allergies Allergies: Allergies celecoxib [From Celebrex] Allergy (Mild, Verified 07/12/20 13:01) Bleeding GI clonidine Allergy (Verified 07/12/20 13:01) Rash hydrochlorothiazide Allergy (Verified 07/12/20 13:01) Rash gabapentin Adverse Reaction (Verified 07/12/20 13:01) DIZZINESS tiotropium bromide [From Spiriva with HandiHaler] Adverse Reaction (Verified 07/12/20 13:01) IRRITATION TO TEETHE - Current Medications Current Medications: Current Medications Acetaminophen (Acetaminophen 325 Mg Tablet) 650 mg PO Q6H PRN PRN PRN Reason: Pain Score 1-10/Temp > 100.7 F Albuterol Sulfate (Albuterol Ih 8.5 Gm (Proair) Inhaler (200 Puffs)) 1 - 2 puff INHALATION Q4H PRN PRN PRN Reason: SOB &/OR WHEEZING Amlodipine Besylate (Amlodipine 5 Mg Tablet) 5 mg PO DAILY [facility] Last Admin: 08/03/20 08:50 Dose: 5 mg Documented by: Apixaban (Apixaban 2.5 Mg Tablet) 2.5 mg PO BID [facility] Last Admin: 08/03/20 08:52 Dose: 2.5 mg Documented by: Aspirin (Aspirin E.C. 81 Mg Tablet) 81 mg PO QHS [facility] Last Admin: 08/02/20 21:34 Dose: 81 mg Documented by: Atorvastatin Calcium (Atorvastatin Calcium 80 Mg Tablet) 80 mg PO QHS [facility] Last Admin: 08/02/20 21:34 Dose: 80 mg Documented by: Calcitriol (Calcitriol 0.25 Mcg Capsule) 0.25 mcg PO DAILY [facility] Last Admin: 08/03/20 08:50 Dose: 0.25 mcg Documented by: Dexamethasone (Dexamethasone 4 Mg Tablet) 6 mg PO DAILY@0800 [facility] Stop: 08/08/20 16:45 Last Admin: 08/03/20 08:49 Dose: 6 mg Documented by: Dextrose (Dextrose 50%-Water 25 Gm/50 Ml Disp.Syrin) 0 gm IV X1 PRN; Protocol PRN Reason: Hypoglycemia Finasteride (Finasteride 5 Mg Tablet) 5 mg PO DAILY [facility] Last Admin: 08/03/20 08:50 Dose: 5 mg Documented by: Glucagon (Glucagon 1 Mg/Ml Syringe) 1 mg IM .X1 PRN PRN Reason: Hypoglycemia Hydralazine HCl (Hydralazine 20 Mg/Ml Vial) 5 mg IV Q4H PRN PRN PRN Reason: SBP >160 or DBP >120. Last Admin: 07/31/20 04:14 Dose: 5 mg Documented by: Sodium Chloride () 1,000 mls @ 75 mls/hr IV .[id number] [facility] Last Admin: 08/03/20 04:04 Dose: 75 mls/hr Documented by: Insulin Glargine (Insulin Glargine 100 Units/Ml Pen) [facility] Last Admin: 08/02/20 21:54 Dose: 20 u Documented by: Insulin Human Lispro (Insulin Lispro 100 Unit/Ml Insuln.Pen) [facility]; Protocol Last Admin: 08/03/20 11:15 Dose: 4 units Documented by: Loratadine (Loratadine 10 Mg Tablet) 10 mg PO DAILY PRN PRN Reason: ALLERGIES Nitroglycerin (Nitroglycerin (Inpatient Use) 0.4 Mg Tab.Subl) 0.4 mg SUBLINGUAL Q5M PRN PRN Reason: CARDIAC/CHEST PAIN Sodium Chloride (0.9% Saline Lock 10 Ml Syringe) 10 - 40 ml IV UD PRN PRN Reason: SALINE FLUSH Last Admin: 08/02/20 14:31 Dose: 10 ml Documented by: - Past Medical History Past Medical History (Chronic Problems): Chronic Problems (Last Reviewed 07/29/20 @ 12:[address] Dangelo Bird DO) Type 2 diabetes mellitus (Chronic) CKD (chronic kidney disease) stage 4, GFR 15-29 ml/min (Chronic) Atopic dermatitis (Chronic) Pulmonary hypertension (Chronic) Pure hypercholesterolemia (Chronic) Essential hypertension (Chronic) Sinus bradycardia (Chronic) Atherosclerotic heart disease of [place] coronary artery without angina pectoris (Chronic) Mild Renal insufficiency (Chronic) - Past Surgical History Surgical History: appendectomy, arthscropcy, hip, cholecystectomy - Social History Smoking Status: Former smoker - Family History Paternal Family History: Family History (Last Reviewed 07/29/20 @ 12:[address] Dangelo Bird DO) Brother Diabetes Sister CAD (coronary artery disease) CVA (cerebral vascular accident) CHF (congestive heart failure) Son Hypertension Review of Systems Constitutional: Reports: Anorexia, Weakness, Fatigue. Denies: Chills, Fever HEENT: Denies: Head Aches Cardiovascular: Denies: Chest Pain Respiratory: Reports: Shortness of breath upon exertion. Denies: Cough Gastrointestinal: Reports: - - anorexia. Denies: Nausea, Vomiting Musculoskeletal: Reports: Back Pain, - - arthritis Neurological: Reports: Balance problems. Denies: Tremor, Seizures Psychiatric: Reports: Depression Hematologic/ Lymphatic: Reports: Anemia Patient Problems: Active and Suspected Problems (Last Reviewed 07/29/20 @ 12:[address] Dangelo Bird DO) Pneumonia (Acute) Weakness (Acute) Hypokalemia (Acute) Atrial flutter (Acute) Afib (Acute) Pleural effusion (Acute) COVID-19 (Acute) - Physical Exam Vitals/I&O's: Vital Signs Temp Pulse Resp BP Pulse Ox 97.5 F L 61 20 H 141/60 H 98 08/03/20 14:20 08/03/20 15:00 08/03/20 14:50 08/03/20 14:20 08/03/20 14:20 Oxygen Delivery Method Room Air Weight: 132.3 kg Body Mass Index (BMI) 40.7 Finger Stick Blood Glucose 152 Intake and Output for Last 24 Hours 08/01/20 08/02/20 08/03/20 23:59 23:59 23:59 Intake Total 850 / 850 1919 / 2019 1580 / 1580 Output Total 1250 / 1250 1000 / 1000 850 / 850 Balance -400 / -400 920 / 1020 730 / 730 General: Alert, Oriented x3, Cooperative, No apparent distress, - - tearful Extremities: No edema Musculoskeletal: - - generalized weakness Psych/Mental Status: Depressed, Alert and oriented to time, place, person, mood and affect Microbiology Past 72 Hours 07/29/20 09:30 Blood Culture (Wb) - Right Hand Blood Culture - Final No growth in 5 days. 07/29/20 09:25 Blood Culture (Wb) - Anticubital Right Blood Culture - Final No growth in 5 days. Laboratory Results 08/02/20 16:38: POC Glucose 283 H 08/02/20 21:52: POC Glucose 237 H 08/03/20 06:35: Sodium 136, Potassium 3.8, Chloride 101, Carbon Dioxide 22.0, BUN 91 H, Creatinine 4.82 H, Estim Creat Clear Calc 12.58, Est GFR (MDRD) Af Amer 15 L, Est GFR (MDRD) Non-Af 12 L, BUN/Creatinine Ratio 18.9, Glucose 215 H, Calcium 7.6 L, Phosphorus 5.3 H, Albumin 2.6 L 08/03/20 07:14: POC Glucose 209 H 08/03/20 11:11: POC Glucose 226 H Current Medications Acetaminophen (Acetaminophen 325 Mg Tablet) 650 mg PO Q6H PRN PRN PRN Reason: Pain Score 1-10/Temp > 100.7 F Albuterol Sulfate (Albuterol Ih 8.5 Gm (Proair) Inhaler (200 Puffs)) 1 - 2 puff INHALATION Q4H PRN PRN PRN Reason: SOB &/OR WHEEZING Amlodipine Besylate (Amlodipine 5 Mg Tablet) 5 mg PO DAILY [facility] Last Admin: 08/03/20 08:50 Dose: 5 mg Documented by: Apixaban (Apixaban 2.5 Mg Tablet) 2.5 mg PO BID [facility] Last Admin: 08/03/20 08:52 Dose: 2.5 mg Documented by: Aspirin (Aspirin E.C. 81 Mg Tablet) 81 mg PO QHS [facility] Last Admin: 08/02/20 21:34 Dose: 81 mg Documented by: Atorvastatin Calcium (Atorvastatin Calcium 80 Mg Tablet) 80 mg PO QHS [facility] Last Admin: 08/02/20 21:34 Dose: 80 mg Documented by: Calcitriol (Calcitriol 0.25 Mcg Capsule) 0.25 mcg PO DAILY [facility] Last Admin: 08/03/20 08:50 Dose: 0.25 mcg Documented by: Dexamethasone (Dexamethasone 4 Mg Tablet) 6 mg PO DAILY@0800 [facility] Stop: 08/08/20 16:45 Last Admin: 08/03/20 08:49 Dose: 6 mg Documented by: Dextrose (Dextrose 50%-Water 25 Gm/50 Ml Disp.Syrin) 0 gm IV X1 PRN; Protocol PRN Reason: Hypoglycemia Finasteride (Finasteride 5 Mg Tablet) 5 mg PO DAILY [facility] Last Admin: 08/03/20 08:50 Dose: 5 mg Documented by: Glucagon (Glucagon 1 Mg/Ml Syringe) 1 mg IM .X1 PRN PRN Reason: Hypoglycemia Hydralazine HCl (Hydralazine 20 Mg/Ml Vial) 5 mg IV Q4H PRN PRN PRN Reason: SBP >160 or DBP >120. Last Admin: 07/31/20 04:14 Dose: 5 mg Documented by: Sodium Chloride () 1,000 mls @ 75 mls/hr IV .[id number] [facility] Last Admin: 08/03/20 04:04 Dose: 75 mls/hr Documented by: Insulin Glargine (Insulin Glargine 100 Units/Ml Pen) 20 units SC QHS [facility] Last Admin: 08/02/20 21:54 Dose: 20 u Documented by: Insulin Human Lispro (Insulin Lispro 100 Unit/Ml Insuln.Pen) 0 [facility]; Protocol Last Admin: 08/03/20 11:15 Dose: 4 units Documented by: Loratadine (Loratadine 10 Mg Tablet) 10 mg PO DAILY PRN PRN Reason: ALLERGIES Nitroglycerin (Nitroglycerin (Inpatient Use) 0.4 Mg Tab.Subl) 0.4 mg SUBLINGUAL Q5M PRN PRN Reason: CARDIAC/CHEST PAIN Sodium Chloride (0.9% Saline Lock 10 Ml Syringe) 10 - 40 ml IV UD PRN PRN Reason: SALINE FLUSH Last Admin: 08/02/20 14:31 Dose: 10 ml Documented by: Assessment/Plan All Active Problems (Last Reviewed 07/29/20 @ 12:[address] Dangelo Bird, DO) Pneumonia (Acute) Weakness (Acute) Hypokalemia (Acute) Atrial flutter (Acute) Afib (Acute) Pleural effusion (Acute) COVID-19 (Acute) 1. acute on CKD Stage 4 due to aggressive diuresis. No edema. Stop diuretics. Creatinine 4.8 with baseline in mid 3's. AVF placed. Pt does not want dialysis. Considering hospice. Spoke at length with pt valentina Pacheco regarding pt's wishes. Will be discharged to facility temporarily with discharge to home with hospice 2. DM2 stable 3. HTN stable 4. COVID positive. 5. Dyspnea/weakness
--- NOTE | 2020-08-03 16:03 | CASEMGMT ---
CALVIN spoke with Harper with [facility]. She said their private room rate is $222 a day and the semi-private room rate is $201 a day. They usually do want money up front, but her director would have to weigh in on this. She was not sure that they had a contract with [facility]. She will have to check with her director tomorrow as she is out today. CALVIN called Hospice and spoke with Elsa. She said she is not sure they are going to pursue a one time contract for [facility] especially if patient will only be there until Sunday. She said they are not sure about following him at [facility] as it is further away and if his condition deteriorates will they have time to get there and will the facility let them in. She said we will have to touch base tomorrow. CALVIN called patient's daughter and let her know patient is not going to be able to get moved today. CALVIN told her that [facility] would need to talk with [facility] to see if they could get a one time contract. CALVIN told her [facility] is not sure they would do a contract if he is only going to be there until Sunday and then switch to another facility. Patient's daughter then said her brother is going to call Hospice to see what they need to do to get patient set up at home on [facility]osp[facility]. CALVIN asked her if they are planning on him going home now. She said Dr Rios told them that he could possibly return home after being at [facility] until he is out of quarantine. CALVIN explained to her that SW will have to get back with her tomorrow. CALVIN will have to follow up with Hospice and [facility]. CALVIN will talk with Harper from [facility] tomorrow. CALVIN will see what needs to be done to have their preferred Hospice provider follow patient. When patient is ready to discharge from [facility] family will have to switch to [facility] or stay with whichever one will be seeing patient at [facility]. Family will also need to work out financial details with [facility] before he can go since he will be private pay. Sapna RANDALL
[2020-08-03] MEDS: Aspirin E.C. 81 MG Tablet PO (20:27)
[2020-08-03] MEDS: Atorvastatin Calcium 80 MG Tablet PO (20:28)
[2020-08-03 20:36] LABS: Bedside Glucose 221 mg/dL (70-110)
[2020-08-03 22:45] LABS: Bedside Glucose 268 mg/dL (70-110)
[2020-08-04] VITALS (9 sets, daily range): BP systolic 115–139; BP diastolic 54–63; PULSE 50–67; RESP 16–18; TEMP 36.2–36.7; O2SAT 95–98
[2020-08-04] MEDS: Insulin Lispro 100 UNIT/ML INSULN.PEN SC ×4 (06:15→20:51)
[2020-08-04] MEDS: 0.9% Normal Saline 1,000 ML 75 ML IV (06:16)
[2020-08-04 06:40] LABS: Bedside Glucose 160 mg/dL (70-110)
[2020-08-04 08:36] LABS: Albumin, Serum 2.7 g/dL (3.2-5.0); BUN 93 mg/dL (7-18); BUN/Creat Ratio 19.7 RATIO (10-20); Calcium,Total 7.5 mg/dL (8.5-10.1); Chloride 106 mmol/L (98-107); Creatinine, Serum 4.73 mg/dL (0.70-1.30); EST Glomerular Filtration Rate 13 mL/min (>60); Est Glom Filt Rate - Afr Amer 15 mL/min (>60); Estimated Creatinine Clearance 12.82 ml/min; Glucose 147 mg/dL (74-106); Phosphorus 5.3 mg/dL (2.5-4.9); Potassium 3.5 mmol/L (3.5-5.1); Sodium Level 139 mmol/L (136-145)
[2020-08-04] MEDS: dexAMETHasone 4 MG Tablet 6 MG PO (08:53)
[2020-08-04] MEDS: Calcitriol 0.25 MCG Capsule PO (08:54)
[2020-08-04] MEDS: Sertraline 50 MG Tablet PO (08:54)
[2020-08-04] MEDS: APIXABAN 2.5 MG TABLET PO ×2 (08:54→20:51)
[2020-08-04] MEDS: amLODIPine 5 MG Tablet PO (08:54)
--- NOTE | 2020-08-04 09:39 | CASEMGMT ---
CALVIN called patient's daughter to see if the plan is still [facility]. She said that is what she and her brother agreed on. CALVIN told her that going to [facility] is not really going to help or change anything as he will not be getting therapy. She said she understands. CALVIN asked who SW should have [facility] talk with as far as finances. She said that would be her. CALVIN told her [facility] may not be able to see patient at [facility] so they may have one Hospice agency at the facility and then have to switch to [facility] when he goes home. CALVIN told her SW will make some calls and get back with her. CALVIN called Johnathon with Hospice and explained the situation. CALVIN told her the family is still thinking [facility] until his quarantine is over then home on Hospice. CALVIN told Johnathon patient's 10 days from his test would be Sunday and his symptoms started - so 14 days out from then is Sunday-. She said patient's son called and spoke with their SW today and told her they do not have any equipment at home. CALVIN asked Johnathon if she could call the son and let him know they can get whatever equipment they need and see if they still want [facility]. At this point home on [facility] would be the best for the patient. He is doing well with therapy and would maybe need help with meals, cleaning, bathing (someone to be there at least). Going to [facility] on [facility] would not benefit him in any way and he would be paying a lot of money out of pocket. He would not be getting therapy while he is there since he would be on [facility]osp[facility] so if anything he could get weaker. Family could private pay for some assistance at home and it would be cheaper then private paying at the custodial. Patient's son already has COVID so he would not be infecting him. CALVIN will await phone call from Jonhathon with Hospice. Sapna DARNELL MSW
--- NOTE | 2020-08-04 11:16 | PCM.PN.HOSP ---
Patient Problems: Active and Suspected Problems (Last Reviewed 07/29/20 @ 12:[address] Dangelo Bird, DO) Pneumonia (Acute) Weakness (Acute) Hypokalemia (Acute) Atrial flutter (Acute) Afib (Acute) Pleural effusion (Acute) COVID-19 (Acute) Reason for Visit: COVID-19 pneumonitis Chronic kidney disease stage V Subjective: Plan is for patient to be discharged to alf with hospice. Currently awaiting placement. Case management on board Objective: GENERAL: cooperative HEENT: Atraumatic; EYES; Anicteric, Normal Conjunctiva NECK; supple, normal thyroid, RESPIRATORY: Diminished to auscultation CARDIOVASCULAR: Regular S1 S2, GI: soft, normoactive bowel sounds, : No Renal angle tenderness; EXTREMITIES: No edema, no clubbing, MUSCULOSKELETAL: no muscle waisting NEURO: Awake; no lateralizing signs. SKIN: No Rash PSYCH; Flat affect Vitals/I&O's: Vital Signs Temp Pulse Resp BP Pulse Ox 97.5 F L 54 L 18 139/63 H 98 08/04/20 08:51 08/04/20 08:51 08/04/20 08:51 08/04/20 08:51 08/04/20 08:51 Oxygen Delivery Method Room Air Weight: 134.1 kg Body Mass Index (BMI) 40.7 Finger Stick Blood Glucose 152 Intake and Output for Last 24 Hours 08/02/20 08/03/20 08/04/20 23:59 23:59 23:59 Intake Total 1919 / 2020 2775 / 3025 1450 / 1450 Output Total 1000 / 1000 1150 / 1250 100 / 100 Balance 920 / 1020 1625 / 1775 1350 / 1350 Microbiology Past 72 Hours 07/29/20 09:30 Blood Culture (Wb) - Right Hand Blood Culture - Final No growth in 5 days. 07/29/20 09:25 Blood Culture (Wb) - Anticubital Right Blood Culture - Final No growth in 5 days. Laboratory Results 08/03/20 11:11: POC Glucose 226 H 08/03/20 16:42: POC Glucose 221 H 08/03/20 20:36: POC Glucose 268 H 08/04/20 06:15: POC Glucose 160 H 08/04/20 07:54: Sodium 139, Potassium 3.5, Chloride 106, Carbon Dioxide 22.0, BUN 93 H, Creatinine 4.73 H, Estim Creat Clear Calc 12.82, Est GFR (MDRD) Af Amer 15 L, Est GFR (MDRD) Non-Af 13 L, BUN/Creatinine Ratio 19.7, Glucose 147 H, Calcium 7.5 L, Phosphorus 5.3 H, Albumin 2.7 L Current Medications Acetaminophen (Acetaminophen 325 Mg Tablet) 650 mg PO Q6H PRN PRN PRN Reason: Pain Score 1-10/Temp > 100.7 F Albuterol Sulfate (Albuterol Ih 8.5 Gm (Proair) Inhaler (200 Puffs)) 1 - 2 puff INHALATION Q4H PRN PRN PRN Reason: SOB &/OR WHEEZING Amlodipine Besylate (Amlodipine 5 Mg Tablet) 5 mg PO DAILY [facility] Last Admin: 08/04/20 08:54 Dose: 5 mg Documented by: Apixaban (Apixaban 2.5 Mg Tablet) 2.5 mg PO BID [facility]PL[facility]ED BY [facility] Last Admin: 08/04/20 08:54 Dose: 2.5 mg Documented by: Aspirin (Aspirin E.C. 81 Mg Tablet) 81 mg PO QHS [facility]PLACED BY [facility] Last Admin: 08/03/20 20:27 Dose: 81 mg Documented by: Atorvastatin Calcium (Atorvastatin Calcium 80 Mg Tablet) 80 mg PO QHS [facility]PLACED BY [facility] Last Admin: 08/03/20 20:28 Dose: 80 mg Documented by: Calcitriol (Calcitriol 0.25 Mcg Capsule) 0.25 mcg PO DAILY [facility]PL[facility]ED BY [facility] Last Admin: 08/04/20 08:54 Dose: 0.25 mcg Documented by: Dexamethasone (Dexamethasone 4 Mg Tablet) 6 mg PO DAILY@0800 [facility]PL[facility]ED BY [facility] Stop: 08/08/20 16:45 Last Admin: 08/04/20 08:53 Dose: 6 mg Documented by: Dextrose (Dextrose 50%-Water 25 Gm/50 Ml Disp.Syrin) 0 gm IV X1 PRN; Protocol PRN Reason: Hypoglycemia Finasteride (Finasteride 5 Mg Tablet) 5 mg PO DAILY [facility]PL[facility] Last Admin: 08/03/20 08:50 Dose: 5 mg Documented by: Glucagon (Glucagon 1 Mg/Ml Syringe) 1 mg IM .X1 PRN PRN Reason: Hypoglycemia Hydralazine HCl (Hydralazine 20 Mg/Ml Vial) 5 mg IV Q4H PRN PRN PRN Reason: SBP >160 or DBP >120. Last Admin: 07/31/20 04:14 Dose: 5 mg Documented by: Insulin Glargine (Insulin Glargine 100 Units/Ml Pen) 20 units SC QHS REPLACED BY [facility] Last Admin: 08/03/20 20:37 Dose: 20 u Documented by: Insulin Human Lispro (Insulin Lispro 100 Unit/Ml Insuln.Pen) 0 unit SC A[facility] REPLACED BY [facility]; Protocol Last Admin: 08/04/20 06:15 Dose: 2 units Documented by: Loratadine (Loratadine 10 Mg Tablet) 10 mg PO DAILY PRN PRN Reason: ALLERGIES Nitroglycerin (Nitroglycerin (Inpatient Use) 0.4 Mg Tab.Subl) 0.4 mg SUBLINGUAL Q5M PRN PRN Reason: CARDIAC/CHEST PAIN Sertraline HCl (Sertraline 50 Mg Tablet) 50 mg PO DAILY REPLACED BY [facility] Last Admin: 08/04/20 08:54 Dose: 50 mg Documented by: Sodium Chloride (0.9% Saline Lock 10 Ml Syringe) 10 - 40 ml IV UD PRN PRN Reason: SALINE FLUSH Last Admin: 08/02/20 14:31 Dose: 10 ml Documented by: STROKE Vital Signs/Narrative: Vital Signs Temp Pulse Resp BP Pulse Ox 08/04/20 08:51 97.5 F L 54 L 18 139/63 H 98 08/04/20 07:28 55 L Medical Necessity - Tobacco Use Smoking Status: Former smoker Tobacco Use: Cigarettes Assessment/Plan All Active Problems (Last Reviewed 07/29/20 @ 12:[address] Dangelo Bird, DO) Pneumonia (Acute) Weakness (Acute) Hypokalemia (Acute) Atrial flutter (Acute) Afib (Acute) Pleural effusion (Acute) COVID-19 (Acute) Patient is a 80-year-old gentleman with multiple comorbidities admitted with progressive shortness of breath and assessment of acute COVID-19 pneumonitis made admitted to monitored bed for further management. 1. Acute COVID-19 infection -Patient was treated with Decadron which he did respond. Patient was not treated with remdesivir in view of kidney function. 2. Paroxysmal A. fib/flutter with episodic slow ventricular response Patient was treated with rate controlling agent as well as systemic anticoagulation with Eliquis 2.5 mg daily. Patient was on atenolol this was discontinued in view of bradycardia 3. Acute on chronic congestive heart failure with preserved ejection fraction of 55% -Patient was treated with Lasix which was discontinued due to worsening kidney function 4. Chronic kidney disease stage IV with worsening kidney function To have consulted nephrology patient however insisted he did not want any further treatment nor dialysis consult placed to nephrology patient was seen by Dr. Elizabeth Rios who recommended for hospice consultation 5. Obesity with BMI of 40.7 ?Weight loss advised 6. Diabetes mellitus type 2 ?Oral agents on hold placed long-acting insulin in addition to on Accu-Cheks before meals and at bedtime with sliding scale coverage 7. Physical deconditioning - Requested for PT OT eval and mental health social worker to assist with discharge planning 8. Hypertension - Blood pressure controlled, home medications continued with dose adjustment as needed 9. Dyslipidemia -Patient is on statin therapy, continued at home dose 10. BPH ?Patient on finasteride 11. DVT prophylaxis Patient on Eliquis Inpatient E&M: [id number] Subs Hosp L2
[2020-08-04 11:45] LABS: Bedside Glucose 210 mg/dL (70-110)
--- NOTE | 2020-08-04 11:45 | CASEMGMT ---
Addendum entered by Sapna Banks 08/04/20 11:51: CALVIN called Harper with [facility] and let her know patient will now be going home on [facility]. Sapna RANDALL Original Note: After much discussion and back and forth with Hospice and family advocate has agreed to patient coming home on [facility]osp[facility]. Per Johnathon they need more time to get the home ready for him to come home. They are asking if patient could come home tomorrow. SW asked physician and he is okay with patient staying another day. CALVIN called Johnathon back and let her know. She was on the phone with patient's family so she will let them know. CALVIN notified RN, patient, and traveling secretary. Plan: d/c home on [facility] tomorrow, 08-05. Sapna RANDALL
[2020-08-04 17:16] LABS: Bedside Glucose 251 mg/dL (70-110)
[2020-08-04] MEDS: Aspirin E.C. 81 MG Tablet PO (20:51)
[2020-08-04] MEDS: Atorvastatin Calcium 80 MG Tablet PO (20:52)
[2020-08-04 21:10] LABS: Bedside Glucose 208 mg/dL (70-110)
[2020-08-05 03:00] VITALS: BP 118/56; PULSE 60; PULSE 61; RESP 18; TEMP 36.3; O2SAT 93
[2020-08-05 06:35] VITALS: BP 135/62; PULSE 58; RESP 16; TEMP 36.4; O2SAT 97
[2020-08-05 06:45] LABS: Bedside Glucose 134 mg/dL (70-110)
[2020-08-05 07:07] VITALS: O2SAT 97
--- NOTE | 2020-08-05 08:59 | CASEMGMT ---
CALVIN spoke with Johnathon from Hospice and she is trying to get their transport unit to transport patient to the inpatient unit to see his as she is not doing well. They would then transport him home. She asked about his weight distribution as they do not have a bariatric cot. She was wondering if CALVIN could find out if he would be able to fit on a regular cot without hanging off. CALVIN spoke with VIRGIL who has been working with patient this week and it is felt patient would be fine on a regular cot. CALVIN called Johnathon back and let her know this information. Johnathon was going to call patient's family and make sure they are in agreement with this plan. CALVIN will update RN. Sapna DARNELL MSW
[2020-08-05 09:16] VITALS: BP 128/61; PULSE 58; RESP 16; TEMP 36.9; O2SAT 96
[2020-08-05] MEDS: dexAMETHasone 4 MG Tablet 6 MG PO (09:30)
[2020-08-05] MEDS: Finasteride 5 MG Tablet PO (09:30)
[2020-08-05] MEDS: amLODIPine 5 MG Tablet PO (09:32)
[2020-08-05] MEDS: APIXABAN 2.5 MG TABLET PO (09:32)
[2020-08-05] MEDS: Sertraline 50 MG Tablet PO (09:33)
[2020-08-05] MEDS: Calcitriol 0.25 MCG Capsule PO (09:33)
[2020-08-05 10:40] VITALS: PULSE 49
--- NOTE | 2020-08-05 11:13 | CASEMGMT ---
Addendum entered by Sapna Banks 08/05/20 11:17: SW was able to notify RN. Sapna RANDALL Original Note: SW faxed d/c summary and DNR CCA-no intubation to Hospice. They will be here at 1p to pick him up. SW notified secretary book keeper and INTERNAL MEDICINE DOCTOR. SW will try and locate the RN to notify him, however he has been very busy in COVID rooms. Plan: d/c home on [facility]. Hospice will pick patient up at 1p and take him to their inpatient unit to see his as she is a patient there and is not doing well. They will then transport him home. Sapna DARNELL MSW
--- NOTE | 2020-08-05 11:31 | CASEMGMT ---
SW did call patient's daughter and verify that she is aware of the plan and she was aware. Plan: Plan: d/c home on [facility]. Hospice will pick patient up at 1p and take him to their inpatient unit to see his as she is a patient there and is not doing well. They will then transport him home. Sapna DARNELL MSW
[2020-08-05] MEDS: Insulin Lispro 100 UNIT/ML INSULN.PEN SC (12:13)
[2020-08-05 12:40] LABS: Bedside Glucose 169 mg/dL (70-110)
--- NOTE | 2020-08-05 13:46 | CASEMGMT ---
Addendum entered by Sapna Banks 08/05/20 14:02: RN and the other CUSTOMER SUPPORT ADVISOR were notified. Sapna [employer] Addendum entered by Sapna Banks 08/05/20 13:57: Johnathon called SW back and patient's daughter will come and pick him up. CALVIN notified alumni secretary, nurse charge rn, and CUSTOMER SUPPORT ADVISOR. RN was not available. Await daughter's arrival. Sapna [employer] Original Note: [facility] transport drivers showed up to pick patient up. CALVIN told them patient is 5'11 and 295 lbs according to computer for today's weight. CALVIN told them SW spoke with CUSTOMER SUPPORT ADVISOR and his weight is evenly distributed. CALVIN then received a call from Johnathon at [facility] and she said the drivers called and said they were told patient is 300lbs and they do not feel it is safe to transport him. SW tired to reach them, but they already left. CALVIN called Johnathon back. She said she talked with the drivers and they do not feel it is safe to transport him even at 295. CALVIN and Johnathon worked on all of this earlier and it was fine at that time so not sure what changed. 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 Otherwise CALVIN will have to work on setting up transportation for patient with [facility] and he will have to pay for it. He also may not get to see his today. Await call back from Johnathon. Sapna [employer]
== END 2020-08-05 14:25 | disposition hospice, home (50) | DRG 177 ==
LOC: ED 12:00 → PCU 07-30 07:30
PROVIDERS: Internal Medicine Nephrology; Emergency Provider Emergency Medicine; PCP Family Medicine; Visit Provider Internal Medicine
DX: U07.1 COVID-19 (principal); J12.89 Other viral pneumonia; I50.33 Acute on chronic diastolic (congestive) heart failure; I48.19 Other persistent atrial fibrillation; N17.9 Acute kidney failure, unspecified; I13.0 Hypertensive heart and chronic kidney disease with heart failure and stage 1 through stage 4 chronic kidney disease, or unspecified chronic kidney disease; N18.4 Chronic kidney disease, stage 4 (severe); Z68.41 Body mass index [BMI] 40.0-44.9, adult; E11.22 Type 2 diabetes mellitus with diabetic chronic kidney disease; I48.0 Paroxysmal atrial fibrillation; E87.6 Hypokalemia; I27.20 Pulmonary hypertension, unspecified; E78.00 Pure hypercholesterolemia, unspecified; E11.65 Type 2 diabetes mellitus with hyperglycemia; R62.7 Adult failure to thrive; I25.10 Atherosclerotic heart disease of native coronary artery without angina pectoris; E78.5 Hyperlipidemia, unspecified; J45.909 Unspecified asthma, uncomplicated; M19.90 Unspecified osteoarthritis, unspecified site; N40.0 Benign prostatic hyperplasia without lower urinary tract symptoms; F32.9 Major depressive disorder, single episode, unspecified; E66.9 Obesity, unspecified; Z79.82 Long term (current) use of aspirin; Z79.01 Long term (current) use of anticoagulants; Z79.4 Long term (current) use of insulin; Z79.51 Long term (current) use of inhaled steroids; Z79.899 Other long term (current) drug therapy; Z96.642 Presence of left artificial hip joint; Z85.820 Personal history of malignant melanoma of skin
CPT/HCPCS: 36415; 71045; 71250; 80048; 80053; 80069; 81001; 82962; 83605; 83735; 83880; 84443; 84484; 85025; 85379; 85610; 85730; 87040; 87426; 87635; 93005; 93308; 97110; 97116; 97162; 97166; 97530; 97535; 97802; 97803; 99285; J7030; J7040; A4216; U0002